=== PATIENT | female | born 1965 | race Caucasian/White ===

== ENCOUNTER 2020-02-14 16:25 | Emergency (ER) | payer OTHER, SELFPAY | END 2020-02-14 16:42 | disposition left against medical advice (07) | PROVIDERS: Emergency Provider Emergency Medicine; PCP Family Medicine | DX: Z53.8 Procedure and treatment not carried out for other reasons (principal) | CPT/HCPCS: 99199 ==

== ENCOUNTER 2020-03-03 00:19 | Emergency (ER) | payer OTHER, SELFPAY ==
[2020-03-03 00:28] VITALS: BP 138/67; PULSE 70; RESP 18; TEMP 36.1; O2SAT 98
--- NOTE | 2020-03-03 00:30 | ED.ABDPAIN ---
HPI - Abdominal Pain General Chief Complaint: Abdominal Pain Stated Complaint: right sided abd pain Time Seen by Provider: 03/03/20 00:21 History of Present Illness HPI narrative: RLQ pain for a few days. Severe at times. Radiates into her back. Associated with blood and mucous in her stool. Similar to pain she has due to colitis a few months ago. She also has diverticulosis. She sees Dr. Ac. No fever, chest pain, urinary symptoms. On review of the chart there are multiple outside ED records with similar prsentations. Furthermore Dr. Gleason notes that she has been seen in mutiple EDs with these complaints with positive findings only one of those times. Related Data Home Medications Medication Instructions Recorded Confirmed escitalopram oxalate 10 mg tablet 10 mg PO DAILY 01/19/20 03/02/20 risperidone 1 mg/mL oral solution 1 mg PO BID 01/19/20 03/02/20 trazodone 100 mg tablet 100 mg PO DAILY 01/19/20 03/02/20 atorvastatin 20 mg PO DAILY 03/03/20 lorazepam 0.5 mg PO DAILY 03/03/20 Allergies Allergy/AdvReac Type Severity Reaction Status Date / Time No Known Allergies Allergy Verified 03/03/20 01:10 Review of Systems Review of Systems: All systems reviewed & are unremarkable except as noted in HPI and below Constitutional: Constitutional: Denies chills and Denies fever(s) Cardiovascular: Cardiovascular: Denies chest pain Respiratory: Respiratory: Denies dyspnea Gastrointestinal: Gastrointestinal: Reports abdominal pain, Reports diarrhea, Denies nausea and Denies vomiting Genitourinary: Genitourinary: Denies hematuria and Denies dysuria Musculoskeletal: Musculoskeletal: Reports back pain Neurologic: Denies confusion and Denies weakness [facility] Past Medical History Medical History Diverticulosis Family history of colon cancer in father Fatty liver LLQ pain Social History Social History Gender identity (if verbalized by the patient): Female Exam Const: General: healthy appearing, no acute distress and alert Orientation/consciousness: patient oriented x3 HENMT: Head: normal to inspection Resp: Effort & Inspection: normal respiratory effort Auscultation: clear to auscultation bilaterally Cardio: Rate: regular rate Rhythm: regular rhythm GI: Inspection: non-distended GI Palp: Yes Soft to palpation, No Tenderness to palpation present (GI), No Guarding due to palpation present (GI) and No Rebound tenderness present Auscultation: normal bowel sounds Skin: General skin exam: normal color Neuro: General: patient oriented x3, moves all extremities, no focal motor deficits and CN's II-XI intact bilaterally Speech: normal speech Extrem: General: normal to inspection Course Vital Signs Vital signs: Vital Signs Temperature 36.1 C L 03/03/20 00:28 Pulse Rate 70 03/03/20 00:28 Respiratory Rate 18 03/03/20 00:28 Blood Pressure 138/67 03/03/20 00:28 Pulse Oximetry 98 03/03/20 00:28 Temperature 36.1 C L 03/03/20 00:28 Pulse Rate 70 03/03/20 00:28 Respiratory Rate 18 03/03/20 00:28 Blood Pressure 138/67 03/03/20 00:28 Pulse Oximetry 98 03/03/20 00:28 MDM - Abdominal Pain MDM Narrative Medical decision making narrative: After my initial evaluation I ordered pain medication and a CT scan. When they came to get her for the CT she told them that she wasn't going anywhere without getting pain medications. I told her that if she wasn't going to cooperate or allow us to do what needed to be done that she would be discharged. Furthermore that she seemed to be demonstrating drug seeking behavior and given her history of visiting multiple different emergency departments that was quite concerning. Differential Diagnosis Differential diagnosis: Likely abdominal pain Medical Records Attestation: I reviewed the patient's medical records. Lab Data Atte
[2020-03-03 01:14] LABS: Basophils Percent Auto 0.4 % (0.2-1.2); Eosinophils Absolute Auto 0.3 K/mm3 (0-0.3); Eosinophils Percent Auto 4.3 % (0-4.4); Hematocrit 40.5 % (37.0-47.0); Hemoglobin 13.8 g/dL (12.0-15.0); Immature Granulocyte Absolute 0.04 K/mm3 (0.00-0.031); Immature Granulocyte Percent A 0.5 % (0-0.5); Lymphocytes Absolute Auto 2.86 K/mm3 (0.9-3.2); Lymphocytes Percent Auto 38.7 % (18.3-44.2); Mean Corpuscular HGB Conc 34.1 g/dl (32-36); Mean Corpuscular Hemoglobin 30.8 pg (26-34); Mean Corpuscular Volume 90.4 fl (80-100); Mean Platelet Volume 10.1 fl (7.4-10.4); Monocytes Absolute Auto 0.5 K/mm3 (0.1-0.6); Monocytes Percent Auto 7.2 % (2.6-8.5); Neutrophils Absolute Auto 3.6 K/mm3 (1.3-6.7); Neutrophils Percent Auto 48.9 % (45.5-73.1); Platelet Count Result 279 k/mm3 (150-375); Red Blood Count 4.48 M/mm3 (4.2-5.4); Red Cell Distribution Width 12.3 % (11.5-14.5); White Blood Count 7.4 K/mm3 (4.5-10.0)
[2020-03-03 01:29] LABS: Alanine Aminotransferase 27 U/L (4-35); Albumin Level 3.9 g/dL (3.5-5.1); Alkaline Phosphatase 111 U/L (38-126); Anion Gap 4 mmol/L (8-16); Aspartate Amino Transferase 30 U/L (14-36); Bilirubin,Total 0.4 mg/dL (0.2-1.3); Blood Urea Nitrogen 11 mg/dL (7-17); Calcium 8.5 mg/dL (8.4-10.2); Carbon Dioxide 28 mmol/L (22-30); Chloride 107 mmol/L (98-107); Estimated CRCL calculation 106 ml/min; Estimated Glomerular Filt Rate > 60; Glucose 112 mg/dL (65-105); Lipase 78 U/L (23-300); Potassium 3.8 mmol/L (3.4-5.0); Sodium 139 mmol/L (137-145)
[2020-03-03 01:33] LABS: Add Urine Microscopic? YES; Appearance Urine Clear (Clear); Bilirubin Urine Negative (Negative); Blood Urine Negative (Negative); Color Urine Straw (Yellow); Glucose Urine UA Negative (Negative); Ketones Urine Negative (Negative); Leukocyte Esterase Ur Negative LEU/UL (Negative); Mucus Urine Rare /lpf; Nitrate Urine Negative (Negative); Protein Urine Negative (Negative); RBC Urine 0-2 /hpf (0-2); Specific Grav Ur 1.014 (1.001-1.035); Squamous Epithelial Cell Urine Rare /hpf (Few); Urobilinogen Urine Negative mg/dL (<2.0); WBC Urine 0-3 /hpf
--- NOTE | 2020-03-03 02:03 | PC.NURSE ---
pt refused to signed d/c papers
--- NOTE | 2020-03-03 02:04 | PC.NURSE ---
pr pt angry about being in room 4 with a man in room 5 . pt wants a private room . pt also refused to go to ct until she gets her pain med . aware and change her status to discharge.
== END 2020-03-03 02:10 | disposition home or self-care (01) ==
PROVIDERS: Emergency Provider Emergency Medicine; PCP Family Medicine
DX: R10.31 Right lower quadrant pain (principal); K76.0 Fatty (change of) liver, not elsewhere classified
CPT/HCPCS: 36415; 80053; 81001; 83690; 85025; 96374; 99284; J3010

== ENCOUNTER 2020-03-03 00:33 | Outpatient (CLI) | payer OTHER, SELFPAY ==
[2020-03-03 18:02] LABS: SARS-CoV-2 RNA PCR Negative
== END 2020-03-03 00:34 | disposition home or self-care (01) ==
LOC: ANHCOVIDDT 00:33
PROVIDERS: PCP Family Medicine; Visit Provider Internal Medicine Gastroenterology
DX: Z01.812 Encounter for preprocedural laboratory examination (principal); Z20.828 Contact with and (suspected) exposure to other viral communicable diseases
CPT/HCPCS: 87635; C9803; U0003

== ENCOUNTER 2020-03-03 10:08 | Emergency (ER) | payer OTHER, SELFPAY ==
--- NOTE | ~2020-03-03 | CT_ITS ---
EXAMINATION: CT abdomen pelvis w con DATE: 03/03/2020 11:40 INDICATION: History of bloody stools. History of diverticulitis. TECHNIQUE: Computed tomography (CT) of the abdomen and pelvis was performed with 100 cc Omnipaque 350 intravenous contrast. The dose-length product was 788.76 mGy-cm. Automated exposure control and iter ative reconstruction technique were employed. COMPARISON: CT dated 11/18/2018 FINDINGS: Lung bases unremarkable. There are breast implants. Heart size normal. Small hiatal hernia. No significant vascular abnormality. No lymphadenopathy. The liver, spleen, pancreas, adrenal glands and left kidney are unremarkable. Small subcentimeter hyp ovascular density in the right kidney, most likely benign. Gallbladder is present. Nonobstructive bow el gas pattern. Normal appendix. Uterus is likely surgically absent. No evidence for acute diverticul itis. No free air or free fluid. No acute osseous abnormality. Small bone islands noted in the right femur. IMPRESSION: 1. No acute abdominal abnormality. Reviewed, dictated and finalized at location A.
--- NOTE | 2020-03-03 10:26 | PC.NURSE ---
VERBAL ORDER FROM [facility]TA[facility] FOR STAT CT W/ CONTRAST ABD PELVIS.
[2020-03-03 10:27] VITALS: BP 141/70; PULSE 73; RESP 16; TEMP 36.3; O2SAT 99
--- NOTE | 2020-03-03 12:10 | ED.ABDPAIN ---
HPI - Abdominal Pain General Chief Complaint: Abdominal Pain Stated Complaint: abd/back pain/bloody stools Time Seen by Provider: 03/03/20 10:20 History of Present Illness HPI narrative: Patient is a 54-year-old female who presents ER with right lower quadrant pain. Began yesterday at 2 PM. Has been persistent. Associated with some bloody stools and pink mucus stools. Same time has history of polyp removal 6 months ago. She supposed to have a colonoscopy in [address] Rollins. Her chest pain/shortness of breath/nausea/vomiting. Seen in the ER last night and left due to not receiving pain medication. There is concern for drug-seeking behavior as patient's had multiple visits throughout the state for her pain. Related Data Home Medications Medication Instructions Recorded Confirmed escitalopram oxalate 10 mg tablet 10 mg PO DAILY 01/19/20 03/02/20 risperidone 1 mg/mL oral solution 1 mg PO BID 01/19/20 03/02/20 trazodone 100 mg tablet 100 mg PO DAILY 01/19/20 03/02/20 Allergies Allergy/AdvReac Type Severity Reaction Status Date / Time No Known Allergies Allergy Verified 03/03/20 01:10 Review of Systems Review of Systems: All systems reviewed & are unremarkable except as noted in HPI and below Constitutional: Constitutional: Denies chills, Denies fever(s) and Denies weakness Respiratory: Respiratory: Denies cough and Denies dyspnea Gastrointestinal: Gastrointestinal: Reports abdominal pain, Reports diarrhea, Denies nausea and Denies vomiting Comments: Blood in stool PMFSH Past Medical History Medical History (Updated 03/03/20 @ 12:14 by James Burnham MD) Diverticulosis Family history of colon cancer in father Fatty liver LLQ pain Surgical History Surgical History (Updated 03/03/20 @ 12:11 by James Burnham MD) History of colonoscopy History of esophagogastroduodenoscopy (EGD) Social History Social History Gender identity (if verbalized by the patient): Female Exam Narrative: Exam Narrative: GENERAL: Well-appearing, well-nourished, and in no acute distress. HEAD: Normocephalic, atraumatic. ENT: Mucous membranes moist. CHEST: Clear to auscultation. No respiratory distress. HEART: Regular rate and rhythm. Normal peripheral pulses. ABDOMEN: Soft, tender to palpation right upper quadrant and right lower quadrant but more in the lower quadrant, nondistended. EXTREMITIES: Normal range of motion. No edema. NEURO: Alert and oriented x3. Course Course Emergency Course: Informed of results. Discharge home with [facility]. Vital Signs Vital signs: Vital Signs Temperature 97.3 F L 03/03/20 10:27 Pulse Rate 73 03/03/20 10:27 Respiratory Rate 16 03/03/20 10:27 Blood Pressure 141/70 H 03/03/20 10:27 Pulse Oximetry 99 03/03/20 10:27 Temperature 97.3 F L 03/03/20 10:27 Pulse Rate 73 03/03/20 10:27 Respiratory Rate 16 03/03/20 10:27 Blood Pressure 141/70 H 03/03/20 10:27 Pulse Oximetry 99 03/03/20 10:27 MDM - Abdominal Pain Imaging Data Radiologist's impression: ITS Impressions Abdomen/Pelvis CT 03/03/20 11:44 IMPRESSION: 1. No acute abdominal abnormality. Discharge Plan Discharge Clinical Impression: Abdominal pain, RLQ Patient Disposition: Home, Self-Care Condition: Stable Instructions: Abdominal Pain (ED) Additional Instructions: Return the ER if you have fever over 100.4 ?F, you cannot keep down food or water, you have chest pain or shortness of breath, you have additional concerns. Prescriptions: New dicyclomine 20 mg tablet 20 mg PO QID Qty: 20 RF: 0 No Action escitalopram oxalate [Lexapro] 10 mg tablet 10 mg PO DAILY RF: 0 trazodone 100 mg tablet 100 mg PO DAILY RF: 0 risperidone [Risperdal] 1 mg/mL solution 1 mg PO BID RF: 0 Follow-up/Referrals: Luis Rollins MD [Physician] - 3 Days Edilberto,MD Jeremie [
[2020-03-03 12:16] VITALS: BP 127/58; PULSE 60; RESP 16; O2SAT 97
== END 2020-03-03 12:16 | disposition home or self-care (01) ==
PROVIDERS: Emergency Provider Emergency Medicine; PCP Family Medicine
DX: R10.31 Right lower quadrant pain (principal); K76.0 Fatty (change of) liver, not elsewhere classified
CPT/HCPCS: 36415; 74177; 80053; 81001; 83690; 85025; 87635; 96374; 99284; C9803; J3010; Q9967; U0003

== ENCOUNTER 2020-03-06 01:48 | Day surgery (SDC) | payer OTHER, SELFPAY ==
[2020-03-02 15:24] VITALS: BMI 29.7
[2020-03-06 06:17] VITALS: BP 135/67; PULSE 86; RESP 16; TEMP 36.5; O2SAT 98; BMI 29.5
[2020-03-06] MEDS: LACTATED RINGERS 1,000 ML 150 ML IV CONT (06:30)
--- NOTE | 2020-03-06 06:48 | WPDANESEPPF ---
Anes - Initial Pre Proc Eval Procedure: Operation Date: 03/06/20 07:00 Proposed Procedures p Screening Colonoscopy - Luis Rollins MD Date/Time: 03/06/20 06:48 Surgeon: Luis Rollins MD Pre Op Diagnosis: Family History of Colon CA Patient Data Age: 54 Gender: F Height: 5 ft 8 in Weight: 88.1 kg Last Vital Signs Temp 36.5 C 03/06/20 06:17 Pulse 86 03/06/20 06:17 Resp 16 03/06/20 06:17 BP 135/67 03/06/20 06:17 Pulse Ox 98 03/06/20 06:17 Allergies Allergy/AdvReac Type Severity Reaction Status Date / Time No Known Allergies Allergy Verified 03/06/20 06:15 Home Medications Medication Instructions Recorded Confirmed Type escitalopram oxalate 10 mg tablet 10 mg PO DAILY 01/19/20 03/02/20 History risperidone 1 mg/mL oral solution 1 mg PO BID 01/19/20 03/02/20 History trazodone 100 mg tablet 100 mg PO DAILY 01/19/20 03/02/20 History dicyclomine 20 mg PO QID #20 tablet 03/03/20 Rx Patient hx anesthesia problems: none Family hx anesthesia problems: none PMFSH Past Medical History Medical History Anxiety Depression Diverticulosis Family history of colon cancer in father Fatty liver LLQ pain Surgical History Surgical History History of colonoscopy History of esophagogastroduodenoscopy (EGD) Social History Social History Gender identity (if verbalized by the patient): Female Anes - Eval Final PreProcedure Day of Procedure 03/06/20 06:48 Patient weight: overweight Heart: regular rate and rhythm Lungs: clear to auscultation Airway: Mallampati scale class II Neurological: alert and oriented Last oral intake: >/= 8 hours ASA classification: III Emergent: no Anesthetic plan: proceed Anesthesia type and monitoring: general GIVS and standard monitoring Informed Consent: The patient's anesthetic plan and its attendant risks and benefits were discussed with the patient/family/POA. Questions were solicited and answers provided to the satisfaction of the patient/family/POA.
--- NOTE | 2020-03-06 07:19 | PM.HPGS ---
History of Present Illness History of Present Illness Consent: Risks, benefits, and alternatives have been discussed and questions answered. Patient agrees to proceed with procedure. Chief complaint: Family History of Colon CA Narrative: Napoleon Howell is a 54 year old female with intermittent lower abdominal pain, recent CT scan negative. Review of Systems Constitutional: Constitutional: Denies headache(s) and Denies weakness Eyes: Eyes: Denies blurry vision ENT: Reports Normal hearing present, Denies headache(s) and Denies neck pain Cardiovascular: Cardiovascular: Denies chest pain and Denies dyspnea Respiratory: Respiratory: Denies dyspnea Gastrointestinal: Gastrointestinal: Reports no additional gastrointestinal complaints Genitourinary: Genitourinary: Denies dysuria Musculoskeletal: Musculoskeletal: Denies neck pain Integumentary/Breasts: Skin/Breast: Denies dry skin Neurologic: Reports Normal hearing present, Denies headache(s) and Denies weakness Psychiatric: Psychiatric: Denies anxiety Endocrine: Endocrine: Denies change in body appearance Hematologic/Lymphatic: Hematologic/Lymphatic: Denies easy bleeding Allergic/Immunologic: Allergic/Immunologic: Denies urticaria PMFSH Past Medical History Medical History Anxiety Depression Diverticulosis Family history of colon cancer in father Fatty liver LLQ pain Surgical History Surgical History History of colonoscopy History of esophagogastroduodenoscopy (EGD) Social History Social History Gender identity (if verbalized by the patient): Female Meds Home Medications and Allergies Home Medications Medication Instructions Recorded Confirmed Type escitalopram oxalate 10 mg tablet 10 mg PO DAILY 01/19/20 03/02/20 History risperidone 1 mg/mL oral solution 1 mg PO BID 01/19/20 03/02/20 History trazodone 100 mg tablet 100 mg PO DAILY 01/19/20 03/02/20 History dicyclomine 20 mg PO QID #20 tablet 03/03/20 Rx Allergies Allergy/AdvReac Type Severity Reaction Status Date / Time No Known Allergies Allergy Verified 03/06/20 06:15 Vital Signs Vital Signs - 24 hr 03/06/20 06:17 Temperature 97.7 F Pulse Rate 86 Respiratory Rate 16 Blood Pressure 135/67 Pulse Oximetry 98 Exam Const: General: comfortable and no acute distress HENMT: General nose exam: Normal nares present Eyes: General: appearance normal, both eyes and all related structures Neck: Neck: no JVD Resp: Auscultation: clear to auscultation bilaterally Cardio: Rate: regular rate Rhythm: regular rhythm GI: Inspection: non-distended GI Palp: Yes Soft to palpation Skin: General skin exam: normal color Neuro: General: gait normal Speech: normal speech Extrem: General: normal to inspection Psych: Mental Status: mental status grossly normal Assessment and Plan Assessment and plan (1) Diverticulosis: Code(s): K57.90 - Diverticulosis of intestine, part unspecified, without perforation or abscess without bleeding Status: Acute (2) Family history of colon cancer in father: Code(s): Z80.0 - Family history of malignant neoplasm of digestive organs Status: Acute (3) Lower abdominal pain: Code(s): R10.30 - Lower abdominal pain, unspecified Status: Acute Assessment and Plan: will proceed with colonoscopy
[2020-03-06 07:22] VITALS: BP 108/64; PULSE 79; RESP 26; O2SAT 94
[2020-03-06 07:32] VITALS: BP 121/71; PULSE 75; RESP 23; O2SAT 96
[2020-03-06 07:42] VITALS: BP 129/73; PULSE 66; RESP 22; O2SAT 96
== END 2020-03-06 07:51 | disposition home or self-care (01) ==
PROVIDERS: PCP Family Medicine; Visit Provider Internal Medicine Gastroenterology
PROC: 0DJD8ZZ Inspection of Lower Intestinal Tract, Via Natural or Artificial Opening Endoscopic (ICD-10-PCS; CPT 45378; principal; 2020-03-06 07:00)
DX: K57.30 Diverticulosis of large intestine without perforation or abscess without bleeding (principal); K64.8 Other hemorrhoids; Z80.0 Family history of malignant neoplasm of digestive organs; K76.0 Fatty (change of) liver, not elsewhere classified; F41.8 Other specified anxiety disorders
CPT/HCPCS: 45378; J2704; J7120

== ENCOUNTER 2020-11-11 20:21 | Emergency (ER) | payer OTHER, SELFPAY ==
--- NOTE | ~2020-11-11 | CT_ITS ---
EXAMINATION: CT cervical spine wo con DATE: 11/11/2020 20:52 INDICATION: Neck pain TECHNIQUE: Computed tomography (CT) of the cervical spine was performed without intravenous contrast. The dose-length product (DLP) was 406.58 mGy-cm. Automated exposure control and iterative reconstruc tion technique were employed. COMPARISON: None FINDINGS: There is no fracture, dislocation, or subluxation. The vertebral body heights and alignment are maintained. There is mild loss of intervertebral disc space height at C3-4. The odontoid is inta ct. The prevertebral soft tissues are normal. There is a hemangioma in the T3 vertebral body. There a re multiple small lytic areas involving several vertebral bodies. There is mild to moderate multileve l facet and uncovertebral joint osteoarthritis. IMPRESSION: 1. Mild cervical spondylosis without acute findings. 2. Multiple small lytic areas involving several vertebral bodies which could reflect degenerative silvia nge or possibly multiple myeloma or metastatic disease in the appropriate clinical setting. Reviewed, dictated and finalized at location A. IMPRESSION: 1. Mild cervical spondylosis without acute findings. 2. Multiple small lytic areas involving several vertebral bodies which could re flect degenerative change or possibly multiple myeloma or metastatic disease in the appropriate clinical setting.
[2020-11-11 20:30] VITALS: BP 128/85; PULSE 74; RESP 20; TEMP 36.8; O2SAT 98
[2020-11-11] MEDS: DEXAMETHASONE 4 MG TABLET 12 MG PO (20:42)
[2020-11-11] MEDS: BACLOFEN 10 MG TABLET 20 MG PO (20:42)
[2020-11-11] MEDS: KETOROLAC (*BKC) 60 MG/2 ML VIAL IM (20:42)
--- NOTE | 2020-11-11 21:07 | PC.NURSE ---
Pt. up from room at nurses desk p being told that her CT report would be back soon and pt. walked out of ER. Pt. stated as walking out that the Dr wasn't addressing her pain and she was leaving. Pt. informed that her CT would be back very soon and to please allow the pain medication and oral medications she was given to work and that it has only been approx. 15-20 min since meds were given. Pt. didn't want to hear explanation or sign any paperwork and eloped from ER before care was complete.
--- NOTE | 2020-11-11 21:09 | PC.NURSE ---
Pt. walked briskly from ER and no pain noted at time of elopement, pt. moving all extremities and neck and back s any difficulties when leaving.
--- NOTE | 2020-11-12 06:15 | ED.FALL ---
HPI - Fall General Chief Complaint: Fall Stated Complaint: fell hit head hurt neck and back Time Seen by Provider: 11/11/20 20:35 Source: patient Mode of arrival: ambulatory Limitations: no limitations History of Present Illness HPI Narrative: Patient comes in after a fall, in which she fell and hit a table and scraped her forehead. She complains of pain and popping in her neck, especially with movement. She states she has chronically had neck pain, but now it is more severe. She describes this as moderately severe pain, ongoing since fall about 30 minutes prior to presentation here, developing after the fall. Nothing has helped this at home. She also complains of a headache since the fall. She was immediately taken to room #7 and evaluated. No modifying factors. MD complaint: fall Onset (ago): minute(s) Fall from: standing Fall witnessed: no Place fall occurred: home Loss of consciousness: none Prolonged down time: no Symptoms prior to fall: other (simply tripped) Context: tripped/slipped Location of injury: head (scrape on forehead) Related Data Home Medications Medication Instructions Recorded Confirmed escitalopram oxalate 10 mg tablet 10 mg PO DAILY 01/19/20 11/11/20 trazodone 100 mg tablet 100 mg PO DAILY 01/19/20 11/11/20 lamotrigine 25 mg PO DAILY 11/11/20 11/11/20 Allergies Allergy/AdvReac Type Severity Reaction Status Date / Time Penicillins Allergy Unknown Verified 11/11/20 20:35 tramadol Allergy Unknown Verified 11/11/20 20:35 Review of Systems Constitutional: Constitutional: Reports no additional constitutional complaints Eyes: Eyes: Reports no additional eye complaints ENT: Reports system reviewed and no additional complaints, except as documented Cardiovascular: Cardiovascular: Reports no additional cardiovascular complaints Respiratory: Respiratory: Reports no additional respiratory complaints Gastrointestinal: Gastrointestinal: Reports no additional gastrointestinal complaints Genitourinary: Genitourinary: Reports no additional female genitourinary complaints Musculoskeletal: Comments: neck pain with turning neck Integumentary/Breasts: Skin/Breast: Reports system reviewed and no additional complaints, except as docu Neurologic: Reports system reviewed and no additional complaints, except as documented Psychiatric: Psychiatric: Reports no additional psychiatric complaints Endocrine: Endocrine: Reports no additional endocrine complaints Hematologic/Lymphatic: Hematologic/Lymphatic: Reports no additional hematologic/lymphatic complaints Allergic/Immunologic: Allergic/Immunologic: Reports no additional allergic/immunologic complaints [facility] Past Medical History Medical History Anxiety Depression Diverticulosis Family history of colon cancer in father Fatty liver LLQ pain Lower abdominal pain Surgical History Surgical History History of colonoscopy History of esophagogastroduodenoscopy (EGD) Social History Social History (Updated 11/12/20 @ 06:25 by Kyler Castanon MD) Smoking status: Current every day smoker Tobacco type: cigarettes Gender identity (if verbalized by the patient): Female Exam Const: General: alert Orientation/consciousness: patient oriented x3 HENMT: Head: normal to inspection Ears: external ears normal and TM's normal bilaterally Face and sinus: normal facial exam Mouth: Yes Normal oral and palatal mucosa present Throat: posterior oropharynx normal Eyes: Conjunctivae: conjunctivae normal Neck: Other: Visual inspection of neck shows neck appear to move with turning head, and she appears to have pain with turning head to the left Chest: Chest palpation & inspection: normal inspection of the chest Resp: Effort & Inspection: normal respiratory effort Auscultation: clear to auscultation bilaterally Cardio: Rate: regular rate Rhythm:
== END 2020-11-11 21:13 | disposition left against medical advice (07) ==
PROVIDERS: Emergency Provider Emergency Medicine; PCP Family Medicine
DX: C90.00 Multiple myeloma not having achieved remission (principal); W19.XXXA Unspecified fall, initial encounter
CPT/HCPCS: 72125; 96372; 99283; 99284; A9270; J1885; J8540

== ENCOUNTER 2020-11-30 00:12 | Emergency (ER) | payer OTHER, SELFPAY ==
--- NOTE | ~2020-11-30 | CT_ITS ---
EXAMINATION: CT lumbar spine wo con EXAM DATE: 11/30/2020 00:52 INDICATION: Low back pain after lifting person today. TECHNIQUE: Spiral CT lumbar spine was performed without contrast. Axial, coronal and sagittal images of the lumbar spine were reviewed. The dose-length product (DLP) for this examination was 1387.70 mGy -cm. The exposure was tailored according to patient size (auto mA exposure control), and iterative r econstruction (ASIR) was used as additional dose reduction technique. Correlation is made to CT abdom en pelvis 2018. FINDINGS: Some scattered regions of decreased bone density, most are less pronounced than on cervical spine exa m same date. The posterior cortex of the S2 segment is not perceptible, but no definite extraosseous soft tissue is identified. Correlation was made with CT abdomen pelvis 11/18/2018, and could identify posterior cortex at that time. Could be focal osteopenia, but metastatic disease or multiple myeloma also possible. Please note that multiple myeloma typically not well visualized on bone scan. Could co nsider MRI of the lumbar spine without and with contrast. There is no evidence of acute lumbar fracture. There is no disc space widening or traumatic vertebra l body subluxation suspected. Paraspinal soft tissue is unremarkable. Mild lumbar disc disease, mil d to moderate facet arthropathy. A detailed level by level evaluation of spondylosis can be added as addendum if requested. IMPRESSION: 1. Possible multiple myeloma or metastatic disease. 2. Mild to moderate lumbar facet arthropathy. 3. No fracture Reviewed, dictated and finalized at location A.
--- NOTE | ~2020-11-30 | CT_ITS ---
EXAMINATION: CT cervical spine wo con EXAM DATE: 11/30/2020 00:52 INDICATION: Neck and low back pain after lifting a person today, initial encounter. TECHNIQUE: Spiral CT of the cervical spine was performed without contrast. Axial images were reviewe d. Coronal and sagittal reformatted images cervical spine were also reviewed. The dose-length produc t (DLP) for this examination was 429.54 mGy-cm. The exposure was tailored according to patient size (auto mA exposure control), and iterative reconstruction (ASIR) was used as additional dose reduction technique. Comparison is made to prior examination from 11/11/2020. FINDINGS: There is a hemangioma in the T3 vertebral body. There are scattered small osseous lucencies up to about 1 cm in size, possible metastatic disease or multiple myeloma. There is no evidence of a cute cervical fracture. The odontoid process is intact. Pre-dens space is normal. Prevertebral sof t tissue is normal. There are no soft tissue abnormalities identified. There is no disc space widen ing or traumatic vertebral body subluxation suspected. There is mild cervical disc disease. There is severe left facet arthropathy at C3-4, severe on the right at C4-5 and C5-C6. Number than mild neura l foraminal or central canal stenosis. Lung apices are clear. A detailed level by level evaluation of spondylosis can be added as addendum if requested. IMPRESSION: 1. Scattered cervical osseous lucencies suspicious for multiple myeloma or metastatic disease. 2. Cervical spondylosis but no more than mild stenosis. 3. No acute fracture. Reviewed, dictated and finalized at location A. IMPRESSION: 1. Scattered cervical osseous lucencies suspicious for multiple myeloma or met astatic disease. 2. Cervical spondylosis but no more than mild stenosis. 3. No acute fracture.
[2020-11-30 00:12] VITALS: BP 142/83; PULSE 68; RESP 20; TEMP 36.3; O2SAT 97
--- NOTE | 2020-11-30 00:37 | PC.NURSE ---
pt declined medications ordered by dr woods.
[2020-11-30] MEDS: MORPHINE SULFATE (*CRX) 4 MG/ML INJ IM (01:04)
[2020-11-30] MEDS: ORPHENADRINE CITRATE 100 MG TABLET.ER PO (01:09)
--- NOTE | 2020-11-30 01:34 | ED.BACK ---
HPI - Back Pain/Injury General Chief Complaint: Back Pain/Injury Stated Complaint: Back Pain/Lower Source: patient Mode of arrival: ambulatory Limitations: no limitations History of Present Illness HPI Narrative: this is a 55-year-old female that presents with some neck pain and lower back pain after she was at a concert and had a client that she had a lift and she injured her neck and back while in that process. The patient has chronic numbness and tingling in her hands. With no numbness or tingling or radiation down her legs no saddle paresthesias no bladder or bowel dysfunction no fever or chills shortness of breath no headaches or blurry vision. MD elicited complaint: back pain and back injury Pertinent past history: prior back pain Onset (ago): hour(s) Timing: constant Severity: severe Pain scale (0-10): 10 Similar Symptoms Previously: Yes Quality: sharp Location: lumbar spine Exacerbating factors: movement Relieving factors: immobilization Context: while lifting and turning/twisting Related Data Home Medications Medication Instructions Recorded Confirmed escitalopram oxalate 10 mg tablet 10 mg PO DAILY 01/19/20 11/30/20 trazodone 100 mg tablet 100 mg PO DAILY 01/19/20 11/30/20 lamotrigine 25 mg PO DAILY 11/11/20 11/30/20 Allergies Allergy/AdvReac Type Severity Reaction Status Date / Time Penicillins Allergy Unknown Verified 11/11/20 20:35 tramadol Allergy Unknown Verified 11/11/20 20:35 Review of Systems Review of Systems: All systems reviewed & are unremarkable except as noted in HPI and below PMFSH Past Medical History Medical History Anxiety Depression Diverticulosis Family history of colon cancer in father Fatty liver LLQ pain Lower abdominal pain Surgical History Surgical History History of colonoscopy History of esophagogastroduodenoscopy (EGD) Social History Social History Smoking status: Current every day smoker Tobacco type: cigarettes Gender identity (if verbalized by the patient): Female Exam Const: General: no acute distress and alert Orientation/consciousness: patient oriented x3 HENMT: Head: normal to inspection Eyes: Conjunctivae: conjunctivae normal Pupils: Equal, round and reactive pupils present EOM: EOMs intact bilaterally Neck: Neck: normal visual inspection, no lymphadenopathy and no meningeal signs Chest: Chest palpation & inspection: normal inspection of the chest Resp: Effort & Inspection: normal respiratory effort Auscultation: clear to auscultation bilaterally Cardio: Rate: regular rate Rhythm: regular rhythm GI: Auscultation: normal bowel sounds : General: Yes no CVA tenderness Back/Spine/Pelvis: Back: no CVA tenderness Skin: General skin exam: normal color Rashes: no rashes Neuro: General: patient oriented x3, moves all extremities and no meningeal signs Extrem: Other: Bilateral L4 paravertebral tenderness with palpation with a negative straight leg raising test, does have some muscle tenderness in her posterior cervical spine area with palpation Psych: Mental Status: mental status grossly normal Affect: normal affect and Anxious affect present Attitude: cooperative Course Course Emergency Course: patient initially refused Toradol and orphenadrine, but eventually was okay with some dose of morphine IM and orphenadrine and CT scans reviewed with patient. Vital Signs Vital signs: Vital Signs Temperature 36.3 C L 11/30/20 00:12 Pulse Rate 68 11/30/20 00:12 Respiratory Rate 20 11/30/20 00:12 Blood Pressure 142/83 H 11/30/20 00:12 Pulse Oximetry 97 11/30/20 00:12 Temperature 36.3 C L 11/30/20 00:12 Pulse Rate 68 11/30/20 00:12 Respiratory Rate 20 11/30/20 00:12 Blood Pressure 142/83 H 11/30/20 00:12 Pulse Oximetry 97 11/30/20 00:12
[2020-11-30] MEDS: diphenhydrAMINE HCl CAP 25 MG CAPSULE PO (01:47)
--- NOTE | 2020-11-30 01:58 | PC.NURSE ---
0140 pt complaint of itching after morphine, requesting benadryl. erp notified and order received. prior to administration, pt stated she is not allergic to morphine but it does make her itch. explained she may not want to take medication, pt wanting morphine. morphine administered as ordered.
[2020-11-30 02:12] VITALS: BP 151/56; PULSE 58; RESP 18; O2SAT 97
== END 2020-11-30 02:22 | disposition home or self-care (01) ==
PROVIDERS: Emergency Provider Emergency Medicine; PCP Physician Assistant
DX: S39.012A Strain of muscle, fascia and tendon of lower back, initial encounter (principal); M85.89 Other specified disorders of bone density and structure, multiple sites; X50.9XXA Other and unspecified overexertion or strenuous movements or postures, initial encounter
CPT/HCPCS: 72125; 72131; 96372; 99283; 99284; A9270; J2270

== ENCOUNTER 2021-01-27 08:21 | Emergency (ER) | payer OTHER, SELFPAY ==
[2021-01-27 08:35] VITALS: BP 111/74; PULSE 78; RESP 20; TEMP 37; O2SAT 98
--- NOTE | 2021-01-27 08:56 | ED.URI ---
HPI - URI/Sore Throat General Chief Complaint: Upper Respiratory Infection Stated Complaint: Sob headache Time Seen by Provider: 01/27/21 08:25 Source: patient and RN notes reviewed Mode of arrival: ambulatory Limitations: no limitations History of Present Illness MD elicited complaint: sore throat and nasal congestion Onset (ago): day(s) (3) Consistency: constant Severity: mild Pain scale (0-10): 0 Able to tolerate fluids by mouth: Yes Exacerbating factors: nothing Relieving factors: OTC cold medicine Associated symptoms: denies other symptoms, headache and sore throat Related Data Allergies Allergy/AdvReac Type Severity Reaction Status Date / Time Penicillins Allergy Unknown Verified 11/11/20 20:35 tramadol Allergy Unknown Verified 11/11/20 20:35 Review of Systems Review of Systems: All systems reviewed & are unremarkable except as noted in HPI and below Constitutional: Constitutional: Reports as per HPI and Reports no additional constitutional complaints Eyes: Eyes: Reports as per HPI and Reports no additional eye complaints ENT: Reports system reviewed and no additional complaints, except as documented and Reports as per HPI Cardiovascular: Cardiovascular: Reports as per HPI and Reports no additional cardiovascular complaints Respiratory: Respiratory: Reports as per HPI and Reports no additional respiratory complaints Gastrointestinal: Gastrointestinal: Reports as per HPI and Reports no additional gastrointestinal complaints Genitourinary: Genitourinary: Reports no additional female genitourinary complaints and Reports as per HPI Musculoskeletal: Musculoskeletal: Reports no additional musculoskeletal complaints and Reports as per HPI Integumentary/Breasts: Skin/Breast: Reports system reviewed and no additional complaints, except as docu and Reports as per HPI Neurologic: Reports system reviewed and no additional complaints, except as documented and Reports as per HPI Psychiatric: Psychiatric: Reports no additional psychiatric complaints and Reports as per HPI Endocrine: Endocrine: Reports no additional endocrine complaints and Reports as per HPI Hematologic/Lymphatic: Hematologic/Lymphatic: Reports no additional hematologic/lymphatic complaints and Reports as per HPI Allergic/Immunologic: Allergic/Immunologic: Reports no additional allergic/immunologic complaints [facility] Past Medical History Medical History Anxiety Depression Diverticulosis Family history of colon cancer in father Fatty liver LLQ pain Lower abdominal pain Surgical History Surgical History History of colonoscopy History of esophagogastroduodenoscopy (EGD) Social History Social History Smoking status: Current every day smoker Tobacco type: cigarettes Gender identity (if verbalized by the patient): Female Exam Const: General: no acute distress and alert Orientation/consciousness: patient oriented x3 HENMT: Head: normal to inspection Ears: external ears normal and TM's normal bilaterally General nose exam: Normal external nose present and Normal nares present Mouth: Yes moist mucous membranes Other: mild pharyngeal redness with no acute swelling or exudates. no stridor. Eyes: Conjunctivae: conjunctivae normal Pupils: Equal, round and reactive pupils present EOM: EOMs intact bilaterally Neck: Neck: normal visual inspection and no lymphadenopathy Chest: Chest palpation & inspection: normal inspection of the chest Resp: Effort & Inspection: normal respiratory effort Auscultation: clear to auscultation bilaterally Cardio: Rhythm: regular rhythm GI: GI Palp: Yes Soft to palpation Percussion: Yes normal to percussion Auscultation: normal bowel sounds : General: Yes bladder normal to palpation and Yes no CVA tenderness Back/Spine/Pelvis: Back: n
[2021-01-27] MEDS: ACETAMINOPHEN 325 MG TABLET 650 MG PO (09:02)
[2021-01-27] MEDS: guaiFENesin/DEXTROMETHORPHAN 5 ML UDC 10 ML PO (09:02)
[2021-01-27 09:10] VITALS: RESP 16
== END 2021-01-27 09:10 | disposition home or self-care (01) ==
PROVIDERS: Emergency Provider Emergency Medicine; PCP Physician Assistant
DX: B34.9 Viral infection, unspecified (principal); J06.9 Acute upper respiratory infection, unspecified; J02.9 Acute pharyngitis, unspecified
CPT/HCPCS: 99283; A9270

== ENCOUNTER 2021-06-27 18:16 | Emergency (ER) | payer OTHER, MEDICAID, SELFPAY ==
--- NOTE | ~2021-06-27 | XR_ITS ---
EXAMINATION: XR chest 1V portable EXAM DATE: 06/27/2021 18:47 INDICATION: Central chest pain with SOB and weakness x couple days. TECHNIQUE: Portable AP frontal chest x-ray was obtained. There is no prior study for comparison. FINDINGS: The lungs are clear. There are no pleural effusions. The cardiomediastinal silhouette is within normal limits. There is no pneumothorax suspected. The bones and soft tissues are unremarkab le. IMPRESSION: No acute cardiopulmonary findings. Reviewed, dictated and finalized at location A. ECTIONS ANALYST
[2021-06-27 18:20] VITALS: BP 133/75; PULSE 63; PULSE 73; RESP 16; TEMP 36.5; O2SAT 96
--- NOTE | 2021-06-27 18:29 | ECG_ITS ---
Measurements Intervals [place] Rate: 67 P: 73 MD: 128 QRS: 71 QRSD: 76 T: 61 QT: 416 QTc: 441 Interpretive Statements SINUS RHYTHM INCOMPLETE RIGHT BUNDLE BRANCH BLOCK BASELINE ARTIFACT- I, III, AVR, AVL, AVF BORDERLINE ECG Electronically Signed On 06-28-2021 6:13:20 [employer] by Galo Short D.O.
[2021-06-27] MEDS: NITROGLYCERIN SL 0.4 MG TABLET SUBLINGUAL ×2 (18:52→19:05)
[2021-06-27] MEDS: ASPIRIN 81 MG CHEWABLE TABLET 324 MG PO (18:56)
[2021-06-27] MEDS: SODIUM CHLORIDE 0.9% IV 500 ML 999 ML IV CONT (18:56)
[2021-06-27 19:09] LABS: Hematocrit 40.5 % (35.0-49.0); Hemoglobin 13.8 g/dL (12.0-15.0); Mean Corpuscular HGB Conc 34.1 g/dL (32.0-36.0); Mean Corpuscular Hemoglobin 31.1 pg (27.0-31.0); Mean Corpuscular Volume 91.2 fL (78.0-102.0); Mean Platelet Volume 10.4 fl (9.2-11.8); Platelet Count Result 200 K/mm3 (150-420); Red Blood Count 4.44 M/mm3 (4.20-5.40); Red Cell Distribution Width 11.8 % (11.6-14.4); White Blood Count 2.5 K/mm3 (4.8-10.8)
[2021-06-27 19:23] LABS: D Dimer 0.48 mg/L (0.19-0.50)
[2021-06-27] MEDS: MORPHINE SULFATE (*CRX) 2 MG/ML INJ IV PUSH (19:25)
[2021-06-27 19:33] LABS: Alanine Aminotransferase 18 U/L (14-59); Albumin Level 3.5 g/dL (3.4-5.0); Alkaline Phosphatase 105 U/L (46-116); Anion Gap 12 mmol/L (8-16); Aspartate Amino Transferase 18 U/L (15-37); Bilirubin,Total 0.3 mg/dL (0.00-1.00); Blood Urea Nitrogen 17 mg/dL (7-18); Calcium 8.3 mg/dL (8.5-10.1); Carbon Dioxide 24 mmol/L (21-32); Chloride 106 mmol/L (98-108); Estimated CRCL calculation 68 ml/min; Estimated Glomerular Filt Rate > 60; Glucose 91 mg/dL (70-99); NT Pro B Type Natriuretic Pept 19 pg/mL (0-125); Osmolality Calculated 295 mOsm/kg (285-295); Potassium 3.6 mmol/L (3.5-5.1); Sodium 142 mmol/L (136-145); Total Protein 6.6 g/dL (6.4-8.2); Troponin I 4.1 ng/L (0.00-60.4)
[2021-06-27 19:48] LABS: Band Neutrophils Percent 0 % (0-6); Basophils Absolute Manual 0.02 K/mm3 (0-0.1); Basophils Percent Manual 1 % (0-1); Eosinophils Absolute Manual 0.05 K/mm3 (0.02-0.5); Eosinophils Percent Manual 2 % (1-6); Lymphocytes Percent Manual 52 % (18-44); Monocytes Percent Manual 20 % (3-9); Neutrophils Absolute Manual 0.62 K/mm3 (1.7-7.2); Neutrophils Percent Manual 25 % (46-73); Platelet Estimate Adequate (Adequate)
[2021-06-27] MEDS: MAG HYDROX/ALUMINUM HYD/SIMETH 30 ML, PHENobarb/HYOSCY/ATROPINE/SCOP 32.4 MG, LIDOCAINE... PO (19:49)
[2021-06-27 20:00] VITALS: BP 121/69; PULSE 63; RESP 18; O2SAT 96
--- NOTE | 2021-06-27 20:05 | ED.CHESTPAIN ---
HPI - Chest Pain General Chief Complaint: Chest Pain Stated Complaint: Chest pain Source: patient Mode of arrival: ambulatory Limitations: no limitations History of Present Illness HPI narrative: This is a 55-year-old female that presents with a chest tightness that started earlier today and has significantly gotten worse as the night went on she describes it is a tightness in her epigastric and lower substernal area with no shortness of breath no diaphoresis no nausea or vomiting, has no known history of heart disease, is a positive smoker no family history of heart disease. Patient has been vaccinated for COVID but tested positive today for rapid COVID test at home. Currently no fever chills no shortness of breath no cough no congestion. MD complaint: chest pain and chest heaviness Onset (ago): hour(s) Timing of current episode: constant Prior episodes: No Onset: during rest Pain location: substernal and epigastric Pain radiation: none Severity: moderate Quality: tightness Relieving factors: nitroglycerin and antacids Related Data Home Medications Medication Instructions Recorded Confirmed escitalopram oxalate 10 mg PO DAILY 06/27/21 06/27/21 trazodone 100 mg PO HS 06/27/21 06/27/21 Allergies Allergy/AdvReac Type Severity Reaction Status Date / Time Penicillins Allergy Unknown Verified 11/11/20 20:35 tramadol Allergy Unknown Verified 11/11/20 20:35 Review of Systems Review of Systems: All systems reviewed & are unremarkable except as noted in HPI and below PMFSH Past Medical History Medical History Anxiety Depression Diverticulosis Family history of colon cancer in father Fatty liver LLQ pain Lower abdominal pain Surgical History Surgical History History of colonoscopy History of esophagogastroduodenoscopy (EGD) Social History Social History Smoking status: Current every day smoker Tobacco type: cigarettes Gender identity (if verbalized by the patient): Female Exam Const: General: no acute distress and alert Orientation/consciousness: patient oriented x3 HENMT: Head: normal to inspection and contusion Eyes: Pupils: Equal, round and reactive pupils present EOM: EOMs intact bilaterally Direct Ophthalmoscopy: no photophobia Neck: Neck: normal visual inspection, no lymphadenopathy and no meningeal signs Chest: Chest palpation & inspection: normal inspection of the chest Resp: Effort & Inspection: normal respiratory effort Auscultation: clear to auscultation bilaterally Cardio: Rate: regular rate Rhythm: regular rhythm GI: GI Palp: Yes Soft to palpation : General: Yes no CVA tenderness Urinary Catheter: Urinary Catheter: patent and draining Back/Spine/Pelvis: Back: no CVA tenderness Skin: General skin exam: normal color Rashes: no rashes Neuro: General: patient oriented x3 and moves all extremities Extrem: General: normal to inspection and no pedal edema Psych: Mental Status: mental status grossly normal Affect: normal affect Course Course Emergency Course: Reviewed EKG/chest x-ray and labs with patient all within normal limits, the patient was given 2 doses of sublingual nitro and morphine, which relieved her discomfort slightly, troponins were negative EKG with no ST or T changes patient was given a GI cocktail which improved her symptoms significantly. Vital Signs Vital signs: Vital Signs Temperature 36.5 C 06/27/21 18:20 Pulse Rate 73 06/27/21 18:20 Respiratory Rate 16 06/27/21 18:20 Blood Pressure 133/75 06/27/21 18:20 Pulse Oximetry 96 06/27/21 18:20 Temperature 36.5 C 06/27/21 18:20 Pulse Rate 63 06/27/21 20:00 Respiratory Rate 18 06/27/21 20:00 Blood Pressure 121/69 06/27/21 20:00 Pulse Oximetry 96 06/27/21 20:00 MDM - Chest Pain Lab Data
[2021-06-27 20:08] VITALS: BP 134/77; PULSE 65; RESP 18; TEMP 36.6; O2SAT 98
== END 2021-06-27 20:13 | disposition home or self-care (01) ==
PROVIDERS: Emergency Provider Emergency Medicine; PCP Physician Assistant
DX: R07.89 Other chest pain (principal)
CPT/HCPCS: 36415; 71045; 80053; 83880; 84484; 85025; 85380; 93005; 96361; 96374; 99283; 99284; A9270; J2270; J7040

== ENCOUNTER 2021-09-10 20:59 | Emergency (ER) | payer MEDICAID, SELFPAY ==
[2021-09-10 21:06] VITALS: BP 130/70; PULSE 84; RESP 18; TEMP 35.9; O2SAT 99
--- NOTE | 2021-09-10 21:15 | ED.LOWEXIN ---
HPI - Extremity Injury (Lower) General Stated Complaint: possible blood clot, SOB, jaw and neck pain Source: patient Mode of arrival: ambulatory Limitations: no limitations History of Present Illness HPI Narrative: pt rode in car yesterday for twelve hours and noticed tender firm spot on top of right thigh and became concerned she might have blood clot. Pt also complains of neck and shoulder discomfort. Related Data Home Medications Medication Instructions Recorded Confirmed escitalopram oxalate 10 mg PO DAILY 06/27/21 06/27/21 trazodone 100 mg PO HS 06/27/21 06/27/21 Allergies Allergy/AdvReac Type Severity Reaction Status Date / Time Penicillins Allergy Unknown Verified 09/10/21 21:15 tramadol Allergy Unknown Verified 09/10/21 21:15 Review of Systems Review of Systems: All systems reviewed & are unremarkable except as noted in HPI and below PMFSH Past Medical History Medical History Anxiety Depression Diverticulosis Family history of colon cancer in father Fatty liver LLQ pain Lower abdominal pain Surgical History Surgical History History of colonoscopy History of esophagogastroduodenoscopy (EGD) Social History Social History Smoking status: Current every day smoker Tobacco type: cigarettes Gender identity (if verbalized by the patient): Female Exam Const: General: no acute distress Orientation/consciousness: patient oriented x3 Neck: Neck: normal visual inspection Chest: Chest palpation & inspection: normal inspection of the chest Resp: Effort & Inspection: normal respiratory effort Cardio: Rate: regular rate Neuro: General: patient oriented x3 and moves all extremities Extrem: Other: small superficial area of tenderness on top of right thigh no calf tenderness no swelling Psych: Appearance: grossly normal Mental Status: mental status grossly normal Thought content: Yes Normal thought content present Course Course Emergency Course: unlikely to be DVT, could be superficial clot, cannot get doppler tonight, pt wants to go home and see PCP tomorrow to order test Discharge Plan Discharge Clinical Impression: Superficial thrombophlebitis Qualifiers: Superficial thrombophlebitis-Involved body area: lower extremity Laterality: right Qualified Code(s): I80.01 - Phlebitis and thrombophlebitis of superficial vessels of right lower extremity Patient Disposition: Home, Self-Care Condition: Stable Instructions: Antibiotic Form Additional Instructions: follow up with PCP to get venous doppler if concerned for DVT Prescriptions: No Action trazodone 100 mg tablet 100 mg PO HS RF: 0 escitalopram oxalate 10 mg tablet 10 mg PO DAILY RF: 0 Follow-up/Referrals: Bev,FRANCE Poe [Primary Care Provider] -
== END 2021-09-10 21:25 | disposition home or self-care (01) ==
PROVIDERS: Emergency Provider Emergency Medicine; PCP Physician Assistant
DX: I80.01 Phlebitis and thrombophlebitis of superficial vessels of right lower extremity (principal)
CPT/HCPCS: 99282

== ENCOUNTER 2021-10-14 08:24 | Emergency (ER) | payer BC, SELFPAY ==
--- NOTE | ~2021-10-14 | CT_ITS ---
EXAMINATION: CT brain wo con DATE: 10/14/2021 09:06 INDICATION: Dizziness, disorientation, headache for 2 days. Nausea. TECHNIQUE: Computed tomography (CT) of the head was performed without intravenous contrast. The mA wa s adjusted according to patient size. Iterative reconstruction technique was employed. Exam dose: 60 5.33 mGy-cm total exam DLP. COMPARISON: None FINDINGS: Mild cerebral atherosclerotic calcification. No intracranial mass lesion or hemorrhage or c erebrovascular accident. No midline shift or mass effect. Normal ventricular size. No subdural or epi dural hematoma. Some scleral calcifications are noted at both orbital globes. There is limited development and aeration of the right mastoid air cells. There is some soft tissue t hickening at the right frontoethmoid area. The paranasal sinuses and left mastoid air cells are other reyna unremarkable. No fracture or bone destruction of the cranial vault. IMPRESSION: No acute intracranial finding Mild cerebral atherosclerosis Reviewed, dictated and finalized at Location [facility]. Reviewed, dictated and finalized at location A.
[2021-10-14 08:41] VITALS: BP 105/65; PULSE 75; RESP 20; TEMP 36.6; O2SAT 96
--- NOTE | 2021-10-14 08:49 | ECG_ITS ---
Measurements Intervals [place] Rate: 57 P: 70 [place]: 148 QRS: 71 QRSD: 77 T: 69 QT: 429 QTc: 419 Interpretive Statements SINUS BRADYCARDIA OTHERWISE NORMAL ECG COMPARED TO ECG 06/27/2021 18:23:27 SINUS BRADYCARDIA NOW PRESENT Electronically Signed On 10-14-2021 16:58:36 CDT by Gregorio Culp M.D.
--- NOTE | 2021-10-14 09:08 | ED.HA ---
HPI - Headache General Chief Complaint: Headache Stated Complaint: thinks she is having a stroke Time Seen by Provider: 10/14/21 09:08 Source: patient Mode of arrival: ambulatory Limitations: no limitations History of Present Illness HPI Narrative: this is a 56-year-old female with history of anxiety / depression presents with a 1 week history of off and on headaches and just off balance and feeling fatigued and tired with some nausea currently no fever chills no chest pain no shortness of breath no abdominal pain no dysuria no hematuria. Patient was recently started on Abilify approximately 1 month ago and thinks that this may be part of the problem and has stopped taking her medication. Patient called her primary care physician and could not get her into 1 this afternoon, patient could wait that long presents to the emergency department. MD elicited complaint: headache and migraine Onset (ago): day(s) Onset description: gradually Location: frontal Severity: moderate Pain scale (0-10): 7 Quality & Timing: aching and throbbing Relieving factors: rest and other ( Tylenol) Associated symptoms: nausea Related Data Home Medications Medication Instructions Recorded Confirmed escitalopram oxalate 10 mg PO DAILY 06/27/21 09/10/21 trazodone 100 mg PO HS 06/27/21 09/10/21 aripiprazole [Abilify] 5 mg PO DAILY 10/14/21 10/14/21 bupropion HCl 150 mg PO DAILY 10/14/21 10/14/21 Allergies Allergy/AdvReac Type Severity Reaction Status Date / Time ketorolac [From Toradol] Allergy Hives Verified 10/14/21 09:18 Penicillins Allergy Unknown Verified 09/10/21 21:15 tramadol Allergy Unknown Verified 09/10/21 21:15 Review of Systems Review of Systems: All systems reviewed & are unremarkable except as noted in HPI and below PMFSH Past Medical History Medical History Anxiety Depression Diverticulosis Family history of colon cancer in father Fatty liver LLQ pain Lower abdominal pain Surgical History Surgical History History of colonoscopy History of esophagogastroduodenoscopy (EGD) Social History Social History Smoking status: Current every day smoker Tobacco type: cigarettes Gender identity (if verbalized by the patient): Female Exam Const: General: no acute distress Orientation/consciousness: patient oriented x3 HENMT: Head: normal to inspection Eyes: Conjunctivae: conjunctivae normal Pupils: Equal, round and reactive pupils present Neck: Neck: normal visual inspection Chest: Chest palpation & inspection: normal inspection of the chest Resp: Effort & Inspection: normal respiratory effort Auscultation: clear to auscultation bilaterally Cardio: Rate: regular rate Rhythm: regular rhythm GI: GI Palp: Yes Soft to palpation Percussion: Yes normal to percussion : General: Yes no CVA tenderness Urinary Catheter: Urinary Catheter: patent and draining Back/Spine/Pelvis: Back: no CVA tenderness Skin: General skin exam: normal color Rashes: no rashes Neuro: General: patient oriented x3 Extrem: General: normal to inspection Psych: Mental Status: mental status grossly normal Affect: Anxious affect present Course Course Emergency Course: IV started on patient patient given Zofran and Toradol for her headache and nausea labs reviewed patient and family and had a CT scan of the brain that was reviewed as well. Vital Signs Vital signs: Vital Signs Temperature 36.6 C 10/14/21 08:41 Pulse Rate 75 10/14/21 08:41 Respiratory Rate 20 10/14/21 08:41 Blood Pressure 105/65 10/14/21 08:41 Pulse Oximetry 96 10/14/21 08:41 Temperature 36.6 C 10/14/21 08:41 Pulse Rate 75 10/14/21 08:41 Respiratory Rate 20 10/14/21 08:41 Blood Pressure 105/65 10/14/21 08:41 Pulse Oximetry 96 10/14/21 08:41 Critical
[2021-10-14 09:14] LABS: Add Urine Microscopic? NO; Appearance Urine Clear (Clear); Basophils Absolute Auto 0.04 K/mm3 (0.00-0.10); Basophils Percent Auto 0.6 % (0.0-1.0); Bilirubin Urine Negative (Negative); Blood Urine Negative (Negative); Color Urine Yellow (Yellow); Eosinophils Absolute Auto 0.19 K/mm3 (0.02-0.50); Eosinophils Percent Auto 2.9 % (1.0-6.0); Glucose Urine UA Negative (Negative); Hemoglobin 14.7 g/dL (12.0-15.0); Immature Granulocyte Absolute 0.04 K/mm3 (0.00-0.00); Immature Granulocyte Percent A 0.6 % (0.0-0.0); Ketones Urine Negative (Negative); Leukocyte Esterase Ur Negative (Negative); Lymphocytes Percent Auto 24.2 % (18.0-42.0); Mean Corpuscular HGB Conc 33.4 g/dL (32.0-36.0); Mean Corpuscular Hemoglobin 30.9 pg (27.0-31.0); Mean Corpuscular Volume 92.6 fL (78.0-102.0); Mean Platelet Volume 9.9 fl (9.2-11.8); Monocytes Percent Auto 4.5 % (2.0-11.0); Neutrophils Absolute Auto 4.4 K/mm3 (1.7-7.2); Neutrophils Percent Auto 67.2 % (50.0-70.0); Nitrate Urine Negative (Negative); Platelet Count Result 300 K/mm3 (150-420); Protein Urine Negative (Negative); Red Blood Count 4.75 M/mm3 (4.20-5.40); Red Cell Distribution Width 11.8 % (11.6-14.4); Urobilinogen Urine 0.2 mg/dL (0.2-1.0); White Blood Count 6.6 K/mm3 (4.8-10.8); pH Urine 6.5 (5.0-8.0)
[2021-10-14] MEDS: ONDANSETRON HCL ODT 4 MG TABLET PO (09:23)
[2021-10-14 10:31] LABS: Alanine Aminotransferase 33 U/L (14-59); Albumin Level 4.1 g/dL (3.4-5.0); Alkaline Phosphatase 119 U/L (46-116); Anion Gap 8 mmol/L (8-16); Aspartate Amino Transferase 17 U/L (15-37); Bilirubin,Total 0.4 mg/dL (0.00-1.00); Blood Urea Nitrogen 14 mg/dL (7-18); Carbon Dioxide 28 mmol/L (21-32); Chloride 105 mmol/L (98-108); Estimated CRCL calculation 60 ml/min; Estimated Glomerular Filt Rate > 60; Glucose 89 mg/dL (70-99); Osmolality Calculated 291 mOsm/kg (285-295); Potassium 3.5 mmol/L (3.5-5.1); Sodium 141 mmol/L (136-145); Thyroid Stimulating Hormone 3.63 uIU/mL (0.36-3.74); Total Protein 7.7 g/dL (6.4-8.2); Troponin I 4.5 ng/L (0.00-60.4)
[2021-10-14 11:01] VITALS: BP 109/88; PULSE 66; RESP 20; TEMP 36.7; O2SAT 98
== END 2021-10-14 11:04 | disposition home or self-care (01) ==
PROVIDERS: Emergency Provider Emergency Medicine; PCP Physician Assistant
DX: R42 Dizziness and giddiness (principal); R51.9 Headache, unspecified
CPT/HCPCS: 36415; 70450; 80053; 81003; 84443; 84484; 85025; 93005; 99284; A9270

== ENCOUNTER 2022-10-04 13:24 | Emergency (ER) | payer BC, SELFPAY ==
--- NOTE | ~2022-10-04 | CT_ITS ---
EXAMINATION: CT abdomen pelvis wo con DATE: 10/04/2022 14:22 INDICATION: Right lower quadrant and flank pain TECHNIQUE: Computed tomography (CT) of the abdomen and pelvis was performed without intravenous contr ast. The dose-length product (DLP) was 322.96 mGy-cm. Automated exposure control and iterative recons truction technique were employed. COMPARISON: 03/03/2020 FINDINGS: The lung bases are clear. The heart size is normal. The liver, spleen, pancreas, gallbladde r, and adrenal glands are normal. The kidneys are unremarkable. No stones are identified in the kidne ys, ureters, or bladder. No hydronephrosis or hydroureter. The appendix is normal. No pathologically enlarged abdominal or pelvic lymph nodes are identified. No free intraperitoneal gas or evidence of b owel obstruction. A large volume of colonic stool is present. IMPRESSION: 1. Constipation. Reviewed, dictated and finalized at location A. IMPRESSION: 1. Constipation.
[2022-10-04 13:33] VITALS: BP 131/59; PULSE 80; RESP 17; TEMP 37.7; O2SAT 96
--- NOTE | 2022-10-04 13:52 | ED.GENADULT ---
HPI - General Adult General Chief complaint: Urogenital-Female Stated complaint: right flank pain Time Seen by Provider: 10/04/22 13:37 History of Present Illness HPI narrative: the patient is a 57-year-old woman who has had urinary tract infections since September 08, 2022, treated at various times with Macrobid and Keflex. Her last urinary tract infection was treated and she was asymptomatic at the end of the treatment course. She has had a prior section, hysterectomy, and laparoscopy. Medical conditions include depression and anxiety. The patient now returns with a 3 day history of right flank pain, radiating to the right lower quadrant and right groin, and radiating to the right lower back, constant in nature, waxing and waning in intensity, associated with nausea but no vomiting. No aches and pains but does have decreased energy. Has some headaches. At noon today, the patient had a temperature of 102? for which she took Tylenol. She has associated hematuria, dysuria, urinary urgency and urinary frequency. A urinalysis was done yesterday after provider's office which she showed us a copy of: Positive nitrite, moderate esterase, 92 white cells, dated 10/03/2022. She is not currently on any antibiotics. No upper respiratory tract infection symptoms. No other complaints. Related Data Home Medications Medication Instructions Recorded Confirmed escitalopram oxalate 10 mg tablet 10 mg PO DAILY 06/27/21 10/04/22 (Lexapro) trazodone 100 mg tablet 50 mg PO HS 06/27/21 10/04/22 aripiprazole 5 mg tablet (Abilify) 5 mg PO DAILY 10/14/21 10/14/21 bupropion HCl 150 mg 24 hr tablet, 150 mg PO DAILY 10/14/21 10/14/21 extended release Allergies Allergy/AdvReac Type Severity Reaction Status Date / Time ketorolac [From Toradol] Allergy Hives Verified 10/04/22 13:41 Penicillins Allergy Unknown Verified 10/04/22 13:41 tramadol Allergy Unknown Verified 10/04/22 13:41 Review of Systems Review of Systems: All systems reviewed & are unremarkable except as noted in HPI and below Constitutional: Constitutional: Reports as per HPI, Reports no additional constitutional complaints, Reports chills, Reports excessive sweating, Reports fatigue, Reports fever(s), Reports headache(s) and Reports weakness Eyes: Eyes: Reports as per HPI, Reports no additional eye complaints, Denies change in vision and Denies photophobia ENT: Reports system reviewed and no additional complaints, except as documented, Reports as per HPI, Denies dysphagia, Denies vertigo, Denies dizziness, Denies lip swelling, Denies nasal congestion, Denies sore throat, Denies throat swelling and Denies tongue swelling Cardiovascular: Cardiovascular: Reports as per HPI, Reports no additional cardiovascular complaints, Denies chest pain, Denies syncope, Denies rapid heart rate and Denies dyspnea Respiratory: Respiratory: Reports as per HPI, Reports no additional respiratory complaints, Denies chest congestion, Denies cough, Denies dyspnea and Denies wheezing Gastrointestinal: Gastrointestinal: Reports as per HPI, Reports no additional gastrointestinal complaints, Reports abdominal pain, Denies constipation, Denies dysphagia, Denies diarrhea, Reports nausea and Denies vomiting Genitourinary: Genitourinary: Reports as per HPI, Reports hematuria, Reports urinary frequency, Reports nocturia, Denies dysuria, Reports pelvic pain, Reports flank pain, Denies urinary incontinence and Reports urinary urgency Musculoskeletal: Musculoskeletal: Reports no additional musculoskeletal complaints, Reports back pain (right lower back), Denies arthralgias, Denies joint swelling and Denies numbness Integumentary/Breasts: Skin/Breast: Reports system reviewed and no additional complaints, except as docu, Denies pruritus, Denies erythema, Denies rash and Denies skin ulcer Neurologic: Reports system reviewed and no additional complaints, except as documented, Reports as per HPI, Denies confusion, Denies
[2022-10-04 13:56] LABS: Appearance Urine Slightly Cloudy (Clear); Bilirubin Urine Negative (Negative); Blood Urine 3+ (Negative); Color Urine Yellow (Yellow); Glucose Urine UA Negative (Negative); Ketones Urine Negative (Negative); Leukocyte Esterase Ur Negative LEU/UL (Negative); Nitrate Urine Negative (Negative); Protein Urine Negative (Negative); Specific Grav Ur 1.025 (1.010-1.020)
[2022-10-04 14:00] VITALS: BP 120/51; PULSE 72; RESP 18; O2SAT 100
[2022-10-04 14:10] LABS: Add Urine Microscopic? YES
[2022-10-04 14:11] LABS: Bacteria Urine Trace /hpf; RBC Urine 51-75 /hpf (0-2); Squamous Epithelial Cell Urine Occasional /hpf (Few); WBC Urine None seen /hpf (0-3)
[2022-10-04 14:17] LABS: Basophils Absolute Auto 0.04 K/mm3 (0.00-0.10); Basophils Percent Auto 0.6 % (0.0-1.0); Eosinophils Absolute Auto 0.25 K/mm3 (0.02-0.50); Eosinophils Percent Auto 3.5 % (1.0-6.0); Hematocrit 37.8 % (35.0-49.0); Hemoglobin 12.8 g/dL (12.0-15.0); Immature Granulocyte Absolute 0.03 K/mm3 (0.00-0.00); Immature Granulocyte Percent A 0.4 % (0.0-0.0); Lymphocytes Absolute Auto 2.31 K/mm3 (1.10-4.50); Lymphocytes Percent Auto 31.9 % (18.0-42.0); Mean Corpuscular HGB Conc 33.9 g/dL (32.0-36.0); Mean Corpuscular Volume 91.5 fL (78.0-102.0); Monocytes Absolute Auto 0.44 K/mm3 (0.10-0.90); Monocytes Percent Auto 6.1 % (2.0-11.0); Neutrophils Absolute Auto 4.2 K/mm3 (1.7-7.2); Neutrophils Percent Auto 57.5 % (50.0-70.0); Platelet Count Result 266 K/mm3 (150-420); Red Blood Count 4.13 M/mm3 (4.20-5.40); Red Cell Distribution Width 11.8 % (11.6-14.4); White Blood Count 7.2 K/mm3 (4.8-10.8)
[2022-10-04] MEDS: cefTRIAXone 2 GM/NS 100 ML 2 GM/100 ML BAG IVPB (14:21)
[2022-10-04] MEDS: SODIUM CHLORIDE 0.9% IV 1,000 ML 999 ML IV CONT (14:22)
[2022-10-04] MEDS: ONDANSETRON INJ 4 MG/2 ML VIAL IV PUSH (14:23)
[2022-10-04] MEDS: MORPHINE SULFATE (*CRX) 4 MG/ML INJ IV PUSH (14:24)
[2022-10-04 14:30] VITALS: BP 130/83; PULSE 75; RESP 18; O2SAT 97
[2022-10-04 14:34] LABS: Alanine Aminotransferase 20 U/L (14-59); Albumin Level 4.2 g/dL (3.4-5.0); Alkaline Phosphatase 111 U/L (46-116); Amylase 34 U/L (25-115); Anion Gap 11 mmol/L (8-16); Aspartate Amino Transferase 14 U/L (15-37); Bilirubin,Total 0.3 mg/dL (0.00-1.00); Blood Urea Nitrogen 25 mg/dL (7-18); Calcium 9.1 mg/dL (8.5-10.1); Carbon Dioxide 28 mmol/L (21-32); Chloride 104 mmol/L (98-108); Estimated Glomerular Filt Rate > 60; Glucose 96 mg/dL (70-99); Osmolality Calculated 300 mOsm/kg (285-295); Potassium 3.8 mmol/L (3.5-5.1); Sodium 143 mmol/L (136-145); Total Protein 7.6 g/dL (6.4-8.2)
[2022-10-04 14:38] LABS: Lipase 41 U/L (16-77)
[2022-10-04 15:00] VITALS: BP 123/84; PULSE 73; RESP 17; O2SAT 98
--- NOTE | 2022-10-04 15:10 | PC.NURSE ---
patient to be discharged to waiting room where she will wait for family member to pick her up due to morphine administration.
[2022-10-04 15:15] VITALS: BP 117/49; PULSE 72; RESP 18; TEMP 37.5; O2SAT 100
--- NOTE | 2022-10-04 17:04 | PC.NURSE ---
prescriptions called to [facility], [facility] was closed when patient went to get them, message left on [facility] voicemail to cancel prescriptions.
--- NOTE | 2022-10-11 14:06 | PC.NURSE ---
final blood culture reports x2 reviewed. no growth after 5 days. no change in plan of care
== END 2022-10-04 15:15 | disposition home or self-care (01) ==
PROVIDERS: Emergency Provider Emergency Medicine; PCP Physician Assistant
DX: N39.0 Urinary tract infection, site not specified (principal); F41.9 Anxiety disorder, unspecified; F32.A Depression, unspecified; F17.200 Nicotine dependence, unspecified, uncomplicated
CPT/HCPCS: 36415; 74176; 80053; 81001; 82150; 83690; 85025; 87040; 96365; 96375; 99284; J0696; J2270; J2405; J7030

== ENCOUNTER 2023-05-18 11:02 | Emergency (ER) | payer SELFPAY ==
[2023-05-18 11:20] VITALS: BP 127/75; PULSE 79; RESP 18; TEMP 36.9; O2SAT 100
--- NOTE | 2023-05-18 11:24 | ECG_ITS ---
Measurements Intervals [place] Rate: 70 P: 78 IN: 151 QRS: 75 QRSD: 78 T: 76 QT: 428 QTc: 465 Interpretive Statements SINUS RHYTHM RSR' IN V1 OR V2, PROBABLY NORMAL VARIANT BASELINE WANDER- I, V21-V2 BORDERLINE ECG COMPARED TO ECG 10/14/2021 09:17:31 SINUS RHYTHM NOW PRESENT Electronically Signed On 05-18-2023 13:03:19 SECONDARY HISTORY TEACHER by Galo Short D.O.
[2023-05-18 11:47] LABS: Basophils Percent Auto 0.5 % (0.2-1.2); Eosinophils Absolute Auto 0.2 K/mm3 (0-0.3); Eosinophils Percent Auto 2.1 % (0-4.4); Hematocrit 45.8 % (37.0-47.0); Hemoglobin 14.9 g/dL (12.0-15.0); Immature Granulocyte Absolute 0.03 K/mm3 (0.00-0.031); Immature Granulocyte Percent A 0.3 % (0-0.5); Lymphocytes Percent Auto 23.3 % (18.3-44.2); Mean Corpuscular HGB Conc 32.5 g/dl (32-36); Mean Corpuscular Hemoglobin 30.5 pg (26-34); Mean Corpuscular Volume 93.9 fl (80-100); Mean Platelet Volume 9.9 fl (7.4-10.4); Monocytes Absolute Auto 0.4 K/mm3 (0.1-0.6); Monocytes Percent Auto 4.5 % (2.6-8.5); Neutrophils Percent Auto 69.3 % (45.5-73.1); Platelet Count Result 312 k/mm3 (150-375); Red Blood Count 4.88 M/mm3 (4.2-5.4); Red Cell Distribution Width 11.9 % (11.5-14.5); White Blood Count 8.6 K/mm3 (4.5-10.0)
[2023-05-18 12:24] LABS: Alanine Aminotransferase 22 U/L (6-35); Albumin Level 4.8 g/dL (3.5-5.1); Alkaline Phosphatase 104 U/L (38-126); Anion Gap 11 mmol/L (8-16); Aspartate Amino Transferase 30 U/L (14-36); Bilirubin,Total 0.6 mg/dL (0.2-1.3); Blood Urea Nitrogen 17 mg/dL (7-17); Calcium 9.9 mg/dL (8.4-10.2); Carbon Dioxide 27 mmol/L (22-30); Chloride 103 mmol/L (98-107); Estimated CRCL calculation 66 ml/min; Estimated Glomerular Filt Rate > 60; Glucose 101 mg/dL (65-110); Potassium 3.9 mmol/L (3.4-5.0); Sodium 141 mmol/L (137-145)
[2023-05-18 12:33] LABS: Appearance Urine Clear (Clear); Bacteria Urine 4+ /hpf; Bilirubin Urine Negative (Negative); Blood Urine Negative (Negative); Color Urine Yellow (Yellow); Glucose Urine UA Negative (Negative); Ketones Urine Negative (Negative); Leukocyte Esterase Ur Negative LEU/UL (Negative); Nitrate Urine Positive (Negative); Non Pathogenic Casts 0-2; Protein Urine Negative (Negative); RBC Urine 0-2 /hpf (0-2); Specific Grav Ur 1.021 (1.001-1.035); Squamous Epithelial Cell Urine None seen /hpf (Few); Urobilinogen Urine 0.2 mg/dL (<2.0); WBC Urine 0-5 /hpf; pH Urine 5.5 (5.0-9.0)
[2023-05-18 12:39] LABS: Add Urine Microscopic? YES
--- NOTE | 2023-05-18 13:38 | PC.NURSE ---
Pt LWBS, did not notify triage nurse she decided to leave.
== END 2023-05-18 14:43 | disposition left against medical advice (07) ==
LOC: ANHED 13:44
PROVIDERS: Emergency Provider Emergency Medicine; PCP Physician Assistant
DX: R50.9 Fever, unspecified (principal)
CPT/HCPCS: 36415; 80053; 81001; 81025; 85025; 93005; 99199

== ENCOUNTER 2023-11-23 17:11 | Emergency (ER) | payer BC, SELFPAY ==
[2023-11-23 17:21] VITALS: BP 118/55; PULSE 84; RESP 20; TEMP 36.4; O2SAT 97
--- NOTE | 2023-11-23 18:16 | PC.NURSE ---
This RN to room to draw blood and assess pt. Pt no longer in room. checked bathroom. Asked intake nurse and she states she saw pt walk out of department
== END 2023-11-23 23:56 | disposition left against medical advice (07) ==
LOC: ANHED 18:31
PROVIDERS: PCP Physician Assistant
DX: R10.9 Unspecified abdominal pain (principal)
CPT/HCPCS: 99199

== ENCOUNTER 2024-05-04 14:08 | Emergency (ER) | payer BC, SELFPAY ==
--- NOTE | ~2024-05-04 | CT_ITS ---
EXAMINATION: CT thoracic lumbar wo con DATE: 05/04/2024 14:33 INDICATION: Low back pain. Weakness. TECHNIQUE: Computed tomography (CT) of the lumbar spine was performed without intravenous contrast. A utomated exposure control and iterative reconstruction technique were employed. The dose-length produ ct was 794.35 mGy-cm. COMPARISON: Lumbar spine CT 11/30/2020 FINDINGS: CT THORACIC SPINE: There is 6 degrees levocurvature of cervicothoracic spine. There is mild chronic a nterior wedging of T6-T12 vertebral bodies associated with Schmorl's nodes. There are hemangiomas in T3 and T8 vertebral bodies. There is mild or moderately decreased disc height from T2-T3 through T11- T12. There is multilevel qcgl-[id number] facet joint osteoarthritis. There is a mild bilateral yissel inal stenosis at a few levels on either side. There is mild central canal stenosis at T4-T5, T5-T6, T 6-T7, and T7-T8. CT LUMBAR SPINE: Alignment is normal. Vertebral body heights are normal. There is mildly decreased di sc height at L3-L4. The following disc levels are specifically discussed: L1-L2: The disc does not extend beyond the endplate margin. There is moderate bilateral facet joint o steoarthritis. There is no neural foraminal stenosis. There is no central canal stenosis. L2-L3: The disc does not extend beyond the endplate margin. There is moderate right and mild left fac et joint osteoarthritis. There is no neural foraminal stenosis. There is no central canal stenosis. L3-L4: The disc is bulging. There is severe bilateral facet joint osteoarthritis. There is mild bilat eral neural foraminal stenosis. There is mild central canal stenosis. L4-L5: The disc is bulging. There is severe right and moderate left facet joint osteoarthritis. There is mild bilateral neural foraminal stenosis. There is mild central canal stenosis. L5-S1: The disc is bulging. There is severe bilateral facet joint osteoarthritis. There is mild bilat eral neural foraminal stenosis. There is mild central canal stenosis. IMPRESSION: 1. Moderate thoracic spondylosis and mild lumbar spondylosis. Reviewed, dictated and finalized at location A. NG BOARD MARKER
--- NOTE | 2024-05-04 14:18 | ED.BACK ---
HPI - Back Pain/Injury General Chief Complaint: Back Pain/Injury Stated Complaint: back pain, numbness and bowel incontinence Time Seen by Provider: 05/04/24 14:18 Focused HPI: This is a 58 year old female that presents to the ER for bowel incontinence. Reports severe back pain. Reports tingling in both of her legs. No recent injuries or trauma. Reports back pain has been an ongoing issue for her. She was supposed to go to physical therapy and have an MRI, but has not done this yet. She has been following with her PCP for this. GENERAL: Well-appearing, well-nourished, and in no acute distress. HEAD: Normocephalic, atraumatic. CHEST: Clear to auscultation. ?No respiratory distress. HEART: Regular rate and rhythm.? NEURO: ?Alert and oriented x3. Normal gait Patient screened in triage and initial orders placed.? ?Additional care and disposition to be based upon?diagnostic testing and treatment. Related Data Home Medications Medication Instructions Recorded Confirmed escitalopram oxalate 10 mg tablet 10 mg PO DAILY 06/27/21 10/04/22 (Lexapro) trazodone 100 mg tablet 50 mg PO HS 06/27/21 10/04/22 aripiprazole 5 mg tablet (Abilify) 5 mg PO DAILY 10/14/21 10/14/21 bupropion HCl 150 mg 24 hr tablet, 150 mg PO DAILY 10/14/21 10/14/21 extended release Allergies Allergy/AdvReac Type Severity Reaction Status Date / Time Penicillins Allergy Unknown Verified 10/04/22 13:41 tramadol Allergy Hives Verified 05/04/24 14:34 [facility] Past Medical History Medical History (Updated 05/06/24 @ 11:20 by Prachi Georges PA-C) Anxiety Depression Diverticulosis Family history of colon cancer in father Fatty liver LLQ pain Lower abdominal pain Surgical History Surgical History (Updated 05/04/24 @ 14:23 by Prachi Georges PA-C) History of colonoscopy History of esophagogastroduodenoscopy (EGD) History of hysterectomy Social History Social History Smoking status: Current every day smoker Tobacco type: cigarettes Gender identity (if verbalized by the patient): Female Course Vital Signs Vital signs: Vital Signs Temperature 97.6 F 05/04/24 14:21 Pulse Rate 95 05/04/24 14:21 Respiratory Rate 14 05/04/24 14:21 Blood Pressure 152/63 H 05/04/24 14:21 Pulse Oximetry 99 05/04/24 14:21 Oxygen Delivery Room Air 05/04/24 14:21 Temperature 97.6 F 05/04/24 18:43 Pulse Rate 75 05/04/24 18:43 Respiratory Rate 16 05/04/24 18:43 Blood Pressure 133/60 05/04/24 18:43 Pulse Oximetry 100 05/04/24 18:43 Oxygen Delivery Room Air 05/04/24 14:21 MDM - Back Pain/Injury MDM Narrative Medical decision making narrative: patient left after medical screening exam and initial workup and before any further evaluation or management Imaging Data Radiologist's impression: ITS Impressions Thoracic/Lumbar Spine CT 05/04/24 14:37 IMPRESSION: 1. Moderate thoracic spondylosis and mild lumbar spondylosis. Discharge Plan Discharge Clinical Impression: Low back pain Patient Disposition: Elopement After Seen by Prov Condition: Guarded Prognosis Prescriptions: No Action trazodone 100 mg tablet 50 mg PO HS escitalopram oxalate [Lexapro] 10 mg tablet 10 mg PO DAILY aripiprazole [Abilify] 5 mg tablet 5 mg PO DAILY bupropion HCl 150 mg tablet extended release 24 hr 150 mg PO DAILY cephalexin 500 mg capsule 500 mg PO Q8H 10 Days Qty: 30 0RF phenazopyridine [Pyridium] 200 mg tablet 200 mg PO TID Qty: 6 0RF Follow-up/Referrals: Bev,FRANCE Poe [Primary Care Provider] -
[2024-05-04 14:21] VITALS: BP 152/63; PULSE 95; RESP 14; TEMP 36.4; O2SAT 99
[2024-05-04 18:43] VITALS: BP 133/60; PULSE 75; RESP 16; TEMP 36.4; O2SAT 100
--- NOTE | 2024-05-04 20:13 | PC.NURSE ---
Patient came up to triage desk and stated she wanted to go back to a room. Patient was advised by nursing staff that we do not have any open rooms at the moment. Patient then states I just saw three people walk out . Patient was advised that there are also ambulances coming in with patients. Patient stats this is bullshit. 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 Patient was again advised that we do not have an open room. Patient then states I just want my results from my cat scan . Patient was educated that it is not in a nurses scope of practice to share the results of a cat scan. Patient then states If I had the patient portal then I could see my results . Patient then proceeds to go sit back down in the waiting room.
--- NOTE | 2024-05-04 21:38 | PC.NURSE ---
called pt from waiting room to go back to a room, no answer
== END 2024-05-04 21:38 | disposition left against medical advice (07) ==
PROVIDERS: Emergency Provider Physician Assistant; PCP Physician Assistant
DX: M54.50 Low back pain, unspecified (principal); F41.9 Anxiety disorder, unspecified; F32.A Depression, unspecified; F17.210 Nicotine dependence, cigarettes, uncomplicated; Z90.710 Acquired absence of both cervix and uterus; M47.814 Spondylosis without myelopathy or radiculopathy, thoracic region; M47.816 Spondylosis without myelopathy or radiculopathy, lumbar region; Z79.899 Other long term (current) drug therapy
CPT/HCPCS: 72128; 72131; 99284

== ENCOUNTER 2024-12-07 18:12 | Emergency (ER) | payer SELFPAY ==
--- NOTE | ~2024-12-07 | XR_ITS ---
CHEST RADIOGRAPH CLINICAL HISTORY: Cough . COMPARISON: 06/27/2021 TECHNIQUE: Single portable view of the chest. FINDINGS The cardiomediastinal silhouette is unremarkable. The lungs are clear. IMPRESSION: No focal infiltrate or effusion. Reviewed, dictated and finalized at location A.
[2024-12-07 18:12] VITALS: BP 149/78; PULSE 84; RESP 18; TEMP 36.3; O2SAT 98
[2024-12-07 18:15] VITALS: O2SAT 97
--- OUTSIDE RECORDS SUMMARY | 2024-12-07 18:18 | XMS_ITS | Patient Health Record ---
Author Organization [facility] [email or web address] [facility] Address [address] [place] [address] Care Team Providers Care Air Quality Chemist Name Role Phone Elliot Kraus Unavailable [phone] Reason For Referral No Information Social History Sex Assigned At : Social History Observation Description Sex Assigned At Female Encounters Encounter Location Date Provider Diagnosis [facility] [employer] [facility] [address] [place] [address] 07/18/2024 Elliot Kraus Plan Of Treatment No Information Insurance Providers Payer Name Payer Address Payer Phone Subscriber Number Group Number Insured Name Patient Relationship to Insured Coverage Start Date Coverage End Date [facility] [address] [place] [address] [id number] Napoleon Howell Self - patient is the insured
--- OUTSIDE RECORDS SUMMARY | 2024-12-07 18:18 | XMS_ITS | Data Portability ---
Author Organization [facility], Main Office Address [address] [place] [address] Care Team Providers Care Unit Reactor Operator Name Role Phone MAURICE CALDERA Primary Care Provider Assessment Encounter Date Assessment Date Assessment LastModified by Organization Details LastModified Time 06/08/2024 06/08/2024 The patient gave verbal consent using TelePhonic services and the consent is documented in the medical record prior to using the service. The patient has been informed of what a TeleMedicine visit is. Patient is located at other - work. Provider is located at office. Names and roles of persons in addition to the patient and provider participating in telemedicine services include staff. The patient had a 14 minute TeleMedicine consultation via phone call to discuss the following: D/w pt about her findings, recent CT result and further plan of care. Explained about her options. Will refer pt to Pain clinic and Spine surgeon. Meds as directed. Heat pack as directed prn. Advised pt to avoid any strenuous activities/lifti ng-pushing until cleared. Educated pt about alarming symptoms to monitor at home and call us back or get checked in ED. F/u in few weeks as directed for Annual exam. [email or web address] Not available 06/08/2024 15:46:02 07/07/2024 07/07/2024 58 yo F with - WELL ADULT VISIT - DEPRESSION - CHRONIC INSOMNIA - ADD - GERD - HEMORRHOIDS - CHRONIC BACK PAIN - LUMBAR SPONDYLSOSIS - FH OF COLON CANCER & DM CT T & L-spine wo: 05/04/24. D/w pt about her findings, recent labs & imagines and further plan of care. Will do routine labs. Form filled out and given to pt. Meds as directed. Heat pack as directed prn. Diet and exercise explained. Advised pt to avoid any strenuous activities until cleared by Spine surgeon. F/u with Psych at [place] as per schedule. Cont f/u with Pain clinic as per schedule. Cont f/u with Spine surgeon at [place] as per schedule. HM: [employer] - 8 yrs ago. S/p hysterectomy. Refer to Gyne/COLD PATCHER. Mammo - 2023. Ordered. DEXA - 2020, normal as per pt. Ordered. Colonoscopy - 11/12, polyps ++, FH of colon cancer ++. Cont f/u with GI as per schedule. Flu - 04/14. Tdap, Pneumo, Shingrix - At pharmacy/HD. F/u in 2-3 weeks. Annual labs in 07/17. Not available 07/07/2024 12:07:54 11/03/2024 11/03/2024 I have reconciled the patient's medications post their discharge from inpatient facility. Answered all questions for pt. Recent hospital records reviewed. Advised pt to cut down on her Gabapentin as directed and f/u with her Pain specialist about this. Will refer pt to Rheumat. F/u with GI at [facility] next week. F/u with Neuro at [facility] as per schedule. Cont with Psychiatrist as per schedule. F/u next week as directed. [email or web address] Not available 11/03/2024 15:55:59 Plan of Treatment Reminders Order Date Submit Date Provider Last Modified By Organization Details Last Modified Time Details Appointments None recorded . Lab urinalys is, dipstick 2024 025 [facility], [address] [place] [address], [address], 10:30:32 RICHARD (antinuc lear antibodi es) screen, serum 2024 025 [facility] (Lab), [address] [place], [address], 14:03:21 rf (rheumat oid factor), serum [address] (Lab), [address] [place], [address], 5 11:39:21 ccp (cyclic citrulli nated peptide) iga+igg, serum [address] (Lab), [address] [place], [address], 5 11:39:21 vitamin B12 + folate, serum or blood [address] (Lab), [address] [place], [address], 5 15:00:56 magnesiu m, serum or plasma [address] (Lab), [address] [place], [address], 5 15:00:56 glycohem oglobin, total, blood [address] (Lab), [address] [place], [address], 5 15:00:56 CBC w/ auto diff 2024 025 [email or web address] [facility] (Lab), [address] [place], [address], 5 16:11:34 CMP, serum or plasma [address] (Lab), [address] [place], [address], 5 15:00:55 lipid panel, serum [address] [place] [address] (Lab), [address] [place], [address], 15:00:55 TSH, serum, reflex free T4 2024 025 [email or web address] [facility] (Lab), [address] [place], [address], 5 15:00:55 urinalys is complete , reflex culture [email or web address] [place] [address] (Lab), [address] [place], [address], 5 15:00:55 vitamin D, 25-hydro xy, total, serum 2023 024 [email or web address] [facility] (Lab), [address] [place], [address], 12:17:45 Referral rheumato logist referral - Please call patient to schedule an appointm ent. Thank you. [address] [facility] Medicine - Rheumatology, [facility] [place], [address], 15:00:[address] referral - Please call patient to schedule an appointm ent. Thank you. 2024 025 [email or web address] Lester Thomas MD, [address] [facility], [address], [place], [address], 5 09:02:48 neurolog ical surgeon referral - Uncontro lled back pain, abnormal CT T&L spine. Please call patient to schedule an appointm ent. Thank you. 2023 024 [email or web address] [place], [address] [facility], [address], [place], [address], 5 09:11:05 pain manageme nt referral - Uncontro lled back pain, abnormal CT T&L spine. Please call patient to schedule an appointm ent. Thank you. 2023 024 [email or web address] [facility], [address] , [address], [place], [address], 5 09:09:57 gynecolo gist referral 2023 024 [email or web address] Ruma Marin MD, [address] [facility] [address], [place], [address], 5 08:08:51 Procedures None recorded . Surgeries None recorded . Imaging XR, hand, 3 or more view 2024 025 [email or web address] (Radiology), [address] [facility] [place], [address], 5 17:50:35 XR, hand, 3 or more view 2024 025 [email or web address] (Radiology), [address] [facility], [address], 5 17:51:13 MAMMO, screenin g, bilatera l - Please call pt to schedule [address] (Radiology), [address] [place] [address], [address], 5 09:45:51 DEXA - Please call pt to schedule [address] (Radiology), [address] [place], [address], 5 09:45:52 DEXA, axial skeleton 2023 024 [email or web address] Not available 5 18:24:18 Medication Orders cycloben zaprine 10 mg tablet 2024 025 [facility], [address] [place], [address], 5 09:41:49 oxybutyn in chloride ER 5 mg tablet,e xtended release 24 hr 2024 025 [facility], [address] [place], [address], 5 09:41:12 escitalo pram 10 mg tablet 2024 025 [facility], [facility] [place], [address], 5 11:02:10 gabapent in 300 mg capsule 2024 025 [email or web address] [facility], [address] [place] [address], [address], 5 09:30:28 hydrocor tisone 2.5 % topical cream with perineal applicat or 2024 025 [facility], [address] [place] [address], [address], 5 11:22:40 trazodon e 50 mg tablet 2024 025 [facility], [address] [place] [address], [address], 5 11:02:08 pantopra zole 40 mg tablet,d elayed release 2024 025 [facility], [address] [place] [address], [address], 5 11:02:09 methylph enidate ER 18 mg tablet,e xtended release 24 hr 2024 025 [email or web address] [facility], [address] [place] [address], [address], 5 11:19:22 gabapent in 300 mg capsule 2023 024 [facility], [address] [place], [address], 14:42:15 Patient TargetsNo targets recorded. Patient Instructions Encounter Date Encounter Id Patient Instructions Last Modified By Organization Details Last Modified Time 06/08/2024 [id number] Due to the COVID-19 (Novel Coronavirus) pandemic, it is within this context (and with the understanding that this method of patient encounter is in the patient s best interest as well as the health and safety of other patients and the public) that telehealth is being provided for this patient encounter rather than a vsvt-ny-elje visit. This patient encounter is appropriate at this time. This patient has been advised of the potential risks and limitations of this mode of treatment (including, but not limited to, the absence of in-person examination) and has agreed to be treated in a remote fashion despite these risks. Any and all of the patient s/patient s family s questions on this issue have been answered, and I have made no promises or guarantees to the patient. The patient has also been advised to contact this office for worsening conditions or problems, and seek emergency medical treatment and/or call 911 if the patient deems either necessary. HPI and/or vitals, if listed, were provided by the patient. [email or web address] Not available 06/08/2024 14:20:05 11/03/2024 [id number] Thank you for yo ur visit to our office today. We would like to request that you reach out to your referring or previous provider and request that they send us a Summary of Care in electronic form, so that we may have it on file in your medical record. At your visit, we had the medical records we needed to provide you with the best possible care; however, for insurance purposes, an electronic Summary of Care is beneficial. Thank you for your assistance in obtaining this information and we look forward to providing continued care to you. Please review your medication list from the Summary of Care for this visit. If there are any differences from what you are currently taking at home, please call us to discuss. [email or web address] Not available 11/03/2024 15:15:50 Homebound Status : Required Home Health Services: Durable Medical Equipment needed: Billing Guidelines CPT code 40977- Transitional Care Management services with moderate medical decision complexity (baem-am-qpzd visit within 14 days of discharge). CPT code 04652- Transitional Care Management services with high medical decision complexity (aify-lh-gmyy visit within 7 days of discharge). [email or web address] Not available 11/03/2024 15:15:50 Reason for Referral Wide Piece Goods Inspector Referral for Gy necologic examination Referring Physician: Marcial De Souza, Internal Medicine, Encounter Date: 11/23/2023 Pain Management Referral for Lumbar spondylosis Uncontrolled back pain, abnormal CT T&L spine Uncontrolled back pain, abnormal CT T&L spine. Please call patient to schedule an appointment. Thank you. Referring Physician: Maurice Caldera [facility] Medicine, Encounter Date: 06/08/2024 Neurological Surgeon Referra l for Spinal stenosis of lumbar region Uncontrolled back pain, abnormal CT T&L spine Uncontrolled back pain, abnormal CT T&L spine. Please call patient to schedule an appointment. Thank you. Referring Physician: Maurice Caldera [facility] Medicine, Encounter Date: 06/08/2024 Bottom Man Referral for Gastroesophageal reflux disease without esophagitis Please call patient to schedule an appointment. Thank you. Referring Physician: Maurice Caldera [facility] Medicine, Encounter Date: 07/07/2024 Senior Underwriting Assistant Referral for Fibromyalgia Please call patient to schedule an appointment. Thank you. Referring Physician: Maurice Caldera [facility], Encounter Date: 11/03/2024 Results Created Date Observation Date Name Description Value Unit Range Abnormal Flag Note LastModifiedBy Organization Detail LastModifiedTime 10/21/1910/20/2024 urina lysis , dipst ick Leukocytes (reference range: negative hudson/ l) Negati ve Not Available [facility] [address] [place], [address], 10/20/2024 09:35:01 10/21/1910/20/2024 urina lysis , dipst ick Nitrite (reference rage: negative mg/dl) negati ve Not Available [facility] [address] [place], [address], 10/20/2024 09:35:01 10/21/19 25 10/20/2024 urina lysis , dipst ick Urobilinogen (reference range: 0.2-1 mg/dl) 0.2 Not Available [address], [address], 10/20/2024 09:35:01 10/21/1910/20/2024 urina lysis , dipst ick Protein (reference range: negative mg/dl) Negati ve Not Available [address], [address], 10/20/2024 09:35:01 10/21/1910/20/2024 urina lysis , dipst ick pH (reference range: 5-7) 7.0 Not Available [address], [address], 10/20/2024 09:35:01 10/21/1910/20/2024 urina lysis , dipst ick Blood (reference range: negative Elliott/ l) Negati ve Not Available [address], [address], 10/20/2024 09:35:01 10/21/1910/20/2024 urina lysis , dipst ick Specific [place] (reference range: 1.005-1.030) 1.015 Not Available [address], [address], 10/20/2024 09:35:01 10/21/1910/20/2024 urina lysis , dipst ick Ketone (reference range: negative mg/dl) Negati ve Not Available [address], [address], 10/20/2024 09:35:01 10/21/19 25 10/20/2024 urina lysis , dipst ick Bilirubin (reference range: negative mg/dl) Negati ve Not Available [address], [address], 10/20/2024 09:35:01 10/21/19 25 10/20/2024 urina lysis , dipst ick Glucose (reference range: negative mg/dl) Negati ve Not Available [address], [address], 10/20/2024 09:35:01 10/21/19 25 10/20/2024 urina lysis , dipst ick Appearance Clear Not Available [address], [address], 10/20/2024 09:35:01 10/21/19 25 10/20/2024 urina lysis , dipst ick Color Yellow Not Available [address], [address], 10/20/2024 09:35:01 10/21/19 25 10/20/2024 XR, hand, 3 or more view No observ ation record ed. [email or web address] [place] [facility] (Radiology) [address] [place], [address], 10/24/2024 17:50:35 10/21/19 25 10/20/2024 XR, hand, 3 or more view No observ ation record ed. [place] [facility] (Radiology) [address] [place], [address], 10/24/2024 17:51:13 Result Notes None recorded. Problems Name Problem SNOMED Code Status Onset Date Resolution Date Notes Provider Name and Address Organization Details Recorded Time Chronic thoracic back pain 5346568618786 03 Active 2023 Maurice Caldera MD [address], [address], [place], [address], [employer] 4 14:33:03 Chronic low back pain 911064864 Active 2023 Maurice Caldera MD [address], [address], [place], [address], [facility] 4 14:33:16 Lumbar spondylosis 234411445 Active 2023 Maurice Caldera MD [address], [address], [place], [address], [facility] 4 14:34:56 Spinal stenosis of lumbar region 72726058 Active 2023 Maurice Caldera MD [address], [address], [place], [address], [employer] 4 14:37:54 Compression fracture of thoracic vertebra 8263464232836 Active 2023 Maurice Caldera MD [address], [address], [place], [address], [employer] 4 14:45:21 Depressive disorder 89213720 Active 2023 Maurice Caldera MD [address], [address], [place], [address], [employer] 4 14:45:39 Attention deficit hyperactivi ty disorder 452280242 Active 2023 Maurice Caldera MD [address], [address], [place], [address], [employer] 4 14:45:45 Gastroesoph ageal reflux disease without esophagitis 619396476 Active 2023 Maurice Caldera MD [address], [address], [place], [address], [employer] 4 14:45:59 Chronic insomnia 754798601 Active 2023 Maurice Caldera MD [address], [address], [place], [address], [employer] [facility] 4 14:46:05 Hemorrhoids 33892198 Active 2024 Maurice Caldera MD [address], [address], [place], [address], [place] [facility] [employer] [facility] 5 11:22:10 Urinary tract infectious disease 95331128 Active 2024 Maurice Caldera MD [address], [address], [place], [address], [employer] [facility] 5 10:49:26 Dysuria 42708587 Active 2024 Maurice Caldera MD [address], [address], [place], [address], [employer] [facility] 5 09:34:56 Pain of bilateral hands 4783250720443 9109 Active 2024 Maurice Caldera MD [address], [address], [place], [address], [employer] [facility] 5 09:35:11 Overactive urinary bladder 915871803 Active 2024 Maurice Caldera MD [address], [address], [place], [address], [employer] [facility] 5 09:40:27 Fibromyalgi a 994599864 Active 2024 Maurice Caldera MD [address], [address], [place], [address], [employer] [facility] 5 09:51:40 Morning stiffness - joint 61438143 Active 2024 Maurice Caldera MD [address], [place], [address], [employer] [facility] 5 09:53:20 Transient cerebral ischemia 517941700 Active 2024 Maurice Caldera MD [address], [address], [place], [address], [employer] 14:58:15 Dysphasia 55776100 Active 2024 Maurice Caldera MD [address], [place], [address], [employer] 14:59:44 Drug therapy finding 604278464 Active 2024 Maurice Caldera MD [address], [address], [place], [address], [employer] 15:43:03 Problem Notes None recorded. Procedures Surgical History Date Name Laterality Status Provider Name and Address Organization Details Recorded Time 5 Transitional_C are_Management completed Elba Morrison RN [facility] 11/03/2024 15:15:50 Most Recent Mammogram completed Maurice Caldera MD [address], [place], [address], [employer] 07/07/2024 11:19:32 Imaging Results None recorded. Procedure Notes None recorded. Medical Equipment None Reported. Allergies No known drug allergies Medications Name Sig Start Date Stop Date Status Note LastModified by Organization Details LastModified Time quetiapine 25 mg tablet TAKE 1 TABLET BY MOUTH EVERY DAY AT BEDTIME 11/22 completed Not Available Not Available Not Available cyclobenzap rine 10 mg tablet TAKE 1 TABLET BY MOUTH ONCE DAILY NEEDED FOR 90 DAYS active Not Available Not Available No t Available trazodone 50 mg tablet TAKE 1 TABLET BY MOUTH ONCE DAILY AT BEDTIME active Not Available Not Available No t Available azithromyci n 250 mg tablet TAKE 2 TABLETS BY MOUTH ON DAY 1, AND THEN TAKE 1 TABLET BY MOUTH ONCE A DAY ON DAY 2 THROUGH DAY 5 06/08 completed Not Available Not Available Not Available fluconazole 150 mg tablet TAKE 1 TABLET BY MOUTH ONCE DAILY 06/08 completed Not Available Not Available Not Available hydrocodone 5 mg-acetamin ophen 325 mg tablet TAKE 1 TABLET BY MOUTH THREE TIMES DAILY NEEDED 07/02 completed Not Available Not Available Not Available ondansetron HCl 4 mg tablet TAKE 1 TABLET BY MOUTH THREE TIMES DAILY NEEDED 11/22 completed Not Available Not Available Not Available prednisone 20 mg tablet 11/22 completed Not Available Not Available Not Available metronidazo le 500 mg tablet TAKE 1 TABLET BY MOUTH THREE TIMES DAILY 06/08 completed Not Available Not Available Not Available hydroxyzine HCl 50 mg tablet TAKE 1 TABLET BY MOUTH THREE TIMES DAILY NEEDED 11/22 completed Not Available Not Available Not Available oxcarbazepi ne 300 mg tablet TAKE 1 TABLET BY MOUTH TWICE DAILY FOR MOOD STABILIZE R active Not Available Not Available No t Available ciprofloxac in 500 mg tablet TAKE 1 TABLET BY MOUTH TWICE DAILY DIRECTED FOR 5 DAYS 10/20 completed Not Available Not Available Not Available sulfamethox azole 800 mg-trimetho prim 160 mg tablet TAKE 1 TABLET BY MOUTH TWICE DAILY FOR 5 DAYS 11/22 completed Not Available Not Available Not Available ondansetron 8 mg disintegrat ing tablet DISSOLVE 1 TABLET IN MOUTH EVERY 8 HOURS NEEDED FOR NAUSEA FOR VOMITING active Not Available Not Available No t Available ketorolac 10 mg tablet active Not Available Not Available Not Available dextroamphe tamine-amph etamine 30 mg tablet 11/22 completed Not Available Not Available Not Available alprazolam 0.25 mg tablet TAKE 1 TABLET BY MOUTH TWICE DAILY NEEDED FOR ANXIETY active Not Available Not Available No t Available dextroamphe tamine-amph etamine ER 20 mg 24hr capsule,ext end release 11/22 completed Not Available Not Available Not Available nicotine (polacrilex ) 4 mg gum 1 PIECE OF GUM BETWEEN THE GUM AND THE CHEEK EVERY 1 TO 2 HOURS NEEDED FOR NICOTINE CRAVINGS 07/02 completed Not Available Not Available Not Available Anaspaz 0.125 mg disintegrat ing tablet 11/22 completed Not Available Not Available Not Available benzonatate 100 mg capsule TAKE 1 CAPSULE BY MOUTH EVERY 8 HOURS NEEDED 06/08 completed Not Available Not Available Not Available pantoprazol e 40 mg tablet,brent yed release TAKE 1 TABLET BY MOUTH TWICE DAILY DIRECTED active Not Available Not Available No t Available nitrofurant oin macrocrysta l 100 mg capsule TAKE 1 CAPSULE BY MOUTH AT BEDTIME 07/07 completed Not Available Not Available Not Available dexamethaso ne 4 mg tablet TAKE 1 & 1/2 (ONE & ONE-HALF) TABLETS BY MOUTH ONCE DAILY FOR 4 DAYS 06/08 completed Not Available Not Available Not Available lidocaine 5 % topical patch APPLY 1 PATCH TOPICALLY TO THE SKIN DAILY 07/02 completed Not Available Not Available Not Available oxybutynin chloride ER 5 mg tablet,exte nded release 24 hr TAKE 1 TABLET BY MOUTH ONCE DAILY AT BEDTIME FOR 90 DAYS active Not Available Not Available No t Available gabapentin 300 mg capsule TAKE 2 CAPSULES BY MOUTH THREE TIMES DAILY active Not Available Not Available No t Available gabapentin 100 mg capsule TAKE 1 CAPSULE BY MOUTH DAILY AT BEDTIME FOR 1 WEEK, THEN MAY INCREASE TO 1 CAPSULE TWICE DAILY 07/07 completed Not Available Not Available Not Available methylpredn isolone 4 mg tablets in a dose pack TAKE DIRECTED 06/08 completed Not Available Not Available Not Available albuterol sulfate HFA 90 mcg/actuati on aerosol inhaler INHALE 2 PUFFS BY MOUTH EVERY 4 HOURS NEEDED 07/02 completed Not Available Not Available Not Available oxybutynin chloride 5 mg tablet 11/22 completed Not Available Not Available Not Available methylpheni date ER 18 mg tablet,exte nded release 24 hr TAKE 1 TABLET BY MOUTH ONCE DAILY IN THE MORNING active Not Available Not Available No t Available fluoxetine 20 mg capsule TAKE 1 CAPSULE BY MOUTH ONCE DAILY IN THE MORNING active Not Available Not Available No t Available dextroamphe tamine-amph etamine 5 mg tablet TAKE 1 TABLET BY MOUTH ONCE DAILY 11/22 completed Not Available Not Available Not Available naproxen 500 mg tablet TAKE 1 TABLET BY MOUTH TWICE DAILY WITH FOOD 07/02 completed Not Available Not Available Not Available methylpheni date ER 36 mg tablet,exte nded release 24 hr TAKE 1 TABLET BY MOUTH ONCE DAILY 06/08 completed Not Available Not Available Not Available metoclopram wild 10 mg tablet TAKE 1 TABLET BY MOUTH EVERY 6 HOURS NEEDED FOR NAUSEA AND VOMITING 07/02 completed Not Available Not Available Not Available escitalopra m 10 mg tablet TAKE 1 TABLET BY MOUTH AT BEDTIME FOR MAJOR DEPRESSIV E DISORDER active Not Available Not Available No t Available escitalopra m 20 mg tablet TAKE 1 TABLET BY MOUTH ONCE DAILY 11/22 completed Not Available Not Available Not Available nitrofurant oin monohydrate /macrocryst als 100 mg capsule 11/22 completed Not Available Not Available Not Available duloxetine 20 mg capsule,del ayed release TAKE 1 CAPSULE BY MOUTH ONCE DAILY 07/02 completed Not Available Not Available Not Available sodium,pota ssium,mag sulfates 17.5 gram-3.13 gram-1.6 gram oral soln MIX AND DRINK DIRECTED 11/22 completed Not Available Not Available Not Available Procto-Med HC 2.5 % topical cream perineal applicator APPLY A THIN LAYER TO THE AFFECTED AREA(S) TOPICALLY 2-4 TIMES DAILY active Not Available Not Available No t Available Vitals Date Recorded Respiratory rate Provider Name a nd Address Organization Details Last Updated DateTime 07/07/2024 18 /min Davis Ramos [address] [facility], [facility] [address], [place], [address], [facility]ounder 07/07/2024 11:08:03 Date Recorded Body height Body mass index (BMI) Body weight Body temperature Oxygen saturation Oxygen saturation in Arterial blood by Pulse oximetry Heart rate Systolic blood pressure Diastolic blood pressure Provider Name and Address Organization Details Last Updated DateTime 5 172.72 cm 25.4 kg/m2 94797.6 8 g 97.7 [degF] 98 % 98 % 80 /min 120 mm[Hg] 70 mm[Hg] Elba Morrison RN [facility] [employer] 5 10:45:50 Date Recorded Body height Body mass index (BMI) Body weight Body temperature Oxygen saturation Oxygen saturation in Arterial blood by Pulse oximetry Heart rate Systolic blood pressure Diastolic blood pressure Provider Name and Address Organization Details Last Updated DateTime 172.72 cm 26.5 kg/m2 03017.7 7 g 97.8 [degF] 96 % 96 % 73 /min 130 mm[Hg] 78 mm[Hg] Elba Morrison RN [facility] [employer] 09:29:26 Date Recorded Body height Body mass index (BMI) Body weight Oxygen saturation Oxygen saturation in Arterial blood by Pulse oximetry Heart rate Body temperature Systolic blood pressure Diastolic blood pressure Provider Name and Address Organization Details Last Updated DateTime 5 172.72 cm 26.6 kg/m2 58814.3 6 g 99 % 99 % 79 /min 98.4 [degF] 120 mm[Hg] 64 mm[Hg] Elba Morrison RN [employer] 5 15:24:15 Date Recorded Body height Body mass index (BMI) Body weight Systolic blood pressure Diastolic blood pressure Provider Name and Address Organization Details Last Updated DateTime 11/23/2023 171.45 cm 23.5 kg/m2 47775.04 g 132 mm[Hg] 76 mm[Hg] FREDDIE John CA [employer] 4 12:08:05 Social History Question Answer Notes LastModified by [employer] Details LastModified Time Do You Have An Advance Directive? No Information not available 07/07/2024 What Is Your Level Of Caffeine Consumption? Occasional Information not available 07/07/2024 How Much Tobacco Do You Chew? None Information not available 07/07/2024 What Type Of Diet Are You Following? REGULAR [email or web address] Information not available 07/07/2024 What Is Your Relationship Status? Domestic Partner [email or web address] Information not available 07/07/2024 How Much Tobacco Do You Smoke? No [email or web address] Information not available 07/07/2024 Sex: Female Functional Status Question Answer Note LastModified by [employer] Details LastModified Time What is your level of alcohol consumption? Occasional [email or web address] Information not available 07/07/2024 Do you or have you ever used smokeless tobacco? [id number] [email or web address] Information not available 07/07/2024 What is your exercise level? Occasional [email or web address] Information not available 07/07/2024 Mental Status None recorded. Family History Relationship Description Onset Age of this Age Resolved Age Notes LastModified by Organization Details LastModified Time Mother Disorder of thyroid gland [email or web address] Not available 2024 11:19:28 Mother Depressive disorder [email or web address] Not available 2024 11:19:28 Mother Hypertensive disorder [email or web address] Not available 2024 11:19:28 Mother Heart disease [email or web address] Not available 2024 11:19:28 Mother Diabetes mellitus 70 Not available 2024 11:19:28 Mother Kidney disease [email or web address] Not available 2024 11:19:28 Medical History Condition Response GI PROBLEMS Y DEPRESSION (INCLUDING POST ) Y Gynecological History Statement/Question Response Abnormal Pap N If Post Menopausal, Age at Menopause 52 HPV Vaccine N Current Control Method None Most Recent Mammogram 05/31/2024 N Obstetrics History GPAL:G 0 P 0 0 0 0 Immunizations Vaccine Type Date Status Note Provider Nam e and Address Organization Details Recorded Time Influenza, split virus, quadrivalent, preservative 3 completed Maurice Caldera MD [address], [place], [address], [employer] [facility] Sounder 06/08/2024 15:41:23 Influenza, split virus, quadrivalent, preservative 2 completed Maurice Caldera MD [address], [address], [employer] [facility] Sounder 06/08/2024 15:41:23 COVID-19, mRNA, LNP-S, PF, 30 mcg/0.3 mL dose 1 completed Maurice Caldera MD [address], [address], [place], [address], [employer] [facility] [employer] 06/08/2024 15:41:23 COVID-19, mRNA, LNP-S, PF, 30 mcg/0.3 mL dose 1 completed Maurice Caldera MD [address], [address], [place], [address], [employer] [facility] Sounder 06/08/2024 15:41:23 Tdap 2 trip Caldera MD [address], [address], [employer] [facility] Sounder 06/08/2024 15:41:23 Past Encounters Encounter ID Performer Location Encounter Start Date Encounter Closed Date Diagnosis/Indication Diagnosis SNOMED-CT Code Diagnosis ICD10 Code Diagnosis Note [id number] Marcial lin MD [facility] Internal Med [facility] [address] , [place] [address] 11/23/2023 12:01:48 07/18/2024 14:34:12 Screening - NAD 313656512 Z13.9 Screening mammography 24 847038 Z12.31 Screening for osteoporosis 070969943 Z13.820 Gynecologi c examination 44897186 Z01.637 [id number] Maurice Caldera MD [address] [address] 06/08/2024 14:18:55 06/08/2024 14:47:25 Chronic thoracic back pain 3697810450 19039 M54.6 Chronic low back pain 27 2585098 M54.50 Lumbar spondylosis 26201 0009 M47.896 Spinal johnie nosis of lumbar region 62817802 M48.061 Compressio n fracture of thoracic vertebra 7823797968 104 M48.54XD Depressive disorder 3548 9007 F32.A Attention deficit hyperactivity disorder 010681286 F90.9 Gastroesop hageal reflux disease without esophagitis 364745096 K21.9 Chronic insomnia 5447047 04 F51.04 [id number] Frances Haider NP [facility] [address] [place] [address] 06/28/2024 17:02:53 07/04/2024 15:37:56 [id number] Maurice Caldera MD [address] [address] 07/07/2024 10:36:39 07/07/2024 11:16:49 Adult health examination 919114559 Z00.00 Attention deficit hyperactivity disorder 168731332 F90.9 Depressive disorder 3548 9007 F32.A Chronic insomnia 3194217 04 F51.04 Gastroesop hageal reflux disease without esophagitis 761296137 K21.9 Family his tory of diabetes mellitus 129708534 Z83.3 Screening mammography 24 519230 Z12.31 Postmenopausal state 764 81838 Z78.0 Lumbar spondylosis 29842 0009 M47.896 Chronic low back pain 27 4180123 M54.50 Hemorrhoids 30328330 K64 .9 [id number] Maurice Caldera MD [address] [address] 10/20/2024 09:07:35 10/20/2024 09:55:33 Dysuria 59503028 R30.0 Pain of bi lateral hands 2805278218 5875813 M79.641 M79.642 Overactive urinary bladder 834010830 N32.81 Chronic low back pain 27 2248907 M54.50 Chronic th oracic back pain 9301897304 28286 M54.6 Lumbar spondylosis 24200 0009 M47.896 Fibromyalgia 415247647 M 79.[address] iffness - joint 53230241 M25.60 [id number] Maurice Caldera MD [address] [address] 11/03/2024 14:50:12 11/03/2024 15:59:16 Post-discharge follow-up 072714006 Z09 Seen in department 04515 1009 Z76.89 Transient cerebral ischemia 208533960 G45.9 Fibromyalgia 774896611 M 79.7 Gastroesop hageal reflux disease without esophagitis 438081292 K21.9 Attention deficit hyperactivity disorder 912140352 F90.9 Depressive disorder 3548 9007 F32.A Dysphasia 51208280 R47.0 2 Transition of care 37085 26885 105 Z75.8 Drug therapy finding 309 130114 T88.7XXA ? Gabapentin Health Concerns Section Related Observation LastModified by Organization Detai ls LastModified Time None Recorded Concern Status LastModified by Organization Details LastModified Time None Recorded Advance Directives Directive N: Payers Insurance Date Sequence Insurance Name Policy Number Policy Ayoub Covered Member ID Ayoub Member ID Guarantor Name 10/19/[address] [facility] Napoleon Howell SELF SELF Napoleon Howell 10/20/2024 1 [place] [id number] Napoleon Howell [id number] Napoleon Howell 10/20/2024 1 [employer] (PPO) [id number] Napoleon Howell [id number] Napoleon Howell 11/20/2024 1 [facility] ([facility]) [id number] Napoleon Howell [id number] Napoleon Howell Notes Date Note Type Note Provider Name and Address Organization Details Recorded Time 06/08/2024 text/html Telephone visit.New pt visit.Pt was here yesterday afternoon, but there was not electricity in the clinic, so she was rescheduled. Pt was seeing PCP in [place] in the past. C/o chronic back pain for last few yrs. But for last few months, it was getting more worse. So pt went to ED on 05/04/[address] for this and had CT T&L spine and it was abnormal. So pt needs to see specialist for this; but her previous doctor dropped her as pt. Pt has chronic depression, anxiety and ADD and she is on meds by her previous PCP and she will be seeing Psych at [place] on 06/27/24 for further management. Doing overall ok. Pt has enough meds for this. Maurice Caldera MD [address], [place] [address], [place], [address], [facility] [employer] 06/08/2024 15:46:10 07/07/2024 text/html Pt is here for h er annual exam and she needs a form for her new job to be filled out. Needing refill on her meds. Pt will be seeing Psych at [place] on 07/18/24 and she needs Concerta refill until then. Doing overall well with her mood. Denies any mood swings/SI/HI. Pt is f/u with Spine surgeon at [place] for her chronic low back pain and will be getting MRI of her whole spine with them. C/o chronic back pain for last few yrs. But for last few months, it was getting more worse. So pt went to ED on 05/04/24 for this and had CT T&L spine and it was abnormal. So pt needs to see specialist for this; but her previous doctor dropped her as pt. Pt has chronic depression, anxiety and ADD and she is on meds by her previous PCP and she will be seeing Psych at [place] on 06/27/24 for further management. Doing overall ok. Pt has enough meds for this. Maurice Caldera MD [address], [facility] [address], [place], [address], [employer] [facility] Sounder 07/07/2024 12:09:05 10/20/2024 text/html ACV: C/o urinary urgency and frequency for last few months. Pt has done antibiotic course couple weeks ago already. Denies any fever/chills/n/v/d . C/o b/l hand pain and morning stiffness and wants to get labs and x-ray for it. Pt needs orders for her Annual labs. Pt is f/u with Pain clinic at [facility] and is on meds by them. Pt is f/u with Psych at [place] for her mood problems and is on meds by them. Maurice Caldera MD [address], [facility] [address], [place], [address], [employer] [facility] [employer] 10/20/2024 09:53:52 11/03/2024 text/html Hospital fuv: Pt was feeling shaking, tremors, Rt sided weakness & facial drooping 2 days ago. So she went to [facility]'s ED and was admitted overnight there. Pt got multiple testing done including labs, EKG, CT, MRIs and was d/c to home yesterday with possible TIA. Pt says her pain doctor recently increased her Gabapentin from 300mg TID to 600mg TID. Denies any other medication changes. Pt is f/u with her Psych and is on meds by them. Denies any mood swings/SI/HI. Pt got a new job couple months ago and she is working almost 13 days straight and is under some extra stress due to that. Pt is feeling overall better now. Still has Rt sided facial weakness and she will be seeing Neuro at [facility]. Pt has dysphagia too and she will be seeing GI at [facility] on next Thursday. Maurice Caldera MD [address], [facility] [address], [place], [address], [employer] [facility] [employer] 11/03/2024 15:57:53 OBGyn Episode No OBEpisode recorded.
--- OUTSIDE RECORDS SUMMARY | 2024-12-07 18:18 | XMS_ITS | Encounter Summary ---
Author Organization [facility] Healthcare Address [address] [place] [address] Care Team Providers Care Sensor Technician Name Role Phone Maurice Caldera MD Primary Care Provider [phone] Encounter Details Date Type Department Care Team (Late st Contact Info) Description 11/03/2024 Documentation [facility] [place] [address] [facility] [address] [place] [address] Rashid Denny, MELISSA 4 [facility] [address] [place] [address] Social History Tobacco Use Types Packs/Day Years Used Date Smoking Tobacco: Former Cigarettes 0.5 40 Alcohol Use Standard Drinks/Week Comments Yes 1 (1 standard drink = 0.6 oz pur e alcohol) 3 times a week [facility] Utilities Answer Date Recorded In the past 12 months has [employer] electric, gas, oil, or water company threatened to shut off services in your home? No 11/02/2024 Social Connection and Isolat ion Panel [NHANES] Answer Date Recorded In a typical week, how many times do you talk on the phone with family, friends, or neighbors? More than three times a week 11/02/2024 How often do you get togethe r with friends or relatives? More than three times a week 11/02/2024 How often do you attend chur ch or temple services? More than 4 times per year 11/02/2024 Do you belong to any clubs o r organizations such as mu-ism groups, unions, fraternal or athletic groups, or school groups? Yes 11/02/2024 How often do you attend meet ings of the clubs or organizations you belong to? More than 4 times per year 11/02/2024 Are you , , di vorced, , never , or living with a partner? 11/02/2024 AUDIT-C Answer Date Recorded Q1: How often do you have a drink containing alc ohol? Monthly or less 11/04/2024 Average Number of Drinks Not on file 025 Frequency of Binge Drinking Not on file 10/20 Overall Financial Resource Strain (CARDIA) Answe r Date Recorded How hard is it for you to pa y for the very basics like food, housing, medical care, and heating? Not hard at all 11/02/2024 PHQ-2 Answer Date Recorded PHQ-2 Total Score (If total score is 3 or more points, staff should administer the PHQ-9) 0 10/18/2024 Hunger Vital Sign Answer Date Recorded Within the past 12 months, y ou worried that your food would run out before you got the money to buy more. Never true 11/03/19 25 Within the past 12 months, t he food you bought just didn't last and you didn't have money to get more. Never true 11/02/2024 PRAPARE - Transportation Answer Date Re corded In the past 12 months, has l ack of transportation kept you from medical appointments or from getting medications? No 10/20 In the past 12 months, has l ack of transportation kept you from meetings, work, or from getting things needed for daily living? No 11/02/2024 PHQ-9 Answer Date Recorded PHQ-9 Total Score 7 10/18/2024 Housing Stability Vital Sign Answer Narayan e Recorded In the last 12 months, was t here a time when you were not able to pay the mortgage or rent on time? No 11/02/2024 In the past 12 months, how m any times have you moved where you were living? 0 11/02/2024 At any time in the past 12 m [facility], were you homeless or living in a skilled nursing (including now)? No 11/02/2024 Personal Safety Answer Date Recorded Have you ever been in or are you currently in a harmful physical or emotional relationship or is someone making you feel afraid or unsafe? 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
--- OUTSIDE RECORDS SUMMARY | 2024-12-07 18:18 | XMS_ITS | Clinical Summary ---
Author Organization [facility] Address [address] [place] [address] Phone Care Team Providers Care Asphalt Heater Operator Name Role Phone Jeremie Casanova MD Primary Care Provider [phone] Allergies No known active allergies Medications escitalopram (LEXAPRO) 20 MG Tablet Take 20 mg by mouth daily. Active risperiDONE (RISPERDAL) 2 MG Tablet Take 2 mg by mouth 2 times daily. Active traZODone (DESYREL) 50 MG Tablet Take 50 mg by mouth nightly. Active LORazepam (ATIVAN) 0.5 MG Tablet Take 0.5 mg by mouth every 6 hours as needed. Active ondansetron (ZOFRAN) 4 MG Tablet Take 1-2 Tablets by mouth every 8 hours as needed for Nausea - 1st line. 10 Tablet 06/24/2023 Active Active Problems No known active problems Social History Tobacco Use Types Packs/Day Years Used Date Smoking Tobacco: Every Day Cigarettes Smokeless Tobacco: Never Alcohol Use Standard Drinks/Week Comments Yes 0 (1 standard drink = 0.6 oz pur e alcohol) every other day Comments No Sex and Gender Information Value Date Recorded Sex Assigned at Not on file Legal Sex Female 1:03 AM CDT Gender Identity Not on file Sexual Orientation Not on file Last Filed Vital Signs Vital Sign Reading Time Taken Comments Blood Pressure 132/80 06/24/2023 10:00 PM FLOW TRADER Pulse 70 06/24/2023 10:00 PM FLOW TRADER Temperature 36.7 C (98 F) 06/24/2023 10:00 PM FLOW TRADER Respiratory Rate 17 06/24/2023 10:00 PM FLOW TRADER Oxygen Saturation 100% 06/24/2023 10:00 PM FLOW TRADER Inhaled Oxygen Concentration - - Weight 65.8 kg (145 lb) 06/24/2023 8:04 PM FLOW TRADER Height 172.7 cm (5' 8) 06/24/2023 8:04 PM FLOW TRADER Body Mass Index 22.05 06/24/2023 8:04 PM FLOW TRADER Plan of Treatment Health Maintenance Due Date Last Done Comments Hepatitis C Virus (HCV) Screening 1965 Mammogram 1965 Hepatitis B Immunization (1 of 3 - 19+ 3-dose series) 1984 Cologuard 2010 Colonoscopy 2010 Colorectal Cancer Screening 2010 Immunochemical Fecal Occult Blood 2010 Pneumococcal Immunization (5 0+ years) (1 of 1 - PCV) 09/07/2015 Zoster Immunization (1 of 2) 09/07/2015 SARS-COV-2 Immunization (3 - season) 2024 02/19/2021, 01/26/2021 Influenza Immunization (Seas on Ended) 2025 03/30/2023, 03/31/2022 Respiratory Syncytial Virus (RSV) Immunization (Adult) (1 - 1-dose 75+ series) 2040 DTaP/Tdap/Td Immunization Discontinued 03/31/2022 TdaP Immunization Completed 03/31/2022 Human Papillomavirus (HPV) Immunization Aged Out No longer eligible based on patient's age to complete this topic Meningococcal Immunization (ACWY) Aged Out No longer eligible based on patient's age to complete this topic Rotavirus Immunization Aged Out No lo nger eligible based on patient's age to complete this topic Insurance [place] [id number] Care Teams Asphalt Heater Operator Relationship Specialty Start Date End Date Jeremie Casanova MD [address] [place] [address] PCP - General Family Medicine 06/24/23
--- OUTSIDE RECORDS SUMMARY | 2024-12-07 18:19 | XMS_ITS | Clinical Summary ---
Author Organization [facility] Address [address] [place] [address] Care Team Providers Care Secondary Special Education Teacher Name Role Phone Maurice Caldera MD Primary Care Provider [phone] Allergies No known active allergies Medications traZODone (DESYREL) 50 mg tabletIndications :insomnia associated with depression Take 1 tablet (50 mg total) by mouth nightly Active escitalopram (LEXAPRO) 10 mg tablet Take 1 tablet (10 mg total) by mouth nightly Active cholecalciferol (VITAMIN D-3) 2000 unit capsule Take 1 capsule (2,000 Units total) by mouth nightly Active multivitamin with minerals tablet Take 1 tablet by mouth nightly Active pantoprazole DR (PROTONIX) 40 mg EC tablet Take 1 tablet (40 mg total) by mouth 2 (two) times a day Active aspirin 81 mg enteric coated tablet Take 1 tablet (81 mg total) by mouth daily 30 tablet 1 11/13/19 25 025 Active atorvastatin (LIPITOR) 40 mg tablet Take 1 tablet (40 mg total) by mouth nightly 30 tablet 1 11/13/19 25 025 Active clopidogreL (PLAVIX) 75 mg tablet Take 1 tablet (75 mg total) by mouth daily for 21 days 21 tablet 11/13/19 25 Active folic acid (FOLVITE) 1 mg tabletIndications :Folate Deficiency Take 1 tablet (1 mg total) by mouth daily for 2 doses 2 tablet 11/13/19 25 Active hydrOXYzine (ATARAX) 50 mg tabletIndications :Opioid Withdrawal Symptoms Take 1 tablet (50 mg total) by mouth 3 (three) times a day as needed for anxiety for up to 30 doses 30 tablet 11/13/19 Active thiamine (VITAMIN B1) 100 mg tabletIndications :Thiamine Deficiency Take 1 tablet (100 mg total) by mouth daily for 4 doses 4 tablet 11/13/19 Active HYDROcodone-aceta minophen (NORCO) 5-325 mg per tablet Take 1 tablet by mouth every 4 (four) hours as needed for pain 12/05/19 025 Discontinued(S top Taking at Discharge) ALPRAZolam (XANAX) 0.25 mg tablet Take 1 tablet (0.25 mg total) by mouth 2 (two) times a day as needed for anxiety 10/11/19 025 Discontinued(S top Taking at Discharge) gabapentin (NEURONTIN) 300 mg capsuleIndication s:Mechanical low back pain Take 2 capsules (600 mg total) by mouth 3 (three) times a day 180 capsule 2 10/20/19 025 Discontinued cyclobenzaprine (FLEXERIL) 10 mg tablet Take 1 tablet (10 mg total) by mouth 2 (two) times a day as needed for muscle spasms 10/21/19 025 Discontinued oxyBUTYnin XL (DITROPAN-XL) 5 mg 24 hr tablet Take 1 tablet (5 mg total) by mouth nightly 10/21/19 025 Discontinued ondansetron ODT (ZOFRAN-ODT) 4 mg disintegrating tablet Take 1 tablet (4 mg total) by mouth every 8 (eight) hours as needed for nausea or vomiting 025 Discontinued(S top Taking at Discharge) methylphenidate ER (CONCERTA) 18 mg CR tabletIndications :Attention-Defici t Hyperactivity Disorder Take 1 tablet (18 mg total) by mouth daily 025 Discontinued(S top Taking at Discharge) aspirin 325 mg tabletIndications :cerebral ischemia,Cerebral Ischemia Take 1 tablet (325 mg total) by mouth daily 30 tablet 11 11/04/19 025 Discontinued(S top Taking at Discharge) Active Problems Problem Noted Date Diagnosed Date Drug overdose, intentional, initial encounter Alcohol abuse 11/12/2024 Suicide attempt 11/11/2024 Dysphagia 11/03/2024 Esophageal stricture 11/03/2024 TIA (transient ischemic attack) 11/01/2024 Encounter for laboratory testing for COVID-19 vi vanessa 01/27/2021 Acute viral syndrome 01/27/2021 Borderline personality disorder 11/03/2018 Unspecified depressive disorder 11/03/2018 Encounters Date Type Department Care Team Description 11/23/2024 Telephone [facility] Gastroenterology at [address] [place] [address] Tameka Black 11/23/2024 Hospital Encounter [facility] [address] [place] [address] Kyler Curtis DO 11/12/2024 12:02 PM CDT - 11/12/2024 11:59 PM CDT Hospital Encounter [facility] Emergency, Room R Discharge Disposition: Discharge to home or self care 11/10/2024 9:43 PM CDT - 11/12/2024 11:54 AM CDT Hospital Encounter [facility] [address] [place] [address] Godfrey Chisholm MD Huynh, Kiet T., MD Kheirkhahan, Nazanin, MD Suicide attempt (HCC) (Primary Dx); Intentional benzodiazepine overdose, initial encounter (HCC); Alcohol abuse Discharge Disposition: Discharge to psych hospital or psych unit 11/10/2024 9:26 PM CDT - 11/10/2024 11:59 PM CDT Hospital Encounter [facility] Emergency, Room R Discharge Disposition: Discharge to home or self care 11/07/2024 Telephone [facility] Gastroenterology at [address], [place] [address] Jeana Hooker 11/03/2024 Telephone [facility] Gastroenterology at [address], [place] [address] Sonia Black MA Schedule EGD 11/03/2024 Documentation [facility] [address] [place] [address] [address], [place] [address] Rashid Denny NP 11/01/2024 5:08 PM CDT - 11/02/2024 4:26 PM CDT Hospital Encounter [facility] [address] [place] [address] Alejandro Gonzalez MD Petters, Ekanga Sunday, MD Fasick, Victoria Rose, DO TIA (transient ischemic attack) (Primary Dx); Dysphagia, unspecified type Discharge Disposition: Discharge to home or self care 11/01/2024 4:40 PM CDT - 11/01/2024 11:59 PM CDT Hospital Encounter [facility] Emergency, Room R Discharge Disposition: Discharge to home or self care 10/28/2024 7:43 AM CDT - 10/28/2024 11:59 PM CDT Hospital Encounter [facility] [address] [place] [address] Posterior right knee pain Discharge Disposition: Discharge to home or self care 10/28/2024 7:42 AM CDT - 10/28/2024 11:59 PM CDT Hospital Encounter [address] [address] Posterior knee pain, left Discharge Disposition: Discharge to home or self care 10/20/2024 10:30 AM CDT Lab [address] [address] 10/20/2024 10:24 AM CDT - 10/20/2024 11:59 PM CDT Hospital Encounter [address] [address] Pain in left hand; Pain in right hand Discharge Disposition: Discharge to home or self care 10/18/2024 7:10 AM CDT - 10/18/2024 11:59 PM CDT Hospital Encounter [facility] A, [address] [place] [address] James Emanuel MD Mechanical low back pain (Primary Dx); Cervicalgia; Chronic bilateral low back pain with bilateral sciatica; Posterior knee pain, left; Posterior knee pain, right Discharge Disposition: Discharge to home or self care 10/18/2024 Orders Only [facility] [address] [place] [address] James Emanuel MD Posterior right knee pain (Primary Dx); Posterior knee pain, left 09/18/2024 9:24 AM CDT - 09/18/2024 10:43 AM CDT Emergency [facility] 1 [place] [address] Tom Younger MD Abdominal pain (Primary Dx); Nausea and vomiting, unspecified vomiting type Discharge Disposition: Discharge to home or self care from Last 3 Months Immunizations Immunization Administration Dates Next Due Pfizer SARS-CoV-2 Monovalent Vaccination (12+ Yrs) PURPLE 02/19/2021,01/27/2021 Surgical History Surgery Date Site/Laterality Comments OTHER SURGICAL HISTORY muscle spasms: no surgery HYSTERECTOMY SECTION OOPHERECTOMY 06/22/1995 - 06/21/1996 25 years ago COLONOSCOPY Medical History Medical History Date Comments Migraines SARS (severe acute respiratory syndrome) 2002 Fibromyalgia, primary TIA (transient ischemic attack) 11/01/2024 COPD (chronic obstructive pulmonary disease) (HC C) Adhd MARIO (generalized anxiety disorder) DJD (degenerative joint disease) MDD (major depressive disorder) Hepatitis A ETOH abuse Borderline personality disorder (HCC) Marijuana use Suicide attempt (HCC) HLD (hyperlipidemia) GERD (gastroesophageal reflux disease) Family History Medical History Relation Name Comments Cancer Father Colon cancer Father Cancer -colon; Alzheimer's disease Mother Dementia Mother Diabetes Mother Hypertension Mother Kidney disease Mother Relation Name Status Comments Father Mother Alive Social History Tobacco Use Types Packs/Day Years Used Date Smoking Tobacco: Former Cigarettes 0.5 40 Tobacco Cessation:Counseling Given: Not Answered Alcohol Use Standard Drinks/Week Comments Yes 1 (1 standard drink = 0.6 oz pur e alcohol) 3 times a week [employer] Answer Date Recorded In the past 12 months has [employer], [employer], oil, or water [employer] threatened to shut off services in your [...] 11/02/2024 How often do you attend chur or rastafari services? More than 4 times per year 11/02/2024 Do you belong to any clubs o r organizations such as orthodox groups, unions, fraternal or athletic groups, or school groups? Yes 11/02/2024 How often do you attend meet ings of the clubs or organizations you belong to? More than 4 times per year 11/02/2024 Are you , , di vorced, , never , or living with a partner? 11/02/2024 AUDIT-C Answer Date Recorded Q1: How often do you have a drink containing alc ohol? 2-3 times a week 11/11/2024 Q2: How many drinks containi ng alcohol do you have on a typical day when you are drinking? 3 or 4 11/11/2024 Q3: How often do you have si x or more drinks on one occasion? Never 11/11/2024 Overall Financial Resource Strain (CARDIA) Answe r [...] any time in the past 12 m [facility], were you homeless or living in a assisted (including now)? No 11/02/2024 Personal Safety Answer Date Recorded Have you ever been in or are you currently in a harmful physical or emotional relationship or is someone making you feel afraid or unsafe? 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 Gender Identity Female 03/07/2021 7:11 AM CDT Sexual Orientation Straight 03/07/2021 7: 11 AM CDT Obstetrics History Last Filed Vital Signs Vital Sign Reading Time Taken Comments Blood Pressure 124/61 11/11/2024 11:25 PM CDT Pulse 58 11/11/2024 11:25 PM CDT Temperature 36.1 C (97 F) 11/11/2024 11:25 PM CDT Respiratory Rate 16 11/11/2024 11:25 PM CDT Oxygen Saturation 99% 11/11/2024 11:25 PM CDT Inhaled Oxygen Concentration - - Weight 84.1 kg (185 lb 6.5 oz) 11/11/2024 4:37 A M CDT Height 172.7 cm (5' 8) 11/11/2024 1:20 AM CDT Body Mass Index 28.19 11/11/2024 1:20 AM CDT Plan of Treatment Health Maintenance Due Date Last Done Comments Colon Cancer Screening-Colonoscopy 1965 Hepatitis B Screening 09/07/1983 Regular Well Visit/Exam 18-64 09/07/1983 Zoster Vaccine (1 of 2) 09/07/2015 Covid-19 Vaccine (3 2023-2 5 season) 2024 02/19/2021, 01/27/2021 Breast Cancer Screening-Mammogram 10/08/2024 10/09/2023, 10/09/2023, 05/10/2019 Influenza Vaccine (Season Ended) 2025 03/30/2023, 03/31/2022 Depression Screening 10/18/2025 10/18/2024, 10/18/2024 DTaP/Tdap/Td Vaccine (2 - Td or Tdap) 03/31/2032 03/31/2022 Hepatitis C Screening Completed 03/07/2021 Pneumococcal vaccine <65 Aged Out No longer eligible based on patient's age to complete this topic Procedures Procedure Name Priority Date/Time Associated Diagnosis Comments EGFR Routine 11/12/2024 3:17 AM CDT DIFFERENTIAL AUTO Routine 11/12/2024 3:1 7 AM CDT MAGNESIUM Routine 11/12/2024 3:17 AM CDT COMPREHENSIVE METABOLIC PANEL Routine 11/12/2024 3:17 AM CDT CBC WITH AUTO DIFFERENTIAL Routine 11/12/2024 3:17 AM CDT EGFR Routine 11/11/2024 2:23 AM CDT DIFFERENTIAL AUTO Routine 11/11/2024 2:2 3 AM CDT MAGNESIUM Routine 11/11/2024 2:23 AM CDT COMPREHENSIVE METABOLIC PANEL Routine 11/11/2024 2:23 AM CDT CBC WITH AUTO DIFFERENTIAL Routine 11/11/2024 2:23 AM CDT DRUGS OF ABUSE SCREEN, URINE WITHOUT CONFIRMATION STAT 11/10/2024 11:28 PM CDT URINALYSIS AND REFLEX TO MICROSCOPIC AND CULTURE STAT 11/10/2024 11:28 PM CDT EGFR STAT 11/10/2024 10:41 PM CDT FERRITIN Routine 11/10/2024 10:41 PM CDT IRON PROFILE W/ IBC STAT 11/10/2024 1 0:41 PM CDT MAGNESIUM STAT 11/10/2024 10:41 PM CDT SALICYLATE LEVEL STAT 11/10/2024 10:4 1 PM CDT ACETAMINOPHEN LEVEL STAT 11/10/2024 1 0:41 PM CDT ETHANOL STAT 11/10/2024 10:41 PM CDT THYROID FUNCTION CASCADE STAT 11/10/2024 10:41 PM CDT COMPREHENSIVE METABOLIC PANEL STAT 11/10/2024 10:41 PM CDT COVID-19 CORONAVIRUS RNA STAT 11/10/2024 10:25 PM CDT DIFFERENTIAL AUTO STAT 11/10/2024 10: 00 PM CDT CBC WITH AUTO DIFFERENTIAL STAT 11/10/2024 10:00 PM CDT ECG 12-LEAD STAT 11/10/2024 9:52 PM CDT TRANSTHORACIC ECHO (TTE) COMPLETE W DOPPLER/CF WO CONTRAST W BUBBLE Routine 11/02/2024 9:55 AM CDT MRI BRAIN WO CONTRAST ED 11/02/2024 6:51 AM CDT EGFR Routine 11/02/2024 12:23 AM CDT CBC WITHOUT DIFFERENTIAL Routine 11/02/2024 12:23 AM CDT MAGNESIUM Routine 11/02/2024 12:23 AM CDT COMPREHENSIVE METABOLIC PANEL Routine 11/02/2024 12:23 AM CDT TROPONIN T HIGH-SENSITIVITY 6-HOUR Timed 11/02/2024 12:23 AM CDT TROPONIN T HIGH-SENSITIVITY 4-HR Timed 11/01/2024 9:41 PM CDT URINALYSIS AND REFLEX TO MICROSCOPIC AND CULTURE Routine 11/01/2024 8:56 PM CDT TROPONIN T HIGH-SENSITIVITY 2-HOUR Timed 11/01/2024 8:13 PM CDT ECG 12-LEAD STAT 11/01/2024 6:17 PM CDT EGFR STAT 11/01/2024 5:31 PM CDT DIFFERENTIAL AUTO STAT 11/01/2024 5:3 1 PM CDT TROPONIN T HIGH-SENSITIVITY SERIES (BASELINE, 2HR, 4HR, 6HR) STAT 11/01/2024 5:31 PM CDT PROTIME-INR STAT 11/01/2024 5:31 PM CDT CBC WITH AUTO DIFFERENTIAL STAT 11/01/2024 5:31 PM CDT COMPREHENSIVE METABOLIC PANEL STAT 11/01/2024 5:[address] STROKE PROTOCOL W WO CONTRAST ED 11/01/2024 5:[address] STROKE PROTOCOL WO CONTRAST Critical/Life-T hreatening 11/01/2024 5:05 PM CDT POCT GLUCOSE DEVICE Routine 11/01/2024 4 :56 PM CDT US KNEE Schedule Routine, Read Routine (OP Routine) 10/28/2024 8:20 AM CDT Posterior right knee pain US KNEE Schedule Routine, Read Routine (OP Routine) 10/28/2024 8:20 AM CDT Posterior knee pain, left XR HAND RIGHT 3 OR MORE VIEWS Schedule Routine, Read Routine (OP Routine) 10/20/2024 10:54 AM CDT Pain in right hand XR HAND LEFT 3 OR MORE VIEWS Schedule Routine, Read Routine (OP Routine) 10/20/2024 10:54 AM CDT Pain in left hand EGFR Routine 10/20/2024 10:40 AM CDT DIFFERENTIAL AUTO Routine 10/20/2024 10: 40 AM CDT CYCLIC CITRUL PEPTIDE ANTIBODY, IGG Routine 10/20/2024 10:40 AM CDT RHEUMATOID FACTOR Routine 10/20/2024 10: 40 AM CDT RICHARD QUALITATIVE WITH REFLEX TO RICHARD QUANTITATIVE Routine 10/20/2024 10:40 AM CDT MAGNESIUM Routine 10/20/2024 10:40 AM CDT VITAMIN B12 Routine 10/20/2024 10:40 AM CDT HEMOGLOBIN A1C Routine 10/20/2024 10:40 AM CDT THYROID FUNCTION CASCADE Routine 10/20/2024 10:40 AM CDT LIPID PANEL Routine 10/20/2024 10:40 AM CDT COMPREHENSIVE METABOLIC PANEL Routine 10/20/2024 10:40 AM CDT CBC WITH AUTO DIFFERENTIAL Routine 10/20/2024 10:40 AM CDT URINALYSIS AND REFLEX TO MICROSCOPIC AND CULTURE Routine 10/20/2024 10:[address] ABDOMEN PELVIS W CONTRAST ED 09/18/2024 9:49 AM CDT EGFR STAT 09/18/2024 9:37 AM CDT DIFFERENTIAL AUTO STAT 09/18/2024 9:3 7 AM CDT ANTIBODY SCREEN STAT 09/18/2024 9:37 AM CDT ABO/RH STAT 09/18/2024 9:37 AM CDT TYPE AND SCREEN STAT 09/18/2024 9:37 AM CDT COMPREHENSIVE METABOLIC PANEL STAT 09/18/2024 9:37 AM CDT CBC WITH AUTO DIFFERENTIAL STAT 09/18/2024 9:37 AM CDT HEPATITIS PANEL, ACUTE Routine 03/07/2021 8:05 AM CDT Recent unexplained weight loss from Last 3 Months or Most Recently Relevant to Health Maintenance Results * eGFR (11/12/2024 3:17 AM CDT) eGFR >90 >=60 mL/min/1. 73 m2 Comment: Interpretive Data Reference Interval Normal >/= 90 mL/min/1.73m2 Mildly decreased* 60 - 89 mL/min/1.73m2 Mildly to moderately decreased 45 - 59 mL/min/1.73m2 Moderately to severely decreased 30 - 44 mL/min/1.73m2 Severely decreased 15 - 29 mL/min/1.73m2 Kidney Failure < 15 mL/min/1.73m2 *Relative to young adult level Estimated glomerular filtration rate is determined by the 2020 CKD-EPI equation recommended by the National Kidney Foundation (A Unifying Approach to GFR Estimation: Recommendations of the NKF-ASK Task Force on Reassessing the Inclusion of Race in Diagnosing Kidney Disease, JASN 2020). The CKD-EPI equation should not be used for patients with unstable renal function and has not been validated in children and those over 70. Current interpretive data was last reviewed 2021. Blood 11/12/2024 3:17 AM CDT 11/12/2024 3:47 AM CDT us Billy Kaplan MD LAB BLOOD ORDERABLES Final Resu lt [facility] [place]) 1 [facility] Department [place] [address] * Differential, auto (11/12/2024 3:17 AM CDT) Neutrophil abs 4.14 1.50 - 6.50 K/cumm Imm gran abs 0.04 0.00 - 0.10 K/cumm [facility]) Lymphocyte abs 2.62 0.80 - 3.30 K/cumm [facility]) Monocyte abs 0.45 0.20 - 0.80 K/cumm [facility]) Eosinophil abs 0.24 0.00 - 0.50 K/cumm [facility]) Basophil abs 0.03 0.00 - 0.10 K/cumm [facility]) Neutrophil pct 55.1 % [facility] Comment: Interpretive Data Percent cell count reference ranges are not reported, since discordance with absolute values may lead to misinterpretation of CBC data. Current Interpretive Data was last revised on 2017. Imm gran pct 0.5 % [facility]) Comment: Interpretive Data Percent cell count reference ranges are not reported, since discordance with absolute values may lead to misinterpretation of CBC data. Current Interpretive Data was last revised on 2017. Lymphocyte pct 34.8 % [facility] Comment: Interpretive Data Percent cell count reference ranges are not reported, since discordance with absolute values may lead to misinterpretation of CBC data. Current Interpretive Data was last revised on 2017. Monocyte pct 6.0 % [facility] Comment: Interpretive Data Percent cell count reference ranges are not reported, since discordance with absolute values may lead to misinterpretation of CBC data. Current Interpretive Data was last revised on 2017. Eosinophil pct 3.2 % [facility] Comment: Interpretive Data Percent cell count reference ranges are not reported, since discordance with absolute values may lead to misinterpretation of CBC data. Current Interpretive Data was last revised on 2017. Basophil pct 0.4 % [facility] Comment: Interpretive Data Percent cell count reference ranges are not reported, since discordance with absolute values may lead to misinterpretation of CBC data. Current Interpretive Data was last revised on 2017. Blood 11/12/2024 3:17 AM CDT 11/12/2024 3:47 AM CDT Billy Kaplan MD LAB BLOOD ORDERABLES Final Resu lt [facility] [address] [place] [address] * CBC with auto differential (11/12/2024 3:17 AM CDT) WBC 7.52 3.80 - 9.90 K/cumm Hgb 12.8 11.9 - 15.5 g/dL [facility] Hct 37.3 35.6 - 45.5 % [facility]) Plt 234 150 - 400 K/cumm [facility]) MPV 10.0 9.1 - 12.3 fL [facility]) RBC 4.16 3.90 - 5.20 M/cumm [facility]) MCV 89.7 81.3 - 96.4 fL [facility]) MCH 30.8 27.1 - 33.3 pg [facility] MCHC 34.3 32.3 - 35.7 g/dL [facility] RDW CV 12.2 11.1 - 14.9 % [facility] RDW SD 39.5 35.7 - 48.1 fL [facility]) NRBC abs 0.00 0.00 - 0.01 K/cumm [facility]) Blood 11/12/2024 3:17 AM CDT 11/12/2024 3:47 AM CDT Billy Kaplan MD LAB BLOOD ORDERABLES Final Resu lt [facility] [address] [place] [address] * Magnesium (11/12/2024 3:17 AM CDT) Magnesium 1.9 1.4 - 2.5 mg/dL Blood 11/12/2024 3:17 AM CDT 11/12/2024 3:47 AM CDT us Billy Kaplan MD LAB BLOOD ORDERABLES Final Resu lt [facility] Department [place] [address] * (ABNORMAL) Comprehensive metabolic panel (11/12/2024 3:17 AM CDT) Sodium 142 135 - 145 mmol/L Potassium, pl 4.1 3.3 - 4.9 mmol/L [facility] Chloride 107 97 - 110 mmol/L [facility] CO2 23 22 - 32 mmol/L [facility] Anion gap 11 2 - 15 mmol/L [facility] BUN 20 6 - 25 mg/dL [facility] Creatinine 0.69 0.60 - 1.10 mg/dL [facility] Glucose 103 70 - 199 mg/dL [facility] Comment: Interpretive Data Fasting glucose >/= 126 mg/dl is diagnostic for diabetes. Fasting is defined as no caloric intake for at least 8 hours. Fasting glucose between 100 mg/dl to 125 mg/dl is diagnostic of prediabetes. In a patient with classic symptoms of hyperglycemia or hyperglycemic crisis, a random glucose >/= 200 mg/dl is diagnostic for diabetes. In the absence of unequivocal hyperglycemia, results should be confirmed by repeat testing. The classification and Diagnosis of Diabetes Diabetes Care 2021; 46: S19-S40. Current interpretive data was last revised 2022. Calcium 8.8 8.5 - 10.3 mg/dL [facility] Bilirubin, total <0.2 0.1 - 1.2 mg/dL [facility]) Protein, pl 6.0(L) 6.5 - 8.5 g/dL [facility]) Albumin 3.7 3.5 - 5.0 g/dL [facility]) Alk phos 173(H) 40 - 130 Units/L [facility]) ALT 17 7 - 45 Units/L [facility] AST 19 10 - 45 Units/L [facility]) Blood 11/12/2024 3:17 AM CDT 11/12/2024 3:47 AM CDT us Billy Kaplan MD LAB BLOOD ORDERABLES Final Resu lt Performing Organization Address City/[facility]/ZIP Co de Phone Number [facility]) [address] [place] [address] [place] [address] * eGFR (11/11/2024 2:23 AM CDT) eGFR >90 >=60 mL/min/1. 73 m2 Comment: Interpretive Data Reference Interval Normal >/= 90 mL/min/1.73m2 Mildly decreased* 60 - 89 mL/min/1.73m2 Mildly to moderately decreased 45 - 59 mL/min/1.73m2 Moderately to severely decreased 30 - 44 mL/min/1.73m2 Severely decreased 15 - 29 mL/min/1.73m2 Kidney Failure < 15 mL/min/1.73m2 *Relative to young adult level Estimated glomerular filtration rate is determined by the 2020 CKD-EPI equation recommended by the National Kidney Foundation (A Unifying Approach to GFR Estimation: Recommendations of the NKF-ASK Task Force on Reassessing the Inclusion of Race in Diagnosing Kidney Disease, JASN 2020). The CKD-EPI equation should not be used for patients with unstable renal function and has not been validated in children and those over 70. Current interpretive data was last reviewed 2021. Blood 11/11/2024 2:23 AM CDT 11/11/2024 2:40 AM CDT us Godfrey Chisholm MD LAB BLOOD ORDERABLES Final Re sult Performing Organization Address City/[facility]/ZIP Co de Phone Number [facility] 1 [facility] Department [place] [address] * Differential, auto (11/11/2024 2:23 AM CDT) Neutrophil abs 2.21 1.50 - 6.50 K/cumm Imm gran abs 0.02 0.00 - 0.10 K/cumm [facility]) Lymphocyte abs 2.23 0.80 - 3.30 K/cumm [facility]) Monocyte abs 0.32 0.20 - 0.80 K/cumm [facility]) Eosinophil abs 0.14 0.00 - 0.50 K/cumm [facility]) Basophil abs 0.03 0.00 - 0.10 K/cumm [facility]) Neutrophil pct 44.6 % [facility] Comment: Interpretive Data Percent cell count reference ranges are not reported, since discordance with absolute values may lead to misinterpretation of CBC data. Current Interpretive Data was last revised on 2017. Imm gran pct 0.4 % [facility] Comment: Interpretive Data Percent cell count reference ranges are not reported, since discordance with absolute values may lead to misinterpretation of CBC data. Current Interpretive Data was last revised on 2017. Lymphocyte pct 45.1 % [facility] Comment: Interpretive Data Percent cell count reference ranges are not reported, since discordance with absolute values may lead to misinterpretation of CBC data. Current Interpretive Data was last revised on 2017. Monocyte pct 6.5 % [facility] Comment: Interpretive Data Percent cell count reference ranges are not reported, since discordance with absolute values may lead to misinterpretation of CBC data. Current Interpretive Data was last revised on 2017. Eosinophil pct 2.8 % [facility] Comment: Interpretive Data Percent cell count reference ranges are not reported, since discordance with absolute values may lead to misinterpretation of CBC data. Current Interpretive Data was last revised on 2017. Basophil pct 0.6 % [facility] Comment: Interpretive Data Percent cell count reference ranges are not reported, since discordance with absolute values may lead to misinterpretation of CBC data. Current Interpretive Data was last revised on 2017. Blood 11/11/2024 2:23 AM CDT 11/11/2024 2:40 AM CDT us Godfrey Chisholm MD LAB BLOOD ORDERABLES Final Re sult [facility] ([facility]) 1 [facility] Department [place] [address] * CBC with auto differential (11/11/2024 2:23 AM CDT) WBC 4.95 3.80 - 9.90 K/cumm Hgb 12.3 11.9 - 15.5 g/dL [facility] ([facility]) Hct 36.7 35.6 - 45.5 % [facility] ([place]) Plt 264 150 - 400 K/cumm [facility] ([place]) MPV 9.8 9.1 - 12.3 fL [facility] ([place]) RBC 4.11 3.90 - 5.20 M/cumm [facility] ([place]) MCV 89.3 81.3 - 96.4 fL [facility] ([place]) MCH 29.9 27.1 - 33.3 pg [facility] ([place]) MCHC 33.5 32.3 - 35.7 g/dL [facility] ([place]) RDW CV 12.1 11.1 - 14.9 % [facility] ([place]) RDW SD 39.7 35.7 - 48.1 fL [facility] ([place]) NRBC abs 0.00 0.00 - 0.01 K/cumm [facility] ([place]) Blood 11/11/2024 2:23 AM CDT 11/11/2024 2:40 AM CDT us Godfrey Chisholm MD LAB BLOOD ORDERABLES Final Re sult [facility] ([place]) [address] [facility] [place] [address] * Magnesium (11/11/2024 2:23 AM CDT) Magnesium 1.8 1.4 - 2.5 mg/dL Blood 11/11/2024 2:23 AM CDT 11/11/2024 2:40 AM CDT us Godfrey Chisholm MD LAB BLOOD ORDERABLES Final Re sult [facility] ([place]) 1 [facility] Department [place] [address] * (ABNORMAL) Comprehensive metabolic panel (11/11/2024 2:23 AM CDT) Sodium 144 135 - 145 mmol/L Potassium, pl 3.8 3.3 - 4.9 mmol/L [facility] ([place]) Chloride 109 97 - 110 mmol/L [facility] ([place]) CO2 20(L) 22 - 32 mmol/L [facility] ([place]) Anion gap 14 2 - 15 mmol/L [facility] ([place]) BUN 14 6 - 25 mg/dL [facility] ([place]) Creatinine 0.55(L) 0.60 - 1.10 mg/dL [facility] ([place]) Glucose 126 70 - 199 mg/dL [facility] ([place]) Comment: Interpretive Data Fasting glucose >/= 126 mg/dl is diagnostic for diabetes. Fasting is defined as no caloric intake for at least 8 hours. Fasting glucose between 100 mg/dl to 125 mg/dl is diagnostic of prediabetes. In a patient with classic symptoms of hyperglycemia or hyperglycemic crisis, a random glucose >/= 200 mg/dl is diagnostic for diabetes. In the absence of unequivocal hyperglycemia, results should be confirmed by repeat testing. The classification and Diagnosis of Diabetes Diabetes Care 202; 46: S19-S40. Current interpretive data was last revised 2022. Calcium 8.2(L) 8.5 - 10.3 mg/dL [facility] ([facility]) Bilirubin, total <0.2 0.1 - 1.2 mg/dL [facility] ([place]) Protein, pl 5.9(L) 6.5 - 8.5 g/dL [facility] ([place]) Albumin 3.6 3.5 - 5.0 g/dL [facility] ([place]) Alk phos 120 40 - 130 Units/L [facility] ([place]) ALT 15 7 - 45 Units/L [facility] ([place]) AST 18 10 - 45 Units/L [facility] ([facility]) Blood 11/11/2024 2:23 AM CDT 11/11/2024 2:40 AM CDT Godfrey Chisholm MD LAB BLOOD ORDERABLES Final Re sult [facility] ([place]) 1 [facility] Department [place] [address] * Urinalysis reflex to microscopic and culture Urine (11/10/2024 11:28 PM CDT) Color, ur Straw Yellow Clarity, ur Clear Clear [facility] ([facility]) Specific gravity, ur 1.006 1.003 - 1.030 [facility] ([facility]) pH, urine 6.0 [facility] ([facility]) Comment: Interpretive Data U rine pH is affected by diet, medications, systemic acid-base disturbances, and renal tubular function. pH may affect urinary stone formation. For example, urine pH below 6.0 may help reduce the tendency for calcium phosphate stones and pH greater than 6.0 may reduce the tendency for uric acid stone formation. Source: [facility] Current Interpretive Data was last revised on 2017 Protein, ur ql Negative Negative [facility] ([facility]) Glucose, ur ql Negative Negative [facility] ([facility]) Ketones, ur Negative Negative [facility] ([facility]) Bilirubin, ur Negative Negative [facility] ([place]) Blood, ur Negative Negative [facility] ([facility]) Urobilinogen, ur <2.0 <2.0 mg/dL [facility] ([facility]) Nitrite, ur Negative Negative [facility] ([facility]) Leukocyte esterase, ur Negative Negative [facility] ([facility]) UA reflex comment Reflex conditions for microscopic UA and culture not met. [facility] ([facility]) Urine 11/10/2024 11:2 8 PM CDT 11/10/2024 11:35 PM CDT us Godfrey Chisholm MD LAB MICROBIOLOGY - GENERAL OR DERABLES Final Result [facility] ([place]) 1 [facility] Department [place] [address] * (ABNORMAL) Drugs of Abuse Screen, Urine without Confirmation (11/10/2024 11:28 PM CDT) Amphetamine, ur Not Detected CutOff 500ng/mL Comment: Interpretive Data - Amphetamines: Samples containing greater than 500 ng/mL d-methamphetamine or other cross-reacting amphetamine compounds are reported as positive. Amphetamine immunoassays are subject to significant false positive rates due to cross-reactivity of non-amphetamine drugs. Confirmatory testing required for definitive results. Current Interpretive Data was last reviewed 2023. Barbiturates, ur Not Detected CutOff 200ng/mL [facility] ([facility]) Comment: Interpretive Data - Barbiturates: Samples containing greater than 200 ng/mL secobarbital or other cross-reacting barbiturate compounds are reported as positive. False positive and false negative results are possible. Confirmatory testing required for definitive results. Current Interpretive Data was last reviewed 2023. Benzodiazepines, ur Screen Positive, presumptive (A) CutOff 100ng/mL [facility] ([facility]) Comment: Interpretive Data - Benzodiazepines: Samples containing greater than 100 ng/mL nordiazepam or other cross-reacting compounds are reported as positive. False positive and false negative results are possible. Confirmatory testing required for definitive results. Current Interpretive Data was last reviewed 2023. Cannabinoids, ur Screen Positive, presumptive (A) CutOff 50 ng/mL [facility] ([facility]) Comment: Interpretive Data - Cannabinoids: Samples containing greater than 50 ng/mL delta-9 THC -COOH or other cross- reacting compounds are reported as positive. False positive and false negative results are possible. Confirmatory testing required for definitive results. Current Interpretive Data was last reviewed 2023. Cocaine, ur Not Detected CutOff 150ng/mL [facility] ([facility]) Comment: Interpretive Data - Cocaine: Samples containing greater than 150 ng/mL benzoylecgonine or other cross- reacting compounds are reported as positive. False positive and false negative results are possible. Confirmatory testing required for definitive results. Current Interpretive Data was last reviewed 2023. Fentanyl, Ur Not Detected CutOff 5 ng/mL [facility] ([facility]) Comment: Interpretive Data - Fentanyl: Samples containing greater than 5 ng/mL norfentanyl, fentanyl, or other cross-reacting fentanyl compounds are reported as positive. False positive and false negative results are possible. Confirmatory testing required for definitive results. Current Interpretive Data was last reviewed 2023. Methadone, ur Not Detected CutOff 300ng/mL [facility] ([facility]) Comment: Interpretive Data - Methadone: Samples containing greater than 300 ng/mL d,l-methadone or other cross-reacting compounds are reported as positive. False positive and false negative results are possible. Confirmatory testing required for definitive results. Current Interpretive Data was last reviewed 2023. Opiates, ur Not Detected CutOff 300ng/mL [facility] ([facility]) Comment: Interpretive Data - Opiates: Samples containing greater than 300 ng/mL morphine or other cross-reacting compounds are reported as positive. False positive and false negative results are possible. Confirmatory testing required for definitive results. Current Interpretive Data was last reviewed 2023. Oxycodone, ur Not Detected CutOff 100ng/mL [facility] ([facility]) Comment: Interpretive Data - Oxycodone: Samples containing greater than 100 ng/mL oxycodone or other cross-reacting compounds are reported as positive. False positive and false negative results are possible. Confirmatory testing required for definitive results. Current Interpretive Data was last reviewed 2023. Phencyclidine, ur Not Detected CutOff 25 ng/mL [facility] ([facility]) Comment: Interpretive Data - Phencyclidine: Samples containing greater than 25 ng/mL phencyclidine or other cross-reacting compounds are reported as positive. False positive and false negative results are possible. Confirmatory testing required for definitive results. Current Interpretive Data was last reviewed 2023. Urine Creatinine 15 mg/dL [facility] ([facility]) Comment: Interpretive Data Urine Creatinine: < 10 mg/dL is extremely dilute = or > 10 but < 20 mg/dL is dilute = or > 20 mg/dL is normal Current Interpretive Data was last revised on 2017. Urine 11/10/2024 11:2 8 PM CDT 11/10/2024 11:36 PM CDT Narrative [facility] ([place]) - 11/11/2024 12:13 AM CDT Drug of Abuse screening is performed by immunoassay for medical purposes only. This is not to be used for Pain Management purposes. us Godfrey Chisholm MD LAB URINE ORDERABLES Final Re sult Performing Organization Address [facility]/ZIP Co de Phone Number [facility] [place] [address] [place] [address] [place] [address] * eGFR (11/10/2024 10:41 PM CDT) eGFR >90 >=60 mL/min/1. 73 m2 Comment: Interpretive Data Reference Interval Normal >/= 90 mL/min/1.73m2 Mildly decreased* 60 - 89 mL/min/1.73m2 Mildly to moderately decreased 45 - 59 mL/min/1.73m2 Moderately to severely decreased 30 - 44 mL/min/1.73m2 Severely decreased 15 - 29 mL/min/1.73m2 Kidney Failure < 15 mL/min/1.73m2 *Relative to young adult level Estimated glomerular filtration rate is determined by the 2020 CKD-EPI equation recommended by the National Kidney Foundation (A Unifying Approach to GFR Estimation: Recommendations of the NKF-ASK Task Force on Reassessing the Inclusion of Race in Diagnosing Kidney Disease, JASN 2020). The CKD-EPI equation should not be used for patients with unstable renal function and has not been validated in children and those over 70. Current interpretive data was last reviewed 2021. Blood 11/10/2024 10:4 1 PM CDT 11/10/2024 10:54 PM CDT us Godfrey Chisholm MD LAB BLOOD ORDERABLES Final Re sult Performing Organization Address City/[facility]/ZIP Co de Phone Number [facility] ([place]) 1 [facility] [place] [address] * Thyroid Function [place] (11/10/2024 10:41 PM CDT) TSH 3.92 0.30 - 4.20 mcIUnit/mL Blood 11/10/2024 10:4 1 PM CDT 11/10/2024 10:54 PM CDT Godfrey Chisholm MD LAB BLOOD ORDERABLES Final Re sult [facility] ([place]) [address] [place] [address] [place] [address] * (ABNORMAL) Iron profile w/ IBC (11/10/2024 10:41 PM CDT) [facility] Iron 53 35 - 145 mcg/dL TIBC 225(L) 250 - 400 mcg/dL [facility] ([place]) Transferrin saturation 24 20 - 50 % [facility] ([place]) Blood 11/10/2024 10:4 1 PM CDT 11/10/2024 10:54 PM CDT Godfrey Chisholm MD LAB BLOOD ORDERABLES Final Re sult [facility] ([place]) 1 [facility] [place] [address] * Magnesium (11/10/2024 10:41 PM CDT) [facility] Magnesium 2.0 1.4 - 2.5 mg/dL Blood 11/10/2024 10:4 1 PM CDT 11/10/2024 10:54 PM CDT Godfrey Chisholm MD LAB BLOOD ORDERABLES Final Re sult [facility] ([place]) 1 [facility] [place] [address] * (ABNORMAL) Ferritin (11/10/2024 10:41 PM CDT) [facility] Ferritin 232(H) 15 - 150 ng/mL Blood 11/10/2024 10:4 1 PM CDT 11/10/2024 10:54 PM CDT Godfrey Chisholm MD LAB BLOOD ORDERABLES Final Re sult Performing Organization Address [facility]/ZIP Co de Phone Number [facility] [place] 1 [facility] [place] [address] * (ABNORMAL) Ethanol (11/10/2024 10:41 PM CDT) Ethanol 125(H) <=10 mg/dL Comment: Interpretive Data Legal limit of intoxication > or = 80 mg/dL Levels > or = 400 mg/dL are potentially TOXIC. Current interpretive data was last revised on 2018. Blood 11/10/2024 10:4 1 PM CDT 11/10/2024 10:54 PM CDT Godfrey Chisholm MD LAB BLOOD ORDERABLES Final Re sult Performing Organization Address [facility] Co de Phone Number [facility] ([place]) 1 [facility] [place] [address] * Acetaminophen level (11/10/2024 10:41 PM CDT) Acetaminophen <5 <=5 mcg/mL Comment: Markedly elevated levels of Acetaminophen and it's metabolites may lead to false low test results for cholesterol, HDL, triglycerides and uric acid with the manufacturers test methods used by our lab. Interpretive Data Significant hepatic injury may occur and treatment with n-acetyl cysteine is generally recommended if the acetaminophen level exceeds: 150 mcg/mL at 4 hours after ingestion 75 mcg/mL at 8 hours after ingestion 38 mcg/mL at 12 hours after ingestion 19 mcg/mL at 16 hours after ingestion Consult toxicology or poison control ([phone]) for unknown ingestion time. Current interpretive data was last revised 2023. Blood 11/10/2024 10:4 1 PM CDT 11/10/2024 10:54 PM CDT us Godfrey Chisholm MD LAB BLOOD ORDERABLES Final Re sult Performing Organization Address City/[facility]/ZIP Co de Phone Number [facility] M[facility]EL [facility] ([place]) 1 [facility] [place] [address] * Salicylate level (11/10/2024 10:41 PM CDT) Salicylate <5.0 <=5.0 mg/dL Comment: Interpretive Data Toxic: 30 mg/dL or greater. Current interpretive data was last revised 2023. Blood 11/10/2024 10:4 1 PM CDT 11/10/2024 10:54 PM CDT Godfrey Chisholm MD LAB BLOOD ORDERABLES Final Re sult Performing Organization Address [facility] Co de Phone Number [facility]UEL [facility] ([place]) 1 [facility] [place] [address] * (ABNORMAL) Comprehensive metabolic panel (11/10/2024 10:41 PM CDT) Sodium 144 135 - 145 mmol/L Potassium, pl 3.8 3.3 - 4.9 mmol/L [facility] ([place]) Chloride 110 97 - 110 mmol/L [facility] ([place]) CO2 22 22 - 32 mmol/L [facility] ([place]) Anion gap 13 2 - 15 mmol/L [facility] ([place]) BUN 16 6 - 25 mg/dL [facility] ([place]) Creatinine 0.62 0.60 - 1.10 mg/dL [facility] ([place]) Glucose 102 70 - 199 mg/dL [facility] ([place]) Comment: Interpretive Data Fasting glucose >/= 126 mg/dl is diagnostic for diabetes. Fasting is defined as no caloric intake for at least 8 hours. Fasting glucose between 100 mg/dl to 125 mg/dl is diagnostic of prediabetes. In a patient with classic symptoms of hyperglycemia or hyperglycemic crisis, a random glucose >/= 200 mg/dl is diagnostic for diabetes. In the absence of unequivocal hyperglycemia, results should be confirmed by repeat testing. The classification and Diagnosis of Diabetes Diabetes Care 2021; 46: S19-S40. Current interpretive data was last revised 2022. Calcium 8.1(L) 8.5 - 10.3 mg/dL [facility] ([place]) Bilirubin, total <0.2 0.1 - 1.2 mg/dL [facility] ([place]) Protein, pl 6.0(L) 6.5 - 8.5 g/dL [facility] ([place]) Albumin 3.9 3.5 - 5.0 g/dL [facility] ([place]) Alk phos 118 40 - 130 Units/L [facility] ([place]) ALT 15 7 - 45 Units/L [facility] ([place]) AST 20 10 - 45 Units/L [facility] ([place]) Blood 11/10/2024 10:4 1 PM CDT 11/10/2024 10:54 PM CDT Godfrey Chisholm MD LAB BLOOD ORDERABLES Final Re sult [facility] ([place]) 1 [facility] Department [place] [address] * COVID-19 Coronavirus RNA Nasopharyngeal (11/10/2024 10:25 PM CDT) COVID-19 RNA Negative Negative Nasopharyngeal 11/10/2024 10 :25 PM CDT 11/10/2024 10:29 PM CDT Narrative [facility] ([place]) - 11/10/2024 11:10 PM CDT Is the patient experiencing any symptoms consistent with COVID (eg. Fever, cough, shortness of breath)?->No What is the reason for testing?->Screening prior to Behavioral health admission Interpretive data: Testing performed by [facility]. This test is performed using the [employer] Xpert Xpress CoV-2 plus assay. This is a real-time RT-PCR test intended for the qualitative detection of nucleic acid from the SARS-CoV-2. This assay has been cleared by the [place] Food and Drug administration. The performance characteristics have been verified by [facility]. Results must be considered in the clinical context, and a negative result does not rule out infection. Interpretive data last revised 2024. Interpretive data: Testing performed by [facility]. This test is performed using the [employer] Xpert Xpress CoV-2 plus assay. This is a real-time RT-PCR test intended for the qualitative detection of nucleic acid from the SARS-CoV-2. This assay has been cleared by the [place] Food and Drug administration. The performance characteristics have been verified by [facility]. Results must be considered in the clinical context, and a negative result does not rule out infection. Interpretive data last revised 2024. us Godfrey Chisholm MD LAB MICROBIOLOGY - GENERAL OR DERABLES Final Result [facility]EL [facility] ([place]) 1 [facility] Department [place] [address] * Differential, auto (11/10/2024 10:00 PM CDT) Neutrophil abs 2.79 1.50 - 6.50 K/cumm Imm gran abs 0.02 0.00 - 0.10 K/cumm [facility] ([place]) Lymphocyte abs 2.43 0.80 - 3.30 K/cumm [facility] ([place]) Monocyte abs 0.30 0.20 - 0.80 K/cumm [facility] ([place]) Eosinophil abs 0.18 0.00 - 0.50 K/cumm [facility] ([place]) Basophil abs 0.05 0.00 - 0.10 K/cumm [facility] ([place]) Neutrophil pct 48.4 % [facility] ([place]) Comment: Interpretive Data Percent cell count reference ranges are not reported, since discordance with absolute values may lead to misinterpretation of CBC data. Current Interpretive Data was last revised on 2017. Imm gran pct 0.3 % [facility] ([place]) Comment: Interpretive Data Percent cell count reference ranges are not reported, since discordance with absolute values may lead to misinterpretation of CBC data. Current Interpretive Data was last revised on 2017. Lymphocyte pct 42.1 % [facility] ([place]) Comment: Interpretive Data Percent cell count reference ranges are not reported, since discordance with absolute values may lead to misinterpretation of CBC data. Current Interpretive Data was last revised on 2017. Monocyte pct 5.2 % [facility] ([place]) Comment: Interpretive Data Percent cell count reference ranges are not reported, since discordance with absolute values may lead to misinterpretation of CBC data. Current Interpretive Data was last revised on 2017. Eosinophil pct 3.1 % [facility] ([place]) Comment: Interpretive Data Percent cell count reference ranges are not reported, since discordance with absolute values may lead to misinterpretation of CBC data. Current Interpretive Data was last revised on 2017. Basophil pct 0.9 % [facility] ([place]) Comment: Interpretive Data Percent cell count reference ranges are not reported, since discordance with absolute values may lead to misinterpretation of CBC data. Current Interpretive Data was last revised on 2017. Blood 11/10/2024 10:0 0 PM CDT 11/10/2024 10:04 PM CDT us Godfrey Chisholm MD LAB BLOOD ORDERABLES Final Re sult [facility]EL [facility] ([place]) 1 [facility] [place] [address] * (ABNORMAL) CBC with auto differential (11/10/2024 10:00 PM CDT) WBC 5.77 3.80 - 9.90 K/cumm Hgb 14.7 11.9 - 15.5 g/dL [facility] ([place]) Hct 46.0(H) 35.6 - 45.5 % [facility] ([place]) Plt 252 150 - 400 K/cumm [facility] ([place]) MPV 9.8 9.1 - 12.3 fL [facility] ([place]) RBC 4.85 3.90 - 5.20 M/cumm [facility] ([place]) MCV 94.8 81.3 - 96.4 fL [facility] ([place]) MCH 30.3 27.1 - 33.3 pg [facility] ([place]) MCHC 32.0(L) 32.3 - 35.7 g/dL [facility] ([place]) RDW CV 11.9 11.1 - 14.9 % [facility] ([place]) RDW SD 41.1 35.7 - 48.1 fL [facility] ([place]) NRBC abs 0.00 0.00 - 0.01 K/cumm [facility] ([place]) Blood Venous blood specimen / Unknown 11/10/2024 10:00 PM CDT 11/10/2024 10:04 PM CDT Godfrey Chisholm MD LAB BLOOD ORDERABLES Final Re sult Performing Organization Address City/[facility] Co de Phone Number [facility] M[facility] [place] [address] [place] [address] [place] [address] * ECG 12 lead (11/10/2024 9:52 PM CDT) 11/10/2024 9:52 PM CDT Narrative [facility] - 11/11/2024 7:22 AM CDT Vent Rate: 72 bpm RR Interval: 828 msec NM Interval: 139 msec QRS Duration: 81 msec QT Interval: 426 msec QTC Interval: 450 msec P-R-T [place]: 55 - 32 - 44 degrees IMPRESSION: SINUS RHYTHM NORMAL ECG NO CHANGE FROM PREVIOUS TRACING NOTED Electronically Signed By: Sid Whittington MD us Godfrey Chisholm MD ECG ORDERABLES Final Result Performing Organization Address [facility] Co de Phone Number [id number] [employer] [facility] * TRANSTHORACIC ECHO (TTE) COMPLETE W DOPPLER/CF WO CONTRAST W BUBBLE (11/02/2024 9:55 AM CDT) Estimated EF 65 % CONS SCIMAGE Anatomical Region Laterality Modality Ultrasound 11/02/2024 9:52 AM CDT Narrative 11/02/2024 12:27 PM CDT [address] [address] Echocardiogram Report Patient Name: NAPOLEON MARTINEZ D : 1965 Study Date: 11/02/2024 9:52:51 AM Gender: F Tech: ELSA Location: [id number] Ref Provider: LORI ADAM Height(Cm): BSA: Weight(Kg): Quality: Adequate Order Provider: LORI ADAM PROCEDURES: Echocardiographic Report: Transthoracic echocardiogram with 2D, M-Mode, and color Doppler examination with saline contrast study. INDICATIONS: Stroke. MEASUREMENTS: 2D/MM Value Range Doppler Value Range EF Teich MM 56.0 % [ 54.0 - 74.0 ] JYOTI Vmax 2.66 cm2 Estimated EF 65 % AV Mean PG 2 mmHg LVIDd MM 4.10 cm [ 3.80 - 5.20 ] AV Peak Nik 0.89 m/s [ 1.00 - 1.70 ] LVIDs MM 2.90 cm [ 2.20 - 3.50 ] AV VTI 21.47 cm LVPWd MM 1.10 cm [ 0.60 - 0.90 ] LVOT Diam 1.99 cm IVSd MM 0.90 cm [ 0.60 - 0.90 ] LVOT Peak Nik 0.76 m/s [ 0.70 - 1.10 ] LA Dimension MM 2.95 cm [ 2.70 - 3.80 ] LVOT VTI 16.61 cm AoR Diam MM 2.51 cm [ 2.70 - 3.70 ] MV E Peak Nik 0.81 m/s [ 0.60 - 1.30 ] ACS MM 1.64 cm MV A Peak Nik 0.69 m/s [ 1.00 - 1.20 ] MV Mean PG 2 mmHg MV PHT 50 msec [ 20 - 100 ] MVA 4.40 MV Decel Time 174 msec [ 104 - 258 ] PV Peak Nik 0.84 m/s [ 0.40 - 0.80 ] TR Peak Nik 1.68 m/s [ 1.00 - 2.80 ] TR Peak PG 11 mmHg RVSP 19.00 mmHg [ 10.00 - 36.00 ] E` 0.06 m/s E/E` 12.95 [ <= 10.00 ] PA Pressure 19.00 mmHg [ 10.00 - 36.00 ] 2D/MM Value Range Doppler Value Range - FINDINGS: Atrial Septum: Saline contrast study performed without evidence of right to left shunt. Left Ventricle: Normal left ventricular systolic function with no focal wall motion abnormalities. Normal left ventricular size. Mild concentric left ventricular hypertrophy. Ejection Fraction is estimated to be 65 %. Left Atrium: The left atrium is normal in size. Right Ventricle: Normal right ventricular size. Normal right ventricular systolic function. Right Atrium: The right atrium is normal in size. Aortic Valve: Normal structure of the aortic valve. Mitral Valve: Mild mitral valve regurgitation. Pulmonic Valve: Normal structure of the pulmonic valve. Tricuspid Valve: Normal right ventricular systolic pressure. Estimated peak RVSP is 25 mmHg. Mild tricuspid regurgitation. Pericardium: Normal pericardium with no significant pericardial effusion. Aorta: Normal aortic root. Sinus of Valsalva is normal. Aortic arch is normal. Descending aorta is normal. IVC: Normal size and normal respiratory collapse consistent with normal right atrial pressure (<5 mmHg). Pulmonary Artery: Normal pulmonary artery size. CONCLUSIONS: Normal left ventricular systolic function with no focal wall motion abnormalities. Normal left ventricular size. Mild concentric left ventricular hypertrophy. Ejection Fraction is estimated to be 65 %. Saline contrast study performed without evidence of right to left shunt. Mild mitral valve regurgitation. Normal right ventricular systolic pressure. Estimated peak RVSP is 25 mmHg. Mild tricuspid regurgitation. Technically difficult study with suboptimal views. Electronically Signed By: Sid Whittington MD 11/02/2024 12:27:10 PM CDT Procedure Note Sid Whittington MD - 11/02/[address] [address] Echocardiogram Report Patient Name: JUAN NAPOLEON, D : 1965 Study Date: 11/02/2024 9:52:51 AM Gender: F Tech: ELSA Location: [id number] Ref Provider: LORI ADAM Height(Cm): BSA: Weight(Kg): Quality: Adequate Order Provider: LORI ADAM PROCEDURES: Echocardiographic Report: Transthoracic echocardiogram with 2D, M-Mode, and color Dopplerexamination with saline contrast study. INDICATIONS: Stroke. MEASUREMENTS: 2D/MM Value Range Doppler ValueRange EF Teich MM 56.0 % [ 54.0 - 74.0 ] JYOTI Vmax 2.66cm2 Estimated EF 65 % AV Mean PG 2 mmHg LVIDd MM 4.10 cm [ 3.80 - 5.20 ] AV Peak Nik 0.89 m/s[ 1.00 - 1.70 ] LVIDs MM 2.90 cm [ 2.20 - 3.50 ] AV VTI 21.47cm LVPWd MM 1.10 cm [ 0.60 - 0.90 ] LVOT Diam 1.99cm IVSd MM 0.90 cm [ 0.60 - 0.90 ] LVOT Peak Nik 0.76 m/s[ 0.70 - 1.10 ] LA Dimension MM 2.95 cm [ 2.70 - 3.80 ] LVOT VTI 16.61cm AoR Diam MM 2.51 cm [ 2.70 - 3.70 ] MV E Peak Nik 0.81 m/s[ 0.60 - 1.30 ] ACS MM 1.64 cm MV A Peak Nik 0.69 m/s[ 1.00 - 1.20 ] MV Mean PG 2 mmHg MV PHT 50 msec [ 20 - 100 ] MVA 4.40 MV Decel Time 174 msec [ 104 - 258 ] PV Peak Nik 0.84 m/s [ 0.40 - 0.80 ] TR Peak Nik 1.68 m/s [ 1.00 - 2.80 ] TR Peak PG 11 mmHg RVSP 19.00 mmHg [ 10.00 - 36.00 ] E` 0.06 m/s E/E` 12.95 [ <= 10.00 ] PA Pressure 19.00 mmHg [ 10.00 - 36.00 ] 2D/MM Value Range Doppler ValueRange - FINDINGS: Atrial Septum: Saline contrast study performed without evidence of right to left shunt. Left Ventricle: Normal left ventricular systolic function with no focal wall motionabnormalities. Normal left ventricular size. Mild concentric left ventricular hypertrophy.Ejection Fraction is estimated to be 65 %. Left Atrium: The left atrium is normal in size. Right Ventricle: Normal right ventricular size. Normal right ventricular systolicfunction. Right Atrium: The right atrium is normal in size. Aortic Valve: Normal structure of the aortic valve. Mitral Valve: Mild mitral valve regurgitation. Pulmonic Valve: Normal structure of the pulmonic valve. Tricuspid Valve: Normal right ventricular systolic pressure. Estimated peak RVSP is 25mmHg. Mild tricuspid regurgitation. Pericardium: Normal pericardium with no significant pericardial effusion. Aorta: Normal aortic root. Sinus of Valsalva is normal. Aortic arch is normal.Descending aorta is normal. IVC: Normal size and normal respiratory collapse consistent with normal rightatrial pressure (<5 mmHg). Pulmonary Artery: Normal pulmonary artery size. CONCLUSIONS: Normal left ventricular systolic function with no focal wall motionabnormalities. Normal left ventricular size. Mild concentric left ventricular hypertrophy.Ejection Fraction is estimated to be 65 %. Saline contrast study performed without evidence of right to left shunt. Mild mitral valve regurgitation. Normal right ventricular systolic pressure. Estimated peak RVSP is 25mmHg. Mild tricuspid regurgitation. Technically difficult study with suboptimal views. Electronically Signed By: Sid Whittington MD 11/02/2024 12:27:10 PM CDT us Eksung Adam MD CV ECHO PROCEDURES Anni mendoza Result * MRI Brain WO Contrast (11/02/2024 6:51 AM CDT) Anatomical Region Laterality Modality Head and Neck N/A Magnetic Resonan ce 11/02/2024 6:58 AM CDT Narrative 11/02/2024 7:03 AM CDT EXAM DESCRIPTION: MRI BRAIN WO CONTRAST REASON FOR STUDY: Stroke, follow up Garbled speech and right sided leg weakness and right sided facial droop. TECHNIQUE: Multiplanar imaging includes non-contrasted T1, T2, FLAIR, and diffusion with ADC map sequences. Additional sequence(s) sensitive to blood products. Images stored on PACS. COMPARISON: CT of the head and CTA of the head and neck both of November 01, 2024. FINDINGS: CEREBRUM: The midline structures are intact. There is no midline shift, mass or mass effect. The ventricles, cisterns and sulci appear normal. There are no intra-axial or extra-axial collections. The parenchymal signal appears normal. WHITE MATTER: Normal. POSTERIOR FOSSA: Brainstem and cerebellum appear unremarkable. DIFFUSION IMAGING: There is no restricted diffusion seen to suggest acute ischemia. EXTRAAXIAL SPACES: No hemorrhage. No mass. BRAIN VOLUME: Within normal limits for age. PITUITARY: Unremarkable. VASCULATURE: There are normal intravascular flow voids. ORBITS: No masses. Globes normal. PARANASAL SINUSES AND MASTOIDS: There is scattered mild mucosal thickening through out the ethmoid air cells partial opacification of the right mastoid air cells. The remaining paranasal sinuses and left mastoid air cells are clear. OTHER: No other significant finding. IMPRESSION: No acute intracranial abnormality. No evidence of acute infarct. Mild ethmoid sinus disease. Partial opacification of the right mastoid air cells may represent effusion or mastoiditis. THIS IS AN ELECTRONICALLY VERIFIED FINAL REPORT 11/02/2024 7:03 AM - Electronically signed by Anaya Flores M.D. SN: Report ID: [id number] Reading Location: [id number] Procedure Note Anaya Flores MD - 11/02/2024 EXAM DESCRIPTION: MRI BRAIN WO CONTRAST REASON FOR STUDY: Stroke, follow up Garbled speech and right sided leg weakness and right sided facial droop. TECHNIQUE: Multiplanar imaging includes non-contrasted T1, T2, FLAIR, and diffusion with ADC map sequences. Additional sequence(s) sensitive toblood products. Images stored on PACS. COMPARISON: CT of the head and CTA of the head and neck both of November 01, 2024. FINDINGS: CEREBRUM: The midline structures are intact. There is no midline shift,mass or mass effect. The ventricles, cisterns and sulci appear normal. Thereare no intra-axial or extra-axial collections. The parenchymal signal appearsnormal. WHITE MATTER: Normal. POSTERIOR FOSSA: Brainstem and cerebellum appear unremarkable. DIFFUSION IMAGING: There is no restricted diffusion seen to suggestacute ischemia. EXTRAAXIAL SPACES: No hemorrhage. No mass. BRAIN VOLUME: Within normal limits for age. PITUITARY: Unremarkable. VASCULATURE: There are normal intravascular flow voids. ORBITS: No masses. Globes normal. PARANASAL SINUSES AND MASTOIDS: There is scattered mild mucosalthickening through out the ethmoid air cells partial opacification of the rightmastoid air cells. The remaining paranasal sinuses and left mastoid air cells are clear. OTHER: No other significant finding. IMPRESSION: No acute intracranial abnormality. No evidence of acute infarct. Mild ethmoid sinus disease. Partial opacification of the right mastoid air cells may representeffusion or mastoiditis. THIS IS AN ELECTRONICALLY VERIFIED FINAL REPORT 11/02/2024 7:03 AM - Electronically signed by Anaya Flores M.D. SN: SN Report ID: [id number] Reading Location: [place] [address] Lori Adam MD IM MRI PROCEDURES Anni l Result * Troponin T high-sensitivity 6-hour (11/02/2024 12:23 AM CDT) Trop T hs <6 <=14 ng/L Comment: Interpretive Data For further hscTnT resources including the diagnostic algorithm and an aid in interpretation, copy and paste this link: https://nrl.testcatalog.org/show/hsTrop Current Interpretive Data last revised 2020. Trop T hs delta 0 ng/L [facility] ([place]) Trop T hs interp Insignificant [facility] ([place]) Blood 11/02/2024 12:2 3 AM CDT 11/02/2024 12:25 AM CDT us Alejandro Gonzalez MD LAB BLOOD ORDERABLES Final Res ult [facility] ([place]) 1 [facility] [place] [address] * eGFR (11/02/2024 12:23 AM CDT) eGFR >90 >=60 mL/min/1. 73 m2 Comment: Interpretive Data Reference Interval Normal >/= 90 mL/min/1.73m2 Mildly decreased* 60 - 89 mL/min/1.73m2 Mildly to moderately decreased 45 - 59 mL/min/1.73m2 Moderately to severely decreased 30 - 44 mL/min/1.73m2 Severely decreased 15 - 29 mL/min/1.73m2 Kidney Failure < 15 mL/min/1.73m2 *Relative to young adult level Estimated glomerular filtration rate is determined by the 2020 CKD-EPI equation recommended by the National Kidney Foundation (A Unifying Approach to GFR Estimation: Recommendations of the NKF-ASK Task Force on Reassessing the Inclusion of Race in Diagnosing Kidney Disease, JASN 2020). The CKD-EPI equation should not be used for patients with unstable renal function and has not been validated in children and those over 70. Current interpretive data was last reviewed 2021. Blood 11/02/2024 12:2 3 AM CDT 11/02/2024 12:25 AM CDT us Lori Adam MD LAB BLOOD ORDERABLES Fi nal Result [facility] ([place]) 1 [facility] [place] [address] * CBC without differential (11/02/2024 12:23 AM CDT) WBC 7.83 3.80 - 9.90 K/cumm Hgb 13.2 11.9 - 15.5 g/dL [facility] ([place]) Hct 38.5 35.6 - 45.5 % [facility] ([place]) Plt 276 150 - 400 K/cumm [facility] ([place]) MPV 9.7 9.1 - 12.3 fL [facility] ([place]) RBC 4.36 3.90 - 5.20 M/cumm [facility] ([place]) MCV 88.3 81.3 - 96.4 fL [facility] ([place]) MCH 30.3 27.1 - 33.3 pg [facility] ([place]) MCHC 34.3 32.3 - 35.7 g/dL [facility] ([place]) RDW CV 11.9 11.1 - 14.9 % [facility] ([place]) RDW SD 38.0 35.7 - 48.1 fL [facility] ([place]) NRBC abs 0.00 0.00 - 0.01 K/cumm [facility] ([place]) Blood 11/02/2024 12:2 3 AM CDT 11/02/2024 12:25 AM CDT Lori Adam MD LAB BLOOD ORDERABLES Fi nal Result [facility] ([place] 1 [facility] [place] [address] * Magnesium (11/02/2024 12:23 AM CDT) Magnesium 2.1 1.4 - 2.5 mg/dL Blood 11/02/2024 12:2 3 AM CDT 11/02/2024 12:25 AM CDT Lori Adam MD LAB BLOOD ORDERABLES Fi nal Result [facility] ([place]) 1 [facility] [place] [address] * Comprehensive metabolic panel (11/02/2024 12:23 AM CDT) Sodium 135 135 - 145 mmol/L Potassium, pl 3.9 3.3 - 4.9 mmol/L [facility] ([place]) Chloride 103 97 - 110 mmol/L [facility] ([place]) CO2 24 22 - 32 mmol/L [facility] ([place]) Anion gap 8 2 - 15 mmol/L [facility] ([place]) BUN 17 6 - 25 mg/dL [facility] ([place]) Creatinine 0.73 0.60 - 1.10 mg/dL [facility] ([place]) Glucose 99 70 - 199 mg/dL [facility] ([place]) Comment: Interpretive Data Fasting glucose >/= 126 mg/dl is diagnostic for diabetes. Fasting is defined as no caloric intake for at least 8 hours. Fasting glucose between 100 mg/dl to 125 mg/dl is diagnostic of prediabetes. In a patient with classic symptoms of hyperglycemia or hyperglycemic crisis, a random glucose >/= 200 mg/dl is diagnostic for diabetes. In the absence of unequivocal hyperglycemia, results should be confirmed by repeat testing. The classification and Diagnosis of Diabetes Diabetes Care 2021; 46: S19-S40. Current interpretive data was last revised 2022. Calcium 9.1 8.5 - 10.3 mg/dL [facility] ([place]) Bilirubin, total 0.3 0.1 - 1.2 mg/dL [facility] ([place]) Protein, pl 6.6 6.5 - 8.5 g/dL [facility] ([place]) Albumin 4.1 3.5 - 5.0 g/dL [facility] ([place]) Alk phos 130 40 - 130 Units/L [facility] ([place]) ALT 14 7 - 45 Units/L [facility] ([place]) AST 19 10 - 45 Units/L [facility] ([place]) Blood 11/02/2024 12:2 3 AM CDT 11/02/2024 12:25 AM CDT us Lori Adam MD LAB BLOOD ORDERABLES Fi nal Result [facility] ([place]) 1 [facility] Department [place] [address] * Troponin T high-sensitivity 4-hour (11/01/2024 9:41 PM CDT) Trop T hs <6 <=14 ng/L Comment: Interpretive Data For further hscTnT resources including the diagnostic algorithm and an aid in interpretation, copy and paste this link: https://nrl.testcatalog.org/show/hsTrop Current Interpretive Data last revised 2020. Trop T hs delta 0 ng/L [facility] ([place]) Trop T hs interp Insignificant [facility] ([place]) Blood 11/01/2024 9:41 PM CDT 11/01/2024 10:19 PM CDT us Alejandro Gonzalez MD LAB BLOOD ORDERABLES Final Res ult [facility] ([place]) 1 [facility] Department [place] [address] * Urinalysis reflex to microscopic and culture Urine (11/01/2024 8:56 PM CDT) Color, ur Yellow Yellow Clarity, ur Clear Clear [facility] ([place]) Specific gravity, ur 1.010 1.003 - 1.030 [facility] ([place]) pH, urine 6.5 [facility] ([place]) Comment: Interpretive Data U rine pH is affected by diet, medications, systemic acid-base disturbances, and renal tubular function. pH may affect urinary stone formation. For example, urine pH below 6.0 may help reduce the tendency for calcium phosphate stones and pH greater than 6.0 may reduce the tendency for uric acid stone formation. Source: [facility] [place] Current Interpretive Data was last revised on 2017 Protein, ur ql Trace Negative [facility] ([place]) Glucose, ur ql Negative Negative [facility] ([place]) Ketones, ur Negative Negative [facility] ([place]) Bilirubin, ur Negative Negative [facility] ([place]) Blood, ur Negative Negative [facility] ([place]) Urobilinogen, ur <2.0 <2.0 mg/dL [facility] ([place]) Nitrite, ur Negative Negative [facility] ([place]) Leukocyte esterase, ur Negative Negative [facility] ([place]) UA reflex comment Reflex conditions for microscopic UA and culture not met. [facility] ([place]) Urine 11/01/2024 8:56 PM CDT 11/01/2024 10:35 PM CDT us Lori Adam MD LAB MICROBIOLOGY - GENE RAL ORDERABLES Final Result Performing Organization Address [facility] Co de Phone Number [facility] ([place] [address] [facility] [place] [address] * Troponin T high-sensitivity 2-hour (11/01/2024 8:13 PM CDT) Trop T hs <6 <=14 ng/L Comment: Interpretive Data For further hscTnT resources including the diagnostic algorithm and an aid in interpretation, copy and paste this link: https://nrl.testcatalog.org/show/hsTrop Current Interpretive Data last revised 2020. Trop T hs delta 0 ng/L [facility] ([place]) Trop T hs interp Insignificant [facility] ([place]) Blood 11/01/2024 8:13 PM CDT 11/01/2024 8:45 PM CDT us Alejandro Gonzalez MD LAB BLOOD ORDERABLES Final Res ult Performing Organization Address [facility] Co de Phone Number [facility] ([place] [address] [facility] [place] [address] * ECG 12 lead (11/01/2024 6:17 PM CDT) 11/01/2024 6:17 PM CDT Narrative [facility] - 11/02/2024 7:20 AM CDT Vent Rate: 61 bpm RR Interval: 978 msec NM Interval: 172 msec QRS Duration: 89 msec QT Interval: 436 msec QTC Interval: 439 msec P-R-T [place]: 44 - 48 - 52 degrees IMPRESSION: SINUS RHYTHM POSSIBLE RIGHT VENTRICULAR CONDUCTION DELAY [RSR (QR) IN V1/V2] No prior EKG for comparison Electronically Signed By: Dr Gallo Thrasher us Alejandro Gonzalez MD ECG ORDERABLES Final Result [facility] * Troponin T high-sensitivity series (baseline, 2hr, 4hr, 6hr) (11/01/2024 5:31 PM CDT) Trop T hs <6 <=14 ng/L Comment: Interpretive Data For further hscTnT resources including the diagnostic algorithm and an aid in interpretation, copy and paste this link: https://nrl.testcatalog.org/show/hsTrop Current Interpretive Data last revised 2020. Blood 11/01/2024 5:31 PM CDT 11/01/2024 5:34 PM CDT Alejandro Gonzalez MD LAB BLOOD ORDERABLES Final Res ult Performing Organization Address City/[facility]/ZIP Co de Phone Number [facility] ([address] Department [place] [address] * eGFR (11/01/2024 5:31 PM CDT) eGFR >90 >=60 mL/min/1. 73 m2 Comment: Interpretive Data Reference Interval Normal >/= 90 mL/min/1.73m2 Mildly decreased* 60 - 89 mL/min/1.73m2 Mildly to moderately decreased 45 - 59 mL/min/1.73m2 Moderately to severely decreased 30 - 44 mL/min/1.73m2 Severely decreased 15 - 29 mL/min/1.73m2 Kidney Failure < 15 mL/min/1.73m2 *Relative to young adult level Estimated glomerular filtration rate is determined by the 2020 CKD-EPI equation recommended by the National Kidney Foundation (A Unifying Approach to GFR Estimation: Recommendations of the NKF-ASK Task Force on Reassessing the Inclusion of Race in Diagnosing Kidney Disease, JASN 2020). The CKD-EPI equation should not be used for patients with unstable renal function and has not been validated in children and those over 70. Current interpretive data was last reviewed 2021. Blood 11/01/2024 5:31 PM CDT 11/01/2024 5:34 PM CDT us Alejandro Gonzalez MD LAB BLOOD ORDERABLES Final Res ult [facility] ([place]) 1 [facility] Department [place] [address] * Differential, auto (11/01/2024 5:31 PM CDT) Neutrophil abs 4.78 1.50 - 6.50 K/cumm Imm gran abs 0.02 0.00 - 0.10 K/cumm [facility] ([place]) Lymphocyte abs 2.00 0.80 - 3.30 K/cumm [facility] ([place]) Monocyte abs 0.49 0.20 - 0.80 K/cumm [facility] ([place]) Eosinophil abs 0.21 0.00 - 0.50 K/cumm [facility] ([place]) Basophil abs 0.04 0.00 - 0.10 K/cumm [facility] ([place]) Neutrophil pct 63.4 % [facility] ([place]) Comment: Interpretive Data Percent cell count reference ranges are not reported, since discordance with absolute values may lead to misinterpretation of CBC data. Current Interpretive Data was last revised on 2017. Imm gran pct 0.3 % [facility] ([place]) Comment: Interpretive Data Percent cell count reference ranges are not reported, since discordance with absolute values may lead to misinterpretation of CBC data. Current Interpretive Data was last revised on 2017. Lymphocyte pct 26.5 % [facility] ([place]) Comment: Interpretive Data Percent cell count reference ranges are not reported, since discordance with absolute values may lead to misinterpretation of CBC data. Current Interpretive Data was last revised on 2017. Monocyte pct 6.5 % [facility] ([place]) Comment: Interpretive Data Percent cell count reference ranges are not reported, since discordance with absolute values may lead to misinterpretation of CBC data. Current Interpretive Data was last revised on 2017. Eosinophil pct 2.8 % [facility] ([place]) Comment: Interpretive Data Percent cell count reference ranges are not reported, since discordance with absolute values may lead to misinterpretation of CBC data. Current Interpretive Data was last revised on 2017. Basophil pct 0.5 % [facility] ([place]) Comment: Interpretive Data Percent cell count reference ranges are not reported, since discordance with absolute values may lead to misinterpretation of CBC data. Current Interpretive Data was last revised on 2017. Blood 11/01/2024 5:31 PM CDT 11/01/2024 5:34 PM CDT us Alejandro Gonzalez MD LAB BLOOD ORDERABLES Final Res ult [facility] ([place]) 1 [facility] Department [place] [address] * CBC with auto differential (11/01/2024 5:31 PM CDT) WBC 7.54 3.80 - 9.90 K/cumm Hgb 13.3 11.9 - 15.5 g/dL [facility] ([place]) Hct 39.9 35.6 - 45.5 % [facility] ([place]) Plt 280 150 - 400 K/cumm [facility] ([place]) MPV 9.6 9.1 - 12.3 fL [facility] ([place]) RBC 4.44 3.90 - 5.20 M/cumm [facility] ([place]) MCV 89.9 81.3 - 96.4 fL [facility] ([place]) MCH 30.0 27.1 - 33.3 pg [facility] ([place]) MCHC 33.3 32.3 - 35.7 g/dL [facility] ([place]) RDW CV 11.9 11.1 - 14.9 % [facility] ([place]) RDW SD 38.7 35.7 - 48.1 fL [facility] ([place]) NRBC abs 0.00 0.00 - 0.01 K/cumm [facility] ([place]) Blood 11/01/2024 5:31 PM CDT 11/01/2024 5:34 PM CDT Alejandro Gonzalez MD LAB BLOOD ORDERABLES Final Res ult [facility] ([place]) 1 [facility] Department [place] [address] * Protime-INR (11/01/2024 5:31 PM CDT) Pathologist [facility] PT 11.6 9.7 - 13.0 sec [facility] ([place]) INR 1.07 0.90 - 1.20 [facility] ([place]) Comment: Interpretive data Oral anticoagulant therapeutic ranges: Venous thromboembolism prophylaxis or treatment: 2.0-3.0 CARDIOLOGY Standard range: 2.0-3.0 High-intensity range: 2.5-3.5 Refer to indication-specific guidelines for appropriate target ranges for prosthetic heart valve replacement. Current interpretive data was last revised on 2019. Blood 11/01/2024 5:31 PM CDT 11/01/2024 5:33 PM CDT Alejandro Gonzalez MD LAB BLOOD ORDERABLES Final Res ult [facility] ([place]) [address] [facility] [place] [address] * Comprehensive metabolic panel (11/01/2024 5:31 PM CDT) Pathologist [facility] Sodium 135 135 - 145 mmol/L Potassium, pl 4.0 3.3 - 4.9 mmol/L [facility] ([place]) Chloride 101 97 - 110 mmol/L [facility] ([place]) CO2 23 22 - 32 mmol/L [facility] ([place]) Anion gap 11 2 - 15 mmol/L [facility] ([place]) BUN 13 6 - 25 mg/dL [facility] ([place]) Creatinine 0.72 0.60 - 1.10 mg/dL [facility] ([place]) Glucose 96 70 - 199 mg/dL [facility] ([place]) Comment: Interpretive Data Fasting glucose >/= 126 mg/dl is diagnostic for diabetes. Fasting is defined as no caloric intake for at least 8 hours. Fasting glucose between 100 mg/dl to 125 mg/dl is diagnostic of prediabetes. In a patient with classic symptoms of hyperglycemia or hyperglycemic crisis, a random glucose >/= 200 mg/dl is diagnostic for diabetes. In the absence of unequivocal hyperglycemia, results should be confirmed by repeat testing. The classification and Diagnosis of Diabetes Diabetes Care 2021; 46: S19-S40. Current interpretive data was last revised 2022. Calcium 8.6 8.5 - 10.3 mg/dL [facility] ([place]) Bilirubin, total 0.2 0.1 - 1.2 mg/dL [facility] ([place]) Protein, pl 6.5 6.5 - 8.5 g/dL [facility] ([place]) Albumin 3.9 3.5 - 5.0 g/dL [facility] ([place]) Alk phos 123 40 - 130 Units/L [facility] ([place]) ALT 14 7 - 45 Units/L [facility] ([place]) AST 20 10 - 45 Units/L [facility] ([place]) Blood 11/01/2024 5:31 PM CDT 11/01/2024 5:34 PM CDT us Alejandro Gonzalez MD LAB BLOOD ORDERABLES Final Res ult [facility] ([place] 1 [facility] Department [place] [address] * CTA Stroke Head Neck W WO Contrast (11/01/2024 5:14 PM CDT) Anatomical Region Laterality Modality Head and Neck N/A Computed Tomogra phy 11/01/2024 5:25 PM CDT Narrative 11/01/2024 5:48 PM CDT EXAM DESCRIPTION: CTA STROKE HEAD NECK W WO CONTRAST REASON FOR STUDY: Stroke/TIA, determine embolic source Garbled speech and right sided weakness started at 16:10 today TECHNIQUE: Axial dynamic scanning technique with dynamic contrast enhancement through the intracranial and extracranial carotid and vertebral arteries. Multiplanar reconstruction. All stenosis measurements are based on NASCET criteria. 3D MIP images rendered on scanning unit and reviewed at time of interpretation. Automated exposure control was used as a dose optimization technique for this examination. CONTRAST TYPE/DOSE: 100mL of IOVERSOL 350 MG IODINE/ML INTRAVENOUS SYRINGE injected COMPARISON: Noncontrast head CT 11/01/2024 FINDINGS: INTRACRANIAL VESSELS [place]: The anterior, middle, posterior cerebral arteries are all patent. No evidence of aneurysm or focal stenosis. POSTERIOR CIRCULATION: The distal vertebral arteries are patent as is the basilar artery. No aneurysm. BRAIN: No gross enhancing lesions as visualized. CAROTID CTA RIGHT CAROTIDS: No hemodynamically significant arterial stenosis, arterial occlusion, dissection, or aneurysm. LEFT CAROTIDS: No hemodynamically significant arterial stenosis, arterial occlusion, dissection, or aneurysm. LEFT VERTEBRAL: No hemodynamically significant arterial stenosis, arterial occlusion, dissection, or aneurysm. RIGHT VERTEBRAL: No hemodynamically significant arterial stenosis, arterial occlusion, dissection, or aneurysm. AORTIC ARCH: Normal three-vessel origin. Bilateral subclavian arteries are patent. No dissection. NECK SOFT TISSUE: No mass, adenopathy. No thyroid nodule greater than 1 cm. INCLUDED LUNGS: Mild subsegmental scattered atelectasis. OTHER: No acute osseous abnormality. No aggressive bone lesions. IMPRESSION: 1. No hemodynamically significant arterial stenosis, arterial occlusion, dissection, or aneurysm of cervical or intracranial arterial system.. Findings were telephoned by Dr. Stearns to Dr. Alejandro Gonzalez at 5:39 p.m. 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 THIS IS AN ELECTRONICALLY VERIFIED FINAL REPORT 11/01/2024 5:48 PM - Electronically signed by Carmelo Stearns M.D. AT: AT Report ID: [id number] Reading Location: [id number] Procedure Note Carmelo Stearns MD - 11/01/2024 EXAM DESCRIPTION: CTA STROKE HEAD NECK W WO CONTRAST REASON FOR STUDY: Stroke/TIA, determine embolic source Garbled speech and right sided weakness started at 16:10 today TECHNIQUE: Axial dynamic scanning technique with dynamic contrastenhancement through the intracranial and extracranial carotid and vertebral arteries. Multiplanar reconstruction. All stenosis measurements are based on NASCET criteria. 3D MIP images rendered on scanning unit and reviewed at time of interpretation. Automated exposure control was used as a dose optimization technique forthis examination. CONTRAST TYPE/DOSE: 100mL of IOVERSOL 350 MG IODINE/ML INTRAVENOUSSYRINGE injected COMPARISON: Noncontrast head CT 11/01/2024 FINDINGS: INTRACRANIAL VESSELS [place]: The anterior, middle, posterior cerebral arteries areall patent. No evidence of aneurysm or focal stenosis. POSTERIOR CIRCULATION: The distal vertebral arteries are patent as isthe basilar artery. No aneurysm. BRAIN: No gross enhancing lesions as visualized. CAROTID CTA RIGHT CAROTIDS: No hemodynamically significant arterial stenosis,arterial occlusion, dissection, or aneurysm. LEFT CAROTIDS: No hemodynamically significant arterial stenosis,arterial occlusion, dissection, or aneurysm. LEFT VERTEBRAL: No hemodynamically significant arterial stenosis,arterial occlusion, dissection, or aneurysm. RIGHT VERTEBRAL: No hemodynamically significant arterial stenosis,arterial occlusion, dissection, or aneurysm. AORTIC ARCH: Normal three-vessel origin. Bilateral subclavian arteriesare patent. No dissection. NECK SOFT TISSUE: No mass, adenopathy. No thyroid nodule greater than 1cm. INCLUDED LUNGS: Mild subsegmental scattered atelectasis. OTHER: No acute osseous abnormality. No aggressive bone lesions. IMPRESSION: 1. No hemodynamically significant arterial stenosis, arterial occlusion, dissection, or aneurysm of cervical or intracranial arterial system.. Findings were telephoned by Dr. Stearns to Dr. lAejandro Gonzalez at 5:39p.m. 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 THIS IS AN ELECTRONICALLY VERIFIED FINAL REPORT 11/01/2024 5:48 PM - Electronically signed by Carmelo Stearns M.D. AT: AT Report ID: [id number] Reading Location: [id number] Alejandro Gonzalez MD IM CT PROCEDURES Final Result * CT Stroke Head WO Contrast (11/01/2024 5:05 PM CDT) Anatomical Region Laterality Modality Head N/A Computed Tomogra phy 11/01/2024 5:12 PM CDT Narrative 11/01/2024 5:16 PM CDT EXAM DESCRIPTION: CT STROKE HEAD WO CONTRAST REASON FOR STUDY: Neuro deficit, acute, stroke suspected, Stroke Garbled speech and right sided weakness started at 16:10 today TECHNIQUE: Axial images acquired through the brain without intravenous contrast. Images stored on PACS. Automated exposure control was used as a dose optimization technique for this examination. COMPARISON: 01/18/2021 FINDINGS: BRAIN: No hemorrhage, edema or mass effect. No recent infarct. Normal white matter. EXTRA-AXIAL SPACES: No fluid collections. No masses. CALVARIUM: No fracture. SINUSES/MASTOIDS: No fluid or mucosal thickening. ORBITS: No significant abnormality. OTHER: No other significant abnormality. IMPRESSION: No acute intracranial findings. The findings were called to the ordering clinician by CR support services at 5:16 p.m. on 11/01/2024. THIS IS AN ELECTRONICALLY VERIFIED FINAL REPORT 11/01/2024 5:16 PM - Electronically signed by Manny Gay M.D. KT: AUBREY Report ID: [id number] Reading Location: [id number] Procedure Note Manny Gay MD - 11/01/2024 EXAM DESCRIPTION: CT STROKE HEAD WO CONTRAST REASON FOR STUDY: Neuro deficit, acute, stroke suspected, Stroke Garbled speech and right sided weakness started at 16:10 today TECHNIQUE: Axial images acquired through the brain without intravenous contrast. Images stored on PACS. Automated exposure control was used asa dose optimization technique for this examination. COMPARISON: 01/18/2021 FINDINGS: BRAIN: No hemorrhage, edema or mass effect. No recent infarct. Normal white matter. EXTRA-AXIAL SPACES: No fluid collections. No masses. CALVARIUM: No fracture. SINUSES/MASTOIDS: No fluid or mucosal thickening. ORBITS: No significant abnormality. OTHER: No other significant abnormality. IMPRESSION: No acute intracranial findings. The findings were called to the ordering clinician by CR support services at 5:16 p.m. on 11/01/2024. THIS IS AN ELECTRONICALLY VERIFIED FINAL REPORT 11/01/2024 5:16 PM - Electronically signed by Manny Gay M.D. KT: AUBREY Report ID: [id number] Reading Location: [id number] Alejandro Gonzalez MD IMG CT PROCEDURES Final Result * POCT glucose (11/01/2024 4:56 PM CDT) Glucose, POC 99 70 - 199 mg/dL Blood 11/01/2024 4:56 PM CDT 11/01/2024 4:56 PM CDT Lary Berumen DO LAB POCT ORDERABLES - DE VICE Final Result [facility] 1 [facility] Department [place] [address] * US Knee (10/28/2024 8:20 AM CDT) Anatomical Region Laterality Modality Knee N/A Ultrasound 10/29/2024 1:39 PM CDT Narrative 10/29/2024 1:41 PM CDT EXAM DESCRIPTION: US KNEE COMPLETE REASON FOR STUDY: Pain TECHNIQUE: A Dynamic assessment was performed of the right knee and of the left knee by the gate shear operator, with selected grayscale and color Doppler images acquired and recorded in PACS. COMPARISON: None available FINDINGS: No sonographic abnormality is seen in either knee popliteal fossa. No mass or fluid collection is seen. IMPRESSION: No sonographic abnormality in the right or left popliteal fossa. If further evaluation is clinically warranted, MRI could be considered. THIS IS AN ELECTRONICALLY VERIFIED FINAL REPORT 10/29/2024 1:41 PM - Electronically signed by Timi Zarco M.D. JR: Report ID: [id number] Reading Location: [id number] Procedure Note Timi Zarco MD - 10/29/2024 EXAM DESCRIPTION: US KNEE COMPLETE REASON FOR STUDY: Pain TECHNIQUE: A Dynamic assessment was performed of the right knee and ofthe left knee by the gate shear operator, with selected grayscale and color Doppler images acquired and recorded in PACS. COMPARISON: None available FINDINGS: No sonographic abnormality is seen in either knee popliteal fossa. [place] or fluid collection is seen. IMPRESSION: No sonographic abnormality in the right or left popliteal fossa. Iffurther evaluation is clinically warranted, MRI could be considered. THIS IS AN ELECTRONICALLY VERIFIED FINAL REPORT 10/29/2024 1:41 PM - Electronically signed by Timi Zarco M.D., JR: Report ID: [id number] Reading Location: [id number] us James Emanuel MD IMG US PROCEDURES Final Result * US Knee (10/28/2024 8:20 AM CDT) Anatomical Region Laterality Modality Knee N/A Ultrasound 10/29/2024 1:39 PM CDT Narrative 10/29/2024 1:41 PM CDT EXAM DESCRIPTION: US KNEE COMPLETE REASON FOR STUDY: Pain TECHNIQUE: A Dynamic assessment was performed of the right knee and of the left knee by the gate shear operator, with selected grayscale and color Doppler images acquired and recorded in PACS. COMPARISON: None available FINDINGS: No sonographic abnormality is seen in either knee popliteal fossa. No mass or fluid collection is seen. IMPRESSION: No sonographic abnormality in the right or left popliteal fossa. If further evaluation is clinically warranted, MRI could be considered. THIS IS AN ELECTRONICALLY VERIFIED FINAL REPORT 10/29/2024 1:41 PM - Electronically signed by Timi Zarco M.D., JR: Report ID: [id number] Reading Location: [id number] Procedure Note Timi Zarco MD - 10/29/2024 EXAM DESCRIPTION: US KNEE COMPLETE REASON FOR STUDY: Pain TECHNIQUE: A Dynamic assessment was performed of the right knee and ofthe left knee by the gate shear operator, with selected grayscale and color Doppler images acquired and recorded in PACS. COMPARISON: None available FINDINGS: No sonographic abnormality is seen in either knee popliteal fossa. [place] or fluid collection is seen. IMPRESSION: No sonographic abnormality in the right or left popliteal fossa. Iffurther evaluation is clinically warranted, MRI could be considered. THIS IS AN ELECTRONICALLY VERIFIED FINAL REPORT 10/29/2024 1:41 PM - Electronically signed by Timi Zarco M.D. JR: Report ID: [id number] Reading Location: [id number] us James Emanuel MD IMG US PROCEDURES Final Result * XR Hand Right 3 or More Views (10/20/2024 10:54 AM CDT) Anatomical Region Laterality Modality Upper Extremities, Hand Right Computed Radiography 10/20/2024 4:42 PM CDT Narrative 10/20/2024 5:30 PM CDT EXAM DESCRIPTION: XR HAND LEFT 3 OR MORE VIEWS; XR HAND RIGHT 3 OR MORE VIEWS REASON FOR STUDY: pain Nki pain in morning 3 weeks gets better as day goes on FINDINGS: Three views each hand submitted without comparison. Left hand: No erosions. No acute fracture. Mild 1st and 3rd metacarpophalangeal and polyarticular interphalangeal joint osteoarthritis. No dorsal wrist soft tissue swelling. Right hand: No erosions. No acute fracture. Mild polyarticular interphalangeal joint osteoarthritis. No dorsal wrist soft tissue swelling. IMPRESSION: No radiographic evidence of inflammatory arthritis. 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 THIS IS AN ELECTRONICALLY VERIFIED FINAL REPORT 10/20/2024 5:30 PM - Electronically signed by Gregorio Alexandra M.D. MF: [email or web address] Report ID: [id number] Reading Location: [id number] Procedure Note Gregorio Aleaxndra MD - 10/20/2024 EXAM DESCRIPTION: XR HAND LEFT 3 OR MORE VIEWS; XR HAND RIGHT 3 OR MORE VIEWS REASON FOR STUDY: pain Nki pain in morning 3 weeks gets better as day goes on FINDINGS: Three views each hand submitted without comparison. Left hand: No erosions. No acute fracture. Mild 1st and 3rd metacarpophalangeal and polyarticular interphalangeal joint osteoarthritis. No dorsal wrist soft tissue swelling. Right hand: No erosions. No acute fracture. Mild polyarticular interphalangeal joint osteoarthritis. No dorsal wrist soft tissue swelling. IMPRESSION: No radiographic evidence of inflammatory arthritis. 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 THIS IS AN ELECTRONICALLY VERIFIED FINAL REPORT 10/20/2024 5:30 PM - Electronically signed by Gregorio Alexandra M.D. MF: [email or web address] Report ID: [id number] Reading Location: [id number] Maurice Caldera MD IMG XR PROCEDURES Final Result * XR Hand Left 3 or More Views (10/20/2024 10:54 AM CDT) Anatomical Region Laterality Modality Upper Extremities, Hand Left Computed Radiography 10/20/2024 4:42 PM CDT Narrative 10/20/2024 5:30 PM CDT EXAM DESCRIPTION: XR HAND LEFT 3 OR MORE VIEWS; XR HAND RIGHT 3 OR MORE VIEWS REASON FOR STUDY: pain Nki pain in morning 3 weeks gets better as day goes on FINDINGS: Three views each hand submitted without comparison. Left hand: No erosions. No acute fracture. Mild 1st and 3rd metacarpophalangeal and polyarticular interphalangeal joint osteoarthritis. No dorsal wrist soft tissue swelling. Right hand: No erosions. No acute fracture. Mild polyarticular interphalangeal joint osteoarthritis. No dorsal wrist soft tissue swelling. IMPRESSION: No radiographic evidence of inflammatory arthritis. 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 THIS IS AN ELECTRONICALLY VERIFIED FINAL REPORT 10/20/2024 5:30 PM - Electronically signed by Gregorio Alexandra M.D. MF: [email or web address] Report ID: [id number] Reading Location: [id number] Procedure Note Gregorio Alexandra MD - 10/20/2024 EXAM DESCRIPTION: XR HAND LEFT 3 OR MORE VIEWS; XR HAND RIGHT 3 OR MORE VIEWS REASON FOR STUDY: pain Nki pain in morning 3 weeks gets better as day goes on FINDINGS: Three views each hand submitted without comparison. Left hand: No erosions. No acute fracture. Mild 1st and 3rd metacarpophalangeal and polyarticular interphalangeal joint osteoarthritis. No dorsal wrist soft tissue swelling. Right hand: No erosions. No acute fracture. Mild polyarticular interphalangeal joint osteoarthritis. No dorsal wrist soft tissue swelling. IMPRESSION: No radiographic evidence of inflammatory arthritis. 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 THIS IS AN ELECTRONICALLY VERIFIED FINAL REPORT 10/20/2024 5:30 PM - Electronically signed by Gregorio Alexadnra M.D. MF: [email or web address] Report ID: [id number] Reading Location: [id number] Maurice Caldera MD IMG XR PROCEDURES Final Result * RICHARD ab ql w/rflx to RICHARD qn (10/20/2024 10:40 AM CDT) RICHARD Negative Comment: Interpretive Data Normal range for RICHARD Qualitative Antibody = Negative. 1. RICHARD is performed using indirect immunofluorescence against HEp-2 cells 2. RICHARD titers are performed on all positive qualitative results. 3. A significantly positive RICHARD result is defined as a positive nuclear fluorescence at a titer of 1:80 or greater. 4. 15% of normal people above age 65 have significantly positive RICHARD results. 5% or less of normal people age 65 or under have significantly positive RICHARD results. Current interpretive data was last revised on 2020. Testing performed by: [facility], [address] [facility] [place] [address] Blood 10/20/2024 10:4 0 AM CDT 10/20/2024 2:50 PM CDT Narrative [facility] ([place]) - 10/21/2024 11:36 AM CDT [id number] Maurice Caldera MD LAB BLOOD ORDERABLES Final Resu lt [facility] ([place]) [address] [facility] [place] [address] * eGFR (10/20/2024 10:40 AM CDT) Pathologist [facility] eGFR >90 >=60 mL/min/1. 73 m2 Comment: Interpretive Data Reference Interval Normal >/= 90 mL/min/1.73m2 Mildly decreased* 60 - 89 mL/min/1.73m2 Mildly to moderately decreased 45 - 59 mL/min/1.73m2 Moderately to severely decreased 30 - 44 mL/min/1.73m2 Severely decreased 15 - 29 mL/min/1.73m2 Kidney Failure < 15 mL/min/1.73m2 *Relative to young adult level Estimated glomerular filtration rate is determined by the 2020 CKD-EPI equation recommended by the National Kidney Foundation (A Unifying Approach to GFR Estimation: Recommendations of the NKF-ASK Task Force on Reassessing the Inclusion of Race in Diagnosing Kidney Disease, JASN 2020). The CKD-EPI equation should not be used for patients with unstable renal function and has not been validated in children and those over 70. Current interpretive data was last reviewed 2021. Blood 10/20/2024 10:4 0 AM CDT 10/20/2024 11:02 AM CDT Maurice Caldera MD LAB BLOOD ORDERABLES Final Resu lt [facility] ([place]) 1 [facility] Department [place] [address] * Differential, auto (10/20/2024 10:40 AM CDT) Neutrophil abs 3.86 1.50 - 6.50 K/cumm Imm gran abs 0.05 0.00 - 0.10 K/cumm [facility] ([place]) Lymphocyte abs 1.78 0.80 - 3.30 K/cumm [facility] ([place]) Monocyte abs 0.31 0.20 - 0.80 K/cumm [facility] ([place]) Eosinophil abs 0.11 0.00 - 0.50 K/cumm [facility] ([place]) Basophil abs 0.03 0.00 - 0.10 K/cumm [facility] ([place]) Neutrophil pct 62.9 % [facility] ([place]) Comment: Interpretive Data Percent cell count reference ranges are not reported, since discordance with absolute values may lead to misinterpretation of CBC data. Current Interpretive Data was last revised on 2017. Imm gran pct 0.8 % [facility] ([place]) Comment: Interpretive Data Percent cell count reference ranges are not reported, since discordance with absolute values may lead to misinterpretation of CBC data. Current Interpretive Data was last revised on 2017. Lymphocyte pct 29.0 % [facility] ([place]) Comment: Interpretive Data Percent cell count reference ranges are not reported, since discordance with absolute values may lead to misinterpretation of CBC data. Current Interpretive Data was last revised on 2017. Monocyte pct 5.0 % [facility] ([place]) Comment: Interpretive Data Percent cell count reference ranges are not reported, since discordance with absolute values may lead to misinterpretation of CBC data. Current Interpretive Data was last revised on 2017. Eosinophil pct 1.8 % [facility] ([place]) Comment: Interpretive Data Percent cell count reference ranges are not reported, since discordance with absolute values may lead to misinterpretation of CBC data. Current Interpretive Data was last revised on 2017. Basophil pct 0.5 % [facility] ([place]) Comment: Interpretive Data Percent cell count reference ranges are not reported, since discordance with absolute values may lead to misinterpretation of CBC data. Current Interpretive Data was last revised on 2017. Blood 10/20/2024 10:4 0 AM CDT 10/20/2024 11:02 AM CDT Maurice Caldera MD LAB BLOOD ORDERABLES Final Resu lt [facility] ([place]) [address] [facility] [place] [address] * Thyroid Function [place] (10/20/2024 10:40 AM CDT) TSH 2.49 0.30 - 4.20 mcIUnit/mL Blood 10/20/2024 10:4 0 AM CDT 10/20/2024 11:02 AM CDT Maurice Caldera MD LAB BLOOD ORDERABLES Final Resu lt Performing Organization Address [facility] Co de Phone Number [facility] ([place]) [address] [place] [address] * Urinalysis reflex to microscopic and culture Urine (10/20/2024 10:40 AM CDT) Color, ur Yellow Yellow Clarity, ur Clear Clear [facility] ([place]) Specific gravity, ur 1.026 1.003 - 1.030 [facility] ([place]) pH, urine 7.0 [facility] ([place]) Comment: Interpretive Data U rine pH is affected by diet, medications, systemic acid-base disturbances, and renal tubular function. pH may affect urinary stone formation. For example, urine pH below 6.0 may help reduce the tendency for calcium phosphate stones and pH greater than 6.0 may reduce the tendency for uric acid stone formation. Source: [facility] Current Interpretive Data was last revised on 2017 Protein, ur ql Negative Negative [facility] ([place]) Glucose, ur ql Negative Negative [facility] ([place]) Ketones, ur Negative Negative [facility] ([place]) Bilirubin, ur Negative Negative [facility] ([place]) Blood, ur Negative Negative [facility] ([place]) Urobilinogen, ur <2.0 <2.0 mg/dL [facility] ([place]) Nitrite, ur Negative Negative [facility] ([place]) Leukocyte esterase, ur Negative Negative [facility] ([place]) UA reflex comment Reflex conditions for microscopic UA and culture not met. [facility] ([place]) Urine 10/20/2024 10:4 0 AM CDT 10/20/2024 11:15 AM CDT Maurice Caldera MD LAB MICROBIOLOGY - [facility]AL [facility] Final Result Performing Organization Address City/[facility] Co de Phone Number [facility] ([place]) [address] [facility] [place] [address] * CBC with auto differential (10/20/2024 10:40 AM CDT) WBC 6.14 3.80 - 9.90 K/cumm Hgb 14.0 11.9 - 15.5 g/dL [facility] ([place]) Hct 41.4 35.6 - 45.5 % [facility] ([place]) Plt 269 150 - 400 K/cumm [facility] ([place]) MPV 9.8 9.1 - 12.3 fL [facility] ([place]) RBC 4.65 3.90 - 5.20 M/cumm [facility] ([place]) MCV 89.0 81.3 - 96.4 fL [facility] ([place]) MCH 30.1 27.1 - 33.3 pg [facility] ([place]) MCHC 33.8 32.3 - 35.7 g/dL [facility] ([place]) RDW CV 11.8 11.1 - 14.9 % [facility] ([place]) RDW SD 38.0 35.7 - 48.1 fL [facility] ([place]) NRBC abs 0.00 0.00 - 0.01 K/cumm [facility] ([place]) Blood 10/20/2024 10:4 0 AM CDT 10/20/2024 11:02 AM CDT Maurice Caldera MD LAB BLOOD ORDERABLES Final Resu lt [facility] ([place]) [address] [facility] [place] [address] * Cyclic citrul peptide antibody, IgG (10/20/2024 10:40 AM CDT) Pathologist [facility] CCP Ab <0.5 <=2.9 units/mL Comment: Interpretive data Negative: <3 units/mL Positive: > or equal to 3 units/mL Current interpretive data was last revised on 2016. Testing performed by: [facility], [address] [place] [address], [id number] Blood 10/20/2024 10:4 0 AM CDT 10/20/2024 2:50 PM CDT Maurice Caldera MD LAB BLOOD ORDERABLES Final Resu lt [facility] ([place]) [address] [place] [address] * Rheumatoid factor (10/20/2024 10:40 AM CDT) [facility] Rheumatoid factor, quant <10 <=15 IUnits/mL Comment:Testing performed by : [facility], [address] [place] [address], [id number] Blood 10/20/2024 10:4 0 AM CDT 10/20/2024 1:53 PM CDT Maurice Caldera MD LAB BLOOD ORDERABLES Final Resu lt [facility] ([place]) [address] [place] [address] * Magnesium (10/20/2024 10:40 AM CDT) Pathologist [facility] Magnesium 2.1 1.4 - 2.5 mg/dL Blood 10/20/2024 10:4 0 AM CDT 10/20/2024 11:02 AM CDT Maurice Caldera MD LAB BLOOD ORDERABLES Final Resu lt Performing Organization Address City/[facility]/ZIP Co de Phone Number [facility] ([place]) [address] [facility] [place] [address] * Hemoglobin A1c (10/20/2024 10:40 AM CDT) Hgb A1C 5.6 4.0 - 5.6 % Estimated Average Glucose 114 mg/dL [facility] ([place]) Comment: The ADA recommends reporting an estimated Average Glucose (eAG) with all Hemoglobin A1c results using the equation derived from a study of 507 normal and diabetic adults. Minority populations were underrepresented and children were not included. (Diabetes Care 31:0852-4698, 2008). The eAG is not equivalent to a fasting glucose. Blood 10/20/2024 10:4 0 AM CDT 10/20/2024 11:02 AM CDT Maurice Caldera MD LAB BLOOD ORDERABLES Final Resu lt Performing Organization Address [facility] Co de Phone Number [facility] ([place]) [address] [facility] [place] [address] * Vitamin B12 (10/20/2024 10:40 AM CDT) Pathologist [facility] Vitamin B12 943 230 - 1,250 pg/mL Blood 10/20/2024 10:4 0 AM CDT 10/20/2024 11:02 AM CDT Maurice Caldera MD LAB BLOOD ORDERABLES Final Resu lt Performing Organization Address City/[facility]/ZIP Co de Phone Number [facility] ([place]) [address] [facility] [place] [address] * Lipid panel (10/20/2024 10:40 AM CDT) Cholesterol 195 30 - 199 mg/dL Comment: Interpretive Data Ages < or = 19 years Acceptable: <170 mg/dL Borderline high: 170-199 mg/dL High: >or= 200 mg/dL Ages > or = 20 years Desirable: <200 mg/dL Borderline high: 200-239 mg/dL High: >or= 240 mg/dL Literature References: 1. Expert Panel on Integrated Guidelines for Cardiovascular Health and Risk Reduction in Children and Adolescents. Pediatrics 2011;128:S213 2. NCEP Expert Panel. Circulation 2004;110:227 Current Interpretive Data was last revised on 2018. Triglycerides 80 <=149 mg/dL [facility] ([place]) Comment: Interpretive Data Ages < or = 9 years Acceptable: <75 mg/dL Borderline high: 75-99 mg/dL High: >or= 100 mg/dL Ages 10 to 20 years Acceptable: <90 mg/dL Borderline high: 90-129 mg/dL High: >or= 130 mg/dL Ages > or = 20 years Desirable: <150 mg/dL Borderline high: 150-199 mg/dL High: 200-499 mg/dL Very high: >or= 499 mg/dL Literature References: 1. Expert Panel on Integrated Guidelines for Cardiovascular Health and Risk Reduction in Children and Adolescents. Pediatrics 2011;128:S213 2. NCEP Expert Panel. Circulation 2004;110:227 Current Interpretive Data was last revised on 2018. HDL 63 >=40 mg/dL [facility]) Comment: Interpretive Data Ages < or = 19 years Acceptable: >45 mg/dL Borderline low: 40-45 mg/dL Low: <40 mg/dL Ages > or = 20 years Desirable: >or= 60 mg/dL Low: <40 mg/dL Literature References: 1. Expert Panel on Integrated Guidelines for Cardiovascular Health and Risk Reduction in Children and Adolescents. Pediatrics 2011;128:S213 2. NCEP Expert Panel. Circulation 2004;110:227 Current Interpretive Data was last revised on 2018. LDL, calculated 117 <=129 mg/dL [facility] ([place]) Comment: Interpretive Data Ages < or = 19 years Acceptable: <110 mg/dL Borderline high: 110-129 mg/dL High: >or= 130 mg/dL Ages > or = 20 years Optimal: <100 mg/dL Near optimal: 100-129 mg/dL Borderline high: 130-159 mg/dL High: >160 mg/dL Calculated using the Overton LDL-C estimating equation. This equation was implemented on 2024. Prior to this date LDL-C was estimated using the Friedewald equation. Literature References: 1. Expert Panel on Integrated Guidelines for Cardiovascular Health and Risk Reduction in Children and Adolescents. Pediatrics 2011;128:S213 2. NCEP Expert Panel. Circulation 2004;110:227 3. Tian Cannon et al. PABLITO Cardiol. 2020 October 20;5(5):540-548. doi: 10.1001/jamacardio.2020.0013 Current Interpretive Data was last revised on 2024. Non-HDL Cholesterol 132 mg/dL [facility] ([facility]) Comment: Interpretive Data Ages < or = 19 years Acceptable: <120 mg/dL Borderline high: 120-144 mg/dL High: >145 mg/dL Ages > or = 20 years When triglycerides are >200 mg/dL, Non-HDL cholesterol is a secondary target of therapy with treatment goals that are 30 mg/dL greater than the LDL cholesterol target. Literature References: 1. Expert Panel on Integrated Guidelines for Cardiovascular Health and Risk Reduction in Children and Adolescents. Pediatrics 2011;128:S213 2. NCEP Expert Panel. Circulation 2004;110:227 Current Interpretive Data was last revised on 2018. Chol/HDL ratio 3 [facility] ([facility]) Blood 10/20/2024 10:4 0 AM CDT 10/20/2024 11:02 AM CDT Maurice Caldera MD LAB BLOOD ORDERABLES Final Resu lt [facility] ([facility]) 1 [facility] Department [place] [address] * Comprehensive metabolic panel (10/20/2024 10:40 AM CDT) Sodium 138 135 - 145 mmol/L Potassium, pl 3.9 3.3 - 4.9 mmol/L [facility] ([place]) Chloride 101 97 - 110 mmol/L [facility]) CO2 25 22 - 32 mmol/L [facility] ([facility]) Anion gap 12 2 - 15 mmol/L [facility] ([place]) BUN 21 6 - 25 mg/dL [facility] ([place]) Creatinine 0.69 0.60 - 1.10 mg/dL [facility] ([facility]) Glucose 112 70 - 199 mg/dL [facility] ([facility]) Comment: Interpretive Data Fasting glucose >/= 126 mg/dl is diagnostic for diabetes. Fasting is defined as no caloric intake for at least 8 hours. Fasting glucose between 100 mg/dl to 125 mg/dl is diagnostic of prediabetes. In a patient with classic symptoms of hyperglycemia or hyperglycemic crisis, a random glucose >/= 200 mg/dl is diagnostic for diabetes. In the absence of unequivocal hyperglycemia, results should be confirmed by repeat testing. The classification and Diagnosis of Diabetes Diabetes Care 2021; 46: S19-S40. Current interpretive data was last revised 2022. Calcium 9.2 8.5 - 10.3 mg/dL [facility] ([facility]) Bilirubin, total 0.5 0.1 - 1.2 mg/dL [facility] ([facility]) Protein, pl 7.0 6.5 - 8.5 g/dL [facility] ([facility]) Albumin 4.2 3.5 - 5.0 g/dL [facility] ([facility]) Alk phos 118 40 - 130 Units/L [facility] ([facility]) ALT 16 7 - 45 Units/L [facility]) AST 22 10 - 45 Units/L [facility] ([facility]) Blood 10/20/2024 10:4 0 AM CDT 10/20/2024 11:02 AM CDT Maurice Caldera MD LAB BLOOD ORDERABLES Final Resu lt [facility] ([facility]) 1 [facility] Department [place] [address] * CT Abdomen Pelvis W Contrast (09/18/2024 9:49 AM CDT) Anatomical Region Laterality Modality Body N/A Computed Tomogra phy 09/18/2024 9:55 AM CDT Narrative 09/18/2024 10:03 AM CDT EXAM DESCRIPTION: CT ABDOMEN PELVIS W CONTRAST REASON FOR STUDY: RLQ abdominal pain Pt to triage c/o bright red blood in stools x 1 week. Pt also c/o back pain and nausea. Hx hemorrhoid, pancreatitis and diverticulitis TECHNIQUE: CT scan of the abdomen and pelvis performed with intravenous and without oral contrast using helical scanning technique with dynamic intravenous contrast injection. Reconstructed coronal and sagittal MPR images reviewed. All images stored on PACS. Automated exposure control was used as a dose optimization technique for this examination. CONTRAST TYPE/DOSE: 75mL of IOVERSOL 350 MG IODINE/ML INTRAVENOUS SYRINGE injected via intravenous COMPARISON: CT abdomen pelvis 10/17/2020 FINDINGS: LOWER CHEST: No significant pulmonary abnormalities. No effusion. LIVER: Normal size. No identified cystic or solid masses. GALLBLADDER: No stones identified. No wall thickening or inflammatory changes. BILE DUCTS: No intrahepatic or extrahepatic ductal dilatation. SPLEEN: Normal size. No focal lesions. PANCREAS: No identified cystic or solid masses. No significant calcifications. No adjacent inflammation or peripancreatic fluid collections. Pancreatic duct not dilated. ADRENALS: Normal. KIDNEYS/URINARY TRACT: There is a subcentimeter low-attenuation lesion in the right kidney which is too small to be characterized. There is no hydronephrosis or hydroureter. Urinary bladder wall appears mildly thickened circumferentially, however this is likely due to not being fully distended. GI: Stomach is mostly decompressed. There are no dilated or thick-walled loops of bowel appreciated. There is no definite sign of appendicitis. Appendix contains gas and there is no periappendiceal inflammatory change. There is a moderate amount of stool throughout the colon. There are a few scattered colonic diverticula, with an overall very mild diverticular burden. PERITONEUM: No ascites or free air. RETROPERITONEUM: No mass or adenopathy. REPRODUCTIVE: The uterus is not visualized. VASCULATURE: No abdominal aortic aneurysm. MUSCULOSKELETAL: There are no suspicious osseous lesions. OTHER: No other abnormality. IMPRESSION: No acute findings in the abdomen or pelvis. Moderate amount of stool throughout the colon. Mild colonic diverticulosis without evidence of diverticulitis. THIS IS AN ELECTRONICALLY VERIFIED FINAL REPORT 09/18/2024 10:03 AM - Electronically signed by Brennon Rodriguez M.D. AM: AM Report ID: [id number] Reading Location: [id number] Procedure Note Brennon Rodriguez MD - 09/18/2024 EXAM DESCRIPTION: CT ABDOMEN PELVIS W CONTRAST REASON FOR STUDY: RLQ abdominal pain Pt to triage c/o bright red blood in stools x 1 week. Pt also c/o backpain and nausea. Hx hemorrhoid, pancreatitis and diverticulitis TECHNIQUE: CT scan of the abdomen and pelvis performed with intravenousand without oral contrast using helical scanning technique with dynamic intravenous contrast injection. Reconstructed coronal and sagittal MPRimages reviewed. All images stored on PACS. Automated exposure control was usedas a dose optimization technique for this examination. CONTRAST TYPE/DOSE: 75mL of IOVERSOL 350 MG IODINE/ML INTRAVENOUSSYRINGE injected via intravenous COMPARISON: CT abdomen pelvis 10/17/2020 FINDINGS: LOWER CHEST: No significant pulmonary abnormalities. No effusion. LIVER: Normal size. No identified cystic or solid masses. GALLBLADDER: No stones identified. No wall thickening or inflammatory changes. BILE DUCTS: No intrahepatic or extrahepatic ductal dilatation. SPLEEN: Normal size. No focal lesions. PANCREAS: No identified cystic or solid masses. No significant calcifications. No adjacent inflammation or peripancreatic fluidcollections. Pancreatic duct not dilated. ADRENALS: Normal. KIDNEYS/URINARY TRACT: There is a subcentimeter low-attenuation lesionin the right kidney which is too small to be characterized. There is no hydronephrosis or hydroureter. Urinary bladder wall appears mildly thickened circumferentially, however this is likely due to not being fully distended. GI: Stomach is mostly decompressed. There are no dilated orthick-walled loops of bowel appreciated. There is no definite sign of appendicitis. Appendix contains gas and there is no periappendiceal inflammatory change. There is a moderate amount of stool throughout the colon. There are a few scattered colonic diverticula, with an overall very mild diverticularburden. PERITONEUM: No ascites or free air. RETROPERITONEUM: No mass or adenopathy. REPRODUCTIVE: The uterus is not visualized. VASCULATURE: No abdominal aortic aneurysm. MUSCULOSKELETAL: There are no suspicious osseous lesions. OTHER: No other abnormality. IMPRESSION: No acute findings in the abdomen or pelvis. Moderate amount of stool throughout the colon. Mild colonic diverticulosis without evidence of diverticulitis. THIS IS AN ELECTRONICALLY VERIFIED FINAL REPORT 09/18/2024 10:03 AM - Electronically signed by Brennon Rodriguez M.D. AM: AM Report ID: [id number] Reading Location: [id number] us Tom Younger MD IMG CT PROCEDURES F inal Result * eGFR (09/18/2024 9:37 AM CDT) eGFR >90 >=60 mL/min/1. 73 m2 Comment: Interpretive Data Reference Interval Normal >/= 90 mL/min/1.73m2 Mildly decreased* 60 - 89 mL/min/1.73m2 Mildly to moderately decreased 45 - 59 mL/min/1.73m2 Moderately to severely decreased 30 - 44 mL/min/1.73m2 Severely decreased 15 - 29 mL/min/1.73m2 Kidney Failure < 15 mL/min/1.73m2 *Relative to young adult level Estimated glomerular filtration rate is determined by the 2020 CKD-EPI equation recommended by the National Kidney Foundation (A Unifying Approach to GFR Estimation: Recommendations of the NKF-ASK Task Force on Reassessing the Inclusion of Race in Diagnosing Kidney Disease, JASN 2020). The CKD-EPI equation should not be used for patients with unstable renal function and has not been validated in children and those over 70. Current interpretive data was last reviewed 2021. Blood 09/18/2024 9:37 AM CDT 09/18/2024 9:41 AM CDT us Tom Younger MD LAB BLOOD ORDERABLE S Final Result [facility] ([place]) 1 [facility] Department of Laboratories [place], [place] [id number] * Differential, auto (09/18/2024 9:37 AM CDT) Neutrophil abs 4.1 1.5 - 6.5 K/cumm Imm gran abs 0.1 0.0 - 0.1 K/cumm [facility] ([facility]) Lymphocyte abs 2.4 0.8 - 3.3 K/cumm [facility] ([facility]) Monocyte abs 0.4 0.2 - 0.8 K/cumm [facility] ([facility]) Eosinophil abs 0.2 0.0 - 0.5 K/cumm [facility] ([facility]) Basophil abs 0.1 0.0 - 0.1 K/cumm [facility] ([facility]) Neutrophil pct 56.7 % [facility] ([facility]) Comment: Interpretive Data Percent cell count reference ranges are not reported, since discordance with absolute values may lead to misinterpretation of CBC data. Current Interpretive Data was last revised on 2017. Imm gran pct 1.0 % [facility] ([facility]) Comment: Interpretive Data Percent cell count reference ranges are not reported, since discordance with absolute values may lead to misinterpretation of CBC data. Current Interpretive Data was last revised on 2017. Lymphocyte pct 32.5 % [facility] ([facility]) Comment: Interpretive Data Percent cell count reference ranges are not reported, since discordance with absolute values may lead to misinterpretation of CBC data. Current Interpretive Data was last revised on 2017. Monocyte pct 5.8 % [facility] ([facility]) Comment: Interpretive Data Percent cell count reference ranges are not reported, since discordance with absolute values may lead to misinterpretation of CBC data. Current Interpretive Data was last revised on 2017. Eosinophil pct 3.3 % [facility] ([facility]) Comment: Interpretive Data Percent cell count reference ranges are not reported, since discordance with absolute values may lead to misinterpretation of CBC data. Current Interpretive Data was last revised on 2017. Basophil pct 0.7 % [facility] ([facility]) Comment: Interpretive Data Percent cell count reference ranges are not reported, since discordance with absolute values may lead to misinterpretation of CBC data. Current Interpretive Data was last revised on 2017. Blood 09/18/2024 9:37 AM CDT 09/18/2024 9:41 AM CDT us Tom Younger MD LAB BLOOD ORDERABLE S Final Result [facility] 1 [facility] Department [place] [address] * (ABNORMAL) CBC with auto differential (09/18/2024 9:37 AM CDT) WBC 7.3 3.8 - 9.9 K/cumm Hgb 15.7(H) 11.9 - 15.5 g/dL [facility] ([facility]) Hct 45.1 35.6 - 45.5 % [facility]) Plt 294 150 - 400 K/cumm [facility] ([place]) MPV 9.5 9.1 - 12.3 fL [facility] ([place]) RBC 5.06 3.90 - 5.20 M/cumm [facility] ([place]) MCV 89.1 81.3 - 96.4 fL [facility] ([place]) MCH 31.0 27.1 - 33.3 pg [facility] ([place]) MCHC 34.8 32.3 - 35.7 g/dL [facility] ([place]) RDW CV 11.9 11.1 - 14.9 % [facility] ([place]) RDW SD 38.5 35.7 - 48.1 fL [facility] ([facility]) NRBC abs 0.00 0.00 - 0.01 K/cumm [facility] ([facility]) Blood 09/18/2024 9:37 AM CDT 09/18/2024 9:41 AM CDT us Tom Younger MD LAB BLOOD ORDERABLE S Final Result [facility] 1 [facility] Department [place] [address] * ABO/Rh (09/18/2024 9:37 AM CDT) Pathologist [facility] ABO/Rh O Positive Blood 09/18/2024 9:37 AM CDT 09/18/2024 9:41 AM CDT Narrative [facility] - 09/18/2024 10:23 AM CDT Has the patient had Daratumumab or Isatuximab in the past 6 months?->Unknown Tom Younger MD LAB BLOOD BANK TEST ORDERABLES Final Result [facility] [place] [address] [place] [address] * Antibody screen (09/18/2024 9:37 AM CDT) [facility] [place], indirect, Gel Interpretation Negative ABSC Blood 09/18/2024 9:37 AM CDT 09/18/2024 9:41 AM CDT Narrative [facility] ([place]) - 09/18/2024 10:23 AM CDT Has the patient had Daratumumab or Isatuximab in the past 6 months?->Unknown Tom Younger MD LAB BLOOD BANK TEST ORDERABLES Final Result Performing Organization Address City/[facility] Co de Phone Number [facility] ([place]) [address] [facility] [place] [address] * (ABNORMAL) Comprehensive metabolic panel (09/18/2024 9:37 AM CDT) [facility] Sodium 139 135 - 145 mmol/L Potassium, pl 4.1 3.3 - 4.9 mmol/L [facility] ([place]) Chloride 104 97 - 110 mmol/L [facility] ([place]) CO2 25 22 - 32 mmol/L [facility] ([place]) Anion gap 11 2 - 15 mmol/L [facility] ([facility]) BUN 15 6 - 25 mg/dL [facility] ([place]) Creatinine 0.66 0.60 - 1.10 mg/dL [facility] ([place]) Glucose 97 70 - 199 mg/dL [facility] ([place]) Comment: Interpretive Data Fasting glucose >/= 126 mg/dl is diagnostic for diabetes. Fasting is defined as no caloric intake for at least 8 hours. Fasting glucose between 100 mg/dl to 125 mg/dl is diagnostic of prediabetes. In a patient with classic symptoms of hyperglycemia or hyperglycemic crisis, a random glucose >/= 200 mg/dl is diagnostic for diabetes. In the absence of unequivocal hyperglycemia, results should be confirmed by repeat testing. The classification and Diagnosis of Diabetes Diabetes Care 202; 46: S19-S40. Current interpretive data was last revised 2022. Calcium 9.4 8.5 - 10.3 mg/dL [facility] ([facility]) Bilirubin, total 0.3 0.1 - 1.2 mg/dL [facility] ([facility]) Protein, pl 7.1 6.5 - 8.5 g/dL [facility] ([place]) Albumin 4.4 3.5 - 5.0 g/dL [facility] ([place]) Alk phos 157(H) 40 - 130 Units/L [facility] ([facility]) ALT 25 7 - 45 Units/L [facility] ([facility]) AST 33 10 - 45 Units/L [facility] ([facility]) Comment:Slightly Hemolyzed S pecimen Blood 09/18/2024 9:37 AM CDT 09/18/2024 9:41 AM CDT us Tom Younger MD LAB BLOOD ORDERABLE S Final Result [facility] 1 [facility] Department [place] [address] * Hepatitis panel, acute (03/07/2021 8:05 AM CDT) Hep A IgM Nonreactive Nonreactive [facility] ([facility]) Comment: Interpretive Data: If Hep A IgM Ab is reported as Equivocal, a new sample should be drawn in two weeks for testing. Current interpretive data was last revised on 19. Testing performed by: [facility], [address] [place] [address], [place]., [address] Hep B core IgM Nonreactive Nonreactive [facility] ([facility]) Comment: Interpretive Data If HepB Core IgM Ab is reported as Equivocal, a new sample should be drawn in two weeks for testing. Current interpretive data was last revised on 19. Testing performed by: [facility], [address] [place] [address], [place]., [id number] Hep C Ab Nonreactive Nonreactive [facility] ([facility]) Comment: Interpretive Data Nonreactive: Antibodies to HCV not detected. Does NOT exclude the possibility of recent exposure to HCV. Equivocal: Equivocal for HCV antibodies. Supplemental molecular testing will be automatically performed to determine infection status in accordance with current CDC screening recommendations. Reactive: Positive for HCV antibodies. This may represent current or past HCV infection. Supplemental molecular testing will be automatically performed to determine current infection status in accordance with current CDC screening recommendations. Interpretive data was last revised on 2019. Testing performed by: [facility], [address] [place] [address]., [id number] HepBsAg Nonreactive Nonreactive [facility] ([facility]) Comment:Testing performed by : [facility], [address] [place] [address]., [id number] Blood 03/07/2021 8:05 AM CDT 03/07/2021 1:30 PM CDT Tristin Castillo MD LAB MICROBIOLOGY - GENERAL ORDERABLES Final Result [facility] ([place]) 1 [facility] [place] [address] from Last 3 Months or Most Recently Relevant to Health Maintenance Insurance [facility] MEDICAID IDPA COMMERCIAL GENERIC [facility] AETNA BLUE ACCESS OOS BLUE [place]ESS [place] Honestly Now [place]ESS [place] Advance Directives For more information, please contact: [phone] * Full Code (Latest Code Status on File) Date Activated Date Inactivated Comments 11/11/2024 4:37 AM 11/12/2024 3:59 PM * Full Code Date Activated Date Inactivated Comments 11/01/2024 7:53 PM 11/02/2024 8:31 PM * Full Code Date Activated Date Inactivated Comments 11/03/2018 3:04 AM 11/03/2018 7:38 PM Care Teams Secondary Special Education Teacher Relationship Specialty Start Date End Date Maurice Caldera MD [address] [place] [address] [place] [address] PCP - General Family Medicine 06/24/24
--- OUTSIDE RECORDS SUMMARY | 2024-12-07 18:19 | XMS_ITS | Referral Summary ---
Author Organization [facility] Address [address] [place] [address] Care Team Providers Care Staff Assistant Name Role Phone Maurice Caldera MD Primary Care Provider [phone] Encounters Date Type Department Care Team Description 11/23/2024 Telephone [facility] Gastroenterology at [address] [place] [address] Tameka Black 11/23/2024 Hospital Encounter [facility] [address] [place] [address] Kyler Curtis DO 11/12/2024 12:02 PM CDT - 11/12/2024 11:59 PM CDT Hospital Encounter [facility] Emergency, Room R Discharge Disposition: Discharge to home or self care 11/10/2024 9:43 PM CDT - 11/12/2024 11:54 AM CDT Hospital Encounter [facility] [address] [place] [address] Godfrey Chisholm MD Huynh, Kiet T., MD Kheirkhahan, Nazanin, MD Suicide attempt (HCC) (Primary Dx); Intentional benzodiazepine overdose, initial encounter (HCC); Alcohol abuse Discharge Disposition: Discharge to psych hospital or psych unit 11/10/2024 9:26 PM CDT - 11/10/2024 11:59 PM CDT Hospital Encounter [facility] Emergency, Room R Discharge Disposition: Discharge to home or self care 11/07/2024 Telephone [facility] Gastroenterology at [address] [place] [address] Jeana Hooker 11/03/2024 Telephone [facility] G[facility]enterology at [place] [address] [facility] [address] [place] [phone] Sonia Black MA Schedule EGD 11/03/2024 Documentation [facility] [address] [facility] [address] [place] [address] Rashid Denny, HOG KILLER 11/01/2024 5:08 PM CDT - 11/02/2024 4:26 PM CDT Hospital Encounter [facility] [address] [place] [address] Alejandro Gonzalez MD Petters, MD [place] Charlton Victoria Rose, DO TIA (transient ischemic attack) (Primary Dx); Dysphagia, unspecified type Discharge Disposition: Discharge to home or self care 11/01/2024 4:40 PM CDT - 11/01/2024 11:59 PM CDT Hospital Encounter [facility] Emergency, Room R Discharge Disposition: Discharge to home or self care 10/28/2024 7:42 AM CDT - 10/28/2024 11:59 PM CDT Hospital Encounter [address] [address] Posterior knee pain, left Discharge Disposition: Discharge to home or self care 10/28/2024 7:43 AM CDT - 10/28/2024 11:59 PM CDT Hospital Encounter [address] [address] Posterior right knee pain Discharge Disposition: Discharge to home or self care 10/20/2024 10:30 AM CDT Lab [address] [address] 10/20/2024 10:24 AM CDT - 10/20/2024 11:59 PM CDT Hospital Encounter [address] [address] Pain in left hand; Pain in right hand Discharge Disposition: Discharge to home or self care 10/18/2024 Orders Only [facility] [address] [facility] [address], [address] [place] [address] James Emanuel MD Posterior right knee pain (Primary Dx); Posterior knee pain, left 10/18/2024 7:10 AM CDT - 10/18/2024 11:59 PM CDT Hospital Encounter [facility] [address] [facility] Bld[address] A, [address] [place] [address] James Emanuel MD Mechanical low back pain (Primary Dx); Cervicalgia; Chronic bilateral low back pain with bilateral sciatica; Posterior knee pain, left; Posterior knee pain, right Discharge Disposition: Discharge to home or self care 09/18/2024 9:24 AM CDT - 09/18/2024 10:43 AM CDT Emergency [facility] 1 [place] [address] Tom Younger MD Abdominal pain (Primary Dx); Nausea and vomiting, unspecified vomiting type Discharge Disposition: Discharge to home or self care from Last 3 Months Allergies No known active allergies Medications traZODone [...] up to 30 doses 30 tablet 11/13/19 25 Active thiamine (VITAMIN B1) 100 mg tabletIndications :Thiamine Deficiency Take 1 tablet (100 mg total) by mouth daily for 4 doses 4 tablet 11/13/19 25 Active HYDROcodone-aceta minophen (NORCO) 5-325 mg per [...] by mouth daily 30 tablet 11 11/04/19 25 025 Discontinued(S top Taking at Discharge) Active Problems Problem Noted Date Diagnosed Date Drug overdose, intentional, initial encounter Alcohol abuse 11/12/2024 Suicide attempt 11/11/2024 Dysphagia 11/03/2024 Esophageal stricture 11/03/2024 TIA (transient ischemic attack) 11/01/2024 Encounter for laboratory testing for COVID-19 vi vanessa 01/27/2021 Acute viral syndrome 01/27/2021 Borderline personality disorder 11/03/2018 Unspecified depressive disorder 11/03/2018 Immunizations Immunization Administration Dates Next Due Pfizer SARS-CoV-2 Monovalent Vaccination (12+ Yrs) PURPLE 02/19/2021,01/27/2021 Social History Tobacco Use Types Packs/Day Years Used Date Smoking Tobacco: Former Cigarettes 0.5 40 Tobacco Cessation:Counseling Given: Not Answered Alcohol Use Standard Drinks/Week Comments Yes 1 (1 standard drink = 0.6 oz pur e alcohol) 3 times a week [facility] Thryveities Answer Date Recorded In the past 12 months has th e electric, gas, oil, or water company threatened [...] often do you attend chur ch or zoroastrian services? More than 4 times per year 11/02/2024 Do you belong to any clubs o r organizations such as amish groups, unions, fraternal or athletic groups, or [...] any time in the past 12 m [facility], were you homeless or living in a prison (including now)? No 11/02/2024 Personal Safety Answer Date Recorded Have you ever been in or are you currently in a harmful physical or emotional relationship or is someone making you feel afraid or unsafe? Denies 11/10/2024 Comments No Sex and Gender Information Value Date Recorded Sex Assigned at Not on file Legal Sex Female 12:38 AM MANAGER ASSET Gender Identity Female 03/07/2021 7:11 AM CDT Sexual Orientation Straight 03/07/2021 7: 11 AM CDT Last Filed Vital Signs Vital Sign Reading [...] 11/11/2024 1:20 AM CDT Plan of Treatment Not on file Procedures Procedure Name Priority Date/Time Associated Diagnosis [...] ORDERABLES Final Resu lt [facility] ([place] [address] [facility] Department [place] [address] * Differential, auto (11/12/2024 3:17 AM CDT) Neutrophil abs 4.14 1.50 - 6.50 K/cumm Imm gran abs 0.04 0.00 - 0.10 K/cumm [facility] ([place]) Lymphocyte abs 2.62 0.80 - 3.30 K/cumm [facility] ([place]) Monocyte abs 0.45 0.20 - 0.80 K/cumm [facility] ([place]) Eosinophil abs 0.24 0.00 - 0.50 K/cumm [facility] ([place]) Basophil abs 0.03 0.00 - 0.10 K/cumm [facility] ([place]) Neutrophil pct 55.1 % [facility] ([place]) Comment: Interpretive Data Percent cell count reference ranges are not reported, since discordance with absolute values may lead to misinterpretation of CBC data. Current Interpretive Data was last revised on 2017. Imm gran pct 0.5 % [facility] ([place]) Comment: Interpretive Data Percent cell count reference [...] 2017. Monocyte pct 6.0 % [facility] ([place]) Comment: Interpretive Data Percent cell count reference [...] Resu lt [facility] ([place]) 1 [facility] [place], [place] [id number] * CBC with auto differential (11/12/2024 3:17 [...] ORDERABLES Final Resu lt [facility] ([place]) 1 [facility] [place] [address] * Magnesium (11/12/2024 3:17 AM CDT) Magnesium 1.9 1.4 - 2.5 mg/dL Blood 11/12/2024 3:17 AM CDT 11/12/2024 3:47 AM CDT Billy Kaplan MD LAB BLOOD ORDERABLES Final Resu lt Performing Organization Address City/[facility]/ZIP Co de Phone Number [facility] ([place]) 1 [facility] [place] [address] * (ABNORMAL) Comprehensive metabolic panel (11/12/2024 3:17 AM CDT) Sodium 142 135 - 145 mmol/L Potassium, pl 4.1 3.3 - 4.9 mmol/L [facility] ([place]) Chloride 107 97 - 110 mmol/L [facility] ([place]) CO2 23 22 - 32 mmol/L [facility] ([place]) Anion gap 11 2 - 15 mmol/L [facility] ([place]) BUN 20 6 - 25 mg/dL [facility] ([place]) Creatinine 0.69 0.60 - 1.10 mg/dL [facility] ([place]) Glucose 103 70 - 199 mg/dL [facility] ([place]) Comment: Interpretive Data Fasting glucose >/= [...] - 45 Units/L [facility] ([place]) Blood 11/12/2024 3:17 AM CDT 11/12/2024 3:47 AM CDT us Billy Kaplan MD LAB BLOOD ORDERABLES Final [facility]u lt [facility] ([place] [address] [facility] Department [place] [address] * eGFR (11/11/2024 2:23 AM CDT) eGFR [...] ORDERABLES Final Re sult [facility] ([place]) [address] [facility] Department [place] [address] * Differential, auto (11/11/2024 2:23 AM CDT) Neutrophil abs 2.21 1.50 - 6.50 K/cumm Imm gran abs 0.02 0.00 - 0.10 K/cumm [facility] ([place]) Lymphocyte abs 2.23 0.80 - 3.30 K/cumm [facility] ([place]) Monocyte abs 0.32 0.20 - 0.80 K/cumm [facility] ([place]) Eosinophil abs 0.14 0.00 - 0.50 K/cumm [facility] ([place]) Basophil abs 0.03 0.00 - 0.10 K/cumm [facility] ([place]) Neutrophil pct 44.6 % [facility] ([place]) Comment: Interpretive Data Percent cell count reference ranges are not reported, since discordance with absolute values may lead to misinterpretation of CBC data. Current Interpretive Data was last revised on 2017. Imm gran pct 0.4 % [facility] ([place]) Comment: Interpretive Data Percent cell count reference [...] 2017. Monocyte pct 6.5 % [facility] ([place]) Comment: Interpretive Data Percent cell count reference ranges are not reported, since discordance with absolute values may lead to misinterpretation of CBC data. Current Interpretive Data was last revised on 2017. Eosinophil pct 2.8 % [facility] ([place]) Comment: Interpretive Data Percent cell count reference [...] Re sult [facility] ([place] [address] [facility] Department [place] [address] * CBC with auto differential (11/11/2024 2:23 [...] 12.1 11.1 - 14.9 % [facility] ([place]) RDW SD 39.7 35.7 - 48.1 fL [facility] ([place]) NRBC abs 0.00 0.00 - 0.01 K/cumm [facility] ([place]) Blood 11/11/2024 2:23 AM CDT 11/11/2024 2:40 AM CDT Godfrey Chisholm MD LAB BLOOD ORDERABLES Final Re sult [facility] ([place]) [address] [facility] [place] [address] * Magnesium (11/11/2024 2:23 AM CDT) Magnesium 1.8 1.4 - 2.5 mg/dL Blood 11/11/2024 2:23 AM CDT 11/11/2024 2:40 AM CDT Godfrey Chisholm MD LAB BLOOD ORDERABLES Final Re sult Performing Organization Address [facility] Co de Phone Number [facility] ([place]) 1 [facility] [place] [address] * (ABNORMAL) Comprehensive metabolic panel (11/11/2024 2:23 AM CDT) Sodium 144 135 - 145 mmol/L Potassium, pl 3.8 3.3 - 4.9 mmol/L [facility] ([place]) Chloride 109 97 - 110 mmol/L [facility] ([place]) CO2 20(L) 22 - 32 mmol/L [facility] ([place]) Anion gap 14 2 - 15 mmol/L [facility] ([place]) BUN 14 6 - 25 mg/dL [facility] ([place]) Creatinine 0.55(L) 0.60 - 1.10 mg/dL [facility] ([place]) Glucose 126 70 - 199 mg/dL [facility] ([place]) Comment: Interpretive Data Fasting glucose [...] MD LAB BLOOD ORDERABLES Final Re sult [facility] ([place]) [address] [facility] Department [place] [address] * Urinalysis reflex to microscopic and culture [...] tendency for uric acid stone formation. Source: [facility] [employer] Current Interpretive Data was last revised on 2017 Protein, ur ql Negative Negative [facility] ([place]) Glucose, ur ql Negative Negative [facility] ([place]) Ketones, ur Negative Negative [facility] ([place]) Bilirubin, ur Negative Negative [facility] ([place]) Blood, ur Negative Negative [facility] ([place]) Urobilinogen, ur <2.0 <2.0 mg/dL [facility] ([place]) Nitrite, ur Negative Negative [facility] ([place]) Leukocyte esterase, ur Negative Negative [facility] ([place]) UA reflex comment Reflex conditions for microscopic UA and culture not met. [facility] ([place]) Urine 11/10/2024 11:2 8 PM CDT 11/10/2024 11:35 PM CDT Godfrey Chisholm MD LAB MICROBIOLOGY - GENERAL OR DERABLES Final Result [facility] ([place]) 1 [facility] Department [place] [address] * (ABNORMAL) Drugs of Abuse Screen, Urine [...] Phencyclidine, ur Not Detected CutOff 25 ng/mL [facility] ([place]) Comment: Interpretive Data - Phencyclidine: Samples containing greater than 25 ng/mL phencyclidine or other cross-reacting compounds are reported as positive. False positive and false negative results are possible. Confirmatory testing required for definitive results. Current Interpretive Data was last reviewed 2023. Urine Creatinine 15 mg/dL [facility] ([place]) Comment: Interpretive Data Urine Creatinine: < 10 mg/dL is extremely dilute = or > 10 but < 20 mg/dL is dilute = or > 20 mg/dL is normal Current Interpretive Data was last revised on 2017. Urine 11/10/2024 11:2 8 PM CDT 11/10/2024 11:36 PM CDT Narrative [facility] ([place]) - 11/11/2024 12:13 AM CDT Drug of Abuse screening is performed by immunoassay for medical purposes only. This is not to be used for Pain Management purposes. us Godfrey Chisholm MD LAB URINE ORDERABLES Final Re sult [facility] ([place]) [address] [facility] Department [place] [address] * eGFR (11/10/2024 10:41 PM CDT) eGFR [...] ORDERABLES Final Re sult [facility] ([place]) 1 [facility] [place] [address] * Thyroid Function [place] (11/10/2024 10:41 PM CDT) TSH 3.92 0.30 - 4.20 mcIUnit/mL Blood 11/10/2024 10:4 1 PM CDT 11/10/2024 10:54 PM CDT us Godfrey Chisholm MD LAB BLOOD ORDERABLES Final Re sult Performing Organization Address [facility] Co de Phone Number [facility] ([place] 1 [facility] [place] [address] * (ABNORMAL) Iron profile w/ IBC (11/10/2024 10:41 PM CDT) Iron 53 35 - 145 mcg/dL TIBC 225(L) 250 - 400 mcg/dL [facility] ([place]) Transferrin saturation 24 20 - 50 % [facility] ([place]) Blood 11/10/2024 10:4 1 PM CDT 11/10/2024 10:54 PM CDT us Godfrey Chisholm MD LAB BLOOD ORDERABLES Final Re sult Performing Organization Address City/[facility]/ZIP Co de Phone Number [facility] ([place] 1 [facility] [place] [address] * Magnesium (11/10/2024 10:41 PM CDT) Magnesium 2.0 1.4 - 2.5 mg/dL Blood 11/10/2024 10:4 1 PM CDT 11/10/2024 10:54 PM CDT us Godfrey Chisholm MD LAB BLOOD ORDERABLES Final Re sult [facility] ([place] 1 [facility] [place] [address] * (ABNORMAL) Ferritin (11/10/2024 10:41 PM CDT) Ferritin 232(H) 15 - 150 ng/mL Blood 11/10/2024 10:4 1 PM CDT 11/10/2024 10:54 PM CDT Godfrey Chisholm MD LAB BLOOD ORDERABLES Final Re sult Performing Organization Address [facility] Co de Phone Number [facility] ([place] 1 [facility] [place] [address] * (ABNORMAL) Ethanol (11/10/2024 10:41 PM CDT) Ethanol 125(H) <=10 mg/dL Comment: Interpretive Data Legal limit of intoxication > or = 80 mg/dL Levels > or = 400 mg/dL are potentially TOXIC. Current interpretive data was last revised on 2018. Blood 11/10/2024 10:4 1 PM CDT 11/10/2024 10:54 PM CDT us Godfrey Chisholm MD LAB BLOOD ORDERABLES Final Re sult Performing Organization Address [facility] Co de Phone Number [facility] ([place] [facility] [place] [address] * Acetaminophen level (11/10/2024 10:41 PM CDT) [...] after ingestion Consult toxicology or poison control ([phone]) for unknown ingestion time. Current interpretive data was last revised 2023. Blood 11/10/2024 10:4 1 PM CDT 11/10/2024 10:54 PM CDT Godfrey Chisholm MD LAB BLOOD ORDERABLES Final Re sult Performing Organization Address [facility]/ZIP Co de Phone Number [facility] ([place]) 1 [facility] [place] [address] * Salicylate level (11/10/2024 10:41 PM CDT) Salicylate <5.0 <=5.0 mg/dL Comment: Interpretive Data Toxic: 30 mg/dL or greater. Current interpretive data was last revised 2023. Blood 11/10/2024 10:4 1 PM CDT 11/10/2024 10:54 PM CDT us Godfrey Chisholm MD LAB BLOOD ORDERABLES Final Re sult Performing Organization Address [facility] Co de Phone Number [facility] ([place]) 1 [facility] [place] [address] * (ABNORMAL) Comprehensive metabolic panel (11/10/2024 10:41 PM CDT) Sodium 144 135 - 145 mmol/L Potassium, pl 3.8 3.3 - 4.9 mmol/L [facility] ([place]) Chloride 110 97 - 110 mmol/L [facility] ([place]) CO2 22 22 - 32 mmol/L [facility] ([place]) Anion gap 13 2 - 15 mmol/L [facility] ([place]) BUN 16 6 - 25 mg/dL [facility] ([place]) Creatinine 0.62 0.60 - 1.10 mg/dL [facility] ([place]) Glucose 102 70 - 199 mg/dL [facility] ([place]) [...] 2022. Calcium 8.1(L) 8.5 - 10.3 mg/dL [facility] ([place]) [...] MD LAB BLOOD ORDERABLES Final Re sult [facility] ([place] 1 [facility] Department [place] [address] * COVID-19 Coronavirus RNA Nasopharyngeal (11/10/2024 10:25 PM CDT) COVID-19 RNA Negative Negative Nasopharyngeal 11/10/2024 10 :25 PM CDT 11/10/2024 10:29 PM CDT Narrative [facility] ([place]) - 11/10/2024 11:10 PM CDT Is the patient experiencing any symptoms consistent with COVID (eg. Fever, cough, shortness of breath)?->No What is the reason for testing?->Screening prior to Behavioral health admission Interpretive data: Testing performed by [facility]. This test is performed using the [employer] Xpert Xpress CoV-2 plus assay. This is a real-time RT-PCR test intended for the qualitative detection of nucleic acid from the SARS-CoV-2. This assay has been cleared by the [place] Food and Drug administration. The performance characteristics have been verified by [facility]. Results must be considered in the clinical context, and a negative result does not rule out infection. Interpretive data last revised 2024. Interpretive data: Testing performed by [facility]. This test is performed using the [employer] Xpert Xpress CoV-2 plus assay. This is a real-time RT-PCR test intended for the qualitative detection of nucleic acid from the SARS-CoV-2. This assay has been cleared by the [place] Food and Drug administration. The performance characteristics have been verified by [facility]. Results must be considered in the clinical context, and a negative result does not rule out infection. Interpretive data last revised 2024. Godfrey Chisholm MD LAB MICROBIOLOGY - GENERAL OR DERABLES Final Result [facility] ([place]) 1 [facility] Department [place] [address] * Differential, auto (11/10/2024 10:00 PM CDT) Neutrophil abs 2.79 1.50 - 6.50 K/cumm Imm gran abs 0.02 0.00 - 0.10 K/cumm [facility] ([place]) Lymphocyte abs 2.43 0.80 - 3.30 K/cumm [facility] ([place]) Monocyte abs 0.30 0.20 - 0.80 K/cumm [facility] ([place]) Eosinophil abs 0.18 0.00 - 0.50 K/cumm [facility] ([place]) Basophil abs 0.05 0.00 - 0.10 K/cumm [facility] ([place]) Neutrophil pct 48.4 % [facility] ([place]) Comment: Interpretive Data Percent cell count reference ranges are not reported, since discordance with absolute values may lead to misinterpretation of CBC data. Current Interpretive Data was last revised on 2017. Imm gran pct 0.3 % [facility] ([place]) Comment: Interpretive Data Percent cell count reference ranges are not reported, since discordance with absolute values may lead to misinterpretation of CBC data. Current Interpretive Data was last revised on 2017. Lymphocyte pct 42.1 % [facility] ([place]) Comment: Interpretive Data Percent cell count reference ranges are not reported, since discordance with absolute values may lead to misinterpretation of CBC data. Current Interpretive Data was last revised on 2017. Monocyte pct 5.2 % [facility] ([place]) Comment: Interpretive Data Percent cell count reference ranges are not reported, since discordance with absolute values may lead to misinterpretation of CBC data. Current Interpretive Data was last revised on 2017. Eosinophil pct 3.1 % [facility] ([place]) Comment: Interpretive Data Percent cell count reference ranges are not reported, since discordance with absolute values may lead to misinterpretation of CBC data. Current Interpretive Data was last revised on 2017. Basophil pct 0.9 % [facility] ([place]) Comment: Interpretive Data Percent cell count reference ranges are not reported, since discordance with absolute values may lead to misinterpretation of CBC data. Current Interpretive Data was last revised on 2017. Blood 11/10/2024 10:0 0 PM CDT 11/10/2024 10:04 PM CDT us Godfrey Chisholm MD LAB BLOOD ORDERABLES Final Re sult [facility] ([place]) 1 [facility] Department of Laboratories [place], [place] [id number] * (ABNORMAL) CBC with auto differential (11/10/2024 10:00 PM CDT) WBC 5.77 3.80 - 9.90 K/cumm Hgb 14.7 11.9 - 15.5 g/dL [facility] ([place]) Hct 46.0(H) 35.6 - 45.5 % [facility] ([place]) Plt 252 150 - 400 K/cumm [facility] ([place]) MPV 9.8 9.1 - 12.3 fL [facility] ([place]) RBC 4.85 3.90 - 5.20 M/cumm [facility] ([place]) MCV 94.8 81.3 - 96.4 fL [facility] ([place]) MCH 30.3 27.1 - 33.3 pg [facility] ([place]) MCHC 32.0(L) 32.3 - 35.7 g/dL [facility] ([place]) RDW CV 11.9 11.1 - 14.9 % [facility] ([place]) RDW SD 41.1 35.7 - 48.1 fL [facility] ([place]) NRBC abs 0.00 0.00 - 0.01 K/cumm [facility] ([place]) Blood Venous blood specimen / Unknown 11/10/2024 10:00 PM CDT 11/10/2024 10:04 PM CDT us Godfrey Chisholm MD LAB BLOOD ORDERABLES Final Re sult [facility] ([place]) 1 [facility] Department [place] [address] * ECG 12 lead (11/10/2024 9:52 PM CDT) 11/10/2024 9:5 2 PM CDT Narrative [facility] [employer] - 11/11/2024 7:22 AM CDT Vent Rate: 72 bpm RR Interval: 828 msec OR Interval: 139 msec QRS Duration: 81 msec QT Interval: 426 msec QTC Interval: 450 msec P-R-T Holcomb: 55 - 32 - 44 degrees IMPRESSION: SINUS RHYTHM NORMAL ECG NO CHANGE FROM PREVIOUS TRACING NOTED Electronically Signed By: Sid Whittington MD Godfrey Chisholm MD ECG ORDERABLES Final Result [facility] [employer] [facility] * TRANSTHORACIC ECHO (TTE) COMPLETE W DOPPLER/CF WO CONTRAST W BUBBLE (11/02/2024 9:55 AM CDT) Estimated EF 65 % CONS SCIMAGE Anatomical Region Laterality Modality Ultrasound 11/02/2024 9:52 AM CDT Narrative 11/02/2024 12:27 PM CDT [address] [address] Echocardiogram Report Patient Name: NAPOLEON MARTINEZ D : 1965 Study Date: 11/02/2024 9:52:51 AM Gender: F Tech: ELSA Location: [id number] Ref Provider: LORI ADAM Height(Cm): BSA: Weight(Kg): [...] Procedure Note Sid Whittington MD - 11/02/[address] [address] Echocardiogram Report Patient Name: NAPOLEON MARTINEZ D : 1965 Study Date: 11/02/2024 9:52:51 AM Gender: F Tech: Location: [id number] Ref Provider: LORI ADAM Height(Cm): BSA: Weight(Kg): [...] Whittington MD 11/02/2024 12:27:10 PM CDT us Lori Ulisses Jair ORTIZ CV ECHO PROCEDURES Anni l Result * MRI Brain WO Contrast (11/02/2024 [...] Anaya Flores M.D. SN: SN Report ID: [id number] Reading Location: [id number] Procedure Note Anaya Flores MD - 11/02/2024 EXAM DESCRIPTION: MRI BRAIN WO CONTRAST REASON FOR STUDY: Stroke, follow up Garbled speech and right sided leg weakness and right sided facial droop. TECHNIQUE: Multiplanar imaging includes non-contrasted T1, T2, FLAIR, and diffusion with ADC map sequences. Additional sequence(s) sensitive seedtag products. Images stored on PACS. COMPARISON: CT [...] Anaya Flores M.D. SN: SN Report ID: [id number] Reading Location: [id number] us Lori Adam MD IM MRI PROCEDURES Anni [...] AM CDT 11/02/2024 12:25 AM CDT us Aeljandro Gonzalez MD LAB BLOOD ORDERABLES Final Res ult [facility] ([place]) 1 [facility] Department [place] [address] * eGFR (11/02/2024 12:23 AM CDT) eGFR [...] BLOOD ORDERABLES Fi nal Result [facility] ([place]) 1 [facility] [place] [address] * CBC without differential (11/02/2024 12:23 AM CDT) WBC 7.83 3.80 - 9.90 K/cumm Hgb 13.2 11.9 - 15.5 g/dL [facility] ([place]) Hct 38.5 35.6 - 45.5 % [...] - 0.01 K/cumm [facility] ([place]) Blood 11/02/2024 12:2 3 AM CDT 11/02/2024 12:25 AM CDT us Lori Adam MD LAB BLOOD ORDERABLES Fi nal Result [facility] ([place]) 1 [facility] [place] [address] * Magnesium (11/02/2024 12:23 AM CDT) Magnesium 2.1 1.4 - 2.5 mg/dL Blood 11/02/2024 12:2 3 AM CDT 11/02/2024 12:25 AM CDT us Lori Adam MD LAB BLOOD ORDERABLES Fi nal Result [facility] ([place]) 1 [facility] Department [place] [address] * Comprehensive metabolic panel (11/02/2024 12:23 AM CDT) Sodium 135 135 - 145 mmol/L Potassium, pl 3.9 3.3 - 4.9 mmol/L [facility] ([place]) Chloride 103 97 - 110 mmol/L CERNER [...] MD LAB BLOOD ORDERABLES Fi nal Result Performing Organization Address [facility] Co de Phone Number [facility] ([place]) 1 [place] [address] * Troponin T high-sensitivity 4-hour (11/01/2024 9:41 PM CDT) Trop T hs <6 <=14 ng/L Comment: Interpretive Data For further hscTnT resources including the diagnostic algorithm and an aid in interpretation, copy and paste this link: https://nrl.testcatalog.org/show/hsTrop Current Interpretive Data last revised 2020. Trop T hs delta 0 ng/L [facility] ([place]) Trop T hs interp Insignificant [facility] ([place]) Blood 11/01/2024 9:41 PM CDT 11/01/2024 10:19 PM CDT us Alejandro Gonzalez MD LAB BLOOD ORDERABLES Final Res ult Performing Organization Address [facility] Co de Phone Number [facility] ([place]) 1 [place] [address] * Urinalysis reflex to microscopic and culture Urine (11/01/2024 8:56 PM CDT) Color, ur Yellow Yellow Clarity, ur Clear Clear JOS[facility] MIGUEL Muñoz ([place]) Specific gravity, ur 1.010 1.003 - 1.030 [facility] ([place]) pH, urine 6.5 [facility] ([place]) Comment: Interpretive Data U rine pH is affected by diet, medications, systemic acid-base disturbances, and renal tubular function. pH may affect urinary stone formation. For example, urine pH below 6.0 may help reduce the tendency for calcium phosphate stones and pH greater than 6.0 may reduce the tendency for uric acid stone formation. Source: [facility] Current Interpretive Data was last revised on [...] culture not met. [facility] ([place]) Urine 11/01/2024 8:56 PM CDT 11/01/2024 10:35 PM CDT us Lori Adam MD LAB MICROBIOLOGY - GENE RAL ORDERABLES Final Result [facility] ([place]) [address] [place] [address] [employer] [place] [address] * Troponin T high-sensitivity 2-hour (11/01/2024 8:13 PM CDT) Trop T hs <6 <=14 ng/L Comment: Interpretive Data For further hscTnT resources including the diagnostic algorithm and an aid in interpretation, copy and paste this link: https://nrl.testcatalog.org/show/hsTrop Current Interpretive Data last revised 2020. Trop T hs delta 0 ng/L [facility] ([place]) Trop T hs interp Insignificant [facility] ([place]) Blood 11/01/2024 8:13 PM CDT 11/01/2024 8:45 PM CDT Alejandro Gonzalez MD LAB BLOOD ORDERABLES Final Res ult [facility] ([place]) 1 [facility] Department [place] [address] * ECG 12 lead (11/01/2024 6:17 PM CDT) 11/01/2024 6:17 PM CDT Narrative [facility] - 11/02/2024 7:20 AM CDT Vent Rate: 61 bpm RR Interval: 978 msec OR Interval: 172 msec QRS Duration: 89 msec QT Interval: 436 msec QTC Interval: 439 msec P-R-T Holcomb: 44 - 48 - 52 degrees IMPRESSION: SINUS RHYTHM POSSIBLE RIGHT VENTRICULAR CONDUCTION DELAY [RSR (QR) IN V1/V2] No prior EKG for comparison Electronically Signed By: Dr Gallo Thrasher Alejandro Gonzalez MD ECG ORDERABLES Final Result Performing Organization Address City/[facility]/ZIP Co de Phone Number [facility] [employer] [facility] * Troponin T high-sensitivity series (baseline, 2hr, [...] ORDERABLES Final Res ult Performing Organization Address City/[facility]/ZIP Co de Phone Number [facility] ([place]) 1 [facility] Department [place] [address] * eGFR (11/01/2024 5:31 PM CDT) eGFR [...] ORDERABLES Final Res ult [facility] ([place]) 1 [facility] Department [place] [address] * Differential, auto (11/01/2024 5:31 PM CDT) [...] Res ult [facility] ([place]) 1 [facility] Department [place] [address] * CBC with auto differential (11/01/2024 5:31 [...] ([place]) MCHC 33.3 32.3 - 35.7 g/dL [facility] ([place]) RDW CV 11.9 11.1 - 14.9 % [facility] ([place]) RDW SD 38.7 35.7 - 48.1 fL [facility] ([place]) NRBC abs 0.00 0.00 - 0.01 K/cumm [facility] ([place]) Blood 11/01/2024 5:31 PM CDT 11/01/2024 5:34 PM CDT Alejandro Gonzalez MD LAB BLOOD ORDERABLES Final Res ult Performing Organization Address City/[facility] Co de Phone Number [facility] ([place]) 1 [facility] [employer] [place] [address] * Protime-INR (11/01/2024 5:31 PM CDT) PT 11.6 9.7 - 13.0 sec [facility] ([place]) INR 1.07 0.90 - 1.20 [facility] ([place]) Comment: Interpretive data Oral anticoagulant therapeutic ranges: Venous thromboembolism prophylaxis or treatment: 2.0-3.0 CARDIOLOGY Standard range: 2.0-3.0 High-intensity range: 2.5-3.5 Refer to indication-specific guidelines for appropriate target ranges for prosthetic heart valve replacement. Current interpretive data was last revised on 2019. Blood 11/01/2024 5:31 PM CDT 11/01/2024 5:33 PM CDT Alejandro Gonzalez MD LAB BLOOD ORDERABLES Final Res ult [facility] ([place]) 1 [facility] [employer] [place] [address] * Comprehensive metabolic panel (11/01/2024 5:31 PM CDT) Sodium 135 135 - 145 mmol/L Potassium, pl 4.0 3.3 - 4.9 mmol/L [facility] ([place]) Chloride 101 97 - 110 mmol/L [facility] ([place]) CO2 23 22 - 32 mmol/L [facility] ([place]) Anion gap 11 2 - 15 mmol/L [facility] ([place]) BUN 13 6 - 25 mg/dL [facility] ([place]) Creatinine 0.72 0.60 - 1.10 mg/dL [facility] ([place]) Glucose 96 70 - 199 mg/dL [facility] ([place]) [...] Res ult [facility] ([place]) 1 [facility] Department [place] [address] * CTA Stroke Head Neck W WO [...] Noncontrast head CT 11/01/2024 FINDINGS: INTRACRANIAL VESSELS [place]: The anterior, middle, posterior cerebral [...] to Dr. Alejandro Gonzalez at 5:39 p.m. MANAGER ASSET on 11/01/2024. THIS IS AN ELECTRONICALLY VERIFIED FINAL REPORT 11/01/2024 5:48 PM - Electronically signed by Carmelo Stearns M.D. AT: AT Report ID: [id number] Reading Location: [id number] Procedure Note Carmelo Stearns MD - 11/01/2024 [...] Noncontrast head CT 11/01/2024 FINDINGS: INTRACRANIAL VESSELS [place]: The anterior, middle, posterior cerebral [...] Dr. Stearns to Dr. Alejandro Gonzalez at 5:39p.m. MANAGER ASSET on 11/01/2024. THIS IS AN ELECTRONICALLY VERIFIED FINAL REPORT 11/01/2024 5:48 PM - Electronically signed by Carmelo Stearns M.D. AT: AT Report ID: [id number] Reading Location: [id number] Alejandro Gonzalez MD IMG CT PROCEDURES Final Result * CT Stroke [...] Manny Gay M.D. KT: AUBREY Report ID: [id number] Reading Location: [id number] Procedure Note Manny Gay MD - 11/01/2024 [...] Manny Gay M.D. KT: AUBREY Report ID: [id number] Reading Location: [id number] Alejandro Gonzalez MD IMG CT PROCEDURES Final Result * POCT glucose (11/01/2024 4:56 PM CDT) [facility] Signature Glucose, POC 99 70 - 199 mg/dL Blood 11/01/2024 4:56 PM CDT 11/01/2024 4:56 PM CDT Lary Berumen DO LAB POCT ORDERABLES - DE VICE Final Result [facility] [place] 1 [facility] Department [place] [address] * US Knee (10/28/2024 8:20 AM CDT) Anatomical Region Laterality Modality Knee N/A Ultrasound 10/29/2024 1:39 PM CDT Narrative 10/29/2024 1:41 PM CDT EXAM DESCRIPTION: US KNEE COMPLETE REASON FOR STUDY: Pain TECHNIQUE: A Dynamic assessment was performed of the right knee and of the left knee by the keyseater operator, with selected grayscale and color Doppler [...] by Timi Zarco M.D. JR: Report ID: [id number] Reading Location: [id number] Procedure Note Timi Zarco MD - 10/29/2024 EXAM DESCRIPTION: US KNEE COMPLETE REASON FOR STUDY: Pain TECHNIQUE: A Dynamic assessment was performed of the right knee and ofthe left knee by the keyseater operator, with selected grayscale and color Doppler [...] by Timi Zarco M.D. JR: Report ID: [id number] Reading Location: [id number] us James Emanuel MD [facility] US PROCEDURES Final Result * US Knee (10/28/2024 8:20 AM CDT) Anatomical Region Laterality Modality Knee N/A Ultrasound 10/29/2024 1:39 PM CDT Narrative 10/29/2024 1:41 PM CDT EXAM DESCRIPTION: US KNEE COMPLETE REASON FOR STUDY: Pain TECHNIQUE: A Dynamic assessment was performed of the right knee and of the left knee by the keyseater operator, with selected grayscale and color Doppler [...] by Timi Zarco M.D. JR: Report ID: [id number] Reading Location: [id number] Procedure Note Timi Zarco MD - 10/29/2024 EXAM DESCRIPTION: US KNEE COMPLETE REASON FOR STUDY: Pain TECHNIQUE: A Dynamic assessment was performed of the right knee and ofthe left knee by the keyseater operator, with selected grayscale and color Doppler [...] by Timi Zarco M.D. JR: Report ID: [id number] Reading Location: [id number] James Emanuel MD [facility] US PROCEDURES Final Result * XR Hand [...] Gregorio Alexandra M.D. MF: DHIRAJ Report ID: [id number] Reading Location: [id number] Procedure Note Gregorio Alexandra MD - 10/20/2024 [...] Gregorio Alexandra M.D. MF: DHIRAJ Report ID: [id number] Reading Location: [id number] Maurice Caldera MD IMG XR PROCEDURES Final [...] Gregorio Alexandra M.D. MF: DHIRAJ Report ID: [id number] Reading Location: [id number] Procedure Note Gregorio Alexandra MD - 10/20/2024 [...] Gregorio Alexandra M.D. MF: DHIRAJ Report ID: [id number] Reading Location: [id number] Maurice Caldera MD IMG XR PROCEDURES Final [...] last revised on 2020. Testing performed by: [facility], [address] [place]., [address] Blood 10/20/2024 10:4 0 AM CDT 10/20/2024 2:50 PM CDT Narrative [facility] ([place]) - 10/21/2024 11:36 AM CDT [id number] us Maurice Caldera MD LAB BLOOD ORDERABLES Final Resu lt [facility] ([place]) 1 [facility] Department [place] [address] * eGFR (10/20/2024 10:40 AM CDT) eGFR >90 >=60 mL/min/1. 73 [...] 0 AM CDT 10/20/2024 11:02 AM CDT us Maurice Caldera MD LAB BLOOD ORDERABLES Final Resu lt [facility] ([place]) 1 [facility] Department [place] [address] * Differential, auto (10/20/2024 10:40 AM CDT) Neutrophil abs 3.86 1.50 - 6.50 K/cumm Imm gran abs 0.05 0.00 - 0.10 K/cumm [facility] ([place]) Lymphocyte abs 1.78 0.80 - 3.30 K/cumm [facility] ([place]) Monocyte abs 0.31 0.20 - 0.80 K/cumm [facility] ([place]) Eosinophil abs 0.11 0.00 - 0.50 K/cumm [facility] ([place]) Basophil abs 0.03 0.00 - 0.10 K/cumm [facility] ([place]) Neutrophil pct 62.9 % [facility] ([place]) Comment: Interpretive Data Percent cell count reference [...] revised on 2017. Basophil pct 0.5 % [facility] ([place]) Comment: Interpretive Data Percent cell count reference ranges are not reported, since discordance with absolute values may lead to misinterpretation of CBC data. Current Interpretive Data was last revised on 2017. Blood 10/20/2024 10:4 0 AM CDT 10/20/2024 11:02 AM CDT Maurice Caldera MD LAB BLOOD ORDERABLES Final Resu lt Performing Organization Address City/[facility]/ZIP Co de Phone Number JOSÉ MIGUEL [facility] ([place]) 1 [place] [address] * Thyroid Function [place] (10/20/2024 10:40 AM CDT) TSH 2.49 0.30 - 4.20 mcIUnit/mL Blood 10/20/2024 10:4 0 AM CDT 10/20/2024 11:02 AM CDT Maurice Caldera MD LAB BLOOD ORDERABLES Final Resu lt Performing Organization Address [facility] Co de Phone Number [facility] ([place]) 1 [place] [address] * Urinalysis reflex to microscopic and culture Urine (10/20/2024 10:40 AM CDT) Color, ur Yellow Yellow Clarity, ur Clear Clear JOS[facility] MIGUEL Muñoz ([place]) Specific gravity, ur 1.026 1.003 - 1.030 [facility] ([place]) pH, urine 7.0 [facility] ([place]) Comment: Interpretive Data U rine pH is affected by diet, medications, systemic acid-base disturbances, and renal tubular function. pH may affect urinary stone formation. For example, urine pH below 6.0 may help reduce the tendency for calcium phosphate stones and pH greater than 6.0 may reduce the tendency for uric acid stone formation. Source: [facility] Current Interpretive Data was [...] Maurice Caldera MD LAB MICROBIOLOGY - GENERAL CARMENZA HUNTER Final Result [facility] ([place]) 1 [facility] Department [place] [address] * CBC with auto differential (10/20/2024 10:40 AM CDT) WBC 6.14 3.80 - 9.90 K/cumm Hgb 14.0 11.9 - 15.5 g/dL [facility] ([place]) Hct 41.4 35.6 - 45.5 % [facility] ([place]) Plt 269 150 - 400 K/cumm [facility] ([place]) MPV 9.8 9.1 - 12.3 fL [facility] ([place]) RBC 4.65 3.90 - 5.20 M/cumm [facility] ([place]) MCV 89.0 81.3 - 96.4 fL [facility] ([place]) MCH 30.1 27.1 - 33.3 pg [facility] ([place]) MCHC 33.8 32.3 - 35.7 g/dL [facility] ([place]) RDW CV 11.8 11.1 - 14.9 % [facility] ([place]) RDW SD 38.0 35.7 - 48.1 fL [facility] ([place]) NRBC abs 0.00 0.00 - 0.01 K/cumm [facility]EL [facility] ([place]) Blood 10/20/2024 10:4 0 AM CDT 10/20/2024 11:02 AM CDT Maurice Caldera MD LAB BLOOD ORDERABLES Final Resu lt Performing Organization Address City/[facility]/ZIP Co de Phone Number [facility]EL [facility] ([place]) 1 [facility] [place] [address] * Cyclic citrul peptide antibody, IgG (10/20/2024 10:40 AM CDT) CCP Ab <0.5 <=2.9 units/mL Comment: Interpretive data Negative: <3 units/mL Positive: > or equal to 3 units/mL Current interpretive data was last revised on 2016. Testing performed by: [facility], [address] [place] [address], [id number] Blood 10/20/2024 10:4 0 AM CDT 10/20/2024 2:50 PM CDT Result [facility] Maurice Caldera MD LAB BLOOD ORDERABLES Final Resu lt Performing Organization Address [facility] Co de Phone Number [facility]EL [facility] ([place]) 1 [place] [address] * Rheumatoid factor (10/20/2024 10:40 AM CDT) Rheumatoid factor, quant <10 <=15 IUnits/mL Comment:Testing performed by : [facility], [address] [place] [address], [place]., [address] Blood 10/20/2024 10:4 0 AM CDT 10/20/2024 1:53 PM CDT Maurice Caldera MD LAB BLOOD ORDERABLES Final Resu lt [facility] ([place]) 1 [place] [address] * Magnesium (10/20/2024 10:40 AM CDT) Magnesium 2.1 1.4 - 2.5 mg/dL Blood 10/20/2024 10:4 0 AM CDT 10/20/2024 11:02 AM CDT Maurice Caldera MD LAB BLOOD ORDERABLES Final Resu lt Performing Organization Address City/[facility] Co de Phone Number [facility] ([place]) 1 [place] [address] * Hemoglobin A1c (10/20/2024 10:40 AM CDT) [facility] Hgb A1C 5.6 4.0 - 5.6 % Estimated Average Glucose 114 mg/dL JOSÉ MIGUEL ShaikhNEOLA) Comment: The ADA recommends reporting an estimated Average Glucose (eAG) with all Hemoglobin A1c results using the equation derived from a study of 507 normal and diabetic adults. Minority populations were underrepresented and children were not included. (Diabetes Care 31:5870-2844, 2008). The eAG is not equivalent to a fasting glucose. Blood 10/20/2024 10:4 0 AM CDT 10/20/2024 11:02 AM CDT Maurice Caldera MD LAB BLOOD ORDERABLES Final Resu lt [facility] ([place]) 1 [place] [address] * Vitamin B12 (10/20/2024 10:40 AM CDT) Pathologist [facility] Vitamin B12 943 230 - 1,250 pg/mL Blood 10/20/2024 10:4 0 AM CDT 10/20/2024 11:02 AM CDT Maurice Caldera MD LAB BLOOD ORDERABLES Final Resu lt [facility] M[facility]EL [facility]) 1 [facility] [place] [address] * Lipid panel (10/20/2024 10:40 AM CDT) [...] 2018. HDL 63 >=40 mg/dL [facility] MIGUEL ESCOBAR H ([place]) Comment: Interpretive Data Ages < or [...] mg/dL High: >160 mg/dL Calculated using the Tian LDL-C estimating equation. This equation was implemented on 2024. Prior to this date LDL-C was estimated using the Friedewald equation. Literature References: 1. Expert Panel on Integrated Guidelines for Cardiovascular Health and Risk Reduction in Children and Adolescents. Pediatrics 2011;128:S213 2. NCEP Expert Panel. Circulation 2004;110:227 3. Tian Cannon et al. PABLITO Cardiol. 2019October 20;5(5):540-548. doi: 10.1001/jamacardio.2020.0013 Current Interpretive Data was last revised on 2024. Non-HDL Cholesterol 132 mg/dL [facility] ([place]) Comment: Interpretive [...] last revised on 2018. Chol/HDL ratio 3 RADHA [facility] ([place]) Blood 10/20/2024 10:4 0 AM CDT 10/20/2024 11:02 AM CDT us Maurice Caldera MD LAB BLOOD ORDERABLES Final Resu lt [facility] ([place]) 1 [facility] Department [place] [address] * Comprehensive metabolic panel (10/20/2024 10:40 AM [...] 0 AM CDT 10/20/2024 11:02 AM CDT us Maurice Caldera MD LAB BLOOD ORDERABLES Final Resu lt [facility] ([place]) 1 [facility] Department [place] [address] * CT Abdomen Pelvis W Contrast (09/18/2024 [...] Brennon Rodriguez M.D. AM: AM Report ID: [id number] Reading Location: [id number] Procedure Note Brennon Rodriguez MD - 09/18/2024 [...] Brennon Rodriguez M.D. AM: AM Report ID: [id number] Reading Location: [id number] us Tom Younger MD IMG CT PROCEDURES [...] ORDERABLE S Final Result [facility] ([place]) 1 [facility] Department [place] [address] * Differential, auto (09/18/2024 9:37 AM CDT) Neutrophil abs 4.1 1.5 - 6.5 K/cumm Imm gran abs 0.1 0.0 - 0.1 K/cumm [facility] ([place]) Lymphocyte abs 2.4 0.8 - 3.3 [...] Final Result [facility] ([place]) 1 [facility] Department [place] [address] * (ABNORMAL) CBC with auto differential (09/18/2024 [...] BLOOD ORDERABLE S Final Result JOSÉ MIGUEL HANEY) 1 [facility] [place] [address] * ABO/Rh (09/18/2024 9:37 AM CDT) Pathologist [facility] ABO/Rh O Positive Blood 09/18/2024 9:37 AM CDT 09/18/2024 9:41 AM CDT Narrative [facility] M[facility]EL [facility] ([place]) - 09/18/2024 10:23 AM CDT Has the patient had Daratumumab or Isatuximab in the past 6 months?->Unknown Tom Younger MD LAB BLOOD BANK TEST ORDERABLES Final Result JOS[facility] MIGUEL ShaikhNEOLA) 1 [place] [address] * Antibody screen (09/18/2024 9:37 AM CDT) Pathologist [facility] Julee, indirect, Gel Interpretation Negative ABSC Blood 09/18/2024 9:37 AM CDT 09/18/2024 9:41 AM CDT Narrative JOSÉ MIGUEL ShaikhNEOLA) - 09/18/2024 10:23 AM CDT Has the patient had Daratumumab or Isatuximab in the past 6 months?->Unknown Tom Younger MD LAB BLOOD BANK TEST ORDERABLES Final Result [facility] MIG[facility]EL CH[facility]LA ([place]) 1 [place] [address] * (ABNORMAL) Comprehensive metabolic panel (09/18/2024 9:37 AM CDT) Pathologist [facility] Sodium 139 135 - 145 mmol/L Potassium, pl 4.1 3.3 - 4.9 mmol/L [facility] ([place]) Chloride 104 97 - 110 mmol/L [facility] ([place]) CO2 25 22 - 32 mmol/L [facility] ([place]) Anion gap 11 2 - 15 mmol/L [facility] ([place]) BUN 15 6 - 25 mg/dL [facility] ([place]) Creatinine 0.66 0.60 - 1.10 mg/dL [facility] ([place]) Glucose 97 70 - 199 mg/dL [facility] ([place]) [...] MD LAB BLOOD ORDERABLE S Final Result [facility] ([place]) 1 [facility] Department of Laboratories [place], [place] [address] * Hepatitis panel, acute (03/07/2021 8:05 AM CDT) Hep A IgM Nonreactive Nonreactive [facility] ([place]) Comment: Interpretive Data: If Hep A IgM Ab is reported as Equivocal, a new sample should be drawn in two weeks for testing. Current interpretive data was last revised on 19. Testing performed by: [facility], [address] [place] [address]., [id number] Hep B core IgM Nonreactive Nonreactive C JUDD [facility] ([place]) Comment: Interpretive Data If HepB Core IgM Ab is reported as Equivocal, a new sample should be drawn in two weeks for testing. Current interpretive data was last revised on 19. Testing performed by: [facility], [address] [place] [address]., [id number] Hep C Ab Nonreactive Nonreactive JOSÉ MIGUEL [facility] ([place]) Comment: Interpretive Data Nonreactive: Antibodies to [...] last revised on 2019. Testing performed by: [facility], [address] [place] [address]., [address] HepBsAg Nonreactive Nonreactive [facility]OS[facility] MIGUEL [facility] ([place]) Comment:Testing performed by : [address] [address] Blood 03/07/2021 8:05 AM CDT 03/07/2021 1:30 PM CDT Tristin Castillo MD LAB MICROBIOLOGY - GENERAL ORDERABLES Final Result [facility] MIG[facility]EL [facility] ([place]) 1 [facility] Department [place] [address] from Last 3 Months or Most Recently Relevant to Health Maintenance Insurance [facility] MEDICAID [employer] [place] [place] [address] [facility] [email or web address] [place] [email or web address] [place] [email or web address] [place] Advance Directives For more information, please contact: [phone] * Full Code (Latest Code Status on File) Date Activated Date Inactivated Comments 11/11/2024 4:37 AM 11/12/2024 3:59 PM * Full Code Date Activated Date Inactivated Comments 11/01/2024 7:53 PM 11/02/2024 8:31 PM * Full Code Date Activated Date Inactivated Comments 11/03/2018 3:04 AM 11/03/2018 7:38 PM Care Teams Staff Assistant Relationship Specialty Start Date End Date Maurice Caldera MD [address] [place] [address] PCP - General Family Medicine 06/24/24
--- OUTSIDE RECORDS SUMMARY | 2024-12-07 18:19 | XMS_ITS | Encounter Summary ---
Author Organization [facility] Address [address] [place] [address] Care Team Providers Care Roving Weight Gauger Name Role Phone Maurice Caldera MD Primary Care Provider [phone] Reason for Visit * Auth/Cert (Routine) Specialty Diagnoses / Procedures Referred By Taisha portillo Referred To Contact Diagnoses Dysphagia, unspecified type Esophageal stricture Dysphagia, unspecified type [R13.10] Esophageal stricture [K22.2] Procedures CA ESOPHAGOGASTRODUODENOSCOPY TRANSORAL DIAGNOSTIC ESOPHAGOGASTRODUODENOSCOPY Referral ID Status Reason Start Date Expiration Date Visits Re quested Visits Authorized [id number] 1 1 Encounter Details Date Type Department Care Team (Late st Contact Info) Description 11/23/2024 Hospital Encounter [facility] [address] [place] [address] Kyler Curtis, [address] [place] [address] [place] [id number] Social History Tobacco Use Types Packs/Day Years Used Date Smoking Tobacco: Former Cigarettes 0.5 40 Alcohol Use Standard Drinks/Week Comments Yes 1 (1 standard drink = 0.6 oz pur e alcohol) 3 times a week [facility] Utilities Answer Date Recorded In the past 12 months has [employer] electric, gas, oil, or water company threatened [...] often do you attend chur ch or tenriism services? More than 4 times per year 11/02/2024 Do you belong to any clubs o r organizations such as holiness groups, unions, fraternal or athletic groups, or [...] 7 10/18/2024 Housing Stability Vital Sign Answer Naraayn e Recorded In the last 12 months, was t here a time when you were not able to pay the mortgage or rent on time? No 11/02/2024 In the past 12 months, how m any times have you moved where you were living? 0 11/02/2024 At any time in the past 12 m [facility], were you homeless or living in a [place] facility (including now)? No 11/02/2024 Personal Safety Answer Date Recorded Have you ever been in or are you currently in a harmful physical or emotional relationship or is someone making you feel afraid or unsafe? Denies 11/10/2024 Comments No Sex and Gender Information Value Date Recorded Sex Assigned at Not on file Legal Sex Female 12:38 AM [employer] Gender Identity Female 03/07/2021 7:11 AM CDT Sexual Orientation Straight 03/07/2021 7: 11 AM CDT documented as of this encounter Functional Status * Audit-C Score Answer Date of Assessment Author 4 11/11/2024 1:36 AM AKOSUAT John Smiley RN * Question Answer Date of Assessment Author Q1: How often do you have a drink containing alcohol? 2-3 times a week 11/11/2024 1:36 AM AKOSUAT Sara Smiley RN Q2: How many drinks containing alcohol do you have on a typical day when you are drinking? 3 or 4 11/11/2024 1:36 AM AKOSUAT Sara Smiley RN Q3: How often do you have six or more drinks on one occasion? Never 11/11/2024 1:36 AM Sara Carrillo RN documented as of this encounter Plan of Treatment Not on file documented as of this encounter Visit Diagnoses Diagnosis Dysphagia Esophageal stricture Stricture and stenosis of esophagus documented in this encounter Admitting Diagnoses Diagnosis Dysphagia Esophageal stricture Stricture and stenosis of esophagus documented in this encounter Care Teams Roving Weight Gauger Relationship Specialty Start Date End Date Maurice Caldera MD [address] [facility] [place] [address] PCP - General Family Medicine 06/24/24 documented as of this encounter
--- NOTE | 2024-12-07 18:20 | ED_ITS ---
HPI - URI/Sore Throat General Chief Complaint: Upper Respiratory Infection Stated Complaint: cough Time Seen by Provider: 12/07/24 18:20 Source: patient Mode of arrival: ambulatory Limitations: no limitations History of Present Illness HPI Narrative: 59-year-old female smoker with a history of anxiety/depression, GERD, SARs in 2019 requiring intubation and mechanical ventilation for around 2 weeks presents to the ED with a 2 week history of -- cough which is productive of mucopurulent and bloody sputum -- sore throat -- sinus fullness with drainage -- ear fullness without any drainage no chest pain or shortness of breath MD elicited complaint: cough, sore throat and nasal congestion Onset (ago): week(s) ( 2 weeks) Consistency: constant Severity: moderate Exacerbating factors: nothing Relieving factors: nothing Associated symptoms: denies other symptoms, nasal congestion, sore throat and cough Treatments prior to arrival: none Related Data Home Medications ?Medication ?Instructions ?Recorded ?Confirmed ?Last Taken ?Type escitalopram oxalate 10 mg tablet 10 mg PO DAILY 06/27/21 10/04/22 10/14/21 History (Lexapro) trazodone 100 mg tablet 50 mg PO HS 06/27/21 10/04/22 10/13/21 History aripiprazole 5 mg tablet (Abilify) 5 mg PO DAILY 10/14/21 10/14/21 10/13/21 History bupropion HCl 150 mg 24 hr tablet, 150 mg PO DAILY 10/14/21 10/14/21 10/07/21 History extended release Allergies Allergy/AdvReac Type Severity Reaction Status Date / Time Penicillins Allergy Unknown Verified 12/07/24 18:18 tramadol Allergy Hives Verified 12/07/24 18:18 Review of Systems Review of Systems: All systems reviewed & are unremarkable except as noted in HPI and below PMFSH Past Medical History Medical History Lower abdominal pain Depression Anxiety Fatty liver Family history of colon cancer in father Diverticulosis LLQ pain Surgical History Surgical History History of hysterectomy History of esophagogastroduodenoscopy (EGD) History of colonoscopy Social History Social History Smoking status: Current every day smoker Tobacco type: cigarettes Gender identity (if verbalized by the patient): Female Exam Narrative: vitals are stable. Oxygen saturation of 97% on room air with a respiratory rate of 18. Const: General: no acute distress Nutritional Appearance: well nourished Orientation/consciousness: patient oriented x3 Limitations: no limitations HENMT: Head: normal to inspection Ears: external ears normal Face/Nose/Sinus: Normal external nose present Face and sinus: normal facial exam Mouth: Yes Normal oral and palatal mucosa present Throat: posterior oropharynx normal Eyes: Conjunctivae: conjunctivae normal Pupils: Equal, round and reactive pupils present Direct Ophthalmoscopy: no photophobia Neck: Neck: normal visual inspection, no lymphadenopathy and no meningeal signs Chest: Chest palpation & inspection: normal inspection of the chest Resp: Auscultation: rales and wheezes Cardio: Rate: regular rate Rhythm: regular rhythm GI: GI Palp: Yes Soft to palpation Auscultation: normal bowel sounds Other: No Tenderness/rigidity /rebound : General: Yes no CVA tenderness Back/Spine/Pelvis: Back: no CVA tenderness Skin: General skin exam: normal color Rashes: no rashes Neuro: General: patient oriented x3, moves all extremities, no meningeal signs, no focal motor deficits and CN's II-XI intact bilaterally Cranial nerves: Yes Nystagmus not present Speech: normal speech Extrem: General: normal to inspection and no clubbing, cyanosis or edema Psych: Mental Status: mental status grossly normal Affect: normal affect Attitude: cooperative Course Course Emergency Course: upper respiratory tract infection- patient had 2- COVID tests at home. Patient refused blood work, RSV/influenza / COVID and strep testing. bronchitis- Chest x-ray revealed Vital Signs Vital signs: Vital Signs Temperature 36.3 C L 12/07/24 18:12 Pulse Rate 84 12/07/24 18:12 Respiratory Rate 18 12/07/24 18:12 Blood Pressure 149/78 H 12/07/24 18:12 Pulse Oximetry 98 12/07/24 18:12 Oxygen Delivery Room Air 12/07/24 18:12 Temperature 36.3 C L 12/07/24 18:12 Pulse Rate 84 12/07/24 18:12 Respiratory Rate 18 12/07/24 18:12 Blood Pressure 149/78 H 12/07/24 18:12 Pulse Oximetry 97 12/07/24 18:15 Oxygen Delivery Room Air 12/07/24 18:15 MDM - URI/Sore Throat MDM Narrative Medical decision making narrative: bronchitis upper respiratory tract infection Differential Diagnosis Differential diagnosis: Likely other ( pneumonia) Discharge Plan Discharge Clinical Impression: Bronchitis, Acute upper respiratory infection Patient Disposition: Home Condition: Stable Instructions: Antibiotic Form, Acute Bronchitis (ED) Patient Language: Bahraini Prescriptions: New azithromycin [Zithromax] 250 mg tablet See Rx Instructions .ROUTE .COMPLEX Qty: 6 0RF Rx Instructions: For 250 mg dose pack: take 500 mg today (day 1), then 250 mg for 4 days (days 2-5) prednisone 20 mg tablet 20 mg PO BID Qty: 10 0RF albuterol sulfate [Ventolin HFA] 90 mcg/actuation HFA aerosol inhaler 2 puff inhalation QID PRN (Reason: shortness of breath or wheezing) Qty: 8.5 0RF No Action trazodone 100 mg tablet 50 mg PO HS escitalopram oxalate [Lexapro] 10 mg tablet 10 mg PO DAILY aripiprazole [Abilify] 5 mg tablet 5 mg PO DAILY bupropion HCl 150 mg tablet extended release 24 hr 150 mg PO DAILY cephalexin 500 mg capsule 500 mg PO Q8H 10 Days Qty: 30 0RF phenazopyridine [Pyridium] 200 mg tablet 200 mg PO TID Qty: 6 0RF Follow-up/Referrals: Werner,MD Maurice [Primary Care Provider] - Time of Disposition: 18:57
--- OUTSIDE RECORDS SUMMARY | 2024-12-07 18:42 | XMS_ITS | Clinical Summary ---
Author Organization [facility] Address [address] [place] [address] Phone Care Team Providers Care Livestock Farmworker Name Role Phone Jeremie Casanova MD Primary Care Provider [phone] Allergies No known active allergies Medications escitalopram [...] Comments Blood Pressure 132/80 06/24/2023 10:00 PM CREAM MAKER Pulse 70 06/24/2023 10:00 PM CREAM MAKER Temperature 36.7 C (98 F) 06/24/2023 10:00 PM CREAM MAKER Respiratory Rate 17 06/24/2023 10:00 PM CREAM MAKER Oxygen Saturation 100% 06/24/2023 10:00 PM CREAM MAKER Inhaled Oxygen Concentration - - Weight 65.8 kg (145 lb) 06/24/2023 8:04 PM CREAM MAKER Height 172.7 cm (5' 8) 06/24/2023 8:04 PM CREAM MAKER Body Mass Index 22.05 06/24/2023 8:04 PM CREAM MAKER Plan of Treatment Health Maintenance Due Date [...] Insurance [place] [id number] Care Teams Livestock Farmworker Relationship Specialty Start Date End Date Jeremie Casanova MD [address] [place] [address] PCP - General Family Medicine 06/24/23
--- OUTSIDE RECORDS SUMMARY | 2024-12-07 18:43 | XMS_ITS | Referral Summary ---
Author Organization [facility] Address [address] [place] [address] Care Team Providers Care Oleomargarine Maker Name Role Phone Maurice Caldera MD Primary Care Provider [phone] Encounters Date Type Department Care Team Description 11/23/[address] [facility] Gastroenterology at [address] [place] [address] Tameka Black 11/23/2024 Hospital Encounter [facility] [address] [place] [address] Kyler Curtis DO 11/12/2024 12:02 PM CDT - 11/12/2024 11:59 PM CDT Hospital Encounter [facility] Emergency, Room R Discharge Disposition: Discharge to home or self care 11/10/2024 9:43 PM CDT - 11/12/2024 11:54 AM CDT Hospital Encounter [facility] [address] [place] [address] Godfrey Chisholm MD Huynh, Kiet T., MD Kheirkhahan, Nazanin, MD Suicide attempt (HCC) (Primary Dx); Intentional benzodiazepine overdose, initial encounter (HCC); Alcohol abuse Discharge Disposition: Discharge to psych hospital or psych unit 11/10/2024 9:26 PM CDT - 11/10/2024 11:59 PM CDT Hospital Encounter [facility] Emergency, Room R Discharge Disposition: Discharge to home or self care 11/07/[address] [facility] Medical [facility] Gastroenterology at [address] [place] [address] Jeana Hooker 11/03/[address] [facility] Gastroenterology at [place] [address] [facility] [address] [place] [phone] Sonia Black MA Schedule EGD 11/03/2024 Documentation [facility] [address] [facility] [address] [place] [address] Rashid Denny, MANAGER MONITORING 11/01/2024 5:08 PM CDT - 11/02/2024 4:26 PM CDT Hospital Encounter [facility] [address] [place] [address] Alejandro Gonzalez MD Petters, MD [place] Charlton Victoria Rose, DO TIA (transient ischemic attack) (Primary Dx); Dysphagia, unspecified type Discharge Disposition: Discharge to home or self care 11/01/2024 4:40 PM CDT - 11/01/2024 11:59 PM CDT Hospital Encounter [facility] Emergency, Room R Discharge Disposition: Discharge to home or self care 10/28/2024 7:42 AM CDT - 10/28/2024 11:59 PM CDT Hospital Encounter [address] [address] Posterior knee pain, left Discharge Disposition: Discharge to home or self care 10/28/2024 7:43 AM CDT - 10/28/2024 11:59 PM CDT Hospital Encounter [address] [address] Posterior right knee pain Discharge Disposition: Discharge to home or self care 10/20/2024 10:30 AM CDT Lab [address] [phone] 10/20/2024 10:24 AM CDT - 10/20/2024 11:59 PM CDT Hospital Encounter [address] [address] Pain in left hand; Pain in right hand Discharge Disposition: Discharge to home or self care 10/18/2024 Orders Only [facility] [address] [facility] [address], [address] [place] [address] James Emanuel MD Posterior right knee pain (Primary Dx); Posterior knee pain, left 10/18/2024 7:10 AM CDT - 10/18/2024 11:59 PM CDT Hospital Encounter [facility] 2 [facility] Bld[address] A, [address] [place] [address] James Emanuel MD Mechanical low back pain (Primary Dx); Cervicalgia; Chronic bilateral low back pain with bilateral sciatica; Posterior knee pain, left; Posterior knee pain, right Discharge Disposition: Discharge to home or self care 09/18/2024 9:24 AM CDT - 09/18/2024 10:43 AM CDT Emergency [facility] Emergency Department [address] [place] [address] Tom Younger MD Abdominal pain (Primary Dx); [...] pur e alcohol) 3 times a week [facility] [employer]ities Answer Date Recorded In the past 12 [...] often do you attend chur ch or congregation services? More than 4 times per year 11/02/2024 Do you belong to any clubs o r organizations such as yarsani groups, unions, fraternal or athletic groups, or [...] any time in the past 12 m [facility], were you homeless or living in a penitentiary (including now)? No 11/02/2024 Personal Safety Answer Date Recorded Have you ever been in or are you currently in a harmful physical or emotional relationship or is someone making you feel afraid or unsafe? Denies 11/10/2024 Comments No Sex and Gender Information Value Date Recorded Sex Assigned at Not on file Legal Sex Female 12:38 AM BUCKLE COVERER Gender Identity Female 03/07/2021 7:11 AM CDT [...] ORDERABLES Final Resu lt [facility] [address] [facility] [place] [address] * Differential, auto (11/12/2024 3:17 AM CDT) Neutrophil abs 4.14 1.50 - 6.50 K/cumm Imm gran abs 0.04 0.00 - 0.10 K/cumm [facility]) Lymphocyte abs 2.62 0.80 - 3.30 K/cumm [facility] ([place]) Monocyte abs 0.45 0.20 - 0.80 K/cumm [facility] ([place]) Eosinophil abs 0.24 0.00 - 0.50 K/cumm [facility] ([place]) Basophil abs 0.03 0.00 - 0.10 K/cumm [facility] ([place]) Neutrophil pct 55.1 % [facility] ([place]) Comment: Interpretive Data Percent cell count reference ranges are not reported, since discordance with absolute values may lead to misinterpretation of CBC data. Current Interpretive Data was last revised on 2017. Imm gran pct 0.5 % [facility]) Comment: Interpretive Data Percent cell count reference [...] 2017. Monocyte pct 6.0 % [facility] ([place]) Comment: Interpretive Data Percent cell count reference [...] Resu lt [facility] ([place] 1 [facility] of Laboratories [place], [place] [id number] * CBC with auto differential (11/12/2024 3:17 [...] ORDERABLES Final Resu lt [facility] ([place] 1 [facility] [place] [address] * Magnesium (11/12/2024 3:17 AM CDT) Magnesium 1.9 1.4 - 2.5 mg/dL Blood 11/12/2024 3:17 AM CDT 11/12/2024 3:47 AM CDT Billy Kaplan MD LAB BLOOD ORDERABLES Final Resu lt Performing Organization Address City/[facility]/ZIP Co de Phone Number [facility] ([place]) 1 [facility] [place] [address] * (ABNORMAL) Comprehensive metabolic panel (11/12/2024 3:17 AM CDT) Sodium 142 135 - 145 mmol/L Potassium, pl 4.1 3.3 - 4.9 mmol/L [facility] ([place]) Chloride 107 97 - 110 mmol/L [facility]) CO2 23 22 - 32 mmol/L [facility] ([place]) Anion gap 11 2 - 15 mmol/L [facility] ([place]) BUN 20 6 - 25 mg/dL [facility] ([place]) Creatinine 0.69 0.60 - 1.10 mg/dL [facility] ([place]) Glucose 103 70 - 199 mg/dL [facility] ([place]) Comment: Interpretive Data Fasting glucose >/= [...] MD LAB BLOOD ORDERABLES Final Resu lt [facility] [address] [facility] [place] [address] * eGFR (11/11/2024 2:23 AM CDT) eGFR [...] ORDERABLES Final Re sult [facility] ([place] [address] [facility] [place] [address] * Differential, auto (11/11/2024 2:23 AM CDT) Neutrophil abs 2.21 1.50 - 6.50 K/cumm Imm gran abs 0.02 0.00 - 0.10 K/cumm [facility] ([place]) Lymphocyte abs 2.23 0.80 - 3.30 K/cumm [facility] ([place]) Monocyte abs 0.32 0.20 - 0.80 K/cumm [facility] ([place]) Eosinophil abs 0.14 0.00 - 0.50 K/cumm [facility] ([place]) Basophil abs 0.03 0.00 - 0.10 K/cumm [facility] ([place]) Neutrophil pct 44.6 % [facility] ([place]) Comment: Interpretive Data Percent cell count reference ranges are not reported, since discordance with absolute values may lead to misinterpretation of CBC data. Current Interpretive Data was last revised on 2017. Imm gran pct 0.4 % [facility]) Comment: Interpretive Data Percent cell count reference [...] 2017. Monocyte pct 6.5 % [facility]) Comment: Interpretive Data Percent cell count reference ranges are not reported, since discordance with absolute values may lead to misinterpretation of CBC data. Current Interpretive Data was last revised on 2017. Eosinophil pct 2.8 % [facility]) Comment: Interpretive Data Percent cell count reference [...] Re sult [facility] [address] [facility] [place] [address] * CBC with auto differential (11/11/2024 2:23 [...] ORDERABLES Final Re sult [facility] ([place] 1 [facility] [place] [address] * Magnesium (11/11/2024 2:23 AM CDT) Magnesium 1.8 1.4 - 2.5 mg/dL Blood 11/11/2024 2:23 AM CDT 11/11/2024 2:40 AM CDT Godfrey Chisholm MD LAB BLOOD ORDERABLES Final Re sult Performing Organization Address [facility] Co de Phone Number [facility] 1 [facility] [place] [address] * (ABNORMAL) Comprehensive metabolic panel (11/11/2024 2:23 AM CDT) Sodium 144 135 - 145 mmol/L Potassium, pl 3.8 3.3 - 4.9 mmol/L [facility]) Chloride 109 97 - 110 mmol/L [facility] ([place]) CO2 20(L) 22 - 32 mmol/L [facility] ([place]) Anion gap 14 2 - 15 mmol/L [facility] ([place]) BUN 14 6 - 25 mg/dL [facility] ([place]) Creatinine 0.55(L) 0.60 - 1.10 mg/dL [facility]) Glucose 126 70 - 199 mg/dL [facility] ([place]) Comment: Interpretive Data Fasting glucose [...] MD LAB BLOOD ORDERABLES Final Re sult [facility] ([place] [address] [facility] [place] [address] * Urinalysis reflex to microscopic and culture [...] tendency for uric acid stone formation. Source: [facility] REEL Qualified Current Interpretive Data was last revised on 2017 Protein, ur ql Negative Negative [facility]) Glucose, ur ql Negative Negative [facility]) Ketones, ur Negative Negative [facility] ([place]) Bilirubin, ur Negative Negative [facility] ([place] [...] GENERAL OR DERABLES Final Result [facility] ([place]) [address] [facility] [place] [address] * (ABNORMAL) Drugs of Abuse Screen, Urine [...] ORDERABLES Final Re sult [facility] [address] [facility] [place] [address] * eGFR (11/10/2024 10:41 PM CDT) eGFR [...] ORDERABLES Final Re sult [facility] 1 [facility] [place] [address] * Thyroid Function [place] (11/10/2024 10:41 PM CDT) TSH 3.92 0.30 - 4.20 mcIUnit/mL Blood 11/10/2024 10:4 1 PM CDT 11/10/2024 10:54 PM CDT us Godfrey Chisholm MD LAB BLOOD ORDERABLES Final Re sult Performing Organization Address [facility] Co de Phone Number [facility] 1 [facility] [place] [address] * (ABNORMAL) Iron profile w/ IBC (11/10/2024 10:41 PM CDT) Iron 53 35 - 145 mcg/dL TIBC 225(L) 250 - 400 mcg/dL [facility] ([place]) Transferrin saturation 24 20 - 50 % [facility] ([place]) Blood 11/10/2024 10:4 1 PM CDT 11/10/2024 10:54 PM CDT us Godfrey Chisholm MD LAB BLOOD ORDERABLES Final Re sult Performing Organization Address City/[facility]/ZIP Co de Phone Number [facility] 1 [facility] [place] [address] * Magnesium (11/10/2024 10:41 PM CDT) Magnesium 2.0 1.4 - 2.5 mg/dL Blood 11/10/2024 10:4 1 PM CDT 11/10/2024 10:54 PM CDT us Godfrey Chisholm MD LAB BLOOD ORDERABLES Final Re sult [facility] 1 [facility] [place] [address] * (ABNORMAL) Ferritin (11/10/2024 10:41 PM CDT) Ferritin 232(H) 15 - 150 ng/mL Blood 11/10/2024 10:4 1 PM CDT 11/10/2024 10:54 PM CDT Godfrey Chisholm MD LAB BLOOD ORDERABLES Final Re sult Performing Organization Address [facility] Co de Phone Number [facility] 1 [facility] [place] [address] * (ABNORMAL) Ethanol (11/10/2024 10:41 PM CDT) Ethanol 125(H) <=10 mg/dL Comment: Interpretive Data Legal limit of intoxication > or = 80 mg/dL Levels > or = 400 mg/dL are potentially TOXIC. Current interpretive data was last revised on 2018. Blood 11/10/2024 10:4 1 PM CDT 11/10/2024 10:54 PM CDT us Godfrey Chisholm MD LAB BLOOD ORDERABLES Final Re sult Performing Organization Address [facility] Co de Phone Number [facility] 1 [facility] [place] [address] * Acetaminophen level (11/10/2024 10:41 PM CDT) [...] after ingestion Consult toxicology or poison control ([phone]) for unknown ingestion time. Current interpretive data was last revised 2023. Blood 11/10/2024 10:4 1 PM CDT 11/10/2024 10:54 PM CDT Godfrey Chisholm MD LAB BLOOD ORDERABLES Final Re sult Performing Organization Address [facility]/ZIP Co de Phone Number [facility] 1 [facility] [place] [address] * Salicylate level (11/10/2024 10:41 PM CDT) Salicylate <5.0 <=5.0 mg/dL Comment: Interpretive Data Toxic: 30 mg/dL or greater. Current interpretive data was last revised 2023. Blood 11/10/2024 10:4 1 PM CDT 11/10/2024 10:54 PM CDT us Godfrey Chisholm MD LAB BLOOD ORDERABLES Final Re sult Performing Organization Address [facility] Co de Phone Number [facility] 1 [facility] [place] [address] * (ABNORMAL) Comprehensive metabolic panel (11/10/2024 10:41 PM CDT) Sodium 144 135 - 145 mmol/L Potassium, pl 3.8 3.3 - 4.9 mmol/L [facility] ([place]) Chloride 110 97 - 110 mmol/L [facility] ([place]) CO2 22 22 - 32 mmol/L [facility] ([place]) Anion gap 13 2 - 15 mmol/L [facility] ([place]) BUN 16 6 - 25 mg/dL [facility] ([place]) Creatinine 0.62 0.60 - 1.10 mg/dL [facility] ([place]) Glucose 102 70 - 199 [...] MD LAB BLOOD ORDERABLES Final Re sult [facility] [address] [facility] [place] [address] * COVID-19 Coronavirus RNA Nasopharyngeal (11/10/2024 10:25 PM CDT) COVID-19 RNA Negative Negative Nasopharyngeal 11/10/2024 10 :25 PM CDT 11/10/2024 10:29 PM CDT Narrative [facility] - 11/10/2024 11:10 PM CDT Is the patient experiencing any symptoms consistent with COVID (eg. Fever, cough, shortness of breath)?->No What is the reason for testing?->Screening prior to Behavioral health admission Interpretive data: Testing performed by [facility]. This test is performed using the [employer] Xpert Xpress CoV-2 plus assay. This is a real-time RT-PCR test intended for the qualitative detection of nucleic acid from the SARS-CoV-2. This assay has been cleared by the [place] Food and Drug administration. The performance characteristics have been verified by [facility]. Results must be considered in the clinical context, and a negative result does not rule out infection. Interpretive data last revised 2024. Interpretive data: Testing performed by [facility]. This test is performed using the [employer] Xpert Xpress CoV-2 plus assay. This is a real-time RT-PCR test intended for the qualitative detection of nucleic acid from the SARS-CoV-2. This assay has been cleared by the [place] Food and Drug administration. The performance characteristics have been verified by [facility]. Results must be considered in the clinical context, and a negative result does not rule out infection. Interpretive data last revised 2024. Godfrey Chisholm MD LAB MICROBIOLOGY - GENERAL OR DERABLES Final Result [facility] ([place]) [address] [facility] [place] [address] * Differential, auto (11/10/2024 10:00 PM CDT) Neutrophil abs 2.79 1.50 - 6.50 K/cumm Imm gran abs 0.02 0.00 - 0.10 K/cumm [facility]) Lymphocyte abs 2.43 0.80 - 3.30 K/cumm [facility] ([place]) Monocyte abs 0.30 0.20 - 0.80 K/cumm [facility]) Eosinophil abs 0.18 0.00 - 0.50 K/cumm [facility]) Basophil abs 0.05 0.00 - 0.10 K/cumm [facility] ([place]) Neutrophil pct 48.4 % [facility] [...] Re sult [facility] ([place] 1 [facility] Department of Laboratories [place], [place] [id number] * (ABNORMAL) CBC with auto differential (11/10/2024 [...] Re sult [facility] [address] [facility] [place] [address] * ECG 12 lead (11/10/2024 9:52 PM CDT) 11/10/2024 9:[address] [facility] [employer] - 11/11/2024 7:22 AM CDT Vent Rate: 72 bpm RR Interval: 828 msec MS Interval: 139 msec QRS Duration: 81 msec QT Interval: 426 msec QTC Interval: 450 msec P-R-T [place]: 55 - 32 - 44 degrees IMPRESSION: SINUS RHYTHM NORMAL ECG NO CHANGE FROM PREVIOUS TRACING NOTED Electronically Signed By: Sid Whittington MD Godfrey Chisholm MD ECG ORDERABLES Final Result [facility] [employer] [facility] * TRANSTHORACIC ECHO (TTE) COMPLETE W DOPPLER/CF WO CONTRAST W BUBBLE (11/02/2024 9:55 AM CDT) Estimated EF 65 % CONS SCIMAGE Anatomical Region Laterality Modality Ultrasound 11/02/2024 9:52 AM CDT Narrative 11/02/2024 12:27 PM CDT [address] [address] Echocardiogram Report Patient Name: NAPOLEON MARTINEZ D : 1965 Study Date: 11/02/2024 9:52:51 AM Gender: F Tech: ELSA Location: [id number] Ref Provider: LORI ADAM Height(Cm): BSA: Weight(Kg): [...] Procedure Note Sid Whittington MD - 11/02/[address] [address] Echocardiogram Report Patient Name: NAPOLEON MARTINEZ D : 1965 Study Date: 11/02/2024 9:52:51 AM Gender: F Tech: Location: [id number] Ref Provider: LORI ADAM Height(Cm): BSA: Weight(Kg): [...] Anaya Flores M.D. SN: SN Report ID: [id number] Reading Location: [id number] Procedure Note Anaya Florse MD - 11/02/2024 EXAM DESCRIPTION: MRI BRAIN WO CONTRAST REASON FOR STUDY: Stroke, follow up Garbled speech and right sided leg weakness and right sided facial droop. TECHNIQUE: Multiplanar imaging includes non-contrasted T1, T2, FLAIR, and diffusion with ADC map sequences. Additional sequence(s) sensitive [employer] products. Images stored on PACS. COMPARISON: CT [...] Anaya Flores M.D. SN: SN Report ID: [id number] Reading Location: [id number] us Lori Adam MD IM MRI PROCEDURES [...] Res ult [facility] ([place] 1 [facility] [place] [address] * eGFR (11/02/2024 12:23 AM CDT) eGFR [...] nal Result [facility] ([place] 1 [facility] [place] [address] * CBC without differential (11/02/2024 12:23 AM [...] nal Result [facility] ([place]) 1 [facility] [place] [address] * Magnesium (11/02/2024 12:23 AM CDT) Magnesium 2.1 1.4 - 2.5 mg/dL Blood 11/02/2024 12:2 3 AM CDT 11/02/2024 12:25 AM CDT us Lori Adam MD LAB BLOOD ORDERABLES Fi nal Result [facility] ([place] 1 [facility] [place] [address] * Comprehensive metabolic panel (11/02/2024 12:23 AM [...] ORDERABLES Fi nal Result Performing Organization Address [facility] Co de Phone Number [facility] ([place] 1 [place] [address] * Troponin T high-sensitivity 4-hour (11/01/2024 9:41 PM CDT) Trop T hs <6 <=14 ng/L Comment: Interpretive Data For further hscTnT resources including the diagnostic algorithm and an aid in interpretation, copy and paste this link: https://nrl.testcatalog.org/show/hsTrop Current Interpretive Data last revised 2020. Trop T hs delta 0 ng/L [facility]) Trop T hs interp Insignificant [facility] ([place]) Blood 11/01/2024 9:41 PM CDT 11/01/2024 10:19 PM CDT us Alejandro Gonzalez MD LAB BLOOD ORDERABLES Final Res ult Performing Organization Address [facility] Co de Phone Number [facility] ([place] [address] [place] [address] * Urinalysis reflex to microscopic and culture Urine (11/01/2024 8:56 PM CDT) Color, ur Yellow Yellow Clarity, ur Clear Clear [facility] ([place]) Specific gravity, ur 1.010 1.003 - 1.030 [facility] ([place]) pH, urine 6.5 [facility] ([place]) Comment: Interpretive Data U rine pH is affected by diet, medications, systemic acid-base disturbances, and renal tubular function. pH may affect urinary stone formation. For example, urine pH below 6.0 may help reduce the tendency for calcium phosphate stones and pH greater than 6.0 may reduce the tendency for uric acid stone formation. Source: [email or web address] Current Interpretive Data was last revised on [...] RAL ORDERABLES Final Result [facility] ([place]) [address] [place] [address] [employer] [place] [address] * Troponin T high-sensitivity 2-hour (11/01/2024 8:13 [...] ORDERABLES Final Res ult [facility] ([place] 1 [facility] [place] [address] * ECG 12 lead (11/01/2024 6:17 PM CDT) 11/01/2024 6:17 PM CDT Narrative [facility] - 11/02/2024 7:20 AM CDT Vent Rate: 61 bpm RR Interval: 978 msec MS Interval: 172 msec QRS Duration: 89 msec QT Interval: 436 msec QTC Interval: 439 msec P-R-T [place]: 44 - 48 - 52 degrees IMPRESSION: SINUS RHYTHM POSSIBLE RIGHT VENTRICULAR CONDUCTION DELAY [RSR (QR) IN V1/V2] No prior EKG for comparison Electronically Signed By: Dr Gallo Thrasher Alejandro Gonzalez MD ECG ORDERABLES Final Result Performing Organization Address City/[facility]/ZIP Co de Phone Number [facility] [employer] [facility] * Troponin T high-sensitivity series (baseline, 2hr, [...] ORDERABLES Final Res ult Performing Organization Address [facility]/ZIP Co de Phone Number [facility] ([place] 1 [facility] [place] [address] * eGFR (11/01/2024 5:31 PM CDT) eGFR [...] ORDERABLES Final Res ult [facility] 1 [facility] [place] [address] * Differential, auto (11/01/2024 5:31 PM CDT) [...] Res ult [facility] ([place] 1 [facility] [place] [address] * CBC with auto differential (11/01/2024 5:31 [...] ORDERABLES Final Res ult Performing Organization Address [facility] Co de Phone Number [facility] ([place] 1 [facility] [place] [address] * Protime-INR (11/01/2024 5:31 PM CDT) PT [...] BLOOD ORDERABLES Final Res ult [facility] ([place]) 1 [facility] [place] [address] * Comprehensive metabolic panel (11/01/2024 5:31 PM CDT) Sodium 135 135 - 145 mmol/L Potassium, pl 4.0 3.3 - 4.9 mmol/L [facility]) Chloride 101 97 - 110 mmol/L [facility] ([facility]) CO2 23 22 - 32 mmol/L [facility] [...] Res ult [facility] ([place] 1 [facility] [place] [address] * CTA Stroke Head Neck W WO [...] Noncontrast head CT 11/01/2024 FINDINGS: INTRACRANIAL VESSELS [place]: The anterior, middle, posterior cerebral [...] to Dr. Alejandro Gonzalez at 5:39 p.m. BUCKLE COVERER on 11/01/2024. THIS IS AN ELECTRONICALLY VERIFIED FINAL REPORT 11/01/2024 5:48 PM - Electronically signed by Carmelo Stearns M.D. AT: AT Report ID: [id number] Reading Location: [id number] Procedure Note Carmelo Stearns MD - 11/01/2024 [...] Noncontrast head CT 11/01/2024 FINDINGS: INTRACRANIAL VESSELS [place]: The anterior, middle, posterior cerebral [...] Stearns to Dr. Alejandro Gonzalez at 5:39p.m. BUCKLE COVERER on 11/01/2024. THIS IS AN ELECTRONICALLY VERIFIED FINAL REPORT 11/01/2024 5:48 PM - Electronically signed by Carmelo Stearns M.D. AT: AT Report ID: [id number] Reading Location: [id number] Alejandro Gonzalez MD IMG CT PROCEDURES Final [...] Manny Gay M.D. KT: AUBREY Report ID: [id number] Reading Location: [id number] Procedure Note Manny Gay MD - 11/01/2024 [...] Manny Gay M.D. KT: AUBREY Report ID: [id number] Reading Location: [id number] Alejandro Gonzalez MD IMG CT PROCEDURES Final Result * POCT glucose (11/01/2024 4:56 PM CDT) [facility] Signature Glucose, POC 99 70 - 199 mg/dL Blood 11/01/2024 4:56 PM CDT 11/01/2024 4:56 PM CDT Lary Berumen DO LAB POCT ORDERABLES - DE VICE Final Result [facility] Department [place] [address] * US Knee (10/28/2024 8:20 AM CDT) Anatomical Region Laterality Modality Knee N/A Ultrasound 10/29/2024 1:39 PM CDT Narrative 10/29/2024 1:41 PM CDT EXAM DESCRIPTION: US KNEE COMPLETE REASON FOR STUDY: Pain TECHNIQUE: A Dynamic assessment was performed of the right knee and of the left knee by the b2b sales consultant, with selected grayscale and color Doppler images [...] by Timi Zarco M.D. JR: Report ID: [id number] Reading Location: [id number] Procedure Note Timi Zarco MD - 10/29/2024 EXAM DESCRIPTION: US KNEE COMPLETE REASON FOR STUDY: Pain TECHNIQUE: A Dynamic assessment was performed of the right knee and ofthe left knee by the b2b sales consultant, with selected grayscale and color Doppler images [...] by Timi Zarco M.D. JR: Report ID: [id number] Reading Location: [id number] us James Emanuel MD [facility] US PROCEDURES Final Result * US Knee (10/28/2024 8:20 AM CDT) Anatomical Region Laterality Modality Knee N/A Ultrasound 10/29/2024 1:39 PM CDT Narrative 10/29/2024 1:41 PM CDT EXAM DESCRIPTION: US KNEE COMPLETE REASON FOR STUDY: Pain TECHNIQUE: A Dynamic assessment was performed of the right knee and of the left knee by the b2b sales consultant, with selected grayscale and color Doppler images [...] by Timi Zarco M.D. JR: Report ID: [id number] Reading Location: [id number] Procedure Note Timi Zarco MD - 10/29/2024 EXAM DESCRIPTION: US KNEE COMPLETE REASON FOR STUDY: Pain TECHNIQUE: A Dynamic assessment was performed of the right knee and ofthe left knee by the b2b sales consultant, with selected grayscale and color Doppler images [...] by Timi Zarco M.D. JR: Report ID: [id number] Reading Location: [id number] James Emanuel MD [facility] US PROCEDURES Final Result * XR Hand [...] Gregorio Alexandra M.D. MF: DHIRAJ Report ID: [id number] Reading Location: [id number] Procedure Note Gregorio Alexandra MD - 10/20/2024 [...] Gregorio Alexandra M.D. MF: DHIRAJ Report ID: [id number] Reading Location: [id number] Maurice Caldera MD IMG XR PROCEDURES Final [...] Gregorio Alexandra M.D. MF: DHIRAJ Report ID: [id number] Reading Location: [id number] Procedure Note Gregorio Alexandra MD - 10/20/2024 [...] Gregorio Alexandra M.D. MF: DHIRAJ Report ID: [id number] Reading Location: [id number] Maurice Caldera MD IMG XR PROCEDURES Final [...] last revised on 2020. Testing performed by: [facility], [address] [place]., [address] Blood 10/20/2024 10:4 0 AM CDT 10/20/2024 2:50 PM CDT Narrative [facility] FEL[facility] ([place]) - 10/21/2024 11:36 AM CDT [id number] us Maurice Caldera MD LAB BLOOD ORDERABLES Final Resu lt [facility] ([place]) 1 [facility] Department [place] [address] * eGFR (10/20/2024 10:40 AM CDT) eGFR [...] ORDERABLES Final Resu lt [facility] ([facility]) 1 [facility] [place] [address] * Differential, auto (10/20/2024 10:40 AM CDT) Neutrophil abs 3.86 1.50 - 6.50 K/cumm Imm gran abs 0.05 0.00 - 0.10 K/cumm [facility] ([place]) Lymphocyte abs 1.78 0.80 - 3.30 K/cumm [facility] ([place]) Monocyte abs 0.31 0.20 - 0.80 K/cumm [facility] ([place]) Eosinophil abs 0.11 0.00 - 0.50 K/cumm [facility] ([place]) Basophil abs 0.03 0.00 - 0.10 K/cumm [facility] ([place]) Neutrophil pct 62.9 % [facility] ([facility]) Comment: Interpretive Data Percent cell count reference [...] Basophil pct 0.5 % [facility] ([place]) Comment: Interpretive Data Percent cell count reference ranges are not reported, since discordance with absolute values may lead to misinterpretation of CBC data. Current Interpretive Data was last revised on 2017. Blood 10/20/2024 10:4 0 AM CDT 10/20/2024 11:02 AM CDT Maurice Caldera MD LAB BLOOD ORDERABLES Final Resu lt Performing Organization Address City/[facility]/ZIP Co de Phone Number JOSÉ MIGUEL [facility] ([facility]) 1 [place] [address] * Thyroid Function [place] (10/20/2024 10:40 AM CDT) TSH 2.49 0.30 - 4.20 mcIUnit/mL Blood 10/20/2024 10:4 0 AM CDT 10/20/2024 11:02 AM CDT Maurice Caldera MD LAB BLOOD ORDERABLES Final Resu lt Performing Organization Address [facility] Co de Phone Number [facility] M[facility]EL [facility] ([place]) [address] [place] [address] * Urinalysis reflex to microscopic and culture Urine (10/20/2024 10:40 AM CDT) Color, ur Yellow Yellow Clarity, ur Clear Clear JOSÉ MIGUEL Muñoz ([place]) Specific gravity, ur 1.026 1.003 - 1.030 [facility] ([place]) pH, urine 7.0 [facility] ([place]) Comment: Interpretive Data U rine pH is affected by diet, medications, systemic acid-base disturbances, and renal tubular function. pH may affect urinary stone formation. For example, urine pH below 6.0 may help reduce the tendency for calcium phosphate stones and pH greater than 6.0 may reduce the tendency for uric acid stone formation. Source: [facility] Current Interpretive Data was last revised [...] HUNTER Final Result [facility] ([facility]) 1 [facility] Department [place] [address] * CBC with auto differential (10/20/2024 10:40 [...] ORDERABLES Final Resu lt Performing Organization Address City/[facility]/ZIP Co de Phone Number JOSÉ MIGUEL [facility] ([place]) 1 [facility] [place] [address] * Cyclic citrul peptide antibody, IgG (10/20/2024 10:40 AM CDT) CCP Ab <0.5 <=2.9 units/mL Comment: Interpretive data Negative: <3 units/mL Positive: > or equal to 3 units/mL Current interpretive data was last revised on 2016. Testing performed by: [facility], [address] [place] [address], [id number] Blood 10/20/2024 10:4 0 AM CDT 10/20/2024 2:50 PM CDT Result [facility] Maurice Caldera MD LAB BLOOD ORDERABLES Final Resu lt Performing Organization Address [facility] Co de Phone Number JOS[facility] MIGUEL [facility] ([place]) 1 [facility] [place] [address] * Rheumatoid factor (10/20/2024 10:40 AM CDT) Rheumatoid factor, quant <10 <=15 IUnits/mL Comment:Testing performed by : [facility], [address] [place] [address], [place]., [address] Blood 10/20/2024 10:4 0 AM CDT 10/20/2024 1:53 PM CDT Maurice Caldera MD LAB BLOOD ORDERABLES Final Resu lt [facility] MIGUEL [facility] ([place]) [address] [place] [address] * Magnesium (10/20/2024 10:40 AM CDT) Magnesium 2.1 1.4 - 2.5 mg/dL Blood 10/20/2024 10:4 0 AM CDT 10/20/2024 11:02 AM CDT Maurice Caldera MD LAB BLOOD ORDERABLES Final Resu lt Performing Organization Address [facility] Co de Phone Number [facility]OS[facility] MIGUEL [facility] ([place]) [address] [place] [address] * Hemoglobin A1c (10/20/2024 10:40 AM CDT) [facility] Hgb A1C 5.6 4.0 - 5.6 % Estimated Average Glucose 114 mg/dL JOS[facility] MIGUEL ShaikhWINDSOR) Comment: The ADA recommends reporting an estimated Average Glucose (eAG) with all Hemoglobin A1c results using the equation derived from a study of 507 normal and diabetic adults. Minority populations were underrepresented and children were not included. (Diabetes Care 31:7694-6354, 2008). The eAG is not equivalent to a fasting glucose. Blood 10/20/2024 10:4 0 AM CDT 10/20/2024 11:02 AM CDT Maurice Caldera MD LAB BLOOD ORDERABLES Final Resu lt JOS[facility] MIGUEL [facility]AL ([place]) [address] [place] [address] * Vitamin B12 (10/20/2024 10:40 AM CDT) Pathologist [facility] Vitamin B12 943 230 - 1,250 pg/mL Blood 10/20/2024 10:4 0 AM CDT 10/20/2024 11:02 AM CDT Maurice Caldera MD LAB BLOOD ORDERABLES Final Resu lt JOSÉ MIGUEL CHAHAL CLAU) 1 [facility] Department [place] [address] * Lipid panel (10/20/2024 10:40 AM CDT) [...] ORDERABLES Final Resu lt JOSÉ MIGUEL [facility]AL ([place]) 1 [facility] [place] [address] * Comprehensive metabolic panel (10/20/2024 10:40 AM [...] Final Resu lt [facility] ([place]) 1 [facility] [place] [address] * CT Abdomen Pelvis W Contrast (09/18/2024 [...] Brennon Rodriguez M.D. AM: AM Report ID: [id number] Reading Location: [id number] Procedure Note Brennon Rodriguez MD - 09/18/2024 [...] Brennon Rodriguez M.D. AM: AM Report ID: [id number] Reading Location: [id number] us Tom Younger MD IMG CT PROCEDURES [...] ORDERABLE S Final Result [facility]EL [facility] ([place]) 1 [facility] Department [place] [address] * Differential, auto (09/18/2024 9:37 AM CDT) [...] Final Result [facility] ([place]) 1 [facility] [place] [address] * (ABNORMAL) CBC with auto differential (09/18/2024 [...] S Final Result JOSÉ MIGUEL HANEY) 1 [facility] [place] [address] * ABO/Rh (09/18/2024 9:37 AM CDT) Pathologist [facility] ABO/Rh O Positive Blood 09/18/2024 9:37 AM CDT 09/18/2024 9:41 AM CDT Narrative [facility] M[facility]UEL [facility] ([place]) - 09/18/2024 10:23 AM CDT Has the patient had Daratumumab or Isatuximab in the past 6 months?->Unknown Tom Younger MD LAB BLOOD BANK TEST ORDERABLES Final Result [facility] MIGUEL ShaikhWIN[facility]OR) [address] [place] [address] * Antibody screen (09/18/2024 9:37 AM CDT) Pathologist [facility] Julee, indirect, Gel Interpretation Negative ABSC Blood 09/18/2024 9:37 AM CDT 09/18/2024 9:41 AM CDT Narrative JOS[facility] MIGUEL ShaikhWIN[facility]OR) - 09/18/2024 10:23 AM CDT Has the patient had Daratumumab or Isatuximab in the past 6 months?->Unknown Tom Younger MD LAB BLOOD BANK TEST ORDERABLES Final Result [facility] ([place]) [address] [place] [address] * (ABNORMAL) Comprehensive metabolic panel (09/18/2024 9:37 AM CDT) Pathologist [facility] Sodium 139 135 - 145 mmol/L Potassium, pl 4.1 3.3 - 4.9 mmol/L [facility] ([facility]) Chloride 104 97 - 110 mmol/L [facility] ([place]) CO2 25 22 - 32 mmol/L [facility] ([place]) Anion gap 11 2 - 15 mmol/L [facility] ([place]) BUN 15 6 - 25 mg/dL [facility]ER [...] MD LAB BLOOD ORDERABLE S Final Result [facility] ([place]) 1 [facility] Department of Laboratories [place], [place] [address] * Hepatitis panel, acute (03/07/2021 8:05 AM CDT) Hep A IgM Nonreactive Nonreactive [facility] ([place]) Comment: Interpretive Data: If Hep A IgM Ab is reported as Equivocal, a new sample should be drawn in two weeks for testing. Current interpretive data was last revised on 19. Testing performed by: [facility], [address] [place] [address]., [address] Hep B core IgM Nonreactive Nonreactive C JUDD CH[facility]AL ([place]) Comment: Interpretive Data If HepB Core IgM Ab is reported as Equivocal, a new sample should be drawn in two weeks for testing. Current interpretive data was last revised on 19. Testing performed by: [facility], [address] [place] [address]., [address] Hep C Ab Nonreactive Nonreactive JOSÉ MIGUEL [...] last revised on 2019. Testing performed by: [facility], [address] [place] [address]., [address] HepBsAg Nonreactive Nonreactive [facility]EL [facility] ([place]) Comment:Testing performed by : [address] [address] Blood 03/07/2021 8:05 AM CDT 03/07/2021 1:30 PM CDT Tristin Castillo MD LAB MICROBIOLOGY - GENERAL ORDERABLES Final Result [facility]UEL [facility] ([place]) 1 [facility] [place] [address] from Last 3 Months or Most Recently Relevant to Health Maintenance Insurance [facility] MEDICAID [employer] [place] [address] [place] [address] [facility] [employer] [place] Advance Directives For more information, please contact: [phone] * Full Code (Latest Code Status on File) Date Activated Date Inactivated Comments 11/11/2024 4:37 AM 11/12/2024 3:59 PM * Full Code Date Activated Date Inactivated Comments 11/01/2024 7:53 PM 11/02/2024 8:31 PM * Full Code Date Activated Date Inactivated Comments 11/03/2018 3:04 AM 11/03/2018 7:38 PM Care Teams Oleomargarine Maker Relationship Specialty Start Date End Date Maurice Caldera MD [address] [place] [address] PCP - General Family Medicine 06/24/24
--- OUTSIDE RECORDS SUMMARY | 2024-12-07 18:43 | XMS_ITS | Encounter Summary ---
Author Organization [facility] Healthcare Address [address] [place] [address] Care Team Providers Care Vice President Residential Solar Sales Name Role Phone Maurice Caldera MD Primary Care Provider [phone] Encounter Details Date Type Department Care Team (Late st Contact Info) Description 11/03/2024 Documentation [facility] [address] [facility] [address] [place] [address] Rashid Denny, MELISSA 4 [facility] [address] [place] [address] Social History Tobacco Use Types Packs/Day Years Used Date Smoking Tobacco: Former Cigarettes 0.5 40 Alcohol Use Standard Drinks/Week Comments Yes 1 (1 standard drink = 0.6 oz pur e alcohol) 3 times a week [facility] Utilities Answer Date Recorded In the past 12 months has [employer], gas, oil, or water company threatened [...] often do you attend chur ch or anglican services? More than 4 times per year [...] any time in the past 12 m [facility], were you homeless or living in a [facility] (including now)? No 11/02/2024 Personal Safety Answer Date Recorded Have you ever been in or are you currently in a harmful physical or emotional relationship or is someone making you feel afraid or unsafe? 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
--- OUTSIDE RECORDS SUMMARY | 2024-12-07 18:43 | XMS_ITS | Clinical Summary ---
Author Organization [facility] Address [address] [place] [address] Care Team Providers Care Tanning Solution Maker Name Role Phone Maurice Caldera MD Primary Care Provider Allergies No known active allergies Medications traZODone [...] Type Department Care Team Description 11/23/2024 Telephone [facility] Gastroenterology at [address] [place] [address] Tameka Black 11/23/2024 Hospital Encounter [facility] [address] [place] [address] Kyler Curtis DO 11/12/2024 12:02 PM CDT - 11/12/2024 11:59 PM CDT Hospital Encounter [facility] Emergency, Room R Discharge Disposition: Discharge to home or self care 11/10/2024 9:43 PM CDT - 11/12/2024 11:54 AM CDT Hospital Encounter [facility] IMU 1 [place] [address] Godfrey Chisholm MD Huynh, Kiet T., MD Kheirkhahan, Nazanin, MD Suicide attempt (HCC) (Primary Dx); Intentional benzodiazepine overdose, initial encounter (HCC); Alcohol abuse Discharge Disposition: Discharge to psych hospital or psych unit 11/10/2024 9:26 PM CDT - 11/10/2024 11:59 PM CDT Hospital Encounter [facility] Emergency, Room R Discharge Disposition: Discharge to home or self care 11/07/2024 Telephone [facility] Gastroenterology at [address] [address] Jeana Hooker 11/03/2024 Telephone [facility] Gastroenterology at [address] [address] Sonia Black MA Schedule EGD 11/03/2024 Documentation [facility] [address] [place] [address] [address] [address] Rashid Denny NP 11/01/2024 5:08 PM CDT - 11/02/2024 4:26 PM CDT Hospital Encounter [facility] IM[facility] 1 [place] [address] Alejandro Gonzalez MD Petters, Ekanga Sunday, MD Fasick, Victoria Rose, DO TIA (transient ischemic attack) (Primary Dx); Dysphagia, unspecified type Discharge Disposition: Discharge to home or self care 11/01/2024 4:40 PM CDT - 11/01/2024 11:59 PM CDT Hospital Encounter [facility] Emergency, Room R Discharge Disposition: Discharge to home or self care 10/28/2024 7:43 AM CDT - 10/28/2024 11:59 PM CDT Hospital Encounter [facility] Imaging Center 1 [place] [address] Posterior right knee pain Discharge Disposition: Discharge to home or self care 10/28/2024 7:42 AM CDT - 10/28/2024 11:59 PM CDT Hospital Encounter [address] [address] Posterior knee pain, left Discharge Disposition: Discharge to home or self care 10/20/2024 10:30 AM CDT Lab [address] [address] 10/20/2024 10:24 AM CDT - 10/20/2024 11:59 PM CDT Hospital Encounter [address] [address] Pain in left hand; Pain in right hand Discharge Disposition: Discharge to home or self care 10/18/2024 7:10 AM CDT - 10/18/2024 11:59 PM CDT Hospital Encounter [facility] 2 [facility] A, Johnie. [address] [place] [address] James Emanuel MD Mechanical low back pain (Primary Dx); Cervicalgia; Chronic bilateral low back pain with bilateral sciatica; Posterior knee pain, left; Posterior knee pain, right Discharge Disposition: Discharge to home or self care 10/18/2024 Orders Only [facility]ie. [address] [place] [address] James Emanuel MD Posterior right knee pain (Primary Dx); Posterior knee pain, left 09/18/2024 9:24 AM CDT - 09/18/2024 10:43 AM CDT Emergency [facility] Emergency Department 1 [place] [address] Tom Younger MD Abdominal pain (Primary Dx); [...] pur e alcohol) 3 times a week [employer] Answer Date Recorded In the past 12 months has [employer], [employer], oil, or water [employer] threatened to shut off services in your [...] How often do you attend chur or anglican services? More than 4 times per year 11/02/2024 Do you belong to any clubs o r organizations such as yazidi groups, unions, fraternal or athletic groups, or [...] any time in the past [address] 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 Gender Identity Female 03/07/2021 7:11 AM CDT [...] LAB BLOOD ORDERABLES Final Resu lt JOSÉ MGIUEL CHAHAL IRAAN) 1 [facility] [place] [address] * Differential, auto (11/12/2024 3:17 [...] Eosinophil pct 3.2 % [facility] ([facility]) Comment: Interpretive Data Percent cell count reference [...] Resu lt [facility] ([facility]) 1 [facility] [place] [address] * CBC with auto differential (11/12/2024 3:17 [...] Resu lt [facility] ([facility]) 1 [facility] [place] [address] * Magnesium (11/12/2024 3:17 AM CDT) Magnesium 1.9 1.4 - 2.5 mg/dL Blood 11/12/2024 3:17 AM CDT 11/12/2024 3:47 AM CDT us Billy Kaplan MD LAB BLOOD ORDERABLES Final Resu lt [facility] ([facility]) 1 [facility] [place] [address] * (ABNORMAL) Comprehensive metabolic panel (11/12/2024 3:17 [...] ORDERABLES Final Resu lt Performing Organization Address City/[facility]/ZIP Co de Phone Number JOSÉ MIGUEL CHAHAL (IRAAN) [address] [place] [address] [place] [address] * eGFR (11/11/2024 2:23 AM CDT) eGFR [...] ORDERABLES Final Re sult Performing Organization Address City/[facility]/ZIP Co de Phone Number JOSÉ MIGUEL [facility]AL (IRAAN) 1 [facility] Department [place] [address] * Differential, auto (11/11/2024 2:23 AM CDT) [...] Lymphocyte pct 45.1 % [facility] ([facility]) Comment: Interpretive Data Percent cell count reference [...] Re sult [facility] ([facility]) 1 [facility] [place] [address] * CBC with auto differential (11/11/2024 2:23 [...] [facility]OS[facility] MIGUEL [facility] (CL[facility]) 1 [facility] [place] [address] * Magnesium (11/11/2024 2:23 AM CDT) Magnesium 1.8 1.4 - 2.5 mg/dL Blood 11/11/2024 2:23 AM CDT 11/11/2024 2:40 AM CDT us Godfrey Chisholm MD LAB BLOOD ORDERABLES Final Re sult [facility] ([facility]) 1 [facility] Department [place] [address] * (ABNORMAL) Comprehensive metabolic panel (11/11/2024 2:23 [...] Re sult [facility] ([facility]) 1 [facility] [place] [address] * Urinalysis reflex to microscopic and culture [...] tendency for uric acid stone formation. Source: [facility] Current Interpretive Data was [...] GENERAL OR DERABLES Final Result JOSÉ MIGUEL [facility] ([facility]) 1 [facility] [place] [address] * (ABNORMAL) Drugs of Abuse Screen, Urine [...] 11:36 PM CDT Narrative [facility] (IRAAN) - 11/11/2024 12:13 AM CDT Drug of Abuse screening is performed by immunoassay for medical purposes only. This is not to be used for Pain Management purposes. us Godfrey Chisholm MD LAB URINE ORDERABLES Final Re sult Performing Organization Address [facility]/ZIP Co de Phone Number JOSÉ MIGUEL ShaikhIRAAN) [address] [place] [address] [place] [address] * eGFR (11/10/2024 10:41 PM CDT) eGFR [...] ORDERABLES Final Re sult Performing Organization Address City/[facility]/ZIP Co de Phone Number JOSÉ MIGUEL [facility]AL (IRAAN) 1 [facility] [place] [address] * Thyroid Function [place] (11/10/2024 10:41 PM CDT) TSH 3.92 0.30 - 4.20 mcIUnit/mL Blood 11/10/2024 10:4 1 PM CDT 11/10/2024 10:54 PM CDT Godfrey Chisholm MD LAB BLOOD ORDERABLES Final Re sult JOSÉ MIGUEL [facility] (IRAAN) [address] [place] [address] [place] [address] * (ABNORMAL) Iron profile w/ IBC (11/10/2024 10:41 PM CDT) [facility] Iron 53 35 - 145 mcg/dL TIBC 225(L) 250 - 400 mcg/dL [facility] (IRAAN) Transferrin saturation 24 20 - 50 % [facility] (IRAAN) Blood 11/10/2024 10:4 1 PM CDT 11/10/2024 10:54 PM CDT Godfrey Chisholm MD LAB BLOOD ORDERABLES Final Re sult JOSÉ MIGUEL [facility] (IRAAN) 1 [facility] [place] [address] * Magnesium (11/10/2024 10:41 PM CDT) [facility] Magnesium 2.0 1.4 - 2.5 mg/dL Blood 11/10/2024 10:4 1 PM CDT 11/10/2024 10:54 PM CDT Godfrye Chisholm MD LAB BLOOD ORDERABLES Final Re sult [facility] MIG[facility]EL [facility] (IRAAN) 1 [facility] [place] [address] * (ABNORMAL) Ferritin (11/10/2024 10:41 PM CDT) [facility] Ferritin 232(H) 15 - 150 ng/mL Blood 11/10/2024 10:4 1 PM CDT 11/10/2024 10:54 PM CDT Godfrey Chisholm MD LAB BLOOD ORDERABLES Final Re sult Performing Organization Address [facility]/ZIP Co de Phone Number [facility] IRAAN) 1 [facility] [place] [address] * (ABNORMAL) Ethanol (11/10/2024 10:41 PM CDT) Ethanol 125(H) <=10 mg/dL Comment: Interpretive Data Legal limit of intoxication > or = 80 mg/dL Levels > or = 400 mg/dL are potentially TOXIC. Current interpretive data was last revised on 2018. Blood 11/10/2024 10:4 1 PM CDT 11/10/2024 10:54 PM CDT Godfrey Chisholm MD LAB BLOOD ORDERABLES Final Re sult Performing Organization Address [facility] Co de Phone Number [facility] ([facility]) 1 [facility] [place] [address] * Acetaminophen level (11/10/2024 10:41 PM CDT) [...] after ingestion Consult toxicology or poison control ([phone]) for unknown ingestion time. Current interpretive data was last revised 2023. Blood 11/10/2024 10:4 1 PM CDT 11/10/2024 10:54 PM CDT us Godfrey Chisholm MD LAB BLOOD ORDERABLES Final Re sult Performing Organization Address City/[facility]/ZIP Co de Phone Number JOSÉ MIGUEL CH[facility]AL (IRAAN) 1 [facility] [place] [address] * Salicylate level (11/10/2024 10:41 PM CDT) Salicylate <5.0 <=5.0 mg/dL Comment: Interpretive Data Toxic: 30 mg/dL or greater. Current interpretive data was last revised 2023. Blood 11/10/2024 10:4 1 PM CDT 11/10/2024 10:54 PM CDT Godfrey Chisholm MD LAB BLOOD ORDERABLES Final Re sult Performing Organization Address [facility] Co de Phone Number JOSÉ MIGUEL [facility]AL (CL[facility]) 1 [facility] [place] [address] * (ABNORMAL) Comprehensive metabolic panel (11/10/2024 10:41 PM CDT) Sodium 144 135 - 145 mmol/L Potassium, pl 3.8 3.3 - 4.9 mmol/L [facility] ([facility]) Chloride 110 97 - 110 mmol/L [facility] ([facility]) CO2 22 22 - 32 mmol/L [facility] ([facility]) Anion gap 13 2 - 15 mmol/L [facility] ([facility]) BUN 16 6 - 25 mg/dL [facility] ([facility]) Creatinine 0.62 0.60 - 1.10 mg/dL [facility] Glucose 102 70 - 199 mg/dL [facility] ([facility]) Comment: Interpretive Data Fasting glucose [...] 2022. Calcium 8.1(L) 8.5 - 10.3 mg/dL [facility] ([facility]) Bilirubin, total <0.2 0.1 - [...] MD LAB BLOOD ORDERABLES Final Re sult [facility] ([facility]) 1 [facility] Department [place] [address] * COVID-19 Coronavirus RNA Nasopharyngeal (11/10/2024 10:25 PM CDT) COVID-19 RNA Negative Negative Nasopharyngeal 11/10/2024 10 :25 PM CDT 11/10/2024 10:29 PM CDT Narrative [facility] ([facility]) - 11/10/2024 11:10 PM CDT Is the patient experiencing any symptoms consistent with COVID (eg. Fever, cough, shortness of breath)?->No What is the reason for testing?->Screening prior to Behavioral health admission Interpretive data: Testing performed by [facility]. This test is performed using the [employer] Xpert Xpress CoV-2 plus assay. This is a real-time RT-PCR test intended for the qualitative detection of nucleic acid from the SARS-CoV-2. This assay has been cleared by the [place] Food and Drug administration. The performance characteristics have been verified by [facility]. Results must be considered in the clinical context, and a negative result does not rule out infection. Interpretive data last revised 2024. Interpretive data: Testing performed by [facility]. This test is performed using the [employer] Xpert Xpress CoV-2 plus assay. This is a real-time RT-PCR test intended for the qualitative detection of nucleic acid from the SARS-CoV-2. This assay has been cleared by the [place] Food and Drug administration. The performance characteristics have been verified by [facility]. Results must be considered in the clinical context, and a negative result does not rule out infection. Interpretive data last revised 2024. us Godfrey Chisholm MD LAB MICROBIOLOGY - GENERAL OR DERABLES Final Result JOSÉ MIGUEL [facility] (IRAAN) 1 [facility] [place] [address] * Differential, auto (11/10/2024 10:00 PM CDT) Neutrophil abs 2.79 1.50 - 6.50 K/cumm Imm gran abs 0.02 0.00 - 0.10 K/cumm [facility] ([facility]) Lymphocyte abs 2.43 0.80 - 3.30 K/cumm [facility] ([facility]) Monocyte abs 0.30 0.20 - 0.80 K/cumm [facility] ([facility]) Eosinophil abs 0.18 0.00 - 0.50 K/cumm [facility] ([facility]) Basophil abs 0.05 0.00 - 0.10 K/cumm [facility] ([facility]) Neutrophil pct 48.4 % [facility] ([facility]) Comment: Interpretive Data Percent cell count reference ranges are not reported, since discordance with absolute values may lead to misinterpretation of CBC data. Current Interpretive Data was last revised on 2017. Imm gran pct 0.3 % [facility] ([facility]) Comment: Interpretive Data Percent cell count reference ranges are not reported, since discordance with absolute values may lead to misinterpretation of CBC data. Current Interpretive Data was last revised on 2017. Lymphocyte pct 42.1 % [facility] ([facility]) Comment: Interpretive Data Percent cell count reference [...] Re sult JOSÉ MIGUEL FELA (CL[facility]) 1 [facility] [place] [address] * (ABNORMAL) CBC with auto differential (11/10/2024 [...] 32.3 - 35.7 g/dL [facility] ([facility]) RDW CV 11.9 11.1 - 14.9 % [facility] ([facility]) RDW SD 41.1 35.7 - 48.1 fL [facility] ([facility]) NRBC abs 0.00 0.00 - 0.01 K/cumm JOSÉ MIGUEL [facility] (IRAAN) Blood Venous blood specimen / Unknown 11/10/2024 10:00 PM CDT 11/10/2024 10:04 PM CDT Godfrey Chisholm MD LAB BLOOD ORDERABLES Final Re sult Performing Organization Address City/[facility] Co de Phone Number JOSÉ MIGUEL ShaikhIRAAN) [address] [place] [address] [place] [address] * ECG 12 lead (11/10/2024 9:52 PM CDT) 11/10/2024 9:52 PM CDT Narrative [facility] - 11/11/2024 7:22 AM CDT Vent Rate: 72 bpm RR Interval: 828 msec SD Interval: 139 msec QRS Duration: 81 msec QT Interval: 426 msec QTC Interval: 450 msec P-R-T Adrian: 55 - 32 - 44 degrees IMPRESSION: SINUS RHYTHM NORMAL ECG NO CHANGE FROM PREVIOUS TRACING NOTED Electronically Signed By: Sid Whittington MD us Godfrey Chisholm MD ECG ORDERABLES Final Result Performing Organization Address [facility] Co de Phone Number [facility] [employer] [facility] * TRANSTHORACIC ECHO (TTE) COMPLETE W DOPPLER/CF WO CONTRAST W BUBBLE (11/02/2024 9:55 AM CDT) Estimated EF 65 % CONS SCIMAGE Anatomical Region Laterality Modality Ultrasound 11/02/2024 9:52 AM CDT Narrative 11/02/2024 12:27 PM CDT [address] [address] Echocardiogram Report Patient Name: NAPOLEON MARTINEZ D : 1965 Study Date: 11/02/2024 9:52:51 AM Gender: F Tech: ELSA Location: [id number] Ref Provider: LORI ADAM Height(Cm): BSA: Weight(Kg): [...] Procedure Note Sid Whittington MD - 11/02/[address] [address] Echocardiogram Report Patient Name: JUAN NAPOLEON, D : 1965 Study Date: 11/02/2024 9:52:51 AM Gender: F Tech: ELSA Location: [id number] Ref Provider: LORI ADAM Height(Cm): BSA: Weight(Kg): [...] by Anaya Flores M.D. SN: Report ID: [id number] Reading Location: [id number] Procedure Note Anaya Flores MD - 11/02/2024 [...] Anaya Flores M.D. SN: SN Report ID: [id number] Reading Location: [place] [address] Lori Adam MD IM MRI PROCEDURES Anni [...] ORDERABLES Final Res ult JOSÉ MIGUEL CHAHAL (IRAAN) 1 [facility] [employer] [place] [address] * eGFR (11/02/2024 12:23 AM CDT) eGFR [...] ORDERABLES Fi nal Result JOSÉ MIGUEL CHAHAL (IRAAN) 1 [facility] [place] [address] * CBC without differential (11/02/2024 12:23 AM [...] RDW CV 11.9 11.1 - 14.9 % [facility] RDW SD 38.0 35.7 - 48.1 fL [facility] ([facility]) NRBC abs 0.00 0.00 - 0.01 K/cumm [facility] Blood 11/02/2024 12:2 3 AM CDT 11/02/2024 12:25 AM CDT Lori Adam MD LAB BLOOD ORDERABLES Fi nal Result JOSÉ MIGUEL CH[facility]AL (IRAAN) 1 [facility] [place] [address] * Magnesium (11/02/2024 12:23 AM CDT) Magnesium 2.1 1.4 - 2.5 mg/dL Blood 11/02/2024 12:2 3 AM CDT 11/02/2024 12:25 AM CDT Lori Adam MD LAB BLOOD ORDERABLES Fi nal Result JOS[facility] MIGUEL CH[facility]AL (IRAAN) 1 [facility] [place] [address] * Comprehensive metabolic panel (11/02/2024 12:23 AM [...] MD LAB BLOOD ORDERABLES Fi nal Result [facility] 1 [facility] [place] [address] * Troponin T high-sensitivity 4-hour (11/01/2024 9:41 [...] Res ult [facility] ([facility]) 1 [facility] [place] [address] * Urinalysis reflex to microscopic and culture [...] tendency for uric acid stone formation. Source: [facility] [employer] Current Interpretive Data was last revised on [...] RAL ORDERABLES Final Result Performing Organization Address [facility] Co de Phone Number JOSÉ MIGUEL CHAHAL (IRAAN) 1 [facility] [place] [address] * Troponin T high-sensitivity 2-hour (11/01/2024 8:13 PM CDT) Trop T hs <6 <=14 ng/L Comment: Interpretive Data For further hscTnT resources including the diagnostic algorithm and an aid in interpretation, copy and paste this link: https://nrl.testcatalog.org/show/hsTrop Current Interpretive Data last revised 2020. Trop T hs delta 0 ng/L [facility] (IR[facility]) Trop T hs interp Insignificant [facility] (IRAAN) Blood 11/01/2024 8:13 PM CDT 11/01/2024 8:45 PM CDT us Alejandro Gonzalez MD LAB BLOOD ORDERABLES Final Res ult Performing Organization Address [facility] Co de Phone Number [facility] M[facility]EL [facility] (IRAAN) 1 [facility] [place] [address] * ECG 12 lead (11/01/2024 6:17 PM CDT) 11/01/2024 6:17 PM CDT Narrative [facility] - 11/02/2024 7:20 AM CDT Vent Rate: 61 bpm RR Interval: 978 msec SD Interval: 172 msec QRS Duration: 89 msec QT Interval: 436 msec QTC Interval: 439 msec P-R-T Adrian: 44 - 48 - 52 degrees IMPRESSION: SINUS RHYTHM POSSIBLE RIGHT VENTRICULAR CONDUCTION DELAY [RSR (QR) IN V1/V2] No prior EKG for comparison Electronically Signed By: Dr Gallo Thrasher us Alejandro Gonzalez MD ECG ORDERABLES Final Result [facility] * Troponin T high-sensitivity series (baseline, [...] ORDERABLES Final Res ult Performing Organization Address City/[facility]/ZIP Co de Phone Number [facility] ([address] [place] [address] * eGFR (11/01/2024 5:31 PM CDT) eGFR [...] ORDERABLES Final Res ult [facility] ([facility]) 1 [facility] [place] [address] * Differential, auto (11/01/2024 5:31 PM CDT) [...] Final Res ult [facility] ([facility]) 1 [facility] [place] [address] * CBC with auto differential (11/01/2024 5:31 [...] ORDERABLES Final Res ult [facility]OSÉ MIGUEL [facility] (IRAAN) 1 [facility] [place] [address] * Protime-INR (11/01/2024 5:31 PM CDT) Pathologist [facility] PT 11.6 9.7 - 13.0 sec [facility] ([facility]) INR 1.07 0.90 - 1.20 [facility] (IRAAN) Comment: Interpretive data Oral anticoagulant therapeutic ranges: Venous thromboembolism prophylaxis or treatment: 2.0-3.0 CARDIOLOGY Standard range: 2.0-3.0 High-intensity range: 2.5-3.5 Refer to indication-specific guidelines for appropriate target ranges for prosthetic heart valve replacement. Current interpretive data was last revised on 2019. Blood 11/01/2024 5:31 PM CDT 11/01/2024 5:33 PM CDT Alejandro Gonzalez MD LAB BLOOD ORDERABLES Final Res ult [facility]OS[facility] MIGUEL [facility] (IRAAN) 1 [facility] [place] [address] * Comprehensive metabolic panel (11/01/2024 5:31 PM CDT) Pathologist [facility] Sodium 135 135 - 145 mmol/L Potassium, pl 4.0 3.3 - 4.9 mmol/L [facility] ([facility]) Chloride 101 97 - 110 mmol/L [facility] ([facility]) CO2 23 22 - 32 mmol/L [facility] ([facility]) Anion gap 11 2 - 15 mmol/L [facility] ([facility]) BUN 13 6 - 25 mg/dL [facility] ([facility]) Creatinine 0.72 0.60 - 1.10 mg/dL [facility] ([facility]) Glucose 96 70 - 199 mg/dL [facility] ([facility]) Comment: Interpretive Data Fasting glucose [...] BLOOD ORDERABLES Final Res ult JOSÉ MIGUEL [facility] (IRAAN) 1 [facility] [place] [address] * CTA Stroke Head Neck W WO [...] Noncontrast head CT 11/01/2024 FINDINGS: INTRACRANIAL VESSELS [place]: The anterior, middle, posterior cerebral [...] to Dr. Alejandro Gonzalez at 5:39 p.m. HEALTH SAFETY INSTRUCTOR on 11/01/2024. THIS IS AN ELECTRONICALLY VERIFIED FINAL REPORT 11/01/2024 5:48 PM - Electronically signed by Carmelo Stearns M.D. AT: AT Report ID: [id number] Reading Location: [id number] Procedure Note Carmelo Stearns MD - 11/01/2024 [...] Noncontrast head CT 11/01/2024 FINDINGS: INTRACRANIAL VESSELS [place]: The anterior, middle, posterior cerebral [...] Stearns to Dr. Alejandro Gonzalez at 5:39p.m. HEALTH SAFETY INSTRUCTOR on 11/01/2024. THIS IS AN ELECTRONICALLY VERIFIED FINAL REPORT 11/01/2024 5:48 PM - Electronically signed by Carmelo Stearns M.D. AT: AT Report ID: [id number] Reading Location: [id number] Alejandro Gonzalez MD IM CT PROCEDURES Final [...] Manny Gay M.D. KT: AUBREY Report ID: [id number] Reading Location: [id number] Procedure Note Manny Gay MD - 11/01/2024 [...] Manny Gay M.D. KT: AUBREY Report ID: [id number] Reading Location: [id number] Alejandro Gonzalez MD IMG CT PROCEDURES Final Result * POCT glucose (11/01/2024 4:56 PM CDT) Glucose, POC 99 70 - 199 mg/dL Blood 11/01/2024 4:56 PM CDT 11/01/2024 4:56 PM CDT Lary Berumen DO LAB POCT ORDERABLES - DE VICE Final Result JOSÉ MIGUEL [facility] (IRAAN) 1 [facility] [place] [address] * US Knee (10/28/2024 8:20 AM CDT) Anatomical Region Laterality Modality Knee N/A Ultrasound 10/29/2024 1:39 PM CDT Narrative 10/29/2024 1:41 PM CDT EXAM DESCRIPTION: US KNEE COMPLETE REASON FOR STUDY: Pain TECHNIQUE: A Dynamic assessment was performed of the right knee and of the left knee by the motorcyles final inspector, with selected grayscale and color Doppler images [...] by Timi Zarco M.D. JR: Report ID: [id number] Reading Location: [id number] Procedure Note Timi Zarco MD - 10/29/2024 EXAM DESCRIPTION: US KNEE COMPLETE REASON FOR STUDY: Pain TECHNIQUE: A Dynamic assessment was performed of the right knee and ofthe left knee by the motorcyles final inspector, with selected grayscale and color Doppler images [...] by Timi Zarco M.D., JR: Report ID: [id number] Reading Location: [id number] us James Emanuel MD IMG US PROCEDURES Final Result * US Knee (10/28/2024 8:20 AM CDT) Anatomical Region Laterality Modality Knee N/A Ultrasound 10/29/2024 1:39 PM CDT Narrative 10/29/2024 1:41 PM CDT EXAM DESCRIPTION: US KNEE COMPLETE REASON FOR STUDY: Pain TECHNIQUE: A Dynamic assessment was performed of the right knee and of the left knee by the motorcyles final inspector, with selected grayscale and color Doppler images [...] by Timi Zarco M.D., JR: Report ID: [id number] Reading Location: [id number] Procedure Note Timi Zarco MD - 10/29/2024 EXAM DESCRIPTION: US KNEE COMPLETE REASON FOR STUDY: Pain TECHNIQUE: A Dynamic assessment was performed of the right knee and ofthe left knee by the motorcyles final inspector, with selected grayscale and color Doppler images [...] by Timi Zarco M.D. JR: Report ID: [id number] Reading Location: [id number] us James Emanuel MD IMG US PROCEDURES [...] Gregorio Alexandra M.D. MF: DHIRAJ Report ID: [id number] Reading Location: [id number] Procedure Note Gregorio Alexandra MD - 10/20/2024 [...] Gregorio Alexandra M.D. MF: DHIRAJ Report ID: [id number] Reading Location: [id number] Maurice Caldera MD IMG XR PROCEDURES Final [...] Gregorio Alexandra M.D. MF: DHIRAJ Report ID: [id number] Reading Location: [id number] Procedure Note Gregorio Alexandra MD - 10/20/2024 [...] Gregorio Alexandra M.D. MF: DHIRAJ Report ID: [id number] Reading Location: [id number] Maurice Caldera MD IMG XR PROCEDURES Final [...] last revised on 2020. Testing performed by: [facility], [address] [facility] [place] [address] Blood 10/20/2024 10:4 0 AM CDT 10/20/2024 2:50 PM CDT Narrative [facility] MIGUEL [facility]AL (IRAAN) - 10/21/2024 11:36 AM CDT [id number] Maurice Caldera MD LAB BLOOD ORDERABLES Final Resu lt [facility]UEL [facility] (IRAAN) 1 [facility] [place] [address] * eGFR (10/20/2024 10:40 AM CDT) Pathologist [facility] eGFR >90 >=60 mL/min/1. 73 m2 Comment: [...] ORDERABLES Final Resu lt JOSÉ MIGUEL CHAHAL (IRAAN) 1 [facility] [place] [address] * Differential, auto (10/20/2024 10:40 AM CDT) [...] ORDERABLES Final Resu lt JOSÉ MIGUEL CHAHAL (IRAAN) 1 [facility] [place] [address] * Thyroid Function [place] (10/20/2024 10:40 AM CDT) TSH 2.49 0.30 - 4.20 mcIUnit/mL Blood 10/20/2024 10:4 0 AM CDT 10/20/2024 11:02 AM CDT Maurice Caldera MD LAB BLOOD ORDERABLES Final Resu lt Performing Organization Address [facility]/[facility] Co de Phone Number JOSÉ MIGUEL CHAHAL (IRAAN) 1 [place] [address] * Urinalysis reflex to microscopic and culture [...] tendency for uric acid stone formation. Source: [facility] [employer] Current Interpretive Data was last revised on [...] Caldera MD LAB MICROBIOLOGY - GENERAL ORDE [facility] Final Result Performing Organization Address City/[facility] Co de Phone Number [facility] (CLAU) 1 [facility] [place] [address] * CBC with auto differential (10/20/2024 10:40 [...] lt [facility] (CLAU) 1 [facility] [place] [address] * Cyclic citrul peptide antibody, IgG (10/20/2024 10:40 AM CDT) Pathologist [facility] CCP Ab <0.5 <=2.9 units/mL Comment: Interpretive data Negative: <3 units/mL Positive: > or equal to 3 units/mL Current interpretive data was last revised on 2016. Testing performed by: [facility], [address] [place] [address], [address] Blood 10/20/2024 10:4 0 AM CDT 10/20/2024 2:50 PM CDT Maurice Caldera MD LAB BLOOD ORDERABLES Final Resu lt PRISCILLAJORGE CHAHAL (IRAAN) 1 [place] [address] * Rheumatoid factor (10/20/2024 10:40 AM CDT) [facility] Rheumatoid factor, quant <10 <=15 IUnits/mL Comment:Testing performed by : [facility], [address] [place] [address], [address] Blood 10/20/2024 10:4 0 AM CDT 10/20/2024 1:53 PM CDT Maurice Caldera MD LAB BLOOD ORDERABLES Final Resu lt [facility]OS[facility] MIGUEL [facility]AL (IRAAN) 1 [place] [address] * Magnesium (10/20/2024 10:40 AM CDT) Pathologist [facility] Magnesium 2.1 1.4 - 2.5 mg/dL Blood 10/20/2024 10:4 0 AM CDT 10/20/2024 11:02 AM CDT Maurice Caldera MD LAB BLOOD ORDERABLES Final Resu lt Performing Organization Address City/[facility]/ZIP Co de Phone Number JOSÉ MIGUEL CHAHAL (CLAU) 1 [facility] [place] [address] * Hemoglobin A1c (10/20/2024 10:40 AM CDT) Hgb A1C 5.6 4.0 - 5.6 % Estimated Average Glucose 114 mg/dL JOSÉ MIGUEL FELA (CLAU) Comment: The ADA recommends reporting an estimated Average Glucose (eAG) with all Hemoglobin A1c results using the equation derived from a study of 507 normal and diabetic adults. Minority populations were underrepresented and children were not included. (Diabetes Care 31:1460-0705, 2008). The eAG is not equivalent to a fasting glucose. Blood 10/20/2024 10:4 0 AM CDT 10/20/2024 11:02 AM CDT Maurice Caldera MD LAB BLOOD ORDERABLES Final Resu lt Performing Organization Address [facility] Co de Phone Number JOSÉ MIGUEL CHAHAL (CLAU) 1 [facility] [place] [address] * Vitamin B12 (10/20/2024 10:40 AM CDT) Pathologist [facility] Vitamin B12 943 230 - 1,250 pg/mL Blood 10/20/2024 10:4 0 AM CDT 10/20/2024 11:02 AM CDT Maurice Caldera MD LAB BLOOD ORDERABLES Final Resu lt Performing Organization Address City/[facility]/ZIP Co de Phone Number JOSÉ MIGUEL CHAHAL (CLAU) 1 [facility] [place] [address] * Lipid panel (10/20/2024 10:40 AM CDT) [...] Resu lt [facility] (CLAU) 1 [facility] [place] [address] * Comprehensive metabolic panel (10/20/2024 10:40 AM [...] Resu lt [facility] (CLAU) 1 [facility] [place] [address] * CT Abdomen Pelvis W Contrast (09/18/2024 [...] Brennon Rodriguez M.D. AM: AM Report ID: [id number] Reading Location: [id number] Procedure Note Brennon Rodriguez MD - 09/18/2024 [...] Brennon Rodriguez M.D. AM: AM Report ID: [id number] Reading Location: [id number] us Tom Younger MD IMG CT PROCEDURES [...] ORDERABLE S Final Result JOSÉ MIGUEL [facility]AL (IRAAN) 1 [facility] Department of Laboratories [place], [place] [id number] * Differential, auto (09/18/2024 9:37 AM CDT) [...] Final Result [facility] (CLAU) 1 [facility] [place] [address] * (ABNORMAL) CBC with auto differential (09/18/2024 [...] Final Result [facility] (CLAU) 1 [facility] [place] [address] * ABO/Rh (09/18/2024 9:37 AM CDT) Pathologist [facility] ABO/Rh O Positive Blood 09/18/2024 9:37 AM CDT 09/18/2024 9:41 AM CDT Narrative [facility] (CLAU) - 09/18/2024 10:23 AM CDT Has the patient had Daratumumab or Isatuximab in the past 6 months?->Unknown Tom Younger MD LAB BLOOD BANK TEST ORDERABLES Final Result JOSÉ MIGUEL ShaikhIRAAN) 1 [place] [address] * Antibody screen (09/18/2024 9:37 AM CDT) [facility] Julee, indirect, Gel Interpretation Negative ABSC Blood 09/18/2024 9:37 AM CDT 09/18/2024 9:41 AM CDT Narrative [facility] (IRAAN) - 09/18/2024 10:23 AM CDT Has the patient had Daratumumab or Isatuximab in the past 6 months?->Unknown Tom Younger MD LAB BLOOD BANK TEST ORDERABLES Final Result Performing Organization Address City/[facility] Co de Phone Number JOSÉ MIGUEL CHAHAL (IRAAN) 1 [facility] [place] [address] * (ABNORMAL) Comprehensive metabolic panel (09/18/2024 9:37 AM CDT) [facility] Sodium 139 135 - 145 mmol/L Potassium, pl 4.1 3.3 - 4.9 mmol/L [facility] (IRAAN) Chloride 104 97 - 110 mmol/L [facility] (IRAAN) CO2 25 22 - 32 mmol/L [facility] (IRAAN) Anion gap 11 2 - 15 mmol/L [facility] (CLAU) BUN 15 6 - 25 mg/dL [facility] (IRAAN) Creatinine 0.66 0.60 - 1.10 mg/dL [facility] (IRAAN) Glucose 97 70 - 199 mg/dL [facility] (IRAAN) Comment: Interpretive Data Fasting glucose >/= 126 [...] Final Result [facility] (CL[facility]) 1 [facility] [place] [address] * Hepatitis panel, acute (03/07/2021 8:05 AM CDT) Hep A IgM Nonreactive Nonreactive [facility] (CLAU) Comment: Interpretive Data: If Hep A IgM Ab is reported as Equivocal, a new sample should be drawn in two weeks for testing. Current interpretive data was last revised on 19. Testing performed by: [facility], [address] [place] [address], [place]., [address] Hep B core IgM Nonreactive Nonreactive [facility] (CLAU) Comment: Interpretive Data If HepB Core IgM Ab is reported as Equivocal, a new sample should be drawn in two weeks for testing. Current interpretive data was last revised on 19. Testing performed by: [facility], [address] [place] [address], [place]., [address] Hep C Ab Nonreactive Nonreactive [facility] [...] last revised on 2019. Testing performed by: [facility], [address] [place] [address]., [address] HepBsAg Nonreactive Nonreactive JOSÉ MIGUEL [facility] (CLAU) Comment:Testing performed by : [facility], [address] [place] [address]., [address] Blood 03/07/2021 8:05 AM CDT 03/07/2021 1:30 PM CDT Tristin Castillo MD LAB MICROBIOLOGY - GENERAL ORDERABLES Final Result JOSÉ MIGUEL CHAHAL (CLAU) 1 [facility] [place] [address] from Last 3 Months or Most Recently Relevant to Health Maintenance Insurance [facility] MEDICAID IDPA COMMERCIAL [facility] AETNA BLUE ACCESS OOS BLUE ACCESS [place] Cell Therapy ACCESS [place] Advance Directives For more information, please contact: [phone] * Full Code (Latest Code Status on File) Date Activated Date Inactivated Comments 11/11/2024 4:37 AM 11/12/2024 3:59 PM * Full Code Date Activated Date Inactivated Comments 11/01/2024 7:53 PM 11/02/2024 8:31 PM * Full Code Date Activated Date Inactivated Comments 11/03/2018 3:04 AM 11/03/2018 7:38 PM Care Teams Tanning Solution Maker Relationship Specialty Start Date End Date Maurice Caldera MD [address] [place] [address] [place] [address] PCP - General Family Medicine 06/24/24
--- OUTSIDE RECORDS SUMMARY | 2024-12-07 18:43 | XMS_ITS | Encounter Summary ---
Author Organization [facility] Healthcare Address [address] [place] [address] Care Team Providers Care Tourist Camp Attendant Name Role Phone Maurice Caldera MD Primary Care Provider [phone] Reason for Visit * Auth/Cert (Routine) Specialty Diagnoses / Procedures Referred By Taisha portillo Referred To Contact Diagnoses Dysphagia, unspecified type Esophageal stricture Dysphagia, unspecified type [R13.10] Esophageal stricture [K22.2] Procedures WI ESOPHAGOGASTRODUODENOSCOPY TRANSORAL DIAGNOSTIC ESOPHAGOGASTRODUODENOSCOPY Referral ID Status Reason Start Date Expiration Date Visits Re quested Visits Authorized [id number] 1 1 Encounter Details Date Type Department Care Team (Late st Contact Info) Description 11/23/2024 Hospital Encounter [facility] [address] [place] [address] Kyler Curtis, [address] [facility] [address] [place] [address] [place] [id number] Social History Tobacco Use Types Packs/Day Years Used Date Smoking Tobacco: Former Cigarettes 0.5 40 Alcohol Use Standard Drinks/Week Comments Yes 1 (1 standard drink = 0.6 oz pur e alcohol) 3 times a week [facility] Utilities Answer Date Recorded In the past 12 months has [employer] electric, gas, oil, or water company threatened [...] often do you attend chur ch or zoroastrianism services? More than 4 times per year 11/02/2024 Do you belong to any clubs o r organizations such as congregational groups, unions, fraternal or athletic groups, or [...] any time in the past 12 m [facility], were you homeless or living in a fpc (including now)? No 11/02/2024 Personal Safety Answer Date Recorded Have you ever been in or are you currently in a harmful physical or emotional relationship or is someone making you feel afraid or unsafe? 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
== END 2024-12-07 19:07 | disposition home or self-care (01) ==
PROVIDERS: Emergency Provider Internal Medicine Critical Care Medicine; PCP Family Medicine
DX: J40 Bronchitis, not specified as acute or chronic (principal); J06.9 Acute upper respiratory infection, unspecified; F17.210 Nicotine dependence, cigarettes, uncomplicated
CPT/HCPCS: 71045; 99283

== ENCOUNTER 2025-01-24 13:57 | Emergency (ER) | payer MEDICAID, SELFPAY ==
--- NOTE | ~2025-01-24 | CT_ITS ---
EXAMINATION: CT abdomen pelvis w con DATE: 01/24/2025 15:57 INDICATION: Right abdominal pain TECHNIQUE: Computed tomography (CT) of the abdomen and pelvis was performed with 100 cc Omnipaque 350 intravenous contrast. The dose-length product was 541.47 mGy-cm. Automated exposure control and iter ative reconstruction technique were employed. COMPARISON: CT dated 10/04/2022 FINDINGS: Lung bases unremarkable. Heart size normal. Bilateral breast implants. No significant pleur al or pericardial effusion. The liver, spleen, pancreas, adrenal glands and kidneys are unremarkable. There are small right renal cysts. Gallbladder is present. Nonobstructive bowel gas pattern. No free air or free fluid. No hydronephrosis. No acute osseous abnormality. IMPRESSION: 1. No acute abdominal abnormality. Reviewed, dictated and finalized at location A.
[2025-01-24 13:59] VITALS: BP 123/87; PULSE 80; RESP 20; TEMP 36.8; O2SAT 100
--- OUTSIDE RECORDS SUMMARY | 2025-01-24 14:05 | XMS_ITS | Encounter Summary ---
Author Organization [facility] Address [address] [place] [id number] Care Team Providers Care Protection Engineer Name Role Phone None, Provider Primary Care Provider Jeremie Bowman MD Primary Care Provider Shen Arroa MD Primary Care Provider [phone] Jeremie Casanova MD Primary Care Provider Maurice Caldera MD Primary Care Provider [phone] Encounter Details Date Type Department Care Team (Late st Contact Info) Description 09/05/2017 Abstract SMD CONVERSION [address] [address] , Generic ConversionMD Social History Tobacco Use Types Packs/Day Years Used Date Smoking Tobacco: Never Assessed Comments Unknown Sex and Gender Information Value Date Recorded Sex Assigned at Female 01/09/2023 3:32 PM CDT Legal Sex Female 4:46 PM CDT Gender Identity Female 01/09/2023 3:32 PM CDT Sexual Orientation Not on file documented as of this encounter Plan of Treatment Not on file documented as of this encounter Visit Diagnoses Not on filedocumented in this encounter Additional Health Concerns Infection Onset Date Last Indicated Resolved Time COVID-19 Rule Out 03/10/2023 03/10/2023 03/10/2023 9:58 AM CDT documented as of this encounter Care Teams Protection Engineer Relationship Specialty Start Date End Date None, Provider, PCP - General 12/04/18 05/09/19 Jeremie Casanova MD [address] [place] [phone] PCP - General FAMILY PRACTICE 05/10/19 01/27/21 Shen Arora MD [address] [place] [phone] PCP - General INTERNAL MEDICINE 01/28/21 12/31/22 Jeremie Casanova MD [address] [place] [phone] PCP - General FAMILY PRACTICE 01/01/23 07/08/24 Maurice Caldera MD [address] [place] [phone] PCP - General HOSPITALIST 07/09/24 documented as of this encounter
--- OUTSIDE RECORDS SUMMARY | 2025-01-24 14:05 | XMS_ITS | Referral Summary ---
[facility] Organization [facility] Address [address] [place] [address] Care Team Providers Care Director Music Name Role Phone Maurice Caldera MD Primary Care Provider [phone] Encounters Date Type Department Care Team Description 11/23/2024 Telephone [facility] Gastroenterology at [address] [place] [phone] Tameka Black 11/23/2024 Hospital Encounter [facility] [address] [place] [phone] Kyler Curtis DO 11/12/2024 12:02 PM CDT - 11/12/2024 11:59 PM CDT Hospital Encounter [facility]ILL[facility] Emergency, Room R Discharge Disposition: Discharge to home or self care 11/10/2024 9:43 PM CDT - 11/12/2024 11:54 AM CDT Hospital Encounter [facility] [address] [place] [address] Godfrey Chisholm MD Huynh, Kiet T., MD Kheirkhahan, Nazanin, MD Suicide attempt (HCC) (Primary Dx); Intentional benzodiazepine overdose, initial encounter (HCC); Alcohol abuse Discharge Disposition: Discharge to psych hospital or psych unit 11/10/2024 9:26 PM CDT - 11/10/2024 11:59 PM CDT Hospital Encounter [facility] Emergency, Room R Discharge Disposition: Discharge to home or self care 11/07/2024 Telephone [facility] Gastroenterology at [address] [place] [phone] [place] Jeanariley Araiza 11/03/2024 Telephone [facility] Gastroenterology at [place] [address] [facility] [address] [place] [phone] Sonia Black MA Schedule EGD 11/03/2024 Documentation [facility] [address] [facility] [address] [place] [phone] Rashid Denny AMBULANCE ASSISTANT 11/01/2024 5:08 PM CDT - 11/02/2024 4:26 PM CDT Hospital Encounter [facility] [address] [place] [address] Alejandro Gonzalez MD Petters, MD [place] Charl[place] Victoria Rose, TIA (transient ischemic attack) (Primary Dx); Dysphagia, unspecified type Discharge Disposition: Discharge to home or self care 11/01/2024 4:40 PM CDT - 11/01/2024 11:59 PM CDT Hospital Encounter [facility] BILLING Emergency, Room R Discharge Disposition: Discharge to home or self care 10/28/2024 7:42 AM CDT - 10/28/2024 11:59 PM CDT Hospital Encounter [facility] [address] [place] [id number] Posterior knee pain, left Discharge Disposition: Discharge to home or self care 10/28/2024 7:43 AM CDT - 10/28/2024 11:59 PM CDT Hospital Encounter [address] [address] Posterior right knee pain Discharge Disposition: Discharge to home or self care from Last 3 Months Allergies No known active allergies Medications traZODone (DESYREL) 50 mg tabletIndicatio ns:insomnia associated with depression Take 1 tablet (50 [...] total) by mouth daily 30 tablet 1 11/12/2024 Active atorvastatin (LIPITOR) 40 mg tablet Take 1 tablet (40 mg total) by mouth nightly 30 tablet 1 11/12/2024 Active clopidogreL (PLAVIX) 75 mg tablet Take 1 tablet (75 mg total) by mouth daily for 21 days 21 tablet 11/12/2024 Active folic acid (FOLVITE) 1 mg tabletIndicatio ns:Folate Deficiency Take 1 tablet (1 mg total) by mouth daily for 2 doses 2 tablet 11/12/2024 Active hydrOXYzine (ATARAX) 50 mg tabletIndicatio ns:Opioid Withdrawal Symptoms Take 1 tablet (50 mg total) by mouth 3 (three) times a day as needed for anxiety for up to 30 doses 30 tablet 11/12/2024 Active thiamine (VITAMIN B1) 100 mg tabletIndicatio ns:Thiamine Deficiency Take 1 tablet (100 mg total) by mouth daily for 4 doses 4 tablet 11/12/2024 Active Active Problems Problem Noted Date Diagnosed Date [...] pur e alcohol) 3 times a week [facility] Utilities Answer Date Recorded In the past 12 months has e 5app, gas, oil, or water IPM [place] threatened to shut off services in your [...] How often do you attend chur or druze services? More than 4 times per year 11/02/2024 Do you belong to any clubs o r organizations such as quaker groups, unions, fraternal or athletic groups, or [...] any time in the past 12 m [facility], were you homeless or living in a long-term (including now)? No 11/02/2024 Personal Safety Answer Date Recorded Have you ever been in or are you currently in a harmful physical or emotional relationship or is someone making you feel afraid or unsafe? Denies 11/10/2024 Comments No Sex and Gender Information Value Date Recorded Sex Assigned at Not on file Legal Sex Female 12:38 AM [employer] Gender Identity Female 03/07/2021 7:11 AM CDT [...] 8:20 AM CDT Posterior knee pain, left HEPATITIS PANEL, ACUTE Routine 03/07/2021 8:05 AM [...] MD LAB BLOOD ORDERABLES Final Resu lt [facility] ([place]) [address] [facility] [place] [address] * Differential, auto (11/12/2024 3:17 AM CDT) [...] MD LAB BLOOD ORDERABLES Final Resu lt [facility] ([place]) [address] [facility] [place] [address] * CBC with auto differential (11/12/2024 3:17 [...] RDW SD 39.5 35.7 - 48.1 fL [facility] ([place]) NRBC abs 0.00 0.00 - 0.01 K/cumm [facility] ([place]) Blood 11/12/2024 3:17 AM CDT 11/12/2024 3:47 AM CDT Billy Kaplan MD LAB BLOOD ORDERABLES Final Resu lt Performing Organization Address City/[facility]/ZIP Co de Phone Number [facility] ([place]) 1 [facility] [employer] [address] [place] [address] * Magnesium (11/12/2024 3:17 AM CDT) Pathologist [facility] Magnesium 1.9 1.4 - 2.5 mg/dL Blood 11/12/2024 3:17 AM CDT 11/12/2024 3:47 AM CDT Billy Kaplan MD LAB BLOOD ORDERABLES Final Resu lt Performing Organization Address [facility] Co de Phone Number [facility] ([place]) 1 [facility] [employer] [address] [place] [address] * (ABNORMAL) Comprehensive metabolic panel (11/12/2024 3:17 AM CDT) Sodium 142 135 - 145 mmol/L Potassium, pl 4.1 3.3 - 4.9 mmol/L [facility] ([place]) Chloride 107 97 - 110 mmol/L [facility] ([place]) CO2 23 22 - 32 mmol/L [facility] ([place]) Anion gap 11 2 - 15 mmol/L [facility] ([place]) BUN 20 6 - 25 mg/dL [facility] ([place]) Creatinine 0.69 0.60 - 1.10 mg/dL [facility] ([place]) Glucose 103 70 - 199 mg/dL [facility] ([place]) Comment: Interpretive Data Fasting glucose [...] Resu lt [facility] ([place]) 1 [facility] [place] [address] * eGFR (11/11/2024 2:23 AM CDT) eGFR [...] MD LAB BLOOD ORDERABLES Final Re sult [facility] ([place]) 1 [facility] [place] [address] * Differential, auto (11/11/2024 2:23 AM CDT) [...] MD LAB BLOOD ORDERABLES Final Re sult [facility] [address] [facility] Department [place] [address] * CBC with auto differential (11/11/2024 2:23 [...] RDW SD 39.7 35.7 - 48.1 fL [facility] ([place]) NRBC abs 0.00 0.00 - 0.01 K/cumm [facility] ([place]) Blood 11/11/2024 2:23 AM CDT 11/11/2024 2:40 AM CDT Godfrey Chisholm MD LAB BLOOD ORDERABLES Final Re sult Performing Organization Address City/[facility]/ZIP Co de Phone Number [facility] ([place]) 1 [facility] [employer] [address] [place] [address] * Magnesium (11/11/2024 2:23 AM CDT) Pathologist [facility] Magnesium 1.8 1.4 - 2.5 mg/dL Blood 11/11/2024 2:23 AM CDT 11/11/2024 2:40 AM CDT us Godfrey Chisholm MD LAB BLOOD ORDERABLES Final Re sult Performing Organization Address City/[facility] Co de Phone Number [facility] ([place] 1 [facility] [employer] [address] [place] [address] * (ABNORMAL) Comprehensive metabolic panel (11/11/2024 2:23 AM CDT) Sodium 144 135 - 145 mmol/L Potassium, pl 3.8 3.3 - 4.9 mmol/L [facility] ([place]) Chloride 109 97 - 110 mmol/L [facility] ([place]) CO2 20(L) 22 - 32 mmol/L [facility] ([place]) Anion gap 14 2 - 15 mmol/L [facility] ([place]) BUN 14 6 - 25 mg/dL [facility] ([place]) Creatinine 0.55(L) 0.60 - 1.10 mg/dL [facility] ([place]) Glucose 126 70 - 199 mg/dL [facility] ([place]) Comment: Interpretive Data Fasting glucose [...] MD LAB BLOOD ORDERABLES Final Re sult [facility] ([place]) 1 [facility] [place] [address] * Urinalysis reflex to microscopic and culture Urine (11/10/2024 11:28 PM CDT) Color, ur Straw Yellow Clarity, ur Clear Clear [facility] ([place]) Specific gravity, ur 1.006 1.003 - [...] tendency for uric acid stone formation. Source: [facility] Current Interpretive Data was last revised on [...] GENERAL OR DERABLES Final Result [facility] ([place]) 1 [facility] [place] [address] * (ABNORMAL) Drugs of Abuse Screen, Urine [...] Phencyclidine, ur Not Detected CutOff 25 ng/mL [facility] ([place]) Comment: Interpretive Data - Phencyclidine: Samples [...] Re sult [facility] ([place]) [address] [facility] [place] [address] * eGFR (11/10/2024 10:41 PM CDT) eGFR [...] of Race in Diagnosing Kidney Disease, JASN 202). The CKD-EPI equation should not be used for patients with unstable renal function and has not been validated in children and those over 70. Current interpretive data was last reviewed 2021. Blood 11/10/2024 10:4 1 PM CDT 11/10/2024 10:54 PM CDT Godfrey Chisholm MD LAB BLOOD ORDERABLES Final Re sult [facility] ([place]) 1 [facility] [employer] [address] [place] [address] * Thyroid Function Delta (11/10/2024 10:41 PM CDT) TSH 3.92 0.30 - 4.20 mcIUnit/mL Blood 11/10/2024 10:4 1 PM CDT 11/10/2024 10:54 PM CDT Godfrey Chisholm MD LAB BLOOD ORDERABLES Final Re sult Performing Organization Address [facility] Co de Phone Number [facility] ([place]) 1 [facility] [place] [address] * (ABNORMAL) Iron profile w/ IBC (11/10/2024 10:41 PM CDT) Iron 53 35 - 145 mcg/dL TIBC 225(L) 250 - 400 mcg/dL [facility] ([place]) Transferrin saturation 24 20 - 50 % [facility] ([place]) Blood 11/10/2024 10:4 1 PM CDT 11/10/2024 10:54 PM CDT Godfrey Chisholm MD LAB BLOOD ORDERABLES Final Re sult [facility] ([place]) 1 [facility] [place] [address] * Magnesium (11/10/2024 10:41 PM CDT) Magnesium 2.0 1.4 - 2.5 mg/dL Blood 11/10/2024 10:4 1 PM CDT 11/10/2024 10:54 PM CDT Godfrey Chisholm MD LAB BLOOD ORDERABLES Final Re sult [facility] ([place]) 1 [facility] [employer] [address] [place] [address] * (ABNORMAL) Ferritin (11/10/2024 10:41 PM CDT) Ferritin 232(H) 15 - 150 ng/mL Blood 11/10/2024 10:4 1 PM CDT 11/10/2024 10:54 PM CDT Godfrey Chisholm MD LAB BLOOD ORDERABLES Final Re sult Performing Organization Address [facility] Co de Phone Number [facility] ([place]) 1 [facility] [employer] [address] [place] [address] * (ABNORMAL) Ethanol (11/10/2024 10:41 PM CDT) Ethanol 125(H) <=10 mg/dL Comment: Interpretive Data Legal limit of intoxication > or = 80 mg/dL Levels > or = 400 mg/dL are potentially TOXIC. Current interpretive data was last revised on 2018. Blood 11/10/2024 10:4 1 PM CDT 11/10/2024 10:54 PM CDT Godfrey Chisholm MD LAB BLOOD ORDERABLES Final Re sult Performing Organization Address City/[facility]/ZIP Co de Phone Number [facility] ([place]) 1 [facility] [employer] [address] [place] [address] * Acetaminophen level (11/10/2024 10:41 PM CDT) [...] after ingestion Consult toxicology or poison control ([phone]) for unknown ingestion time. Current interpretive data was last revised 2023. Blood 11/10/2024 10:4 1 PM CDT 11/10/2024 10:54 PM CDT Godfrey Chisholm MD LAB BLOOD ORDERABLES Final Re sult Performing Organization Address [facility]/ZIP Co de Phone Number [facility] ([address] [facility] [place] [address] * Salicylate level (11/10/2024 10:41 PM CDT) Salicylate <5.0 <=5.0 mg/dL Comment: Interpretive Data Toxic: 30 mg/dL or greater. Current interpretive data was last revised 2023. Blood 11/10/2024 10:4 1 PM CDT 11/10/2024 10:54 PM CDT Godfrey Chisholm MD LAB BLOOD ORDERABLES Final Re sult [facility] ([address] [place] [address] * (ABNORMAL) Comprehensive metabolic panel (11/10/2024 10:41 PM CDT) Sodium 144 135 - 145 mmol/L Potassium, pl 3.8 3.3 - 4.9 mmol/L [facility] ([place]) Chloride 110 97 - 110 mmol/L [facility] ([place]) CO2 22 22 - 32 mmol/L [facility] ([place] Anion gap 13 2 - 15 mmol/L [facility] ([place]) BUN 16 6 - 25 mg/dL [facility] ([place]) Creatinine 0.62 0.60 - 1.10 mg/dL [facility] ([place]) Glucose 102 70 - 199 [...] Re sult [facility] ([place]) 1 [facility] [place] [address] * COVID-19 Coronavirus RNA Nasopharyngeal (11/10/2024 10:25 PM CDT) COVID-19 RNA Negative Negative Nasopharyngeal 11/10/2024 10 :25 PM CDT 11/10/2024 10:29 PM CDT Narrative [facility] ([place]) - 11/10/2024 11:10 PM CDT Is the patient experiencing any symptoms consistent with COVID (eg. Fever, cough, shortness of breath)?->No What is the reason for testing?->Screening prior to Behavioral health admission Interpretive data: Testing performed by [facility]. This test is performed using the [employer] Xpert Xpress CoV-2 plus assay. This is a real-time RT-PCR test intended for the qualitative detection of nucleic acid from the SARS-CoV-2. This assay has been cleared by the [place] Food and Drug administration. The performance characteristics have been verified by [facility]. Results must be considered in the clinical context, and a negative result does not rule out infection. Interpretive data last revised 2024. Interpretive data: Testing performed by [facility]. This test is performed using the [employer] Xpert Xpress CoV-2 plus assay. This is a real-time RT-PCR test intended for the qualitative detection of nucleic acid from the SARS-CoV-2. This assay has been cleared by the [place] Food and Drug administration. The performance characteristics have been verified by [facility]. Results must be considered in the clinical context, and a negative result does not rule out infection. Interpretive data last revised 2024. us Godfrey Chisholm MD LAB MICROBIOLOGY - GENERAL OR DERABLES Final Result [facility] ([place]) 1 [facility] [place] [address] * Differential, auto (11/10/2024 10:00 PM CDT) Neutrophil abs 2.79 1.50 - 6.50 K/cumm Imm gran abs 0.02 0.00 - 0.10 K/cumm [facility] ([place]) Lymphocyte abs 2.43 0.80 - 3.30 K/cumm [facility] ([place]) Monocyte abs 0.30 0.20 - 0.80 K/cumm [facility] ([place]) Eosinophil abs 0.18 0.00 - 0.50 K/cumm [facility] ([place]) Basophil abs 0.05 0.00 - 0.10 K/cumm [...] MD LAB BLOOD ORDERABLES Final Re sult [facility] ([place]) 1 [facility] [place] [address] * (ABNORMAL) CBC with auto differential (11/10/2024 10:00 PM CDT) WBC 5.77 3.80 - 9.90 K/cumm Hgb 14.7 11.9 - 15.5 g/dL [facility] ([place]) Hct 46.0(H) 35.6 - 45.5 % [facility] ([place]) Plt 252 150 - 400 K/cumm [facility] ([place]) MPV 9.8 9.1 - 12.3 fL [facility] ([place]) RBC 4.85 3.90 - 5.20 M/cumm [facility] ([place]) MCV 94.8 81.3 - 96.4 fL [facility] ([place]) MCH 30.3 27.1 - 33.3 pg [facility] ([place]) MCHC 32.0(L) 32.3 - 35.7 g/dL [facility] ([place]) RDW CV 11.9 11.1 - 14.9 % [facility] ([place]) RDW SD 41.1 35.7 - 48.1 fL [facility] ([place]) NRBC abs 0.00 0.00 - 0.01 K/cumm [facility] ([place]) Blood Venous blood specimen / Unknown 11/10/2024 10:00 PM CDT 11/10/2024 10:04 PM CDT us Godfrey Chisholm MD LAB BLOOD ORDERABLES Final Re sult [facility] ([place]) 1 [facility] [place] [address] * ECG 12 lead (11/10/2024 9:52 PM CDT) 11/10/2024 9:52 PM CDT Narrative [facility] - 11/11/2024 7:22 AM CDT Vent Rate: 72 bpm RR Interval: 828 msec ND Interval: 139 msec QRS Duration: 81 msec QT Interval: 426 msec QTC Interval: 450 msec P-R-T Richardson: 55 - 32 - 44 degrees IMPRESSION: SINUS RHYTHM NORMAL ECG NO CHANGE FROM PREVIOUS TRACING NOTED Electronically Signed By: Sid Whittington MD us Godfrey Chisholm MD ECG ORDERABLES Final Result [facility] [employer] [facility] - [employer] [facility] * TRANSTHORACIC ECHO (TTE) COMPLETE W DOPPLER/CF WO CONTRAST W BUBBLE (11/02/2024 9:55 AM CDT) Estimated EF 65 % CONS SCIMAGE Anatomical Region Laterality Modality Ultrasound 11/02/2024 9:52 AM CDT Narrative 11/02/2024 12:27 PM CDT [address] [address] Echocardiogram Report Patient Name: NAPOLEON MARTINEZ D : 1965 Study Date: 11/02/2024 9:52:51 AM Gender: F Tech: Location: [id number] Ref Provider: LORI ADAM Height(Cm): BSA: Weight(Kg): [...] Procedure Note Sid Whittington MD - 11/02/[address] [address] Echocardiogram Report Patient Name: NAPOLEON MARTINEZ D : 1965 Study Date: 11/02/2024 9:52:51 AM Gender: F Tech: ELSA Location: [id number] Ref Provider: LORI ADAM Height(Cm): BSA: Weight(Kg): [...] 11/02/2024 12:27:10 PM CDT us Lori Ulisses Adam MD CV ECHO PROCEDURES Anni l Result * [...] by Anaya Flores M.D. SN: Report ID: [id number] Reading Location: [id number] Procedure Note Anaya Flores MD - 11/02/2024 EXAM DESCRIPTION: MRI BRAIN WO CONTRAST REASON FOR STUDY: Stroke, follow up Garbled speech and right sided leg weakness and right sided facial droop. TECHNIQUE: Multiplanar imaging includes non-contrasted T1, T2, FLAIR, and diffusion with ADC map sequences. Additional sequence(s) sensitive [employer]. Images stored on PACS. COMPARISON: CT of [...] Anaya Flores M.D. SN: SN Report ID: [id number] Reading Location: [id number] us Lori Adam MD IMG MRI PROCEDURES Anni l Result * Troponin [...] ORDERABLES Final Res ult [facility] ([place]) 1 [facility] [place] [address] * eGFR (11/02/2024 12:23 AM CDT) eGFR [...] ORDERABLES Fi nal Result Performing Organization Address City/[facility] Co de Phone Number [facility] ([place]) 1 [facility] [place] [address] * CBC without differential (11/02/2024 12:23 AM [...] ORDERABLES Fi nal Result Performing Organization Address City/[facility]/ZIP Co de Phone Number [facility] ([place]) [address] [place] [address] * Magnesium (11/02/2024 12:23 AM CDT) Magnesium 2.1 1.4 - 2.5 mg/dL Blood 11/02/2024 12:2 3 AM CDT 11/02/2024 12:25 AM CDT Lori Adam MD LAB BLOOD ORDERABLES nal Result [facility] ([place]) 1 [facility] [place] [address] * Comprehensive metabolic panel (11/02/2024 12:23 AM CDT) Sodium 135 135 - 145 mmol/L Potassium, pl 3.9 3.3 - 4.9 mmol/L [facility] ([place]) Chloride 103 97 - 110 mmol/L [facility] ([place]) CO2 24 22 - 32 mmol/L [facility] ([place]) Anion gap 8 2 - 15 mmol/L [facility] ([place]) BUN 17 6 - 25 mg/dL [facility] ([place]) Creatinine 0.73 0.60 - 1.10 [...] ORDERABLES Fi nal Result Performing Organization Address City/[facility]/ZIP Co de Phone Number [facility] 1 [facility] [place] [address] * Troponin T high-sensitivity 4-hour (11/01/2024 9:41 [...] MD LAB BLOOD ORDERABLES Final Res ult [facility] ([place]) 1 [facility] [place], [place] [address] * Urinalysis reflex to microscopic and culture Urine (11/01/2024 8:56 PM CDT) Color, ur Yellow Yellow Clarity, ur Clear Clear [facility] ([place]) Specific gravity, ur 1.010 1.003 - 1.030 [...] tendency for uric acid stone formation. Source: [facility] Current Interpretive Data was last revised [...] us Lori Adam MD LAB MICROBIOLOGY - [facility] ORDERABLES Final Result [facility] ([place]) 1 [facility] [place] [address] * Troponin T high-sensitivity 2-hour (11/01/2024 8:13 [...] ORDERABLES Final Res ult Performing Organization Address City/[facility]/ZIP Co de Phone Number [facility] ([place]) 1 [facility] Department [place] [employer] [address] [place] [address] * ECG 12 lead (11/01/2024 6:17 PM CDT) 11/01/2024 6:17 PM CDT Narrative [facility] - 11/02/2024 7:20 AM CDT Vent Rate: 61 bpm RR Interval: 978 msec ND Interval: 172 msec QRS Duration: 89 msec QT Interval: 436 msec QTC Interval: 439 msec P-R-T Richardson: 44 - 48 - 52 degrees IMPRESSION: SINUS RHYTHM POSSIBLE RIGHT VENTRICULAR CONDUCTION DELAY [RSR (QR) IN V1/V2] No prior EKG for comparison Electronically Signed By: Dr Gallo Thrasher Alejandro Gonzalez MD ECG ORDERABLES Final Result Performing Organization Address [facility] Co de Phone Number [facility] SI2 - [employer] [facility] * Troponin T high-sensitivity series (baseline, 2hr, 4hr, 6hr) (11/01/2024 5:31 PM CDT) [facility] Trop T hs <6 <=14 ng/L Comment: Interpretive Data For further hscTnT resources including the diagnostic algorithm and an aid in interpretation, copy and paste this link: https://nrl.testcatalog.org/show/hsTrop Current Interpretive Data last revised 2020. Blood 11/01/2024 5:31 PM CDT 11/01/2024 5:34 PM CDT Alejandro Gonzalez MD LAB BLOOD ORDERABLES Final Res ult Performing Organization Address [facility] Co de Phone Number [facility]) 1 [facility] [place] [address] * eGFR (11/01/2024 5:31 PM CDT) [facility] eGFR >90 >=60 mL/min/1. 73 [...] MD LAB BLOOD ORDERABLES Final Res ult [facility] ([place]) 1 [facility] [place] [address] * Differential, auto (11/01/2024 5:31 PM CDT) Pathologist [facility] Neutrophil abs 4.78 1.50 - 6.50 K/cumm Imm gran abs 0.02 0.00 - 0.10 K/cumm [facility] ([place]) Lymphocyte abs 2.00 0.80 - 3.30 K/cumm [facility] ([place]) Monocyte abs 0.49 0.20 - 0.80 K/cumm [facility] ([place]) Eosinophil abs 0.21 0.00 - 0.50 K/cumm [facility] ([place]) Basophil abs 0.04 0.00 - 0.10 K/cumm [facility] ([place]) Neutrophil pct 63.4 % [facility] ([place]) Comment: Interpretive Data Percent cell count reference [...] revised on 2017. Monocyte pct 6.5 % [facility] ([place]) Comment: Interpretive Data Percent cell [...] 2017. Basophil pct 0.5 % [facility] ([place]) Comment: Interpretive Data Percent cell count reference ranges are not reported, since discordance with absolute values may lead to misinterpretation of CBC data. Current Interpretive Data was last revised on 2017. Blood 11/01/2024 5:31 PM CDT 11/01/2024 5:34 PM CDT us Alejandro Gonzalez MD LAB BLOOD ORDERABLES Final Res ult [facility] ([place]) 1 [facility] [place] [address] * CBC with auto differential (11/01/2024 5:31 PM CDT) WBC 7.54 3.80 - 9.90 K/cumm Hgb 13.3 11.9 - 15.5 g/dL [facility] ([place]) Hct 39.9 35.6 - 45.5 % [facility] ([place]) Plt 280 150 - 400 K/cumm [facility] ([place]) MPV 9.6 9.1 - 12.3 fL [facility] ([place]) RBC 4.44 3.90 - 5.20 M/cumm [facility] ([place]) MCV 89.9 81.3 - 96.4 fL [facility] ([place]) MCH 30.0 27.1 - 33.3 pg [facility] ([place]) MCHC 33.3 32.3 - 35.7 g/dL [facility] ([place]) RDW CV 11.9 11.1 - 14.9 % [facility] ([place]) RDW SD 38.7 35.7 - 48.1 fL [facility] ([place]) NRBC abs 0.00 0.00 - 0.01 K/cumm [facility] ([place]) Blood 11/01/2024 5:31 PM CDT 11/01/2024 5:34 PM CDT Alejandro Gonzalez MD LAB BLOOD ORDERABLES Final Res ult Performing Organization Address City/[facility] Co de Phone Number [facility] ([place]) 1 [facility] Department [place] [address] * Protime-INR (11/01/2024 5:31 PM CDT) PT 11.6 9.7 - 13.0 sec [facility] ([place]) INR 1.07 0.90 - 1.20 [facility] ([place]) Comment: Interpretive data Oral anticoagulant therapeutic [...] Res ult [facility] ([place]) 1 [facility] Department [place] [address] * Comprehensive metabolic panel (11/01/2024 5:31 PM [...] ORDERABLES Final Res ult [facility] [place]) 8 [facility] [place] [address] * CTA Stroke Head Neck W WO [...] Noncontrast head CT 11/01/2024 FINDINGS: INTRACRANIAL VESSELS [place]: The anterior, middle, posterior cerebral [...] to Dr. Alejandro Gonzalez at 5:39 p.m. [employer] COMMISSIONER on 11/01/2024. THIS IS AN ELECTRONICALLY VERIFIED FINAL REPORT 11/01/2024 5:48 PM - Electronically signed by Carmelo Stearns M.D. AT: AT Report ID: [id number] Reading Location: [id number] Procedure Note Carmelo Stearns MD - 11/01/2024 [...] Noncontrast head CT 11/01/2024 FINDINGS: INTRACRANIAL VESSELS [place]: The anterior, middle, posterior cerebral [...] Stearns to Dr. Alejandro Gonzalez at 5:39p.m. [employer] COMMISSIONER on 11/01/2024. THIS IS AN ELECTRONICALLY VERIFIED FINAL REPORT 11/01/2024 5:48 PM - Electronically signed by Carmelo Stearns M.D. AT: AT Report ID: [id number] Reading Location: [id number] us Alejandro Gonzalez MD IMG CT PROCEDURES Final [...] Manny Gay M.D. KT: AUBREY Report ID: [id number] Reading Location: [id number] Procedure Note Manny Gay MD - 11/01/2024 [...] Manny Gay M.D. KT: AUBREY Report ID: [id number] Reading Location: [place] [id number] Alejandro Gonzalez MD IMG CT PROCEDURES Final Result * POCT glucose (11/01/2024 4:56 PM CDT) [facility] Signature Glucose, POC 99 70 - 199 mg/dL Blood 11/01/2024 4:56 PM CDT 11/01/2024 4:56 PM CDT Lary Berumen DO LAB POCT ORDERABLES - DE VICE Final Result [facility] [place]) 1 [facility] [place] [address] * US Knee (10/28/2024 8:20 AM CDT) Anatomical Region Laterality Modality Knee N/A Ultrasound 10/29/2024 1:39 PM CDT Narrative 10/29/2024 1:41 PM CDT EXAM DESCRIPTION: US KNEE COMPLETE REASON FOR STUDY: Pain TECHNIQUE: A Dynamic assessment was performed of the right knee and of the left knee by the investigative reporter, with selected grayscale and color Doppler images [...] by Timi Zarco M.D. JR: Report ID: [id number] Reading Location: [id number] Procedure Note Timi Zarco MD - 10/29/2024 EXAM DESCRIPTION: US KNEE COMPLETE REASON FOR STUDY: Pain TECHNIQUE: A Dynamic assessment was performed of the right knee and ofthe left knee by the investigative reporter, with selected grayscale and color Doppler images [...] by Timi Zarco M.D. JR: Report ID: [id number] Reading Location: [id number] us James Emanuel MD IMG US PROCEDURES Final Result * US Knee (10/28/2024 8:20 AM CDT) Anatomical Region Laterality Modality Knee N/A Ultrasound 10/29/2024 1:39 PM CDT Narrative 10/29/2024 1:41 PM CDT EXAM DESCRIPTION: US KNEE COMPLETE REASON FOR STUDY: Pain TECHNIQUE: A Dynamic assessment was performed of the right knee and of the left knee by the investigative reporter, with selected grayscale and color Doppler images [...] by Timi Zarco M.D. JR: Report ID: [id number] Reading Location: [id number] Procedure Note Timi Zarco MD - 10/29/2024 EXAM DESCRIPTION: US KNEE COMPLETE REASON FOR STUDY: Pain TECHNIQUE: A Dynamic assessment was performed of the right knee and ofthe left knee by the investigative reporter, with selected grayscale and color Doppler images [...] by Timi Zarco M.D. JR: Report ID: [id number] Reading Location: [id number] us James Emanuel MD IM US PROCEDURES Final Result * Hepatitis panel, acute (03/07/2021 8:05 AM CDT) Hep A IgM Nonreactive Nonreactive [facility] ([place]) Comment: Interpretive Data: If Hep A IgM Ab is reported as Equivocal, a new sample should be drawn in two weeks for testing. Current interpretive data was last revised on 19. Testing performed by: [facility], [address] [place] [address]., [id number] Hep B core IgM Nonreactive Nonreactive [facility] ([place]) Comment: Interpretive Data If HepB Core IgM Ab is reported as Equivocal, a new sample should be drawn in two weeks for testing. Current interpretive data was last revised on 19. Testing performed by: [facility], [address] [place] [address]., [id number] Hep C Ab Nonreactive Nonreactive [facility] [...] last revised on 2019. Testing performed by: [facility], [address] [place] [address]., [id number] HepBsAg Nonreactive Nonreactive [facility] ([place]) Comment:Testing performed by : [address] [id number] Blood 03/07/2021 8:05 AM CDT 03/07/2021 1:30 PM CDT Tristin Castillo MD LAB MICROBIOLOGY - GENERAL ORDERABLES Final Result [facility] ([place]) 1 [facility] [place] [address] from Last 3 Months or Most Recently Relevant to Health Maintenance Insurance COUNT INCLUDES THE [facility] MEDICAID IDPA COMMERCIAL [address] [place] [address] [facility] AETNA Gift Pinpoint [place] Advance Direct[place] For more information, please contact: [phone] * Full Code (Latest Code Status on File) Date Activated Date Inactivated Comments 11/11/2024 4:37 AM 11/12/2024 3:59 PM * Full Code Date Activated Date Inactivated Comments 11/01/2024 7:53 PM 11/02/2024 8:31 PM * Full Code Date Activated Date Inactivated Comments 11/03/2018 3:04 AM 11/03/2018 7:38 PM Care Teams Director Music Relationship Specialty Start Date End Date Maurice Caldera MD [address] [facility] [place] [address] PCP - General Family Medicine 06/24/24
--- OUTSIDE RECORDS SUMMARY | 2025-01-24 14:05 | XMS_ITS | Clinical Summary ---
Author Organization [facility] Address [address] [place] [address] Care Team Providers Care Boat Dock Operator Name Role Phone Maurice Caldera MD Primary Care Provider [phone] Allergies No known active allergies Medications traZODone [...] Type Department Care Team Description 11/23/2024 Telephone [facility] Gastroenterology at [address] [place] [address] Tameka Black 11/23/2024 Hospital Encounter [facility] [address] [place] [address] Kyler Curtis DO 11/12/2024 12:02 PM CDT - 11/12/2024 11:59 PM CDT Hospital Encounter [facility] Emergency, Room R Discharge Disposition: Discharge to home or self care 11/10/2024 9:43 PM CDT - 11/12/2024 11:54 AM CDT Hospital Encounter [facility] [address] [place] [address] Godfrey Chisholm MD Huynh, Kiet T., MD Kheirkhahan, Nazanin, MD Suicide attempt (HCC) (Primary Dx); Intentional benzodiazepine overdose, initial encounter (HCC); Alcohol abuse Discharge Disposition: Discharge to psych hospital or psych unit 11/10/2024 9:26 PM CDT - 11/10/2024 11:59 PM CDT Hospital Encounter [facility] Emergency, Room R Discharge Disposition: Discharge to home or self care 11/07/2024 Telephone [facility] Medical [facility] Gastroenterology at [address] [place] [address] Jeana Hooker 11/03/2024 Telephone [facility] Gastroenterology at [address] [place] [address] Sonia Black MA Schedule EGD 11/03/2024 Documentation [facility] [address] [place] [address] [address] [place] [address] Rashid Denny, FILING AND POLISHING SUPERVISOR 11/01/2024 5:08 PM CDT - 11/02/2024 4:26 PM CDT Hospital Encounter [facility] [address] [place] [address] Alejandro Gonzalez MD Petters, MD [place] Charlton Victoria Rose, DO TIA (transient ischemic attack) (Primary Dx); Dysphagia, unspecified type Discharge Disposition: Discharge to home or self care 11/01/2024 4:40 PM CDT - 11/01/2024 11:59 PM CDT Hospital Encounter [facility] Emergency, Room R Discharge Disposition: Discharge to home or self care 10/28/2024 7:43 AM CDT - 10/28/2024 11:59 PM CDT Hospital Encounter [facility] [address] [place] [address] Posterior right knee pain Discharge Disposition: Discharge to home or self care 10/28/2024 7:42 AM CDT - 10/28/2024 11:59 PM CDT Hospital Encounter [address] [address] Posterior knee pain, left Discharge Disposition: Discharge [...] attack) 11/01/2024 COPD (chronic obstructive pulmonary disease) Adhd MARIO (generalized anxiety disorder) DJD (degenerative joint disease) MDD (major depressive disorder) Hepatitis A ETOH abuse Borderline personality disorder (HCC) Marijuana use Suicide attempt HLD (hyperlipidemia) GERD (gastroesophageal reflux disease) Family [...] pur e alcohol) 3 times a week [facility] Utilities Answer Date Recorded In the past 12 months has e [employer], [employer], oil, or water [employer] threatened to shut off services in your [...] often do you attend chur ch or scientologist services? More than 4 times per year 11/02/2024 Do you belong to any clubs o r organizations such as sabianism groups, unions, fraternal or athletic groups, or [...] any time in the past 12 [facility], were you homeless or living in a mcc (including now)? No 11/02/2024 Personal Safety Answer Date Recorded Have you ever been in or are you currently in a harmful physical or emotional relationship or is someone making you feel afraid or unsafe? 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 Gender Identity Female 03/07/2021 7:11 AM [...] (1 of 2) 09/07/2015 Covid-19 Vaccine (3 - 2023-2 5 season) 2024 02/19/2021, 01/27/2021 Breast Cancer Screening-Mammogram 10/08/2024 10/09/2023, 10/09/2023, 05/10/2019 Influenza Vaccine (#1) 2025 , 03/31/2022 Depression Screening 10/18/2025 10/18/2024, 10/18/2024 DTaP/Tdap/Td [...] ORDERABLES Final Resu lt [facility] ([place]) 1 [facility] Department [place] [address] * Differential, auto (11/12/2024 3:17 AM CDT) [...] Final Resu lt [facility] ([place]) 1 [facility] [place] [address] * CBC with auto differential (11/12/2024 3:17 AM CDT) WBC 7.52 3.80 - 9.90 K/cumm Hgb 12.8 11.9 - 15.5 g/dL [facility] ([place]) Hct 37.3 35.6 - 45.5 % [facility] ([place]) Plt 234 150 - 400 K/cumm [facility] ([place]) MPV 10.0 9.1 - 12.3 fL [facility] ([place]) RBC 4.16 3.90 - 5.20 M/cumm [facility]ER [...] Resu lt [facility] ([place]) 1 [facility] Department [place] [address] * Magnesium (11/12/2024 3:17 AM CDT) Magnesium 1.9 1.4 - 2.5 mg/dL Blood 11/12/2024 3:17 AM CDT 11/12/2024 3:47 AM CDT us Billy Kaplan MD LAB BLOOD ORDERABLES Final Resu lt [facility] ([place]) 1 [facility] [place] [address] * (ABNORMAL) Comprehensive metabolic panel (11/12/2024 3:17 [...] Resu lt [facility] ([place]) 1 [facility] Department [place] [address] * eGFR (11/11/2024 2:23 AM CDT) eGFR [...] of Race in Diagnosing Kidney Disease, JASN 2021). The CKD-EPI equation should not be used for patients with unstable renal function and has not been validated in children and those over 70. Current interpretive data was last reviewed 2021. Blood 11/11/2024 2:23 AM CDT 11/11/2024 2:40 AM CDT us Godfrey Chisholm MD LAB BLOOD ORDERABLES Final Re sult [facility] ([place]) 1 [facility] Department [place] [address] * Differential, auto (11/11/2024 2:23 AM CDT) Neutrophil abs 2.21 1.50 - 6.50 K/cumm Imm gran abs 0.02 0.00 - 0.10 K/cumm [facility] ([place]) Lymphocyte abs 2.23 0.80 - 3.30 K/cumm [facility] ([place]) Monocyte abs 0.32 0.20 - 0.80 K/cumm [facility] ([place]) Eosinophil abs 0.14 0.00 - 0.50 K/cumm [facility] ([place]) Basophil abs 0.03 0.00 - 0.10 K/cumm [facility] ([place]) Neutrophil pct 44.6 % [facility] ([place]) Comment: Interpretive Data Percent cell count reference ranges are not reported, since discordance with absolute values may lead to misinterpretation of CBC data. Current Interpretive Data was last revised on 2017. Imm gran pct 0.4 % [facility] ([place]) Comment: Interpretive Data Percent cell count reference ranges are not reported, since discordance with absolute values may lead to misinterpretation of CBC data. Current Interpretive Data was last revised on 2017. Lymphocyte pct 45.1 % [facility] ([place]) Comment: Interpretive Data Percent cell count reference ranges are not reported, since discordance with absolute values may lead to misinterpretation of CBC data. Current Interpretive Data was last revised on 2017. Monocyte pct 6.5 % [facility] ([place]) Comment: Interpretive Data Percent cell count reference ranges are not reported, since discordance with absolute values may lead to misinterpretation of CBC data. Current Interpretive Data was last revised on 2017. Eosinophil pct 2.8 % [facility] ([place]) Comment: Interpretive Data Percent cell count reference [...] CDT 11/11/2024 2:40 AM CDT us Godfrey Cihsholm MD LAB BLOOD ORDERABLES Final Re sult Performing Organization Address City/State/[facility] Co de Phone Number [facility] ([place]) 1 [facility] Department [place] [address] * CBC with auto differential (11/11/2024 2:23 [...] Re sult [facility] ([place]) 1 [facility] Department [place] [address] * Magnesium (11/11/2024 2:23 AM CDT) Pathologist [facility] Magnesium 1.8 1.4 - 2.5 mg/dL Blood 11/11/2024 2:23 AM CDT 11/11/2024 2:40 AM CDT Godfrey Chisholm MD LAB BLOOD ORDERABLES Final Re sult [facility] ([place]) 1 [facility] [place] [address] * (ABNORMAL) Comprehensive metabolic panel (11/11/2024 2:23 [...] MD LAB BLOOD ORDERABLES Final Re sult [facility] ([place]) 1 [facility] Department [place] [address] * Urinalysis reflex to microscopic and culture Urine (11/10/2024 11:28 PM CDT) Color, ur Straw Yellow Clarity, ur Clear Clear [facility] ([place]) Specific gravity, ur 1.006 1.003 - 1.030 [facility] ([place]) pH, urine 6.0 [facility] Comment: Interpretive Data U rine pH is affected by diet, medications, systemic acid-base disturbances, and renal tubular function. pH may affect urinary stone formation. For example, urine pH below 6.0 may help reduce the tendency for calcium phosphate stones and pH greater than 6.0 may reduce the tendency for uric acid stone formation. Source: [facility] Current Interpretive Data was last revised on [...] MH ([place]) Leukocyte esterase, ur Negative Negative [facility] ([place]) UA reflex comment Reflex conditions for microscopic UA and culture not met. [facility] ([place]) Urine 11/10/2024 11:2 8 PM CDT 11/10/2024 11:35 PM CDT Godfrey Chisholm MD LAB MICROBIOLOGY - GENERAL OR DERABLES Final Result [facility] ([place]) 1 [facility] Department [place] [address] * (ABNORMAL) Drugs of Abuse Screen, Urine [...] 2023. Barbiturates, ur Not Detected CutOff 200ng/mL [facility] ([place]) Comment: Interpretive Data - Barbiturates: Samples containing greater than 200 ng/mL secobarbital or other cross-reacting barbiturate compounds are reported as positive. False positive and false negative results are possible. Confirmatory testing required for definitive results. Current Interpretive Data was last reviewed 2023. Benzodiazepines, ur Screen Positive, presumptive (A) CutOff 100ng/mL [facility] ([place]) Comment: Interpretive Data - Benzodiazepines: [...] reviewed 2023. Urine Creatinine 15 mg/dL [facility] ([place]) Comment: Interpretive Data Urine Creatinine: < 10 mg/dL is extremely dilute = or > 10 but < 20 mg/dL is dilute = or > 20 mg/dL is normal Current Interpretive Data was last revised on 2017. Urine 11/10/2024 11:2 8 PM CDT 11/10/2024 11:36 PM CDT Narrative [facility] ([place]) - 11/11/2024 12:13 AM CDT Drug of Abuse screening is performed by immunoassay for medical purposes only. This is not to be used for Pain Management purposes. us Godfrey Chisholm MD LAB URINE ORDERABLES Final Re sult [facility] ([place]) 1 [facility] Department [place] [address] * eGFR (11/10/2024 10:41 PM CDT) eGFR [...] ORDERABLES Final Re sult Performing Organization Address City/[facility]/ZIP Co de Phone Number [facility] ([place]) 1 [facility] [place] [address] * Thyroid Function Ken[place] (11/10/2024 10:41 PM CDT) TSH 3.92 0.30 - 4.20 mcIUnit/mL Blood 11/10/2024 10:4 1 PM CDT 11/10/2024 10:54 PM CDT Godfrey Chisholm MD LAB BLOOD ORDERABLES Final Re sult Performing Organization Address [facility] Co de Phone Number [facility] ([place]) 1 [facility] [place] [address] * (ABNORMAL) Iron profile w/ IBC (11/10/2024 10:41 PM CDT) Iron 53 35 - 145 mcg/dL TIBC 225(L) 250 - 400 mcg/dL [facility] ([place]) Transferrin saturation 24 20 - 50 % [facility] ([place]) Blood 11/10/2024 10:4 1 PM CDT 11/10/2024 10:54 PM CDT Godfrey Chisholm MD LAB BLOOD ORDERABLES Final Re sult Performing Organization Address [facility] Co de Phone Number [facility] ([place]) 1 [facility] [place] [address] * Magnesium (11/10/2024 10:41 PM CDT) Magnesium 2.0 1.4 - 2.5 mg/dL Blood 11/10/2024 10:4 1 PM CDT 11/10/2024 10:54 PM CDT Godfrey Chisholm MD LAB BLOOD ORDERABLES Final Re sult [facility] ([place]) 1 [facility] [place] [address] * (ABNORMAL) Ferritin (11/10/2024 10:41 PM CDT) Ferritin 232(H) 15 - 150 ng/mL Blood 11/10/2024 10:4 1 PM CDT 11/10/2024 10:54 PM CDT Godfrey Chisholm MD LAB BLOOD ORDERABLES Final Re sult Performing Organization Address [facility] Co de Phone Number [facility] ([place]) 1 [facility] [place] [address] * (ABNORMAL) Ethanol (11/10/2024 10:41 PM CDT) Ethanol 125(H) <=10 mg/dL Comment: Interpretive Data Legal limit of intoxication > or = 80 mg/dL Levels > or = 400 mg/dL are potentially TOXIC. Current interpretive data was last revised on 2018. Blood 11/10/2024 10:4 1 PM CDT 11/10/2024 10:54 PM CDT us Godfrey Chisholm MD LAB BLOOD ORDERABLES Final Re sult Performing Organization Address [facility] Co de Phone Number [facility] ([place]) 1 [facility] [place] [address] * Acetaminophen level (11/10/2024 10:41 PM CDT) [...] after ingestion Consult toxicology or poison control ([phone]) for unknown ingestion time. Current interpretive data was last revised 2023. Blood 11/10/2024 10:4 1 PM CDT 11/10/2024 10:54 PM CDT Godfrey Chisholm MD LAB BLOOD ORDERABLES Final Re sult Performing Organization Address City/[facility]/ZIP Co de Phone Number [facility] ([place]) 1 [facility] [place] [address] * Salicylate level (11/10/2024 10:41 PM CDT) Salicylate <5.0 <=5.0 mg/dL Comment: Interpretive Data Toxic: 30 mg/dL or greater. Current interpretive data was last revised 2023. Blood 11/10/2024 10:4 1 PM CDT 11/10/2024 10:54 PM CDT Godfrey Chisholm MD LAB BLOOD ORDERABLES Final Re sult Performing Organization Address [facility] Co de Phone Number [facility] ([place]) 1 [facility] [place] [address] * (ABNORMAL) Comprehensive metabolic panel (11/10/2024 10:41 PM CDT) Sodium 144 135 - 145 mmol/L Potassium, pl 3.8 3.3 - 4.9 mmol/L [facility] ([place]) Chloride 110 97 - 110 mmol/L [facility] ([place]) CO2 22 22 - 32 mmol/L [facility] ([place]) Anion gap 13 2 - 15 mmol/L [facility] ([place]) BUN 16 6 - 25 mg/dL [facility] ([place]) Creatinine 0.62 0.60 - 1.10 mg/dL [facility] ([place]) Glucose 102 70 - 199 mg/dL [facility] ([place]) Comment: Interpretive Data Fasting glucose >/= [...] MD LAB BLOOD ORDERABLES Final Re sult [facility] ([place]) 1 [facility] Department [place] [address] * COVID-19 Coronavirus RNA Nasopharyngeal (11/10/2024 10:25 PM CDT) COVID-19 RNA Negative Negative Nasopharyngeal 11/10/2024 10 :25 PM CDT 11/10/2024 10:29 PM CDT Narrative [facility] ([place]) - 11/10/2024 11:10 PM CDT Is the patient experiencing any symptoms consistent with COVID (eg. Fever, cough, shortness of breath)?->No What is the reason for testing?->Screening prior to Behavioral health admission Interpretive data: Testing performed by [facility]. This test is performed using the [employer]ute Xpert Xpress CoV-2 plus assay. This is a real-time RT-PCR test intended for the qualitative detection of nucleic acid from the SARS-CoV-2. This assay has been cleared by the [place] Food and Drug administration. The performance characteristics have been verified by [facility]. Results must be considered in the clinical context, and a negative result does not rule out infection. Interpretive data last revised 2024. Interpretive data: Testing performed by [facility]. This test is performed using the [employer] Xpert Xpress CoV-2 plus assay. This is a real-time RT-PCR test intended for the qualitative detection of nucleic acid from the SARS-CoV-2. This assay has been cleared by the [place] Food and Drug administration. The performance characteristics have been verified by [facility]. Results must be considered in the clinical context, and a negative result does not rule out infection. Interpretive data last revised 2024. Godfrey Chisholm MD LAB MICROBIOLOGY - GENERAL OR DERABLES Final Result [facility] ([place]) 1 [facility] Department [place] [address] * Differential, auto (11/10/2024 10:00 PM CDT) Neutrophil abs 2.79 1.50 - 6.50 K/cumm Imm gran abs 0.02 0.00 - 0.10 K/cumm [facility] ([place]) Lymphocyte abs 2.43 0.80 - 3.30 K/cumm [facility] ([place]) Monocyte abs 0.30 0.20 - 0.80 K/cumm [facility] ([place]) Eosinophil abs 0.18 0.00 - 0.50 K/cumm [facility] ([place]) Basophil abs 0.05 0.00 - 0.10 K/cumm [facility] ([place]) Neutrophil pct 48.4 % [facility] ([place]) Comment: Interpretive Data Percent cell count reference [...] revised on 2017. Basophil pct 0.9 % [facility] ([place]) Comment: Interpretive Data Percent cell count reference ranges are not reported, since discordance with absolute values may lead to misinterpretation of CBC data. Current Interpretive Data was last revised on 2017. Blood 11/10/2024 10:0 0 PM CDT 11/10/2024 10:04 PM CDT us Godfrey Chisholm MD LAB BLOOD ORDERABLES Final Re sult [facility] ([place]) 1 [facility] Department [place] [address] * (ABNORMAL) CBC with auto differential (11/10/2024 10:00 PM CDT) WBC 5.77 3.80 - 9.90 K/cumm Hgb 14.7 11.9 - 15.5 g/dL [facility] ([place]) Hct 46.0(H) 35.6 - 45.5 % [facility] ([place]) Plt 252 150 - 400 K/cumm [...] % [facility] ([place]) RDW SD 41.1 35.7 - 48.1 fL [facility] ([place]) NRBC abs 0.00 0.00 - 0.01 K/cumm [facility] ([place]) Blood Venous blood specimen / Unknown 11/10/2024 10:00 PM CDT 11/10/2024 10:04 PM CDT us Godfrey Chishoml MD LAB BLOOD ORDERABLES Final Re sult [facility] ([place]) 1 [facility] Department [place] [address] * ECG 12 lead (11/10/2024 9:52 PM CDT) 11/10/2024 9:52 PM CDT Narrative [facility] - 11/11/2024 7:22 AM CDT Vent Rate: 72 bpm RR Interval: 828 msec HI Interval: 139 msec QRS Duration: 81 msec QT Interval: 426 msec QTC Interval: 450 msec P-R-T [place]: 55 - 32 - 44 degrees IMPRESSION: SINUS RHYTHM NORMAL ECG NO CHANGE FROM PREVIOUS TRACING NOTED Electronically Signed By: Sid Whittington MD us Godfrey Chisholm MD ECG ORDERABLES Final Result Performing Organization Address City/[facility]/ZIP Co de Phone Number [facility] [employer] [facility] * TRANSTHORACIC ECHO (TTE) COMPLETE W DOPPLER/CF WO CONTRAST W BUBBLE (11/02/2024 9:55 AM CDT) Estimated EF 65 % CONS SCIMAGE Anatomical Region Laterality Modality Ultrasound 11/02/2024 9:52 AM CDT Narrative 11/02/2024 12:27 PM CDT [address] [address] Echocardiogram Report Patient Name: NAPOLEON MARTINEZ D : 1965 Study Date: 11/02/2024 9:52:51 AM Gender: F Tech: ELSA Location: [id number] Ref Provider: LORI ADAM Height(Cm): BSA: Weight(Kg): [...] Procedure Note Sid Whittington MD - 11/02/[address] [place] [address] Echocardiogram Report Patient Name: NAPOLEON MARTINEZ D : 1965 Study Date: 11/02/2024 9:52:51 AM Gender: F Tech: ELSA Location: [id number] Ref Provider: LORI ADAM Height(Cm): BSA: Weight(Kg): [...] Sid Whittington MD 11/02/2024 12:27:10 PM CDT Maxsung Ulisses Adam MD CV ECHO PROCEDURES Anni [...] by Anaya Flores M.D. SN: Report ID: [id number] Reading Location: [id number] Procedure Note Anaya Flores MD - 11/02/2024 EXAM DESCRIPTION: MRI BRAIN WO CONTRAST REASON FOR STUDY: Stroke, follow up Garbled speech and right sided leg weakness and right sided facial droop. TECHNIQUE: Multiplanar imaging includes non-contrasted T1, T2, FLAIR, and diffusion with ADC map sequences. Additional sequence(s) sensitive [employer] products. Images stored on PACS. COMPARISON: CT [...] Anaya Flores M.D. SN: SN Report ID: [id number] Reading Location: [place] [address] us Lori Adam MD IM MRI PROCEDURES Anni kelly Result * Troponin T high-sensitivity 6-hour (11/02/2024 [...] LAB BLOOD ORDERABLES Final Res ult [facility] ([place]) 1 [facility] [place] [address] * eGFR (11/02/2024 12:23 AM CDT) eGFR [...] of Race in Diagnosing Kidney Disease, JASN 2021). The CKD-EPI equation should not be used for patients with unstable renal function and has not been validated in children and those over 70. Current interpretive data was last reviewed 2021. Blood 11/02/2024 12:2 3 AM CDT 11/02/2024 12:25 AM CDT us Lori Adam MD LAB BLOOD ORDERABLES Fi nal Result [facility] ([place]) [address] [place] [address] * CBC without differential (11/02/2024 12:23 AM [...] ORDERABLES Fi nal Result Performing Organization Address City/[facility] Co de Phone Number [facility] ([place]) 1 [facility] Department [place] [address] * Magnesium (11/02/2024 12:23 AM CDT) Magnesium 2.1 1.4 - 2.5 mg/dL Blood 11/02/2024 12:2 3 AM CDT 11/02/2024 12:25 AM CDT Lori Adam MD LAB BLOOD ORDERABLES Fi nal Result [facility] ([place]) 1 [facility] Department [place] [address] * Comprehensive metabolic panel (11/02/2024 12:23 AM [...] ORDERABLES Fi nal Result Performing Organization Address City/[facility]/ZIP Co de Phone Number [facility] ([place]) 1 [facility] [place] [address] * Troponin T high-sensitivity 4-hour (11/01/2024 9:41 [...] 9:41 PM CDT 11/01/2024 10:19 PM CDT Alejandro Gonzalez MD LAB BLOOD ORDERABLES Final Res ult Performing Organization Address City/[facility]/ZIP Co de Phone Number [facility] ([place]) 1 [facility] [place] [address] * Urinalysis reflex to microscopic and culture Urine (11/01/2024 8:56 PM CDT) Color, ur Yellow Yellow Clarity, ur Clear Clear [facility] ([place]) Specific gravity, ur 1.010 1.003 - 1.030 [...] tendency for uric acid stone formation. Source: resmio Current Interpretive Data was last revised on [...] RAL ORDERABLES Final Result Performing Organization Address [facility] Co de Phone Number [facility] ([place]) 1 [facility] [employer] [place] [address] * Troponin T high-sensitivity 2-hour (11/01/2024 8:13 [...] ORDERABLES Final Res ult [facility] ([place]) 1 [facility] Department [place] [address] * ECG 12 lead (11/01/2024 6:17 PM CDT) 11/01/2024 6:17 PM CDT Narrative [facility] - 11/02/2024 7:20 AM CDT Vent Rate: 61 bpm RR Interval: 978 msec HI Interval: 172 msec QRS Duration: 89 msec QT Interval: 436 msec QTC Interval: 439 msec P-R-T [place]: 44 - 48 - 52 degrees IMPRESSION: SINUS RHYTHM POSSIBLE RIGHT VENTRICULAR CONDUCTION DELAY [RSR (QR) IN V1/V2] No prior EKG for comparison Electronically Signed By: Dr Gallo Thrasher Alejandro Gonzalez MD ECG ORDERABLES Final Result [facility] * Troponin T high-sensitivity series (baseline, 2hr, [...] ORDERABLES Final Res ult Performing Organization Address City/[facility]/ZIP Co de Phone Number [facility] [facility] Department of Laboratories [place] [id number] * eGFR (11/01/2024 5:31 PM CDT) eGFR [...] ORDERABLES Final Res ult [facility] ([place]) 1 [facility] [place] [address] * Differential, auto (11/01/2024 5:31 PM CDT) [...] MD LAB BLOOD ORDERABLES Final Res ult [facility] ([place]) 1 [facility] Department of Laboratories [place], [place] [id number] * CBC with auto differential (11/01/2024 5:31 [...] RDW CV 11.9 11.1 - 14.9 % [facility] ([place]) RDW SD 38.7 35.7 - 48.1 fL [facility] ([place]) NRBC abs 0.00 0.00 - 0.01 K/cumm [facility] ([place]) Blood 11/01/2024 5:31 PM CDT 11/01/2024 5:34 PM CDT Alejandro Gonzalez MD LAB BLOOD ORDERABLES Final Res ult Performing Organization Address City/[facility]/ZIP Co de Phone Number [facility] (CL[place]) 1 [facility] [place] [address] * Protime-INR (11/01/2024 5:31 PM CDT) PT 11.6 9.7 - 13.0 sec [facility] ([place]) INR 1.07 0.90 - 1.20 [facility] ([place]) Comment: Interpretive data Oral anticoagulant therapeutic ranges: Venous thromboembolism prophylaxis or treatment: 2.0-3.0 CARDIOLOGY Standard range: 2.0-3.0 High-intensity range: 2.5-3.5 Refer to indication-specific guidelines for appropriate target ranges for prosthetic heart valve replacement. Current interpretive data was last revised on 2019. Blood 11/01/2024 5:31 PM CDT 11/01/2024 5:33 PM CDT Alejandro Gonzalez MD LAB BLOOD ORDERABLES Final Res ult Performing Organization Address City/[facility]/ZIP Co de Phone Number [facility] ([place]) 1 [facility] [place] [address] * Comprehensive metabolic panel (11/01/2024 5:31 PM CDT) Sodium 135 135 - 145 mmol/L Potassium, pl 4.0 3.3 - 4.9 mmol/L [facility] ([place]) Chloride 101 97 - 110 mmol/L [facility] ([facility]) CO2 23 22 - 32 mmol/L CERNER [...] Res ult [facility] ([place]) 1 [facility] Department [place] [address] * CTA Stroke Head Neck [...] Noncontrast head CT 11/01/2024 FINDINGS: INTRACRANIAL VESSELS [place]: The anterior, middle, posterior cerebral [...] to Dr. Alejandro Gonzalez at 5:39 p.m. HORSE STUD MANAGER on 11/01/2024. THIS IS AN ELECTRONICALLY VERIFIED FINAL REPORT 11/01/2024 5:48 PM - Electronically signed by Carmelo Stearns M.D. AT: AT Report ID: [id number] Reading Location: [id number] Procedure Note Carmelo Stearns MD - 11/01/2024 [...] Noncontrast head CT 11/01/2024 FINDINGS: INTRACRANIAL VESSELS [place]: The anterior, middle, posterior cerebral [...] Stearns to Dr. Alejandro Gonzalez at 5:39p.m. HORSE STUD MANAGER on 11/01/2024. THIS IS AN ELECTRONICALLY VERIFIED FINAL REPORT 11/01/2024 5:48 PM - Electronically signed by Carmelo Stearns M.D. AT: AT Report ID: [id number] Reading Location: [id number] Alejandro Gonzalez MD IMG CT PROCEDURES Final [...] Electronically signed by Manny Gay M.D. KT: KT Report ID: [id number] Reading Location: [id number] Procedure Note Manny Gay MD - 11/01/2024 [...] Manny Gay M.D. KT: AUBREY Report ID: [id number] Reading Location: [place] [address] Alejandro Gonzalez MD IMG CT PROCEDURES Final Result * POCT glucose (11/01/2024 4:56 PM CDT) [facility] Signature Glucose, POC 99 70 - 199 mg/dL Blood 11/01/2024 4:56 PM CDT 11/01/2024 4:56 PM CDT Lary Berumen DO LAB POCT ORDERABLES - DE VICE Final Result Performing Organization Address City/State/[facility] Co de Phone Number [facility] [place]) 1 [facility] [place] [address] * US Knee (10/28/2024 8:20 AM CDT) Anatomical Region Laterality Modality Knee N/A Ultrasound 10/29/2024 1:39 PM CDT Narrative 10/29/2024 1:41 PM CDT EXAM DESCRIPTION: US KNEE COMPLETE REASON FOR STUDY: Pain TECHNIQUE: A Dynamic assessment was performed of the right knee and of the left knee by the calculating machine operator, with selected grayscale and color Doppler [...] Electronically signed by Timi Zarco M.D. JR: JR Report ID: [id number] Reading Location: [id number] Procedure Note Timi Zarco MD - 10/29/2024 EXAM DESCRIPTION: US KNEE COMPLETE REASON FOR STUDY: Pain TECHNIQUE: A Dynamic assessment was performed of the right knee and ofthe left knee by the calculating machine operator, with selected grayscale and color Doppler [...] 10/29/2024 1:41 PM - Electronically signed by iTmi Zarco M.D. JR: Report ID: [id number] Reading Location: [place] [address] us James Emanuel MD IMG US PROCEDURES Final Result * US Knee (10/28/2024 8:20 AM CDT) Anatomical Region Laterality Modality Knee N/A Ultrasound 10/29/2024 1:39 PM CDT Narrative 10/29/2024 1:41 PM CDT EXAM DESCRIPTION: US KNEE COMPLETE REASON FOR STUDY: Pain TECHNIQUE: A Dynamic assessment was performed of the right knee and of the left knee by the calculating machine operator, with selected grayscale and color Doppler [...] by Timi Zarco M.D. JR: Report ID: [id number] Reading Location: [id number] Procedure Note Timi Zarco MD - 10/29/2024 EXAM DESCRIPTION: US KNEE COMPLETE REASON FOR STUDY: Pain TECHNIQUE: A Dynamic assessment was performed of the right knee and ofthe left knee by the calculating machine operator, with selected grayscale and color Doppler [...] by Timi Zarco M.D. JR: Report ID: [id number] Reading Location: [id number] us James Emanuel MD IM US PROCEDURES Final Result * Hepatitis panel, acute (03/07/2021 8:05 AM CDT) Hep A IgM Nonreactive Nonreactive [facility] ([place]) Comment: Interpretive Data: If Hep A IgM Ab is reported as Equivocal, a new sample should be drawn in two weeks for testing. Current interpretive data was last revised on 19. Testing performed by: [address] [place]., [address] Hep B core IgM Nonreactive Nonreactive [facility] ([place]) Comment: Interpretive Data If HepB Core IgM Ab is reported as Equivocal, a new sample should be drawn in two weeks for testing. Current interpretive data was last revised on 19. Testing performed by: [address] [place] [address] Hep C Ab Nonreactive Nonreactive [facility] ([place]) Comment: Interpretive Data Nonreactive: Antibodies [...] last revised on 2019. Testing performed by: [facility], [address] [place] [address]., [address] HepBsAg Nonreactive Nonreactive [facility] ([place]) Comment:Testing performed by : [address] [address] Blood 03/07/2021 8:05 AM CDT 03/07/2021 1:30 PM CDT Tristin Castillo MD LAB MICROBIOLOGY - GENERAL ORDERABLES Final Result [facility] ([place]) 1 [facility] [place] [address] from Last 3 Months or Most Recently Relevant to Health Maintenance Insurance [facility]ICA[facility] [place] [address] [address] [facility] [employer] BLUE ACCESS [place] Member Subscriber Plan / Payer (Ef fective 2024-Present) Name:Napoleon Martinez Relation to Subscriber:Self Name:Napoleon Martinez Payer ID:[id number] (NAIC) Type:BC OTHER Address: [address] [place] [id number] [place]ESS [place] Advance Directives For more information, please contact: [phone] * Full Code (Latest Code Status on File) Date Activated Date Inactivated Comments 11/11/2024 4:37 AM 11/12/2024 3:59 PM * Full Code Date Activated Date Inactivated Comments 11/01/2024 7:53 PM 11/02/2024 8:31 PM * Full Code Date Activated Date Inactivated Comments 11/03/2018 3:04 AM 11/03/2018 7:38 PM Care Teams Boat Dock Operator Relationship Specialty Start Date End Date Maurice Caldera MD [address] [place] [address] [place] [address] PCP - General Family Medicine 06/24/24
--- OUTSIDE RECORDS SUMMARY | 2025-01-24 14:05 | XMS_ITS | Encounter Summary ---
Author Organization [facility] Address [facility] [place] [address] Care Team Providers Care Circular Distributor Name Role Phone Jeremie Casanova MD Primary Care Provider [phone] Maurice Caldera MD Primary Care Provider [phone] Encounter Details Date Type Department Care Team ([facility] st Contact Info) Description 04/17/2023 Telephone Research [facility] [address] [place] [address] Corin Aiken, [facility] [address] [place] [address] Social History Tobacco Use Types Packs/Day Years Used Date Smoking Tobacco: Every Day Cigarettes 1 30 Smokeless Tobacco: Never Alcohol Use Standard Drinks/Week Comments Not Currently 1.7 (1 standard drink = 0.6 oz p ure alcohol) Humiliation, Afraid, Rape, and Kick questionnair e Answer Date Recorded Within the last year, have y ou been afraid of your partner or ex-partner? No 03/17/2020 Within the last year, have y ou been humiliated or emotionally abused in other ways by your partner or ex-partner? No Within the last year, have y ou been kicked, hit, slapped, or otherwise physically hurt by your partner or ex-partner? No 03/17/2020 Within the last year, have y ou been raped or forced to have any kind of sexual activity by your partner or ex-partner? No 03/17/2020 Social Connection and Isolat ion Panel [NHANES] Answer Date Recorded In a typical week, how many times do you talk on the phone with family, friends, or neighbors? More than three times a week 03/17/2020 How often do you get togethe r with friends or relatives? More than three times a week 03/17/2020 How often do you attend chur ch or taoism services? Never 03/17/2020 Do you belong to any clubs o r organizations such as sabianist groups, unions, fraternal or athletic groups, or school groups? Patient declined 03/17/2020 How often do you attend meet ings of the clubs or organizations you belong to? 1 to 4 times per year 03/17/2020 Are you , , di vorced, , never , or living with a partner? 03/17/2020 AUDIT-C Answer Date Recorded Frequency of Alcohol Consumption Never 12/04/2018 Average Number of Drinks Not on file 019 Frequency of Binge Drinking Not on file 11/20 Overall Financial Resource Strain (CARDIA) Answe r Date Recorded How hard is it for you to pa y for the very basics like food, housing, medical care, and heating? Hard 03/17/2020 [facility] - Occupational Stress Questionnaire Answer Date Recorded Do you feel stress - tense, restless, nervous, or anxious, or unable to sleep at night because your mind is troubled all the time - these days? Very much 03/17/2020 Exercise Vital Sign Answer Date Recorde d On average, how many days pe r week do you engage in moderate to strenuous exercise (like a brisk walk)? 6 days 03/17/2020 On average, how many minutes do you engage in exercise at this level? 60 min 03/17/2020 Hunger Vital Sign Answer Date Recorded Within the past 12 months, y ou worried that your food would run out before you got the money to buy more. Sometimes true Within the past 12 months, t he food you bought just didn't last and you didn't have money to get more. Sometimes true PRAPARE - Transportation Answer Date Re corded In the past 12 months, has l ack of transportation kept you from medical appointments or from getting medications? No 02/21 In the past 12 months, has l ack of transportation kept you from meetings, work, or from getting things needed for daily living? No 03/17/2020 Comments No Sex and Gender Information Value Date Recorded Sex Assigned at Female 01/09/2023 3:32 PM CDT Legal Sex Female 4:46 PM CDT Gender Identity Female 01/09/2023 3:32 PM CDT Sexual Orientation Not on file documented as of this encounter Functional Status * RETIRED Are you deaf or do you have serious difficulty hearing Answer Date of Assessment Author Status No 03/17/2020 4:27 AM CDT Activ e * RETIRED Are you blind or do you have serious difficulty seeing, even when wearing glasses? Answer Date of Assessment Author Status No 03/17/2020 4:27 AM CDT Activ e * Do you have serious difficulty walking or climbing stairs? Answer Date of Assessment Author Status No 03/17/2020 4:27 AM CDT Patti Mullen R N Active * Do you have difficulty dressing or bathing? Answer Date of Assessment Author Status No 03/17/2020 4:27 AM CDT Patti Mullen R N Active * Because of a physical, mental, or emotional condition, do you have difficulty doing errands alone such as visiting a doctor's office or shopping? Answer Date of Assessment Author Status No 03/17/2020 4:27 AM CDT Patti Mullen R N Active documented as of this encounter Mental Status * Because of a physical, mental, or emotional condition, do you have serious difficulty concentrating, remembering, or making decisions? Answer Entry Date Author Status No 03/17/2020 4:27 AM CDT Patti Mullen R N Active documented in this encounter Progress Notes * LINO Atkinson - 04/17/2023 10:48 AM CDT Chest pain today, completed in clinic, likely non-cardiac and she will see her PCP, to ER if not improving * LINO Atkinson - 04/17/2023 9:35 AM CDT Chest pain today documented in this encounter Plan of Treatment Not on file documented as of this encounter Procedures Procedure Name Priority Date/Time Associated Diagnosis Comments ELECTROCARDIOGRAM (NON MIDMARK ACQUIRED) Routine 04/17/2023 9:52 AM CDT Chest pain, unspecified type documented in this encounter Results * ELECTROCARDIOGRAM (04/17/2023 9:52 AM CDT) 04/17/2023 9:52 AM CDT Narrative [facility] - 04/20/2023 8:[address] PM [address] [facility] [address] [place] [address] Test Date: 2023-04-17 Pat Name: NAPOLEON MARTINEZ Department: 105 Room: Gender: Female Fruit And Vegetable Classer: : 1965 Requested By: CORIN NIX Order Number: [id number] Reading MD: Heike Lyle Measurements Intervals [place] Rate: 81 P: 85 FL: 134 QRS: 82 QRSD: 82 T: 36 QT: 361 QTc: 420 Interpretive Statements SINUS RHYTHM POSSIBLE RIGHT VENTRICULAR CONDUCTION DELAY DATA QUALITY MAY AFFECT INTERPRETATION Procedure Note Heike Lyle MD - 04/20/[address] [facility] [address] [place] [address] Test Date: 2023-04-17 Pat Name: NAPOLEON MARTINEZ Department: 105 Room: Gender: Female Fruit And Vegetable Classer: : 1965 Requested By: CORIN NIX Order Number: [id number] Reading MD: Heike Lyle Measurements Intervals [place] Rate: 81 P: 85 FL: 134 QRS: 82 QRSD: 82 T: 36 QT: 361 QTc: 420 Interpretive Statements SINUS RHYTHM POSSIBLE RIGHT VENTRICULAR CONDUCTION DELAY DATA QUALITY MAY AFFECT INTERPRETATION us Corin Nix ENGRAVER HAND HARD METALS- PROCEDURES-OR DERABLE NO CHARGE Final Result [facility] documented in this encounter Visit Diagnoses Diagnosis Chest pain, unspecified type- Primary documented in this encounter Care Teams Circular Distributor Relationship Specialty Start Date End Date Jermeie Casanova MD [address] [place] [phone] PCP - General FAMILY PRACTICE 01/01/23 07/08/24 Maurice Caldera MD [address] [place] [phone] PCP - General HOSPITALIST 07/09/24 documented as of this encounter
--- OUTSIDE RECORDS SUMMARY | 2025-01-24 14:05 | XMS_ITS | Encounter Summary ---
Author Organization [facility] Healthcare Address [address] [place] [address] Care Team Providers Care Tub Washer Name Role Phone Maurice Caldera MD Primary Care Provider [phone] Reason for Visit * Auth/Cert (Routine) Specialty Diagnoses / Procedures Referred By Taisha portillo Referred To Contact Diagnoses Dysphagia, unspecified type Esophageal stricture Dysphagia, unspecified type [R13.10] Esophageal stricture [K22.2] Procedures CA ESOPHAGOGASTRODUODENOSCOPY TRANSORAL DIAGNOSTIC ESOPHAGOGASTRODUODENOSCOPY Referral ID Status Reason Start Date Expiration Date Visits Re quested Visits Authorized [id number] 1 1 Encounter Details Date Type Department Care Team (Late st Contact Info) Description 11/23/2024 Hospital Encounter [facility] [address] [place] [address] Kyler Curtis, [address] [facility] [address] [place] [address] [place] [address] Social History Tobacco Use Types Packs/Day Years Used Date Smoking Tobacco: Former Cigarettes 0.5 40 Alcohol Use Standard Drinks/Week Comments Yes 1 (1 standard drink = 0.6 oz pur e alcohol) 3 times a week [facility] Utilities Answer Date Recorded In the past 12 months has Personally electric, gas, oil, or water company threatened [...] often do you attend chur ch or voodoo services? More than 4 times per year 11/02/2024 Do you belong to any clubs o r organizations such as mormonism groups, unions, fraternal or athletic groups, or [...] any time in the past 12 [address] [place], were you homeless or living in a [...] on file Legal Sex Female 12:38 AM HYDRO GENERATION MANAGER Gender Identity Female 03/07/2021 7:11 AM [...] esophagus documented in this encounter Care Teams Tub Washer Relationship Specialty Start Date End Date Maurice Caldera MD [address] [facility] [place] [address] PCP - General Family Medicine 06/24/24 documented as of this encounter
--- OUTSIDE RECORDS SUMMARY | 2025-01-24 14:05 | XMS_ITS | Clinical Summary ---
Author Organization [facility] Address [address] [place] [address] Phone Care Team Providers Care Handle And Vent Machine Operator Name Role Phone Jeremie Casanova MD Primary Care Provider [phone] Allergies No known active allergies Medications escitalopram [...] Comments Blood Pressure 132/80 06/24/2023 10:00 PM CLERK STENOGRAPHER Pulse 70 06/24/2023 10:00 PM CLERK STENOGRAPHER Temperature 36.7 C (98 F) 06/24/2023 10:00 PM CLERK STENOGRAPHER Respiratory Rate 17 06/24/2023 10:00 PM CLERK STENOGRAPHER Oxygen Saturation 100% 06/24/2023 10:00 PM CLERK STENOGRAPHER Inhaled Oxygen Concentration - - Weight 65.8 kg (145 lb) 06/24/2023 8:04 PM CLERK STENOGRAPHER Height 172.7 cm (5' 8) 06/24/2023 8:04 PM CLERK STENOGRAPHER Body Mass Index 22.05 06/24/2023 8:04 PM CLERK STENOGRAPHER Plan of Treatment Health Maintenance Due Date [...] - season) 2024 02/19/2021, 01/26/2021 Influenza Immunization (#1) 02/20/202502/2023, 03/31/2022 Respiratory Syncytial Virus (RSV) Immunization (Adult) [...] this topic Insurance MEDICAID BLUE [place]OSS [place] Care Teams Handle And Vent Machine Operator Relationship Specialty Start Date End Date Jeremie Casanova MD [address] [place] [address] PCP - General Family Medicine 06/24/23
--- OUTSIDE RECORDS SUMMARY | 2025-01-24 14:05 | XMS_ITS | Clinical Summary ---
Author Organization [facility] Address [facility] [place] [address] Care Team Providers Care Psychiatry Physician Name Role Phone Maurice Caldera MD Primary Care Provider [phone] Allergies No known active allergies Medications escitalopram 10 MG tablet Take 1 tablet (10 mg total) by mouth daily. 05/05/2019 Active trazodone 100 MG tablet Take 0.5 tablets (50 mg total) by mouth nightly at bedtime. 06/17/2019 Active pantoprazole EC (PROTONIX) 40 MG tablet Take 1 tablet (40 mg total) by mouth 2 (two) times a day. Active metoclopramide (REGLAN) 10 MG tablet Take 1 tablet (10 mg total) by mouth every 6 (six) hours as needed. 15 tablet 12/24/2023 Active gabapentin (NEURONTIN) 300 MG capsule Take 1 capsule 3 times a day by oral route as directed for 90 days. 06/08/2024 Active methylphenidate CR (CONCERTA) 18 MG tablet Take 1 tablet (18 mg total) by mouth every morning. Active Active Problems Problem Noted Date Diagnosed Date Acute pancreatitis ([facility]) 03/17/2020 Irritable bowel syndrome 03/17/2020 Bipolar disorder ([facility]) 03/17/2020 Tobacco abuse 03/17/2020 Gastroesophageal reflux disease with esophagitis 03/17/2020 History of colon polyps 03/17/2020 Colitis 07/06/2019 Coronary artery disease Resolved Problems Problem Noted Date Diagnosed Date Resolved Date Elevated lipase 03/17/2020 03/17/2020 Acute colitis 07/04/2019 07/06/2019 Leukocytosis 07/04/2019 03/17/2020 Immunizations Immunization Administration Dates Next Due PFIZER COVID-19 (ORIGINAL FO RMULATION, PURPLE CAP) mRNA, LNP-S, PF, 30 MCG/0.3 ML DOSE 02/19/2021 Family History Medical History Relation Comments Colon Cancer Father Diabetes Father Relation Status Comments Father Social History Tobacco Use Types Packs/Day Years Used Date Smoking Tobacco: Every Day Cigarettes 1 30 Smokeless Tobacco: Never Tobacco Cessation:Ready to Q uit: Not Asked; Counseling Given: Not Answered Alcohol Use Standard Drinks/Week Comments Not Currently [...] 03/17/2020 How often do you attend chur or pentecostalism services? Never 03/17/2020 Do you belong to any clubs o r organizations such as mosque groups, unions, fraternal or athletic groups, or [...] housing, medical care, and heating? Hard 03/17/2020 [facility] - Occupational Stress [...] PM CDT Sexual Orientation Not on file Last Filed Vital Signs Vital Sign Reading Time Taken Comments Blood Pressure 134/58 07/09/2024 12:30 PM TRANSMITTER ENGINEER IN CHARGE Pulse 85 07/09/2024 12:12 PM TRANSMITTER ENGINEER IN CHARGE Temperature 36.9 C (98.5 F) 07/09/2024 12:12 PM TRANSMITTER ENGINEER IN CHARGE Respiratory Rate 18 07/09/2024 12:12 PM TRANSMITTER ENGINEER IN CHARGE Oxygen Saturation 97% 07/09/2024 1:00 PM TRANSMITTER ENGINEER IN CHARGE Inhaled Oxygen Concentration - - Weight 76.2 kg (168 lb) 07/09/2024 12:12 PM TRANSMITTER ENGINEER IN CHARGE Height 171.5 cm (5' 7.5) 07/09/2024 12:12 PM CS T Body Mass Index 25.92 07/09/2024 12:12 PM TRANSMITTER ENGINEER IN CHARGE Plan of Treatment Health Maintenance Due Date Last Done Comments ASCVD Statin 1965 Annual Physical 1968 Hepatitis C 09/07/1983 Pneumococcal Vaccine: 50+ Years (1 of 2 - PCV) 1984 Zoster Vaccines (1 of 2) 09/07/2015 COVID-19 Vaccine (3 - 2023-2 5 season) 2024 02/19/2021, 01/26/2021 PHQ-2 (Physician [place]) 06/22/2024 Lung Cancer Screening 09/24/2024 09/25/2023 , 01/01/2023 ASCVD LDL 11/19/2024 11/20/2023, 09/16/2023, 07/19/2016 Mammogram Screening 10/08/2025 10/09/2023, 05/10/2019 Colorectal Cancer Screening Colonoscopy (10 Years) 06/10/2029 06/10/2019, 06/10/2019 DTaP, Tdap and Td Vaccines ( 2 - Td or Tdap) 03/31/2032 03/31/2022 Meningococcal B Vaccine Aged Out No l onger eligible based on patient's age to complete this topic Meningococcal Vaccine Aged Out No maggie pavithra eligible based on patient's age to complete this topic RSV Immunizations Under 20 Months Aged Out No longer eligible b ased on patient's age to complete this topic Procedures Procedure Name Priority Date/Time Associated Diagnosis Comments LIPID PANEL Routine 11/20/2023 11:55 AM CDT Hyperlipidemia Vitamin D deficiency Elevated TSH MG SCREENING W PETER AYDE DIGI Routine 10/09/2023 1:09 PM CDT Visit for screening mammogram CT LUNG SCREENING Routine 09/25/2023 9:2 3 AM CDT History of tobacco use COLONOSCOPY 06/10/2019 9:05 AM TRANSMITTER ENGINEER IN CHARGE from Last 3 Months or Most Recently Relevant to Health Maintenance Results * LIPID PANEL (11/20/2023 11:55 AM CDT) CHOLESTEROL 183 MG/DL 11/21/2023 4:47 PM CDT [facility] Comment:DESIRABLE: <200 TRIGLYCERIDES 75 MG/DL 11/21/2023 4:47 PM CDT [facility] Comment:<150 NORMAL HDL 61 >49 MG/DL 11/21/2023 4:47 PM CDT [facility] LDL-C 107 MG/DL 11/21/2023 4:47 PM CDT [facility] Comment:100-129 NEAR OR ABOV E OPTIMAL VLDL CALCULATION 15 MG/DL 11/21/19 4:47 PM CDT [facility] Comment:REFERENCE RANGE NOT ESTABLISHED CHOL/HDL RATIO 3.0 11/21/2023 4:47 PM CDT [facility] Comment:REFERENCE RANGE NOT ESTABLISHED LDL/HDL 1.8 11/21/2023 4:47 PM CDT [facility] Comment:REFERENCE RANGE NOT ESTABLISHED NON HDL CHOLESTEROL 122 MG/DL 11/21/2023 4:47 PM CDT [facility] Comment:REFERENCE RANGE NOT ESTABLISHED 11/20/2023 11:5 5 AM CDT [facility] Final Result Performing Organization Address City/State/[facility] Co de Phone Number [facility] [address] [place] [address], [phone] * MG SCREENING W PETER AYDE DIGI (10/09/2023 1:09 PM CDT) Anatomical Region Laterality Modality Breast Bilateral Mammography 10/09/2023 6:00 PM CDT Impressions 10/09/2023 6:04 PM CDT ===== IMPRESSION: ===== 1. Stable mammographic appearance with no new findings to suggest malignancy in either breast. Assessment: ACR BI-RADS 2 - BENIGN FINDING(S) Recommendation: 1:Routine Screening Bilateral Comments: Ordered By: LUI CANNON Interpreted By: Neris Bowman, 10/09/2023 6:00 PM Narrative 10/09/2023 6:04 PM CDT EXAMINATION: Digital bilateral screening mammogram with 3-D tomosynthesis EXAM DATE/TIME: 10/09/2023 12:30 PM REASON FOR EXAM: screening Bilateral implants greater than 20 years ago. COMPARISON: 05/07/2017.. 05/10/2019 Technique: Digital screening mammography of both breasts was performed in addition to 3-D Tomosynthesis technique. This study was read with the assistance of a computer-aided detection system. Tissue density: There are scattered areas of fibroglandular density. Findings: Bilateral breast prostheses are grossly intact. There is no new focal asymmetry, dominant mass lesion, area of skin thickening, or cluster of suspicious appearing calcifications in either breast to suggest malignancy. Lui Cannon NE MAMMO Final Result * CT LUNG SCREENING (09/25/2023 9:23 AM CDT) Anatomical Region Laterality Modality Chest Computed Tomogra phy 09/30/2023 8:35 AM CDT Impressions 09/30/2023 8:37 AM CDT IMPRESSION: 1. LUNG-RADS category 1: Negative 2. LUNG-RADS category S: Negative 3. Other incidental findings as above. RECOMMENDATIONS: Follow-up LDCT Chest in 12 months (on or around September 2024). Referred By: ODILON REIS Interpreted By: Roverto Caldera MD, 09/30/2023 8:35 AM Narrative 09/30/2023 8:37 AM CDT EXAM: LUNG SCREENING LOW-DOSE CT THORAX WITHOUT CONTRAST DATE: 09/25/2023 HISTORY: Asymptomatic patient meeting NCCN high-risk criteria for lung screening. Smoking history 1 ppd smoker x 38 yrs vapes and smokes 1/2 ppd x 2 yrs COMPARISON: PET/CT from last year TECHNIQUE: Noncontrast, helical, low-dose CT (LDCT) chest per standard departmental protocol. Automated exposure control was utilized for dose reduction. FINDINGS: Lung Screening Specific (LUNG-RADS): Negative Potentially Significant Incidentals (LUNG-RADS category S): None. Pulmonary Incidentals: Mild COPD with apical scarring. Other Incidentals: Bilateral breast implants. Degenerative changes in the spine. Procedure Note Roverto Caldera MD - 09/30/2023 EXAM: LUNG SCREENING LOW-DOSE CT THORAX WITHOUT CONTRAST DATE: 09/25/2023 HISTORY: Asymptomatic patient meeting NCCN high-risk criteria for lungscreening. Smoking history 1 ppd smoker x 38 yrs vapes and smokes 1/2 ppd x 2 yrs COMPARISON: PET/CT from last year TECHNIQUE: Noncontrast, helical, low-dose CT (LDCT) chest per standarddepartmental protocol. Automated exposure control was utilized for dosereduction. FINDINGS: Lung Screening Specific (LUNG-RADS): Negative Potentially Significant Incidentals (LUNG-RADS category S): None. Pulmonary Incidentals: Mild COPD with apical scarring. Other Incidentals: Bilateral breast implants. Degenerative changes in thespine. IMPRESSION: 1. LUNG-RADS category 1: Negative 2. LUNG-RADS category S: Negative 3. Other incidental findings as above. RECOMMENDATIONS: Follow-up LDCT Chest in 12 months (on or around September2024). Referred By: ODILON REIS Interpreted By: Roverto Caldera MD, 09/30/2023 8:35 AM us Odilon Reis TOE PUNCHER CT Fin al Result * COLONOSCOPY (06/10/2019 9:05 AM TRANSMITTER ENGINEER IN CHARGE) us Jb Mcclelland MD GI PROCEDURE ORDERABLES Final Result from Last 3 Months or Most Recently Relevant to Health Maintenance Insurance [employer] Advance Directives * Full Code (Latest Code Status on File) Date Activated Date Inactivated Comments 03/17/2020 4:10 AM 03/18/2020 12:16 PM * Full Code Date Activated Date Inactivated Comments 07/05/2019 8:56 AM 07/06/2019 6:28 PM * Full Code Date Activated Date Inactivated Comments 07/04/2019 2:17 PM 07/05/2019 8:56 AM Care Teams Psychiatry Physician Relationship Specialty Start Date End Date Maurice Caldera MD [address] [place] [phone] PCP - General HOSPITALIST 07/09/24
--- OUTSIDE RECORDS SUMMARY | 2025-01-24 14:05 | XMS_ITS | Clinical Summary ---
Author Organization [facility] Address [address] [place] [address] Care Team Providers Care Structural Engineering Technician Name Role Phone Unavailable Primary Care Provider Unavailabl e Source Comments [facility],non-owned Affiliates and Associated Physician Practices is amultiple site organization consisting of ambulatory clinics and hospital sitesin [place], [place], [place] and [place]. This disclosure is being madepursuant to the Care Everywhere program and may not contain all information available regarding this patient. Last updated 18.[facility] Encounters Date Type Department Care Team Description 01/05/2025 Telephone [facility] - Rheumatology [address] [place] [address], [address] [place] [address] Group, [facility] Medical Referral 12/29/2024 Transcribe Orders [facility] - Rheumatology [address] [place] [address], [address] [place] [address] Kajal Aquino Fibromyalgia from Last 3 Months Social History Tobacco Use Types Packs/Day Years Used Date Smoking Tobacco: Never Assessed Comments Unknown Sex and Gender Information Value Date Recorded Sex Assigned at Not on file Legal Sex Female 7:55 AM CDT Gender Identity Not on file Sexual Orientation Not on file Plan of Treatment Health Maintenance Due Date Last Done Comments COLOGUARD (AGES 45-75) - COL ON CA SCREENING 1965 COLON MONITORING 1965 COLONOSCOPY - COLON CA SCREENING 1965 CT COLONOGRAPHY - COLON CA SCREENING 1965 Colorectal Cancer Screening 1965 FIT - COLON CA SCREENING 1965 FLEX SIG - COLON CA SCREENING 1965 LIPID TESTING 1965 MAMMOGRAM 1965 HIV SCREENING 1980 HEPATITIS C SCREENING 09/02/1983 DTAP/TDAP/TD VACCINES (1 - Tdap) 1984 HEPATITIS B VACCINE (1 of 3 - 19+ 3-dose series) 1984 PAP SMEAR 1986 PNEUMOCOCCAL VACCINE 50+ (1 of 1 - PCV) 09/07/2015 ZOSTER VACCINE (1 of 2) 09/07/2015 COVID-19 VACCINE (1 - 2023-2 5 season) 2024 DEPRESSION SCREENING 06/22/2024 INFLUENZA VACCINE (#1) 2025 HIB VACCINE Aged Out No longer eligi ble based on patient's age to complete this topic HPV VACCINE Aged Out No longer eligi ble based on patient's age to complete this topic MENINGOCOCCAL (Group B) VACC INE SHARED DECISION-MAKING Aged Out No longer eligibl e based on patient's age to complete this topic MENINGOCOCCAL GROUPS A/C/Y/W VACCINE Aged Out No longer eligible b ased on patient's age to complete this topic Insurance
--- OUTSIDE RECORDS SUMMARY | 2025-01-24 14:05 | XMS_ITS | Encounter Summary ---
Author Organization [facility] Address [address] [place] [address] Care Team Providers Care Medical Billing Service Name Role Phone None, Provider Primary Care Provider Jeremie Bowman MD Primary Care Provider Shen Arora MD Primary Care Provider [phone] Jeremie Casanova MD Primary Care Provider [phone] Maurice Caldera MD Primary Care Provider [phone] Encounter Details Date Type Department Care Team (Late st Contact Info) Description 11/27/2018 Abstract [facility] [address] [place] [address] , Generic ConversionMD Social History Tobacco Use [...] documented as of this encounter Care Teams Medical Billing Service Relationship Specialty Start Date End Date None, Provider, PCP - General 12/04/18 05/09/19 Jeremie Casanova MD [address] [place] [phone] PCP - General FAMILY PRACTICE 05/10/19 01/27/21 Shen Arora MD [address] [place] [phone] PCP - General INTERNAL MEDICINE 01/28/21 12/31/22 Jeremie Casanova MD [address] [place] [phone] PCP - General FAMILY PRACTICE 01/01/23 07/08/24 Maurice Caldera MD [address] [place] [phone] PCP - General HOSPITALIST 07/09/24 documented as of this encounter
--- NOTE | 2025-01-24 14:11 | ED_ITS ---
HPI - Abdominal Pain General Chief Complaint: Abdominal Pain Stated Complaint: right side abdominal pain Time Seen by Provider: 01/24/25 14:11 Source: patient Mode of arrival: ambulatory Limitations: no limitations History of Present Illness HPI narrative: 59 years old white female drove herself to the emergency room complaining of right abdominal pain started yesterday associated with nausea, got worse today. Patient report everything make it worse, nothing make it better. History of C- section, hysterectomy, IBS and fibromyalgia. The patient does not smoke or use drugs, drinks occasionally. she denies any fever, vomiting, constipation or diarrhea or urinary symptoms. MD elicited complaint: abdominal pain Related Data Home Medications ?Medication ?Instructions ?Recorded ?Confirmed ?Last Taken ?Type escitalopram oxalate 10 mg tablet 10 mg PO DAILY 06/27/21 01/24/25 10/14/21 History (Lexapro) aripiprazole 5 mg tablet (Abilify) 5 mg PO DAILY 10/14/21 01/24/25 10/13/21 History bupropion HCl 150 mg 24 hr tablet, 150 mg PO DAILY 10/14/21 01/24/25 10/07/21 History extended release cyclobenzaprine 10 mg tablet 10 mg PO Q12H 01/24/25 01/24/25 Unknown History trazodone 50 mg tablet 50 mg PO .Night 01/24/25 01/24/25 Unknown History Allergies Allergy/AdvReac Type Severity Reaction Status Date / Time Penicillins Allergy Unknown Verified 01/24/25 14:03 tramadol Allergy Hives Verified 01/24/25 14:03 Review of Systems 2 Review of Systems: All systems reviewed & are unremarkable except as noted in HPI and below PMFSH Past Medical History Medical History Lower abdominal pain Depression Anxiety Fatty liver Family history of colon cancer in father Diverticulosis LLQ pain Surgical History Surgical History History of hysterectomy History of esophagogastroduodenoscopy (EGD) History of colonoscopy Social History Social History Smoking status: Current every day smoker Tobacco type: cigarettes Gender identity (if verbalized by the patient): Female Exam 2 Narrative: General appearance: Well-developed, well-nourished Skin: Normal color Head: Normocephalic, nontraumatic Eyes: Clear conjunctiva ENT: Oropharynx normal, ears normal, nose normal Neck: Supple, nontender Chest and respiratory: Airway patent, no respiratory distress, no accessory muscle use Heart: Regular rate/rhythm Abdomen: Soft, Diffuse tenderness right abdomen, right flank area and right lower back, no bruises, no swelling, no rash, quite bowel sounds Vascular: Normal peripheral pulses, normal capillary refill. Musculoskeletal: Normal range of motion, nontender back Neurologic: Alert and oriented ?3, MULTIPLE COIL WINDER is normal as tested, no gross motor deficit Course Vital Signs Vital signs: Vital Signs Temperature 36.8 C 01/24/25 13:59 Pulse Rate 80 01/24/25 13:59 Respiratory Rate 20 01/24/25 13:59 Blood Pressure 123/87 01/24/25 13:59 Pulse Oximetry 100 01/24/25 13:59 Oxygen Delivery Room Air 01/24/25 13:59 Temperature 36.8 C 01/24/25 13:59 Pulse Rate 80 01/24/25 13:59 Respiratory Rate 20 01/24/25 13:59 Blood Pressure 123/87 01/24/25 13:59 Pulse Oximetry 100 01/24/25 13:59 Oxygen Delivery Room Air 01/24/25 13:59 MDM - Abdominal Pain MDM Narrative Medical decision making narrative: patient came with right abdominal pain Vital signs are stable Physical examination showing diffuse tenderness right abdomen right lower back and right flank area Differential diagnosis include IBS, diverticulitis, appendicitis, constipation, urinary tract infection, pancreatitis Blood workup today includes CBC, CMP, lipase showed INSIGNIFICANT ABNORMALITY TO EXPLAIN PATIENT CONDITION Urinalysis showed INSIGNIFICANT ABNORMALITIES CT abdomen and pelvis with IV contrast showed NO ACUTE ABNORMALITY DIAGNOSIS ABDOMINAL PAIN, HIGH LIKELY IBS FLARE. DISCHARGED ON ZOFRAN AND BENTYL. THE PT WAS DISCHARGED TO HOME.THE PT,S CONDITION UPON DISCHARGE WAS FAIR,EDUCATION WAS PROVIDED TO THE PT IN REFERENCE TO THE FINAL IMPRESSION,DISCHARGE STUDY RESULTS,TREATMENT,PROGNOSIS AND NEED FOR FOLLOW UP . Differential Diagnosis Differential diagnosis: Likely other ( ABOVE) Medical Records Attestation: I reviewed the patient's medical records. Lab Data Attestation: I reviewed the patient's lab results. 01/24/25 14:32 01/24/25 14:32 Labs: Lab Results 01/24/25 01/24/25 Range/Units 14:02 14:32 WBC 8.2 (4.8-10.8) K/mm3 RBC 4.55 (4.20-5.40) M/mm3 Hgb 13.7 (12.0-15.0) g/dL Hct 41.2 (35.0-49.0) % MCV 90.5 (78.0-102.0) fL MCH 30.1 (27.0-31.0) pg MCHC 33.3 (32-36) g/dL RDW 11.9 (11.6-14.4) % Plt Count 359 (150-420) K/mm3 MPV 9.7 (9.2-11.8) fl Immature Gran % (Auto) 0.5 H (0.0-0.0) % Neut % (Auto) 63.9 (50.0-70.0) % Lymph % (Auto) 27.5 (18.0-42.0) % [place] % (Auto) 5.3 (2.0-11.0) % Eos % (Auto) 2.4 (1.0-6.0) % Baso % (Auto) 0.4 (0.0-1.0) % Lymph # (Auto) 2.27 (1.10-4.50) K/mm3 [place] # (Auto) 0.44 (0.10-0.90) K/mm3 Eos # (Auto) 0.20 (0.02-0.50) K/mm3 Baso # (Auto) 0.03 (0.00-0.10) K/mm3 Abs Immat Gran (auto) 0.04 H (0.00-0.00) K/mm3 Absolute Neuts (auto) 5.26 (1.70-7.20) K/mm3 Absolute Nucleated RBC 0.00 (0.00-0.00) K/mm3 Nucleated RBC % 0.0 (0-0.0) % Sodium 142 (137-145) mmol/L Potassium 3.7 (3.4-5.0) mmol/L Chloride 111 H (98-107) mmol/L Carbon Dioxide 27 (22-30) mmol/L Anion Gap 4 (4-12) mmol/L BUN 17 (7-17) mg/dL Creatinine 0.92 (0.7-1.0) mg/dL Estim Creat Clear Calc 58 ml/min Estimated GFR > 60 (59 - ) Glucose 121 H (65-110) mg/dL Calculated Osmolality 296 H (285-295) mOsm/kg Calcium 9.5 (8.4-10.2) mg/dL Total Bilirubin 0.5 (0.2-1.3) mg/dL AST 32 (14-36) U/L ALT 21 (6-35) U/L Alkaline Phosphatase 143 H (38-126) U/L Total Protein 6.9 (6.3-8.2) g/dL Albumin 4.4 (3.5-5.1) g/dL Lipase 128 (23-300) U/L Urine Color Light yellow (Yellow) Urine Appearance Clear (Clear) Urine pH 6.0 (5.0-8.0) Ur Specific [address] 1.020 (1.010-1.020) Urine Protein Negative (Negative) Urine Glucose (UA) Negative (Negative) Urine Ketones Negative (Negative) Ur Blood (Man) Negative (Negative) Urine Nitrate Negative (Negative) Urine Bilirubin Negative (Negative) Urine Urobilinogen 2.0 H (0.2-1.0) mg/dL Leukocyte Esterase Rfl Negative (Negative) BIPIN/UL Urine RBC None seen (0-2) /hpf Urine WBC None seen (0-3) /hpf Ur Squamous Epith Cells Few (Few) /hpf Urine Bacteria Trace (None) /hpf Imaging Data Radiologist's impression: Impressions Abdomen/Pelvis CT 01/24/25 16:28 IMPRESSION: 1. No acute abdominal abnormality. Critical Care Time Critical Care Time Critical Care Time: No Discharge Plan Discharge Clinical Impression: Abdominal pain, History of IBS Patient Disposition: Home Condition: Improved Instructions: Abdominal Pain (ED) Additional Instructions: RETURN IF SYMPTOMS ARE WORSENING , CALL YOUR FAMILY PHYSICIAN FOR APPOINTMENT, TAKE TYLENOL NEEDED FOR ACHES AND PAIN, CONTINUE HOME MEDICATIONS. Patient Language: Czech Prescriptions: New dicyclomine 20 mg tablet 20 mg PO QID PRN (Reason: abdominal pain) Qty: 20 0RF ondansetron HCl 4 mg tablet 4 mg PO Q4H Qty: 10 0RF Rx Instructions: 1st dose 1-2 hr before radiation No Action escitalopram oxalate [Lexapro] 10 mg tablet 10 mg PO DAILY aripiprazole [Abilify] 5 mg tablet 5 mg PO DAILY bupropion HCl 150 mg tablet extended release 24 hr 150 mg PO DAILY phenazopyridine [Pyridium] 200 mg tablet 200 mg PO TID Qty: 6 0RF albuterol sulfate [Ventolin HFA] 90 mcg/actuation HFA aerosol inhaler 2 puff inhalation QID PRN (Reason: shortness of breath or wheezing) Qty: 8.5 0RF cyclobenzaprine 10 mg tablet 10 mg PO Q12H trazodone 50 mg tablet 50 mg PO .Night Follow-up/Referrals: UNKNOWN,DOCTOR [Non-Staff] -
--- OUTSIDE RECORDS SUMMARY | 2025-01-24 14:38 | XMS_ITS | Clinical Summary ---
Author Organization [facility] Address [address] [place] [address] Phone Care Team Providers Care Engagement Lead Name Role Phone Jeremie Casanova MD Primary Care Provider [phone] Allergies No known active allergies Medications escitalopram [...] Comments Blood Pressure 132/80 06/24/2023 10:00 PM TRAY LINE WORKER Pulse 70 06/24/2023 10:00 PM TRAY LINE WORKER Temperature 36.7 C (98 F) 06/24/2023 10:00 PM TRAY LINE WORKER Respiratory Rate 17 06/24/2023 10:00 PM TRAY LINE WORKER Oxygen Saturation 100% 06/24/2023 10:00 PM TRAY LINE WORKER Inhaled Oxygen Concentration - - Weight 65.8 kg (145 lb) 06/24/2023 8:04 PM TRAY LINE WORKER Height 172.7 cm (5' 8) 06/24/2023 8:04 PM TRAY LINE WORKER Body Mass Index 22.05 06/24/2023 8:04 PM TRAY LINE WORKER Plan of Treatment Health Maintenance Due Date [...] Insurance MEDICAID [place] Care Teams Engagement Lead Relationship Specialty Start Date End Date Jeremie Casanova MD [address] [place] [address] PCP - General Family Medicine 06/24/23
--- OUTSIDE RECORDS SUMMARY | 2025-01-24 14:38 | XMS_ITS | Patient Health Record ---
Author Organization [facility] [employer] [facility] Address [address] [place] [address] Care Team Providers Care Gravure Printing Machinist Name Role Phone Elliot Kraus Unavailable [phone] Reason For Referral No Information Social History Sex Assigned At : Social History Observation Description Sex Assigned At Female Encounters En[facility] [address] [facility] [address] [place] [address] 07/18/2024 Elliot Kraus Plan Of Treatment No Information Insurance Providers Payer Name Payer Address Payer Phone Subscriber Number Group Number Insured Name Patient Relationship to Insured Coverage Start Date Coverage End Date [facility] [address] [place] [address] [id number] Napoleon Howell Self - patient is the insured
--- OUTSIDE RECORDS SUMMARY | 2025-01-24 14:38 | XMS_ITS | Encounter Summary ---
Author Organization [facility] Healthcare Address [address] [place] [address] Care Team Providers Care Stem Crusher Name Role Phone Maurice Caldera MD Primary Care Provider [phone] Reason for Visit * Auth/Cert (Routine) Specialty Diagnoses / Procedures Referred By Taisha portillo Referred To Contact Diagnoses Dysphagia, unspecified type Esophageal stricture Dysphagia, unspecified type [R13.10] Esophageal stricture [K22.2] Procedures [place] ESOPHAGOGASTRODUODENOSCOPY TRANSORAL DIAGNOSTIC ESOPHAGOGASTRODUODENOSCOPY Referral ID Status Reason Start Date Expiration Date Visits Re quested Visits Authorized [id number] 1 1 Encounter Details Date Type Department Care Team (Late st Contact Info) Description 11/23/2024 Hospital Encounter [facility] [address] [place] [address] Kyler Curtis, [address] [facility] [address] WILSON [address] [place] [id number] Social History Tobacco Use Types Packs/Day Years Used Date Smoking Tobacco: Former Cigarettes 0.5 40 Alcohol Use Standard Drinks/Week Comments Yes 1 (1 standard drink = 0.6 oz pur e alcohol) 3 times a week [facility] Utilities Answer Date Recorded In the past 12 months has [employer], gas, oil, or water company threatened [...] often do you attend chur ch or congregational services? More than 4 times per year 11/02/2024 Do you belong to any clubs o r organizations such as taoist groups, unions, fraternal or athletic groups, or [...] any time in the past 12 m [facility], were you homeless or living in a longterm (including now)? No 11/02/2024 Personal Safety Answer Date Recorded Have you ever been in or are you currently in a harmful physical or emotional relationship or is someone making you feel afraid or unsafe? Denies 11/10/2024 Comments No Sex and Gender Information Value Date Recorded Sex Assigned at Not on file Legal Sex Female 12:38 AM OPTICAL LAB TECHNICIAN Gender Identity Female 03/07/2021 7:11 AM [...] esophagus documented in this encounter Care Teams Stem Crusher Relationship Specialty Start Date End Date Maurice Caldera MD [address] [facility] [place] [address] PCP - General Family Medicine 06/24/24 documented as of this encounter
--- OUTSIDE RECORDS SUMMARY | 2025-01-24 14:39 | XMS_ITS | Clinical Summary ---
Author Organization [facility] Address [address] [facility] [place] [address] Care Team Providers Care Commercial Collections Driver Name Role Phone Unavailable Primary Care Provider Unavailabl e Source Comments [facility],non-owned Affiliates and Associated Physician Practices is amultiple site organization consisting of ambulatory clinics and hospital sitesin [place], [place]. This disclosure is being madepursuant to the Care Everywhere program and may not contain all information available regarding this patient. Last updated 18.[facility] Encounters Date Type Department Care Team Description 01/05/2025 Telephone [facility] - Rheumatology [address] [place] [address], [address] [place] [address] Group, [facility] Medical Referral 12/29/2024 Transcribe Orders [facility] - Rheumatology [address] [place] [address], [address] [place] [address] Kajal Aquino Fibromyalgia from Last [...]
--- OUTSIDE RECORDS SUMMARY | 2025-01-24 14:39 | XMS_ITS | Encounter Summary ---
Author Organization [facility] Address [facility] [place] [address] Care Team Providers Care Salesperson Furniture Name Role Phone Jeremie Casanova MD Primary Care Provider [phone] Maurice Caldera MD Primary Care Provider [phone] Encounter Details Date Type Department Care Team ([facility] st Contact Info) Description 04/17/[address] [facility] [address] [place] [address] Corin Aiken, [facility] [address] [place] [address] Social History Tobacco Use Types [...] often do you attend chur ch or hoahaoism services? Never 03/17/2020 Do you belong to any clubs o r organizations such as scientologist groups, unions, fraternal or athletic groups, or [...] housing, medical care, and heating? Hard 03/17/2020 [facility] - Occupational [...] AM CDT) 04/17/2023 9:52 AM CDT Narrative [facility] - 04/20/2023 8:06 PM CDT [facility] [address] [place] [address] Test Date: 2023-04-17 Pat Name: NAPOLEON MARTINEZ Department: 105 Room: Gender: Female Toxics Program Officer: : 1965 Requested By: CORIN NIX Order Number: [id number] Reading MD: Heike Lyle Measurements Intervals Garrison Rate: 81 P: 85 NE: 134 QRS: 82 QRSD: 82 T: 36 QT: 361 QTc: 420 Interpretive Statements SINUS RHYTHM POSSIBLE RIGHT VENTRICULAR CONDUCTION DELAY DATA QUALITY MAY AFFECT INTERPRETATION Procedure Note Heike Lyle MD - 04/20/2023 [facility] [address] [place] [address] Test Date: 2023-04-17 Pat Name: NAPOLEON MARTINEZ Department: 105 Room: Gender: Female Toxics Program Officer: : 1965 Requested By: CORIN NIX Order Number: [id number] Reading MD: Heike Lyle Measurements Intervals Garrison Rate: 81 P: 85 NE: 134 QRS: 82 QRSD: 82 T: 36 QT: 361 QTc: 420 Interpretive Statements SINUS RHYTHM POSSIBLE RIGHT VENTRICULAR CONDUCTION DELAY DATA QUALITY MAY AFFECT INTERPRETATION us Corin Nix RUBBER ROLLER GRINDER OPERATOR- PROCEDURES-OR DERABLE NO CHARGE Final Result [facility] documented in this encounter Visit Diagnoses Diagnosis Chest pain, unspecified type- Primary documented in this encounter Care Teams Salesperson Furniture Relationship Specialty Start Date End Date Jeremie Casanova MD [address] [place] [phone] PCP - General FAMILY PRACTICE 01/01/23 07/08/24 Maurice Caldera MD [address] [place] [phone] PCP - General HOSPITALIST 07/09/24 documented as of this encounter
--- OUTSIDE RECORDS SUMMARY | 2025-01-24 14:39 | XMS_ITS | Encounter Summary ---
Author Organization [facility] Address [address] [place] [address] Care Team Providers Care Dispatcher Service Chief Name Role Phone None, Provider Primary Care Provider Jeremie Bowman MD Primary Care Provider Shen Arora MD Primary Care Provider [phone] Jeremie Casanova MD Primary Care Provider Maurice Caldera MD Primary Care Provider [phone] Encounter Details Date Type Department Care Team (Late st Contact Info) Description 09/05/2017 Abstract [facility] CONVERSION [address] [facility] [place] [address] , Generic ConversionMD Social History Tobacco [...] documented as of this encounter Care Teams Dispatcher Service Chief Relationship Specialty Start Date End Date None, Provider, PCP - General 12/04/18 05/09/19 Jeremie Casanova MD [address] [place] [phone] PCP - General FAMILY PRACTICE 05/10/19 01/27/21 Shen Arora MD [address] [place] [phone] PCP - General INTERNAL MEDICINE 01/28/21 12/31/22 Jeremie Casanova MD [address] [place] [phone] PCP - General FAMILY PRACTICE 01/01/23 07/08/24 Maurice Caldera MD [address] [place] [phone] PCP - General HOSPITALIST 07/09/24 documented as of this encounter
--- OUTSIDE RECORDS SUMMARY | 2025-01-24 14:39 | XMS_ITS | Encounter Summary ---
Author Organization [facility] Address [address] [place] [address] Care Team Providers Care Pigskin Trimmer Name Role Phone None, Provider Primary Care Provider Jeremie Bowman MD Primary Care Provider [phone] Shen Arora MD Primary Care Provider [phone] Jeremie Casanova MD Primary Care Provider Maurice Caldera MD Primary Care Provider [phone] Encounter Details Date Type Department Care Team (Late st Contact Info) Description 11/27/2018 Abstract [facility] CONVERSION [address] [place] [address] , Generic ConversionMD Social History [...] documented as of this encounter Care Teams Pigskin Trimmer Relationship Specialty Start Date End Date None, Provider, PCP - General 12/04/18 05/09/19 Jeremie Casanova MD [address] [place] [phone] PCP - General FAMILY PRACTICE 05/10/19 01/27/21 Shen Arora MD [address] [place] [phone] PCP - General INTERNAL MEDICINE 01/28/21 12/31/22 Jeremie Casanova MD [address] [place] [phone] PCP - General FAMILY PRACTICE 01/01/23 07/08/24 Maurice Caldera MD [address] [place] [phone] PCP - General HOSPITALIST 07/09/24 documented as of this encounter
--- OUTSIDE RECORDS SUMMARY | 2025-01-24 14:39 | XMS_ITS | Referral Summary ---
[facility] Address [address] [place] [address] Care Team Providers Care Circular Tank Cooper Name Role Phone Maurice Caldera MD Primary Care Provider [phone] Encounters Date Type Department Care Team Description 11/23/2024 Telephone [facility] Gastroenterology at [address] [place] [phone] Tameka Black 11/23/2024 Hospital Encounter [facility] [address] [place] [address] Kyler Curtis DO 11/12/2024 12:02 PM CDT - 11/12/2024 11:59 PM CDT Hospital Encounter REPLACED BY [facility] Emergency, Room R Discharge Disposition: Discharge to home or self care 11/10/2024 9:43 PM CDT - 11/12/2024 11:54 AM CDT Hospital Encounter [facility] [address] [place] [address] Godfrey Chisholm MD Huynh, Kiet T., MD Kheirkhahan, Nazanin, MD Suicide attempt (HCC) (Primary Dx); Intentional benzodiazepine overdose, initial encounter (HCC); Alcohol abuse Discharge Disposition: Discharge to psych hospital or psych unit 11/10/2024 9:26 PM CDT - 11/10/2024 11:59 PM CDT Hospital Encounter [facility] Emergency, Room R Discharge Disposition: Discharge to home or self care 11/07/2024 Telephone [facility] Gastroenterology at [address] [place] [phone] [place] Jeanariley Araiza 11/03/2024 Telephone [facility] Gastroenterology at [place] [address] [facility] [address] [place] [phone] Sonia Black MA Schedule EGD 11/03/2024 Documentation [facility] [address] [facility] [facility] [address] [place] [phone] Rashid Denny HAND CULTIVATOR 11/01/2024 5:08 PM CDT - 11/02/2024 4:26 PM CDT Hospital Encounter [facility] [address] [place] [address] Alejandro Gonzalez MD Petters, MD [place] Charlton Victoria Rose, TIA (transient ischemic attack) (Primary Dx); Dysphagia, unspecified type Discharge Disposition: Discharge to home or self care 11/01/2024 4:40 PM CDT - 11/01/2024 11:59 PM CDT Hospital Encounter REPLACED BY [facility] Emergency, Room R Discharge Disposition: Discharge to home or self care 10/28/2024 7:42 AM CDT - 10/28/2024 11:59 PM CDT Hospital Encounter [facility] [address] [place] [id number] Posterior knee pain, left Discharge Disposition: Discharge to home or self care 10/28/2024 7:43 AM CDT - 10/28/2024 11:59 PM CDT Hospital Encounter [address] [address] Posterior right knee pain Discharge Disposition: Discharge [...] pur e alcohol) 3 times a week [facility] Utilities Answer Date Recorded In the past 12 months has e Mc[employer], gas, oil, or water [employer] threatened to shut off services in your [...] How often do you attend chur or confucianism services? More than 4 times per year [...] any time in the past 12 m [facility], were you homeless or living in a alf (including now)? No 11/02/2024 Personal Safety Answer Date Recorded Have you ever been in or are you currently in a harmful physical or emotional relationship or is someone making you feel afraid or unsafe? 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 Gender Identity Female 03/07/2021 7:11 AM CDT [...] MD LAB BLOOD ORDERABLES Final Resu lt [facility] ([place]) [address] [facility] [facility] [place] [address] * Differential, auto (11/12/2024 3:17 AM CDT) [...] Final Resu lt [facility] ([place]) [address] [facility] [facility] [place] [address] * CBC with auto differential (11/12/2024 3:17 [...] RDW SD 39.5 35.7 - 48.1 fL [facility] ([place]) NRBC abs 0.00 0.00 - 0.01 K/cumm [facility] ([place]) Blood 11/12/2024 3:17 AM CDT 11/12/2024 3:47 AM CDT Billy Kaplan MD LAB BLOOD ORDERABLES Final Resu lt Performing Organization Address City/[facility]/ZIP Co de Phone Number [facility] ([place]) [address] [facility] [place] [address] * Magnesium (11/12/2024 3:17 AM CDT) Pathologist [facility] Magnesium 1.9 1.4 - 2.5 mg/dL Blood 11/12/2024 3:17 AM CDT 11/12/2024 3:47 AM CDT Billy Kaplan MD LAB BLOOD ORDERABLES Final Resu lt Performing Organization Address [facility] Co de Phone Number [facility] ([place]) 1 [facility] [place] [address] * (ABNORMAL) Comprehensive metabolic panel (11/12/2024 3:17 AM CDT) Sodium 142 135 - 145 mmol/L Potassium, pl 4.1 3.3 - 4.9 mmol/L [facility] ([place]) Chloride 107 97 - 110 mmol/L [facility] ([place]) CO2 23 22 - 32 mmol/L [facility] ([place]) Anion gap 11 2 - 15 mmol/L [facility] ([place]) BUN 20 6 - 25 mg/dL [facility] ([place]) Creatinine 0.69 0.60 - 1.10 mg/dL [facility] ([place]) Glucose 103 70 - 199 mg/dL [facility] ([place]) Comment: Interpretive Data Fasting [...] Resu lt [facility] ([place]) [address] [facility] [place] [address] * eGFR (11/11/2024 2:23 AM CDT) eGFR [...] MD LAB BLOOD ORDERABLES Final Re sult [facility] ([place]) [address] [facility] [place] [address] * Differential, auto (11/11/2024 2:23 AM CDT) [...] MD LAB BLOOD ORDERABLES Final Re sult [facility] ([place] [address] [facility] [facility] Department [place] [address] * CBC with auto differential (11/11/2024 2:23 [...] RDW SD 39.7 35.7 - 48.1 fL [facility] ([place]) NRBC abs 0.00 0.00 - 0.01 K/cumm [facility] ([place]) Blood 11/11/2024 2:23 AM CDT 11/11/2024 2:40 AM CDT Godfrey Chisholm MD LAB BLOOD ORDERABLES Final Re sult Performing Organization Address City/[facility]/ZIP Co de Phone Number [facility] ([place]) [address] [facility] [place] [address] * Magnesium (11/11/2024 2:23 AM CDT) Pathologist [facility] Magnesium 1.8 1.4 - 2.5 mg/dL Blood 11/11/2024 2:23 AM CDT 11/11/2024 2:40 AM CDT us Godfrey Chisholm MD LAB BLOOD ORDERABLES Final Re sult Performing Organization Address City/[facility] Co de Phone Number [facility] ([place]) [address] [facility] [place] [address] * (ABNORMAL) Comprehensive metabolic panel (11/11/2024 2:23 AM CDT) Sodium 144 135 - 145 mmol/L Potassium, pl 3.8 3.3 - 4.9 mmol/L [facility] ([place]) Chloride 109 97 - 110 mmol/L [facility] ([place]) CO2 20(L) 22 - 32 mmol/L [facility] ([place]) Anion gap 14 2 - 15 mmol/L [facility] ([place]) BUN 14 6 - 25 mg/dL [facility] ([place]) Creatinine 0.55(L) 0.60 - 1.10 mg/dL [facility] ([place]) Glucose 126 70 - 199 mg/dL [facility] ([place]) Comment: Interpretive Data Fasting [...] MD LAB BLOOD ORDERABLES Final Re sult [facility] ([place]) [address] [facility] [facility] [place] [address] * Urinalysis reflex to microscopic and culture [...] tendency for uric acid stone formation. Source: [facility] Current Interpretive Data was last revised on [...] Final Result [facility] ([place]) [address] [facility] [place] [address] * (ABNORMAL) Drugs of Abuse Screen, Urine [...] Re sult [facility] ([place]) [address] [facility] [facility] [place] [address] * eGFR (11/10/2024 10:41 PM CDT) eGFR [...] ORDERABLES Final Re sult [facility] ([place]) [address] [facility] [place] [address] * Thyroid Function [facility] (11/10/2024 10:41 PM CDT) TSH 3.92 0.30 - 4.20 mcIUnit/mL Blood 11/10/2024 10:4 1 PM CDT 11/10/2024 10:54 PM CDT Godfrey Chisholm MD LAB BLOOD ORDERABLES Final Re sult Performing Organization Address [facility] Co de Phone Number [facility] ([place]) [address] [facility] [place] [address] * (ABNORMAL) Iron profile w/ IBC (11/10/2024 10:41 PM CDT) Iron 53 35 - 145 mcg/dL TIBC 225(L) 250 - 400 mcg/dL [facility] ([place]) Transferrin saturation 24 20 - 50 % [facility] ([place]) Blood 11/10/2024 10:4 1 PM CDT 11/10/2024 10:54 PM CDT Godfrey Chisholm MD LAB BLOOD ORDERABLES Final Re sult [facility] ([place]) 1 [facility] [address] [place] [address] * Magnesium (11/10/2024 10:41 PM CDT) Magnesium 2.0 1.4 - 2.5 mg/dL Blood 11/10/2024 10:4 1 PM CDT 11/10/2024 10:54 PM CDT Godfrey Chisholm MD LAB BLOOD ORDERABLES Final Re sult [facility] ([place]) [address] [facility] [place] [address] * (ABNORMAL) Ferritin (11/10/2024 10:41 PM CDT) Ferritin 232(H) 15 - 150 ng/mL Blood 11/10/2024 10:4 1 PM CDT 11/10/2024 10:54 PM CDT Godfrey Chisholm MD LAB BLOOD ORDERABLES Final Re sult Performing Organization Address [facility] Co de Phone Number [facility] ([place]) [address] [facility] [place] [address] * (ABNORMAL) Ethanol (11/10/2024 10:41 PM CDT) Ethanol 125(H) <=10 mg/dL Comment: Interpretive Data Legal limit of intoxication > or = 80 mg/dL Levels > or = 400 mg/dL are potentially TOXIC. Current interpretive data was last revised on 2018. Blood 11/10/2024 10:4 1 PM CDT 11/10/2024 10:54 PM CDT Godfrey Chisholm MD LAB BLOOD ORDERABLES Final Re sult Performing Organization Address City/[facility]/ZIP Co de Phone Number [facility] ([place]) [address] [facility] [place] [address] * Acetaminophen level (11/10/2024 10:41 PM CDT) [...] after ingestion Consult toxicology or poison control ([phone]) for unknown ingestion time. Current interpretive data was last revised 2023. Blood 11/10/2024 10:4 1 PM CDT 11/10/2024 10:54 PM CDT Godfrey Chisholm MD LAB BLOOD ORDERABLES Final Re sult Performing Organization Address [facility]/ZIP Co de Phone Number [facility] ([address] [place] [address] * Salicylate level (11/10/2024 10:41 PM CDT) Salicylate <5.0 <=5.0 mg/dL Comment: Interpretive Data Toxic: 30 mg/dL or greater. Current interpretive data was last revised 2023. Blood 11/10/2024 10:4 1 PM CDT 11/10/2024 10:54 PM CDT Godfrey Chisholm MD LAB BLOOD ORDERABLES Final Re sult [facility] ([address] [place] [address] * (ABNORMAL) Comprehensive metabolic panel (11/10/2024 10:41 [...] 15 7 - 45 Units/L [facility] ([place]) AST 20 10 - 45 Units/L [facility] ([place]) Blood 11/10/2024 10:4 1 PM CDT 11/10/2024 10:54 PM CDT us Godfrey Chisholm MD LAB BLOOD ORDERABLES Final Re sult [facility] ([place]) [address] [facility] [place] [address] * COVID-19 Coronavirus RNA Nasopharyngeal (11/10/2024 10:25 PM CDT) COVID-19 RNA Negative Negative Nasopharyngeal 11/10/2024 10 :25 PM CDT 11/10/2024 10:29 PM CDT Narrative [facility] ([place]) - 11/10/2024 11:10 PM CDT Is the patient experiencing any symptoms consistent with COVID (eg. Fever, cough, shortness of breath)?->No What is the reason for testing?->Screening prior to Behavioral health admission Interpretive data: Testing performed by [facility]. This test is performed using the [employer] Xpert Xpress CoV-2 plus assay. This is a real-time RT-PCR test intended for the qualitative detection of nucleic acid from the SARS-CoV-2. This assay has been cleared by the [place] Food and Drug administration. The performance characteristics have been verified by [facility]. Results must be considered in the clinical context, and a negative result does not rule out infection. Interpretive data last revised 2024. Interpretive data: Testing performed by [facility]. This test is performed using the [employer] Xpert Xpress CoV-2 plus assay. This is a real-time RT-PCR test intended for the qualitative detection of nucleic acid from the SARS-CoV-2. This assay has been cleared by the [place] Food and Drug administration. The performance characteristics have been verified by [facility]. Results must be considered in the clinical context, and a negative result does not rule out infection. Interpretive data last revised 2024. us Godfrey Chisholm MD LAB MICROBIOLOGY - GENERAL OR DERABLES Final Result [facility] ([place]) [address] [facility] [place] [address] * Differential, auto (11/10/2024 10:00 PM CDT) Neutrophil abs 2.79 1.50 - 6.50 K/cumm Imm gran abs 0.02 0.00 - 0.10 K/cumm [facility] ([place]) Lymphocyte abs 2.43 0.80 - 3.30 K/cumm [...] Final Re sult [facility] ([place]) 1 [facility] [place] [address] * (ABNORMAL) CBC with auto differential (11/10/2024 10:00 PM CDT) WBC 5.77 3.80 - 9.90 K/cumm Hgb 14.7 11.9 - 15.5 g/dL [facility] ([place]) Hct 46.0(H) 35.6 - 45.5 % [facility] ([place]) Plt 252 150 - 400 K/cumm [facility] ([place]) MPV 9.8 9.1 - 12.3 fL [facility] ([place]) RBC 4.85 3.90 - 5.20 M/cumm [facility] ([place]) MCV 94.8 81.3 - 96.4 fL [facility] ([place]) MCH 30.3 27.1 - 33.3 pg [facility] ([place]) MCHC 32.0(L) 32.3 - 35.7 g/dL [facility] ([place]) RDW CV 11.9 11.1 - 14.9 % [facility] ([place]) RDW SD 41.1 35.7 - 48.1 fL [facility] ([place]) NRBC abs 0.00 0.00 - 0.01 K/cumm [facility] ([place]) Blood Venous blood specimen / Unknown 11/10/2024 10:00 PM CDT 11/10/2024 10:04 PM CDT us Godfrey Chisholm MD LAB BLOOD ORDERABLES Final Re sult [facility] ([place]) [address] [facility] [place] [address] * ECG 12 lead (11/10/2024 9:52 PM CDT) 11/10/2024 9:52 PM CDT Narrative [facility] - 11/11/2024 7:22 AM CDT Vent Rate: 72 bpm RR Interval: 828 msec [place] Interval: 139 msec QRS Duration: 81 msec QT Interval: 426 msec QTC Interval: 450 msec P-R-T [place]: 55 - 32 - 44 degrees IMPRESSION: SINUS RHYTHM NORMAL ECG NO CHANGE FROM PREVIOUS TRACING NOTED Electronically Signed By: Sid Whittington MD us Godfrey Chisholm MD ECG ORDERABLES Final Result [place] [facility] * TRANSTHORACIC ECHO (TTE) COMPLETE W DOPPLER/CF WO CONTRAST W BUBBLE (11/02/2024 9:55 AM CDT) Estimated EF 65 % CONS SCIMAGE Anatomical Region Laterality Modality Ultrasound 11/02/2024 9:52 AM CDT Narrative 11/02/2024 12:27 PM CDT [address] [address] Echocardiogram Report Patient Name: NAPOLEON MARTINEZ D : 1965 Study Date: 11/02/2024 9:52:51 AM Gender: F Tech: Location: [id number] Ref Provider: LORI ADAM Height(Cm): BSA: Weight(Kg): [...] with suboptimal views. Electronically Signed By: Sid Whtitington MD 11/02/2024 12:27:10 PM CDT Procedure Note Sid Whittington MD - 11/02/[address] [address] Echocardiogram Report Patient Name: NAPOLEON MARTINEZ D : 1965 Study Date: 11/02/2024 9:52:51 AM Gender: F Tech: ELSA Location: [id number] Ref Provider: LORI ADAM Height(Cm): BSA: Weight(Kg): [...] by Anaya Flores M.D. SN: Report ID: [id number] Reading Location: [id number] Procedure Note Anaya Flores MD - 11/02/2024 EXAM DESCRIPTION: MRI BRAIN WO CONTRAST REASON FOR STUDY: Stroke, follow up Garbled speech and right sided leg weakness and right sided facial droop. TECHNIQUE: Multiplanar imaging includes non-contrasted T1, T2, FLAIR, and diffusion with ADC map sequences. Additional sequence(s) sensitive Huddler. Images stored on PACS. COMPARISON: CT of [...] Anaya Flores M.D. SN: SN Report ID: [id number] Reading Location: [id number] us Lori Adam MD IMG MRI PROCEDURES [...] ORDERABLES Final Res ult [facility] ([place]) [address] [facility] [place] [address] * eGFR (11/02/2024 12:23 AM [...] ORDERABLES Fi nal Result Performing Organization Address City/[facility] Co de Phone Number [facility] ([place]) 1 [facility] [place] [address] * CBC without differential (11/02/2024 12:23 AM [...] ORDERABLES Fi nal Result Performing Organization Address City/[facility]/ZIP Co de Phone Number [facility] ([place]) [address] [place] [address] * Magnesium (11/02/2024 12:23 AM CDT) Magnesium 2.1 1.4 - 2.5 mg/dL Blood 11/02/2024 12:2 3 AM CDT 11/02/2024 12:25 AM CDT Lori Adam MD LAB BLOOD ORDERABLES nal Result [facility] ([place]) [address] [facility] [place] [address] * Comprehensive metabolic panel (11/02/2024 12:23 AM CDT) Sodium 135 135 - 145 mmol/L Potassium, pl 3.9 3.3 - 4.9 mmol/L [facility] ([place]) Chloride 103 97 - 110 mmol/L [facility] ([place]) CO2 24 22 - 32 mmol/L [facility] ([place]) Anion gap 8 2 - 15 mmol/L [facility] ([place]) BUN 17 6 - 25 mg/dL [facility] ([place]) Creatinine 0.73 0.60 [...] ORDERABLES Fi nal Result Performing Organization Address City/[facility]/ZIP Co de Phone Number [facility] [address] [facility] [place] [address] * Troponin T high-sensitivity 4-hour (11/01/2024 9:41 [...] MD LAB BLOOD ORDERABLES Final Res ult [facility] [address] [facility] [employer] [facility] [place], [place] [id number] * Urinalysis reflex to microscopic and culture Urine (11/01/2024 8:56 PM CDT) Color, ur Yellow Yellow Clarity, ur Clear Clear [facility] ([place]) Specific gravity, ur 1.010 1.003 - 1.030 [...] tendency for uric acid stone formation. Source: [facility] Current Interpretive Data was last [...] us Lori Adam MD LAB MICROBIOLOGY - [facility] ORDERABLES Final Result [facility] ([place]) [address] [facility] [place] [address] * Troponin T high-sensitivity 2-hour (11/01/2024 8:13 [...] ORDERABLES Final Res ult Performing Organization Address City/[facility]/ZIP Co de Phone Number [facility] ([place]) 1 [facility] [place] [address] * ECG 12 lead (11/01/2024 6:17 PM CDT) 11/01/2024 6:17 PM CDT Narrative [facility] - 11/02/2024 7:20 AM CDT Vent Rate: 61 bpm RR Interval: 978 msec [place] Interval: 172 msec QRS Duration: 89 msec QT Interval: 436 msec QTC Interval: 439 msec P-R-T [place]: 44 - 48 - 52 degrees IMPRESSION: SINUS RHYTHM POSSIBLE RIGHT VENTRICULAR CONDUCTION DELAY [RSR (QR) IN V1/V2] No prior EKG for comparison Electronically Signed By: Dr Gallo Thrasher Alejandro Gonzalez MD ECG ORDERABLES Final Result Performing Organization Address [facility] Co de Phone Number [facility] [place] [facility] * Troponin T high-sensitivity series (baseline, 2hr, 4hr, 6hr) (11/01/2024 5:31 PM CDT) [facility] Trop T hs <6 <=14 ng/L Comment: Interpretive Data For further hscTnT resources including the diagnostic algorithm and an aid in interpretation, copy and paste this link: https://nrl.testcatalog.org/show/hsTrop Current Interpretive Data last revised 2020. Blood 11/01/2024 5:31 PM CDT 11/01/2024 5:34 PM CDT Alejandro Gonzalez MD LAB BLOOD ORDERABLES Final Res ult Performing Organization Address [facility] Co de Phone Number [facility]) [address] [facility] [place] [address] * eGFR (11/01/2024 5:31 PM CDT) [facility] eGFR >90 >=60 mL/min/1. 73 m2 Comment: [...] MD LAB BLOOD ORDERABLES Final Res ult [facility] ([place]) [address] [facility] [place] [address] * Differential, auto (11/01/2024 5:31 PM CDT) Pathologist [facility] Neutrophil abs 4.78 1.50 - 6.50 K/cumm Imm gran abs 0.02 0.00 - 0.10 K/cumm [facility] ([place]) Lymphocyte abs 2.00 0.80 - 3.30 K/cumm [facility] ([place]) Monocyte abs 0.49 0.20 - 0.80 K/cumm [facility] ([place]) Eosinophil abs 0.21 0.00 - 0.50 K/cumm [facility] ([place]) Basophil abs 0.04 0.00 - 0.10 K/cumm [facility] ([place]) Neutrophil pct 63.4 % [facility] ([place]) Comment: Interpretive Data Percent cell count reference [...] Res ult [facility] ([place]) 1 [facility] [place] [address] * CBC with auto differential [...] ORDERABLES Final Res ult Performing Organization Address City/[facility] Co de Phone Number [facility] ([place]) 1 [facility] Department [place] [address] * Protime-INR (11/01/2024 5:31 PM CDT) PT [...] Res ult [facility] ([place]) 1 [facility] Department [place] [address] * Comprehensive metabolic panel (11/01/2024 5:31 PM [...] Final Res ult [facility]) [address] [facility] [place] [address] * CTA Stroke Head Neck [...] Noncontrast head CT 11/01/2024 FINDINGS: INTRACRANIAL VESSELS [place]: The anterior, middle, posterior cerebral [...] to Dr. Alejandro Gonzalez at 5:39 p.m. INSTALLER HELPER on 11/01/2024. THIS IS AN ELECTRONICALLY VERIFIED FINAL REPORT 11/01/2024 5:48 PM - Electronically signed by Carmelo Stearns M.D. AT: AT Report ID: [id number] Reading Location: [id number] Procedure Note Carmelo Stearns MD - 11/01/2024 [...] Noncontrast head CT 11/01/2024 FINDINGS: INTRACRANIAL VESSELS [place]: The anterior, middle, posterior cerebral [...] Stearns to Dr. Alejandro Gonzalez at 5:39p.m. INSTALLER HELPER on 11/01/2024. THIS IS AN ELECTRONICALLY VERIFIED FINAL REPORT 11/01/2024 5:48 PM - Electronically signed by Carmelo Stearns M.D. AT: AT Report ID: [id number] Reading Location: [id number] us Alejandro Gonzalez MD IMG CT PROCEDURES [...] Manny Gay M.D. KT: AUBREY Report ID: [id number] Reading Location: [id number] Procedure Note Manny Gay MD - 11/01/2024 [...] Manny Gay M.D. KT: AUBREY Report ID: [id number] Reading Location: [place] [address] Alejandro Gonzalez MD IMG CT PROCEDURES Final Result * POCT glucose (11/01/2024 4:56 PM CDT) [facility] Signature Glucose, POC 99 70 - 199 mg/dL Blood 11/01/2024 4:56 PM CDT 11/01/2024 4:56 PM CDT Lary Berumen DO LAB POCT ORDERABLES - DE VICE Final Result [facility] [place]) 1 [facility] [place] [address] * US Knee (10/28/2024 8:20 AM CDT) Anatomical Region Laterality Modality Knee N/A Ultrasound 10/29/2024 1:39 PM CDT Narrative 10/29/2024 1:41 PM CDT EXAM DESCRIPTION: US KNEE COMPLETE REASON FOR STUDY: Pain TECHNIQUE: A Dynamic assessment was performed of the right knee and of the left knee by the learning support services director, with selected grayscale and color Doppler images [...] by Timi Zarco M.D. JR: Report ID: [id number] Reading Location: [id number] Procedure Note Timi Zarco MD - 10/29/2024 EXAM DESCRIPTION: US KNEE COMPLETE REASON FOR STUDY: Pain TECHNIQUE: A Dynamic assessment was performed of the right knee and ofthe left knee by the learning support services director, with selected grayscale and color Doppler images [...] by Timi Zarco M.D. JR: Report ID: [id number] Reading Location: [id number] us James Emanuel MD IMG US PROCEDURES Final Result * US Knee (10/28/2024 8:20 AM CDT) Anatomical Region Laterality Modality Knee N/A Ultrasound 10/29/2024 1:39 PM CDT Narrative 10/29/2024 1:41 PM CDT EXAM DESCRIPTION: US KNEE COMPLETE REASON FOR STUDY: Pain TECHNIQUE: A Dynamic assessment was performed of the right knee and of the left knee by the learning support services director, with selected grayscale and color Doppler images [...] by Timi Zarco M.D. JR: Report ID: [id number] Reading Location: [id number] Procedure Note Timi Zarco MD - 10/29/2024 EXAM DESCRIPTION: US KNEE COMPLETE REASON FOR STUDY: Pain TECHNIQUE: A Dynamic assessment was performed of the right knee and ofthe left knee by the learning support services director, with selected grayscale and color Doppler images [...] by Timi Zarco M.D. JR: Report ID: [id number] Reading Location: [id number] us James Emanuel MD IM US PROCEDURES Final Result * Hepatitis panel, acute (03/07/2021 8:05 AM CDT) Hep A IgM Nonreactive Nonreactive JOSÉ MIGUEL CHAHAL ([facility]) Comment: Interpretive Data: If Hep A IgM Ab is reported as Equivocal, a new sample should be drawn in two weeks for testing. Current interpretive data was last revised on 19. Testing performed by: [facility], [address] [place] [address]., [id number] Hep B core IgM Nonreactive Nonreactive C JUDD CHAHAL ([facility]) Comment: Interpretive Data If HepB Core IgM Ab is reported as Equivocal, a new sample should be drawn in two weeks for testing. Current interpretive data was last revised on 19. Testing performed by: [facility], [address] [place] [address]., [id number] Hep C Ab Nonreactive Nonreactive JOSÉ MIGUEL [...] last revised on 2019. Testing performed by: [facility], [address] [place] [address]., [id number] HepBsAg Nonreactive Nonreactive JOSÉ MIGUEL CHAHAL ([facility]) Comment:Testing performed by : [address] [id number] Blood 03/07/2021 8:05 AM CDT 03/07/2021 1:30 PM CDT Tristin Castillo MD LAB MICROBIOLOGY - GENERAL ORDERABLES Final Result JOS[facility] MIGUEL CHAHAL ([facility]) 1 [facility] Department [place] [address] from Last 3 Months or Most Recently Relevant to Health Maintenance Insurance [facility] MEDICAID [employer]CIAL [place] [address] [facility] AETNA [place]yr [place]ESS [place] Advance Directives For more information, please contact: [phone] * Full Code (Latest Code Status on File) Date Activated Date Inactivated Comments 11/11/2024 4:37 AM 11/12/2024 3:59 PM * Full Code Date Activated Date Inactivated Comments 11/01/2024 7:53 PM 11/02/2024 8:31 PM * Full Code Date Activated Date Inactivated Comments 11/03/2018 3:04 AM 11/03/2018 7:38 PM Care Teams Circular Tank Cooper Relationship Specialty Start Date End Date Maurice Caldera MD [address] [facility] [place] [address] PCP - General Family Medicine 06/24/24
--- OUTSIDE RECORDS SUMMARY | 2025-01-24 14:39 | XMS_ITS | Clinical Summary ---
Author Organization [facility] Address [address] [place] [address] Care Team Providers Care Repertoire Manager Name Role Phone Maurice Caldera MD Primary Care Provider [phone] Allergies No known active allergies Medications traZODone [...] [facility] Gastroenterology at [address] [place] [address] Tameka Black 11/23/2024 Hospital Encounter [facility] [address] [place] [address] Kyler Curtis DO 11/12/2024 12:02 PM CDT - 11/12/2024 11:59 PM CDT Hospital Encounter [facility] Emergency, Room R Discharge Disposition: Discharge to home or self care 11/10/2024 9:43 PM CDT - 11/12/2024 11:54 AM CDT Hospital Encounter [facility] [address] [place] [address] Godfrey Chisholm MD Huynh, Kiet T., MD Kheirkhahan, Nazanin, MD Suicide attempt (HCC) (Primary Dx); Intentional benzodiazepine overdose, initial encounter (HCC); Alcohol abuse Discharge Disposition: Discharge to psych hospital or psych unit 11/10/2024 9:26 PM CDT - 11/10/2024 11:59 PM CDT Hospital Encounter [facility] BILL[facility] Emergency, Room R Discharge Disposition: Discharge to home or self care 11/07/2024 Telephone [facility] Gastroenterology at [address] [place] [address] Jeana Hooker 11/03/2024 Telephone [facility] Gastroenterology at [address] [place] [address] Sonia Black MA Schedule EGD 11/03/2024 Documentation [facility] [place] [facility] [address] [place] [address] [address] [place] [address] Rashid Denny, STATION OPERATOR 11/01/2024 5:08 PM CDT - 11/02/2024 4:26 PM CDT Hospital Encounter [facility] [address] [place] [address] Alejandro Gonzalez MD Petters, MD [place] Charlton Victoria Rose, DO TIA (transient ischemic attack) (Primary Dx); Dysphagia, unspecified type Discharge Disposition: Discharge to home or self care 11/01/2024 4:40 PM CDT - 11/01/2024 11:59 PM CDT Hospital Encounter [facility] AM[facility] BILLING Emergency, Room R Discharge Disposition: Discharge to home or self care 10/28/2024 7:43 AM CDT - 10/28/2024 11:59 PM CDT Hospital Encounter [facility] [address] [place] [address] Posterior right knee pain Discharge Disposition: Discharge to home or self care 10/28/2024 7:42 AM CDT - 10/28/2024 11:59 PM CDT Hospital Encounter [address] [address] Posterior knee pain, left Discharge Disposition: Discharge [...] pur e alcohol) 3 times a week [facility] Utilities Answer Date Recorded In the past 12 months has e [employer], [employer], oil, or water [employer] threatened to shut off services in your [...] often do you attend chur ch or scientology services? More than 4 times per year 11/02/2024 Do you belong to any clubs o r organizations such as pentecostal groups, unions, fraternal or athletic groups, or [...] any time in the past 12 m [facility], were you homeless or [...] on file Legal Sex Female 12:38 AM FLAVORINGS COMPOUNDER Gender Identity Female 03/07/2021 7:11 AM CDT [...] ORDERABLES Final Resu lt [facility] ([place]) [facility] [place] [address] * Differential, auto (11/12/2024 3:17 AM CDT) [...] Final Resu lt [facility] ([place]) [facility] [place] [address] * CBC with auto differential (11/12/2024 3:17 [...] Resu lt [facility] ([place]) 1 [facility] [place] [address] * Magnesium (11/12/2024 3:17 AM CDT) Magnesium 1.9 1.4 - 2.5 mg/dL Blood 11/12/2024 3:17 AM CDT 11/12/2024 3:47 AM CDT us Billy Kaplan MD LAB BLOOD ORDERABLES Final Resu lt [facility] ([place]) 1 [facility] [place] [address] * (ABNORMAL) Comprehensive metabolic panel (11/12/2024 3:17 [...] Resu lt [facility] ([place]) 1 [facility] [place] [address] * eGFR (11/11/2024 2:23 AM CDT) eGFR [...] ORDERABLES Final Re sult [facility] ([place]) 1 [facility] [place] [address] * Differential, auto (11/11/2024 2:23 AM CDT) Neutrophil abs 2.21 1.50 - 6.50 K/cumm Imm gran abs 0.02 0.00 - 0.10 K/cumm [facility] ([place]) Lymphocyte abs 2.23 0.80 - 3.30 K/cumm [facility] ([place]) Monocyte abs 0.32 0.20 - 0.80 K/cumm [facility] ([place]) Eosinophil abs 0.14 0.00 - 0.50 K/cumm [facility] ([place]) Basophil abs 0.03 0.00 - 0.10 K/cumm [facility] ([place]) Neutrophil pct 44.6 % [facility] ([place]) Comment: Interpretive Data Percent cell count reference ranges are not reported, since discordance with absolute values may lead to misinterpretation of CBC data. Current Interpretive Data was last revised on 2017. Imm gran pct 0.4 % [facility] ([place]) Comment: Interpretive Data Percent cell count reference ranges are not reported, since discordance with absolute values may lead to misinterpretation of CBC data. Current Interpretive Data was last revised on 2017. Lymphocyte pct 45.1 % [facility] ([place]) Comment: Interpretive Data Percent cell count reference ranges are not reported, since discordance with absolute values may lead to misinterpretation of CBC data. Current Interpretive Data was last revised on 2017. Monocyte pct 6.5 % [facility] ([place]) Comment: Interpretive Data Percent cell count reference ranges are not reported, since discordance with absolute values may lead to misinterpretation of CBC data. Current Interpretive Data was last revised on 2017. Eosinophil pct 2.8 % [facility] ([place]) Comment: Interpretive Data Percent cell count reference [...] ORDERABLES Final Re sult Performing Organization Address City/State/[facility] Co de Phone Number [facility] ([place]) [facility] [place] [address] * CBC with auto differential (11/11/2024 2:23 [...] Re sult [facility] ([place]) [facility] [place] [address] * Magnesium (11/11/2024 2:23 AM CDT) Pathologist [facility] Magnesium 1.8 1.4 - 2.5 mg/dL Blood 11/11/2024 2:23 AM CDT 11/11/2024 2:40 AM CDT Godfrey Chisholm MD LAB BLOOD ORDERABLES Final Re sult [facility] ([place]) 1 [facility] [place] [address] * (ABNORMAL) Comprehensive metabolic panel (11/11/2024 2:23 [...] MD LAB BLOOD ORDERABLES Final Re sult [facility] ([place]) [facility] [place] [address] * Urinalysis reflex to microscopic and culture Urine (11/10/2024 11:28 PM CDT) Color, ur Straw Yellow Clarity, ur Clear Clear [facility] ([place]) Specific gravity, ur 1.006 1.003 - 1.030 [facility] ([place]) pH, urine 6.0 [facility] Comment: Interpretive Data U rine pH is affected by diet, medications, systemic acid-base disturbances, and renal tubular function. pH may affect urinary stone formation. For example, urine pH below 6.0 may help reduce the tendency for calcium phosphate stones and pH greater than 6.0 may reduce the tendency for uric acid stone formation. Source: [facility] Current Interpretive Data was last revised on [...] OR DERABLES Final Result [facility] ([place]) [facility] [place] [address] * (ABNORMAL) Drugs of Abuse Screen, Urine [...] Urine Creatinine 15 mg/dL [facility] ([place]) Comment: Interpretive Data Urine Creatinine: < 10 mg/dL is extremely dilute = or > 10 but < 20 mg/dL is dilute = or > 20 mg/dL is normal Current Interpretive Data was last revised on 2017. Urine 11/10/2024 11:2 8 PM CDT 11/10/2024 11:36 PM CDT Narrative [facility] ([place]) - 11/11/2024 12:13 AM CDT Drug of Abuse screening is performed by immunoassay for medical purposes only. This is not to be used for Pain Management purposes. us Godfrey Chisholm MD LAB URINE ORDERABLES Final Re sult [facility] ([place]) [facility] [place] [address] * eGFR (11/10/2024 10:41 PM CDT) eGFR [...] ORDERABLES Final Re sult Performing Organization Address City/[facility]/ZIP Co de Phone Number [facility] ([place]) 1 [facility] [place] [address] * Thyroid Function [place] (11/10/2024 10:41 PM CDT) TSH 3.92 0.30 - 4.20 mcIUnit/mL Blood 11/10/2024 10:4 1 PM CDT 11/10/2024 10:54 PM CDT Godfrey Chisholm MD LAB BLOOD ORDERABLES Final Re sult Performing Organization Address [facility] Co de Phone Number [facility] ([place]) 1 [facility] [place] [address] * (ABNORMAL) Iron profile w/ IBC (11/10/2024 10:41 PM CDT) Iron 53 35 - 145 mcg/dL TIBC 225(L) 250 - 400 mcg/dL [facility] ([place]) Transferrin saturation 24 20 - 50 % [facility] ([place]) Blood 11/10/2024 10:4 1 PM CDT 11/10/2024 10:54 PM CDT Godfrey Chisholm MD LAB BLOOD ORDERABLES Final Re sult Performing Organization Address [facility] Co de Phone Number [facility] ([place]) 1 [facility] [place] [place] [address] * Magnesium (11/10/2024 10:41 PM CDT) Magnesium 2.0 1.4 - 2.5 mg/dL Blood 11/10/2024 10:4 1 PM CDT 11/10/2024 10:54 PM CDT Godfrey Chisholm MD LAB BLOOD ORDERABLES Final Re sult [facility] ([place]) [address] [facility] [place] [place] [address] * (ABNORMAL) Ferritin (11/10/2024 10:41 PM CDT) Ferritin 232(H) 15 - 150 ng/mL Blood 11/10/2024 10:4 1 PM CDT 11/10/2024 10:54 PM CDT Godfrey Chisholm MD LAB BLOOD ORDERABLES Final Re sult Performing Organization Address [facility] Co de Phone Number [facility] ([place]) 1 [facility] [place] [address] * (ABNORMAL) Ethanol (11/10/2024 10:41 PM CDT) Ethanol 125(H) <=10 mg/dL Comment: Interpretive Data Legal limit of intoxication > or = 80 mg/dL Levels > or = 400 mg/dL are potentially TOXIC. Current interpretive data was last revised on 2018. Blood 11/10/2024 10:4 1 PM CDT 11/10/2024 10:54 PM CDT us Godfrey Chisholm MD LAB BLOOD ORDERABLES Final Re sult Performing Organization Address [facility] Co de Phone Number [facility] ([place]) 1 [place] [address] * Acetaminophen level (11/10/2024 10:41 PM CDT) [...] after ingestion Consult toxicology or poison control ([phone]) for unknown ingestion time. Current interpretive data was last revised 2023. Blood 11/10/2024 10:4 1 PM CDT 11/10/2024 10:54 PM CDT Gdofrey Chisholm MD LAB BLOOD ORDERABLES Final Re sult Performing Organization Address City/[facility]/ZIP Co de Phone Number [facility] ([place]) 1 [facility] [place] [address] * Salicylate level (11/10/2024 10:41 PM CDT) Salicylate <5.0 <=5.0 mg/dL Comment: Interpretive Data Toxic: 30 mg/dL or greater. Current interpretive data was last revised 2023. Blood 11/10/2024 10:4 1 PM CDT 11/10/2024 10:54 PM CDT Gdofrey Chisholm MD LAB BLOOD ORDERABLES Final Re sult Performing Organization Address [facility] Co de Phone Number [facility] ([place]) 1 [facility] [place] [address] * (ABNORMAL) Comprehensive metabolic panel (11/10/2024 10:41 PM CDT) Sodium 144 135 - 145 mmol/L Potassium, pl 3.8 3.3 - 4.9 mmol/L [facility] ([place]) Chloride 110 97 - 110 mmol/L [facility] ([place]) CO2 22 22 - 32 mmol/L [facility] ([place]) Anion gap 13 2 - 15 mmol/L [facility] ([place]) BUN 16 6 - 25 mg/dL [facility] ([place]) Creatinine 0.62 0.60 - 1.10 mg/dL [facility] ([place]) Glucose 102 70 - 199 mg/dL [facility] ([place]) Comment: Interpretive Data Fasting glucose >/= [...] MD LAB BLOOD ORDERABLES Final Re sult [facility] ([place]) [facility] [place] [address] * COVID-19 Coronavirus RNA Nasopharyngeal (11/10/2024 10:25 PM CDT) COVID-19 RNA Negative Negative Nasopharyngeal 11/10/2024 10 :25 PM CDT 11/10/2024 10:29 PM CDT Narrative [facility] ([place]) - 11/10/2024 11:10 PM CDT Is the patient experiencing any symptoms consistent with COVID (eg. Fever, cough, shortness of breath)?->No What is the reason for testing?->Screening prior to Behavioral health admission Interpretive data: Testing performed by [facility]. This test is performed using the [employer]wave Xpert Xpress CoV-2 plus assay. This is a real-time RT-PCR test intended for the qualitative detection of nucleic acid from the SARS-CoV-2. This assay has been cleared by the [place] Food and Drug administration. The performance characteristics have been verified by [facility]. Results must be considered in the clinical context, and a negative result does not rule out infection. Interpretive data last revised 2024. Interpretive data: Testing performed by [facility]. This test is performed using the [employer]wave Xpert Xpress CoV-2 plus assay. This is a real-time RT-PCR test intended for the qualitative detection of nucleic acid from the SARS-CoV-2. This assay has been cleared by the [place] Food and Drug administration. The performance characteristics have been verified by [facility]. Results must be considered in the clinical context, and a negative result does not rule out infection. Interpretive data last revised 2024. Godfrey Chisholm MD LAB MICROBIOLOGY - GENERAL OR DERABLES Final Result [facility] ([place]) 1 [facility] [place] [address] * Differential, auto (11/10/2024 10:00 PM CDT) Neutrophil abs 2.79 1.50 - 6.50 K/cumm Imm gran abs 0.02 0.00 - 0.10 K/cumm [facility] ([place]) Lymphocyte abs 2.43 0.80 - 3.30 K/cumm [facility] ([place]) Monocyte abs 0.30 0.20 - 0.80 K/cumm [facility] ([place]) Eosinophil abs 0.18 0.00 - 0.50 K/cumm [facility] ([place]) Basophil abs 0.05 0.00 - 0.10 K/cumm [facility] ([place]) Neutrophil pct 48.4 % [facility] ([place]) Comment: Interpretive Data Percent cell count reference [...] Re sult [facility] ([place]) 1 [facility] [place] [address] * (ABNORMAL) CBC with auto differential (11/10/2024 [...] Re sult [facility] ([place]) 1 [facility] [place] [address] * ECG 12 lead (11/10/2024 9:52 PM CDT) 11/10/2024 9:52 PM CDT Narrative [facility] - 11/11/2024 7:22 AM CDT Vent Rate: 72 bpm RR Interval: 828 msec [place] Interval: 139 msec QRS Duration: 81 msec QT Interval: 426 msec QTC Interval: 450 msec P-R-T [place]: 55 - 32 - 44 degrees IMPRESSION: SINUS RHYTHM NORMAL ECG NO CHANGE FROM PREVIOUS TRACING NOTED Electronically Signed By: Sid Whittington MD us Godfrey Chisholm MD ECG ORDERABLES Final Result Performing Organization Address City/[facility]/ZIP Co de Phone Number [facility] [employer] [facility] * TRANSTHORACIC ECHO (TTE) COMPLETE W DOPPLER/CF WO CONTRAST W BUBBLE (11/02/2024 9:55 AM CDT) Estimated EF 65 % CONS SCIMAGE Anatomical Region Laterality Modality Ultrasound 11/02/2024 9:52 AM CDT Narrative 11/02/2024 12:27 PM CDT [address] [address] Echocardiogram Report Patient Name: NAPOLEON MARTINEZ D : 1965 Study Date: 11/02/2024 9:52:51 AM Gender: F Tech: ELSA Location: [id number] Ref Provider: LORI ADAM Height(Cm): BSA: Weight(Kg): [...] Procedure Note Sid Whittington MD - 11/02/[address] [place] [address] Echocardiogram Report Patient Name: NAPOLEON MARTINEZ D : 1965 Study Date: 11/02/2024 9:52:51 AM Gender: F Tech: ELSA Location: [id number] Ref Provider: LORI ADAM Height(Cm): BSA: Weight(Kg): [...] by Anaya Flores M.D. SN: Report ID: [id number] Reading Location: [id number] Procedure Note Anaya Flores MD - 11/02/2024 EXAM DESCRIPTION: MRI BRAIN WO CONTRAST REASON FOR STUDY: Stroke, follow up Garbled speech and right sided leg weakness and right sided facial droop. TECHNIQUE: Multiplanar imaging includes non-contrasted T1, T2, FLAIR, and diffusion with ADC map sequences. Additional sequence(s) sensitive [employer] products. Images stored on PACS. COMPARISON: CT [...] Anaya Flores M.D. SN: SN Report ID: [id number] Reading Location: [place] [address] us Lori Adam MD IM MRI PROCEDURES [...] ORDERABLES Final Res ult [facility] ([place]) 1 [place] [address] * eGFR (11/02/2024 12:23 AM CDT) eGFR [...] ORDERABLES Fi nal Result [facility] ([place]) [address] [place] [address] * CBC without differential (11/02/2024 12:23 AM [...] ORDERABLES Fi nal Result Performing Organization Address City/[facility] Co de Phone Number [facility] ([place]) 1 [facility] [place] [address] * Magnesium (11/02/2024 12:23 AM CDT) Magnesium 2.1 1.4 - 2.5 mg/dL Blood 11/02/2024 12:2 3 AM CDT 11/02/2024 12:25 AM CDT Lori Adam MD LAB BLOOD ORDERABLES Fi nal Result [facility] ([place]) 1 [facility] [place] [address] * Comprehensive metabolic panel (11/02/2024 12:23 AM [...] ORDERABLES Fi nal Result Performing Organization Address City/[facility]/ZIP Co de Phone Number [facility] ([place]) 1 [facility] [place] [address] * Troponin T high-sensitivity 4-hour (11/01/2024 9:41 [...] ORDERABLES Final Res ult Performing Organization Address City/[facility]/ZIP Co de Phone Number [facility] ([place]) 1 [facility] [place] [address] * Urinalysis reflex to microscopic and culture Urine (11/01/2024 8:56 PM CDT) Color, ur Yellow Yellow Clarity, ur Clear Clear [facility] ([place]) Specific gravity, ur 1.010 1.003 - 1.030 [...] tendency for uric acid stone formation. Source: [employer] Current Interpretive Data was last revised on [...] RAL ORDERABLES Final Result Performing Organization Address [facility] Co de Phone Number [facility] ([place]) [address] [facility] [employer] [place] [address] * Troponin T high-sensitivity 2-hour (11/01/2024 8:13 [...] ORDERABLES Final Res ult [facility] ([place]) 1 [facility] [place] [address] * ECG 12 lead (11/01/2024 6:17 PM CDT) 11/01/2024 6:17 PM CDT N[facility]ative [facility] - 11/02/2024 7:20 AM CDT Vent Rate: 61 bpm RR Interval: 978 msec [place] Interval: 172 msec QRS Duration: 89 msec QT Interval: 436 msec QTC Interval: 439 msec P-R-T [place]: 44 - 48 - 52 degrees IMPRESSION: SINUS RHYTHM POSSIBLE RIGHT VENTRICULAR CONDUCTION DELAY [RSR (QR) IN V1/V2] No prior EKG for comparison Electronically Signed By: Dr Gallo Thrasher Alejandro Gonzalez MD ECG ORDERABLES Final Result [facility] * Troponin T high-sensitivity series [...] ORDERABLES Final Res ult Performing Organization Address City/[facility]/ZIP Co de Phone Number [facility] [place] 1 [facility] Department of Laboratories [place] [id number] * eGFR (11/01/2024 5:31 PM CDT) eGFR [...] ORDERABLES Final Res ult [facility] ([place]) 1 [facility] [place] [address] * Differential, auto (11/01/2024 5:31 PM CDT) [...] MD LAB BLOOD ORDERABLES Final Res ult [facility] ([place]) [address] [facility] Department of Laboratories [place], [place] [id number] * CBC with auto differential (11/01/2024 5:31 [...] ORDERABLES Final Res ult Performing Organization Address City/[facility]/ZIP Co de Phone Number [facility] ([place]) 1 [place] [address] * Protime-INR (11/01/2024 5:31 PM CDT) PT 11.6 9.7 - 13.0 sec [facility] ([place]) INR 1.07 0.90 - 1.20 [facility] ([place]) Comment: Interpretive data Oral anticoagulant therapeutic ranges: Venous thromboembolism prophylaxis or treatment: 2.0-3.0 CARDIOLOGY Standard range: 2.0-3.0 High-intensity range: 2.5-3.5 Refer to indication-specific guidelines for appropriate target ranges for prosthetic heart valve replacement. Current interpretive data was last revised on 2019. Blood 11/01/2024 5:31 PM CDT 11/01/2024 5:33 PM CDT Alejandro Gonzalez MD LAB BLOOD ORDERABLES Final Res ult Performing Organization Address City/[facility]/ZIP Co de Phone Number [facility] ([place]) [address] [place] [address] * Comprehensive metabolic panel (11/01/2024 5:31 PM CDT) Sodium 135 135 - 145 mmol/L Potassium, pl 4.0 3.3 - 4.9 mmol/L [facility] ([place]) Chloride 101 97 - 110 mmol/L [facility] ([place]) CO2 23 22 - 32 mmol/L [...] Res ult [facility] ([place]) [facility] [place] [address] * CTA Stroke Head Neck [...] Noncontrast head CT 11/01/2024 FINDINGS: INTRACRANIAL VESSELS [place]: The anterior, middle, posterior cerebral [...] to Dr. Alejandro Gonzalez at 5:39 p.m. FLAVORINGS COMPOUNDER on 11/01/2024. THIS IS AN ELECTRONICALLY VERIFIED FINAL REPORT 11/01/2024 5:48 PM - Electronically signed by Carmelo Stearns M.D. AT: AT Report ID: [id number] Reading Location: [id number] Procedure Note Carmelo Stearns MD - 11/01/2024 [...] Noncontrast head CT 11/01/2024 FINDINGS: INTRACRANIAL VESSELS [place]: The anterior, middle, posterior cerebral [...] Stearns to Dr. Alejandro Gonzalez at 5:39p.m. FLAVORINGS COMPOUNDER on 11/01/2024. THIS IS AN ELECTRONICALLY VERIFIED FINAL REPORT 11/01/2024 5:48 PM - Electronically signed by Carmelo Stearns M.D. AT: AT Report ID: [id number] Reading Location: [id number] Alejandro Gonzalez MD IMG CT PROCEDURES Final [...] Manny Gay M.D. KT: KT Report ID: [id number] Reading Location: [id number] Procedure Note Manny Gay MD - 11/01/2024 [...] Manny Gay M.D. KT: AUBREY Report ID: [id number] Reading Location: [place] [address] Alejandro Gonzalez MD IMG CT PROCEDURES Final Result * POCT glucose (11/01/2024 4:56 PM CDT) [facility] Signature Glucose, POC 99 70 - 199 mg/dL Blood 11/01/2024 4:56 PM CDT 11/01/2024 4:56 PM CDT Lary Berumen DO LAB POCT ORDERABLES - DE VICE Final Result Performing Organization Address City/State/[facility] Co de Phone Number [facility] [place]) [facility] [place] [address] * US Knee (10/28/2024 8:20 AM CDT) Anatomical Region Laterality Modality Knee N/A Ultrasound 10/29/2024 1:39 PM CDT Narrative 10/29/2024 1:41 PM CDT EXAM DESCRIPTION: US KNEE COMPLETE REASON FOR STUDY: Pain TECHNIQUE: A Dynamic assessment was performed of the right knee and of the left knee by the metal bonding assembler, with selected grayscale and color Doppler images [...] Timi Zarco M.D. JR: JR Report ID: [id number] Reading Location: [id number] Procedure Note Timi Zarco MD - 10/29/2024 EXAM DESCRIPTION: US KNEE COMPLETE REASON FOR STUDY: Pain TECHNIQUE: A Dynamic assessment was performed of the right knee and ofthe left knee by the metal bonding assembler, with selected grayscale and color Doppler images [...] by Timi Zarco M.D. JR: Report ID: [id number] Reading Location: [place] [address] us James Emanuel MD IMG US PROCEDURES Final Result * US Knee (10/28/2024 8:20 AM CDT) Anatomical Region Laterality Modality Knee N/A Ultrasound 10/29/2024 1:39 PM CDT Narrative 10/29/2024 1:41 PM CDT EXAM DESCRIPTION: US KNEE COMPLETE REASON FOR STUDY: Pain TECHNIQUE: A Dynamic assessment was performed of the right knee and of the left knee by the metal bonding assembler, with selected grayscale and color Doppler images [...] by Timi Zarco M.D. JR: Report ID: [id number] Reading Location: [id number] Procedure Note Timi Zarco MD - 10/29/2024 EXAM DESCRIPTION: US KNEE COMPLETE REASON FOR STUDY: Pain TECHNIQUE: A Dynamic assessment was performed of the right knee and ofthe left knee by the metal bonding assembler, with selected grayscale and color Doppler images [...] by Timi Zarco M.D. JR: Report ID: [id number] Reading Location: [id number] us James Emanuel MD IM US PROCEDURES Final Result * Hepatitis panel, acute (03/07/2021 8:05 AM CDT) Hep A IgM Nonreactive Nonreactive [facility]OS[facility] MIGUEL [facility] ([facility]) Comment: Interpretive Data: If Hep A IgM Ab is reported as Equivocal, a new sample should be drawn in two weeks for testing. Current interpretive data was last revised on 19. Testing performed by: [address] [place] [address] Hep B core IgM Nonreactive Nonreactive Moiz CHAHAL ([facility]) Comment: Interpretive Data If HepB Core IgM Ab is reported as Equivocal, a new sample should be drawn in two weeks for testing. Current interpretive data was last revised on 19. Testing performed by: [address] [place] [address] Hep C Ab Nonreactive Nonreactive JOSÉ MIGUEL [...] last revised on 2019. Testing performed by: [facility], [address] [place] [address]., [address] HepBsAg Nonreactive Nonreactive JOSÉ MIGUEL [facility] ([facility]) Comment:Testing performed by : [address] [address] Blood 03/07/2021 8:05 AM CDT 03/07/2021 1:30 PM CDT Tristin Castillo MD LAB MICROBIOLOGY - GENERAL ORDERABLES Final Result [facility]OS[facility] MIGUEL [facility] ([facility]) [facility] [place] [address] from Last 3 Months or Most Recently Relevant to Health Maintenance Insurance [facility] MEDICAID [facility] COMMERCIAL [address] [place] [address] [facility] [employer] BLUE ACC[place] Member Subscriber Plan / Payer (Ef fective 2024-Present) Name:Napoleon Martinez Relation to Subscriber:Self Name:Napoleon Martinez Payer ID:[id number] (NAIC) Type:BC OTHER Address: [address] [place] [id number] [place] Advance Directives For more information, please contact: [phone] * Full Code (Latest Code Status on File) Date Activated Date Inactivated Comments 11/11/2024 4:37 AM 11/12/2024 3:59 PM * Full Code Date Activated Date Inactivated Comments 11/01/2024 7:53 PM 11/02/2024 8:31 PM * Full Code Date Activated Date Inactivated Comments 11/03/2018 3:04 AM 11/03/2018 7:38 PM Care Teams Repertoire Manager Relationship Specialty Start Date End Date Maurice Caldera MD [address] [place] [address] [place] [address] PCP - General Family Medicine 06/24/24
--- OUTSIDE RECORDS SUMMARY | 2025-01-24 14:39 | XMS_ITS | Clinical Summary ---
Author Organization [facility] Address [facility] [place] [address] Care Team Providers Care Skin Specialist Name Role Phone Maurice Caldera MD Primary Care Provider [phone] Allergies No known active allergies Medications escitalopram [...] Problem Noted Date Diagnosed Date Acute pancreatitis ([facility]) 03/17/2020 Irritable bowel syndrome 03/17/2020 Bipolar disorder ([facility]) 03/17/2020 Tobacco abuse 03/17/2020 Gastroesophageal reflux [...] How often do you attend chur or methodist services? Never 03/17/2020 Do you belong to any clubs o r organizations such as gnosticist groups, unions, fraternal or athletic groups, or [...] housing, medical care, and heating? Hard 03/17/2020 [facility] of Occupat ional Health - Occupational Stress [...] Comments Blood Pressure 134/58 07/09/2024 12:30 PM COAT OPERATOR INSULATOR Pulse 85 07/09/2024 12:12 PM COAT OPERATOR INSULATOR Temperature 36.9 C (98.5 F) 07/09/2024 12:12 PM COAT OPERATOR INSULATOR Respiratory Rate 18 07/09/2024 12:12 PM COAT OPERATOR INSULATOR Oxygen Saturation 97% 07/09/2024 1:00 PM COAT OPERATOR INSULATOR Inhaled Oxygen Concentration - - Weight 76.2 kg (168 lb) 07/09/2024 12:12 PM COAT OPERATOR INSULATOR Height 171.5 cm (5' 7.5) 07/09/2024 12:12 PM CS T Body Mass Index 25.92 07/09/2024 12:12 PM COAT OPERATOR INSULATOR Plan of Treatment Health Maintenance Due Date Last Done Comments ASCVD Statin 1965 Annual Physical 1968 Hepatitis C 09/07/1983 Pneumococcal Vaccine: 50+ Years (1 of 2 - PCV) 1984 Zoster Vaccines (1 of 2) 09/07/2015 COVID-19 Vaccine (3 - 2023-2 5 season) 2024 02/19/2021, 01/26/2021 PHQ-2 (Physician Pearl) 06/22/2024 Lung Cancer Screening 09/24/2024 09/25/2023 , [...] of tobacco use COLONOSCOPY 06/10/2019 9:05 AM COAT OPERATOR INSULATOR from Last 3 Months or Most Recently Relevant to Health Maintenance Results * LIPID PANEL (11/20/2023 11:55 AM CDT) CHOLESTEROL 183 MG/DL 11/21/2023 4:47 PM CDT [facility] Comment:DESIRABLE: <200 TRIGLYCERIDES 75 MG/DL 11/21/2023 4:47 PM CDT [facility] Comment:<150 NORMAL HDL 61 >49 MG/DL 11/21/2023 4:47 PM CDT [facility] LDL-C 107 MG/DL 11/21/2023 4:47 PM CDT [facility] Comment:100-129 NEAR OR ABOV E OPTIMAL VLDL CALCULATION 15 MG/DL 11/21/19 4:47 PM CDT [facility] Comment:REFERENCE RANGE NOT ESTABLISHED CHOL/HDL RATIO 3.0 11/21/2023 4:47 PM CDT [facility] Comment:REFERENCE RANGE NOT ESTABLISHED LDL/HDL 1.8 11/21/2023 4:47 PM CDT [facility] Comment:REFERENCE RANGE NOT ESTABLISHED NON HDL CHOLESTEROL 122 MG/DL 11/21/2023 4:47 PM CDT [facility] Comment:REFERENCE RANGE NOT ESTABLISHED 11/20/2023 11:5 5 AM CDT [facility] Final Result Performing Organization Address City/State/[facility] Co de Phone Number [facility] [address] [place] [address], [phone] * MG SCREENING W PETER AYDE DIGI [...] either breast to suggest malignancy. Lui Cannon DE MAMMO Final Result * CT LUNG SCREENING [...] MD, 09/30/2023 8:35 AM us Odilon Reis ROLLED GOLD PLATER CT Fin al Result * COLONOSCOPY (06/10/2019 9:05 AM COAT OPERATOR INSULATOR) us Jb Mcclelland MD GI PROCEDURE ORDERABLES [...] 2:17 PM 07/05/2019 8:56 AM Care Teams Skin Specialist Relationship Specialty Start Date End Date Maurice Caldera MD [address] [place] [phone] PCP - General HOSPITALIST 07/09/24
[2025-01-24] MEDS: HYDROmorphone HCL INJ (*CRX) 2 MG/ML VIAL 0.5 MG IV PUSH (14:40)
[2025-01-24] MEDS: SODIUM CHLORIDE 0.9% IV 1,000 ML 999 ML IV CONT (14:41)
[2025-01-24] MEDS: ONDANSETRON INJ 4 MG/2 ML VIAL IV PUSH (14:41)
[2025-01-24 14:42] LABS: Add Urine Microscopic? YES; Appearance Urine Clear (Clear); Glucose Urine UA Negative (Negative); Leukocyte Esterase Ur Negative LEU/UL (Negative); Nitrate Urine Negative (Negative); Specific Grav Ur 1.020 (1.010-1.020)
[2025-01-24 14:44] LABS: Hematocrit 41.2 % (35.0-49.0); Hemoglobin 13.7 g/dL (12.0-15.0); Immature Granulocyte Percent A 0.5 % (0.0-0.0); Lymphocytes Absolute Auto 2.27 K/mm3 (1.10-4.50); Mean Corpuscular HGB Conc 33.3 g/dL (32-36); Mean Corpuscular Hemoglobin 30.1 pg (27.0-31.0); Mean Corpuscular Volume 90.5 fL (78.0-102.0); Nucleated Red Blood Cells Absolute Auto 0.00 K/mm3 (0.00-0.00); Nucleated Red Blood Cells Perc 0.0 % (0-0.0); Platelet Count Result 359 K/mm3 (150-420); Red Blood Count 4.55 M/mm3 (4.20-5.40); White Blood Count 8.2 K/mm3 (4.8-10.8)
[2025-01-24 15:29] LABS: Alanine Aminotransferase 21 U/L (6-35); Albumin Level 4.4 g/dL (3.5-5.1); Alkaline Phosphatase 143 U/L (38-126); Anion Gap 4 mmol/L (4-12); Aspartate Amino Transferase 32 U/L (14-36); Bilirubin,Total 0.5 mg/dL (0.2-1.3); Blood Urea Nitrogen 17 mg/dL (7-17); Calcium 9.5 mg/dL (8.4-10.2); Carbon Dioxide 27 mmol/L (22-30); Chloride 111 mmol/L (98-107); Estimated CRCL calculation 58 ml/min; Estimated Glomerular Filt Rate > 60; Glucose 121 mg/dL (65-110); Lipase 128 U/L (23-300); Osmolality Calculated 296 mOsm/kg (285-295); Potassium 3.7 mmol/L (3.4-5.0); Sodium 142 mmol/L (137-145); Total Protein 6.9 g/dL (6.3-8.2)
[2025-01-24] MEDS: METOCLOPRAMIDE HCL INJ 10 MG/2 ML VIAL IV PUSH (15:35)
[2025-01-24 17:14] VITALS: BP 128/83; PULSE 78; RESP 16; O2SAT 96
== END 2025-01-24 17:31 | disposition home or self-care (01) ==
PROVIDERS: Emergency Provider Emergency Medicine; PCP Family Medicine
DX: R10.9 Unspecified abdominal pain (principal); K58.9 Irritable bowel syndrome, unspecified; F17.210 Nicotine dependence, cigarettes, uncomplicated
CPT/HCPCS: 36415; 74177; 80053; 81001; 83690; 85025; 96361; 96374; 96375; 99284; J1171; J1200; J2405; J2765; J7030; Q9967

== ENCOUNTER 2025-03-02 06:43 | Emergency (ER) | payer MEDICAID, SELFPAY ==
--- NOTE | ~2025-03-02 | XR_ITS ---
X-rays right ankle X-rays right foot Indication: Fall Comparison: None Technique: 4 views right ankle, 4 views right foot Findings/Impression: Right ankle: 1. No fracture or dislocation. Right foot: 1. No fracture or dislocation. Reviewed, dictated and finalized at location R.
[2025-03-02 06:45] VITALS: BP 111/80; PULSE 98; RESP 16; TEMP 36.2; O2SAT 99
--- OUTSIDE RECORDS SUMMARY | 2025-03-02 06:46 | XMS_ITS | Encounter Summary ---
Author Organization [facility] Address [address] [place] [address] Care Team Providers Care Public Relations Supervisor Name Role Phone Jeremie Casanova MD Primary Care Provider Maurice Caldera MD Primary Care Provider [phone] Encounter Details Date Type Department Care Team ([facility] st Contact Info) Description 04/17/2023 Telephone [facility] [address] [place] [address] Corin Aiken, [facility] [address] [place] [address] Social History Tobacco Use Types [...] often do you attend chur ch or bahai services? Never 03/17/2020 Do you belong to any clubs o r organizations such as jainism groups, unions, fraternal or athletic groups, or [...] housing, medical care, and heating? Hard 03/17/2020 [facility] of Occupat ional Health - Occupational Stress [...] AM CDT) 04/17/2023 9:52 AM CDT Narrative [facility] - 04/20/2023 8:06 PM CDT [facility] [address] [place] [address] Test Date: 2023-04-17 Pat Name: NAPOLEON MARTINEZ Department: 105 Room: Gender: Female Patternmaker Plaster: : 1965 Requested By: CORIN NIX Order Number: [id number] Reading MD: Heike Lyle Measurements Intervals [place] Rate: 81 P: 85 ND: 134 QRS: 82 QRSD: 82 T: 36 QT: 361 QTc: 420 Interpretive Statements SINUS RHYTHM POSSIBLE RIGHT VENTRICULAR CONDUCTION DELAY DATA QUALITY MAY AFFECT INTERPRETATION Procedure Note Heike Lyle MD - 04/20/2023 [facility] [address] [place] [address] Test Date: 2023-04-17 Pat Name: NAPOLEON MARTINEZ Department: 105 Room: Gender: Female Patternmaker Plaster: : 1965 Requested By: CORIN NIX Order Number: [id number] Reading MD: Heike Lyle Measurements Intervals [place] Rate: 81 P: 85 ND: 134 QRS: 82 QRSD: 82 T: 36 QT: 361 QTc: 420 Interpretive Statements SINUS RHYTHM POSSIBLE RIGHT VENTRICULAR CONDUCTION DELAY DATA QUALITY MAY AFFECT INTERPRETATION us Corin Nix NUT STEAMER- PROCEDURES-OR DERABLE NO CHARGE Final Result [facility] documented in this encounter Visit Diagnoses Diagnosis Chest pain, unspecified type- Primary documented in this encounter Care Teams Public Relations Supervisor Relationship Specialty Start Date End Date Jeremie Casanova MD [address] [place] [phone] PCP - General FAMILY PRACTICE 01/01/23 07/08/24 Maurice Caldera MD [address] [place] [phone] PCP - General HOSPITALIST 07/09/24 documented as of this encounter
--- OUTSIDE RECORDS SUMMARY | 2025-03-02 06:46 | XMS_ITS | Encounter Summary ---
Author Organization [facility] Address [address] [place] [address] Care Team Providers Care Patient Care Assistant Name Role Phone None, Provider Primary Care Provider Jeremie Bowman MD Primary Care Provider Shen Arora MD Primary Care Provider [phone] Jeremie Casanova MD Primary Care Provider Maurice Caldera MD Primary Care Provider [phone] Encounter Details Date Type Department Care Team (Late st Contact Info) Description 09/05/2017 Abstract [facility] CONVERSION [address] [facility] [place] [address] , Generic Conversion, Social History Tobacco Use Types Packs/Day Years [...] documented as of this encounter Care Teams Patient Care Assistant Relationship Specialty Start Date End Date None, Provider, PCP - General 12/04/18 05/09/19 Jeremie Casanova MD [address] [place] [phone] PCP - General FAMILY PRACTICE 05/10/19 01/27/21 Shen Arora MD [address] [place] [phone] PCP - General INTERNAL MEDICINE 01/28/21 12/31/22 Jeremie Casanova MD [address] [place] [phone] PCP - General FAMILY PRACTICE 01/01/23 07/08/24 Maurice Caldera MD [address] [place] [phone] PCP - General HOSPITALIST 07/09/24 documented as of this encounter
--- OUTSIDE RECORDS SUMMARY | 2025-03-02 06:46 | XMS_ITS | Encounter Summary ---
Author Organization [facility] Address [address] [place] [address] Care Team Providers Care Special Order Jeweler Name Role Phone None, Provider Primary Care Provider Jeremie Bowman MD Primary Care Provider Shen Arora MD Primary Care Provider [phone] Jeremie Casanova MD Primary Care Provider [phone] Maurice Caldera MD Primary Care Provider [phone] Encounter Details Date Type Department Care Team (Late st Contact Info) Description 11/27/2018 Abstract [facility] CONVERSION [address] [place] [address] , Generic Conversion, Social History Tobacco Use [...] documented as of this encounter Care Teams Special Order Jeweler Relationship Specialty Start Date End Date None, Provider, PCP - General 12/04/18 05/09/19 Jeremie Casanova MD [address] [place] [phone] PCP - General FAMILY PRACTICE 05/10/19 01/27/21 Shen Arora MD [address] [place] [phone] PCP - General INTERNAL MEDICINE 01/28/21 12/31/22 Jeremie Casanova MD [address] [place] [phone] PCP - General FAMILY PRACTICE 01/01/23 07/08/24 Maurice Caldera MD [address] [place] [phone] PCP - General HOSPITALIST 07/09/24 documented as of this encounter
--- OUTSIDE RECORDS SUMMARY | 2025-03-02 06:46 | XMS_ITS | Clinical Summary ---
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 MEDICAL USE ONLY. CUTOFF CONCENTRATION FOR DETECTED RESULT: PCP: 25 NG/ML UR CANNABINOID NON DETECTED NON DETECTED 02/03/2025 11:13 AM CDT [facility] Comment: FOR MEDICAL USE ONLY. CUTOFF CONCENTRATION FOR DETECTED RESULT: THC (MARIJUANA): 50 NG/ML UR BARBITURATE NON DETECTED NON DETECTED 02/03/2025 11:13 AM CDT [facility] Comment: FOR MEDICAL USE ONLY. CUTOFF CONCENTRATION FOR DETECTED RESULT: BARBITUATES: 200 NG/ML UR FENTANYL NON DETECTED NON DETECTED 02/03/2025 11:13 AM CDT [facility] Comment: FOR MEDICAL USE ONLY. CUTOFF CONCENTRATION FOR DETECTED RESULT: FENTANYL: 1.0 NG/ML Urine URINE SPECIMEN / Unknown Non-Phlebotomy Collection / Unknown 02/03/2025 9:35 AM CDT 02/03/2025 9:40 AM CDT Marichuy New MD URINE ORDERABLES Final R esult Performing Organization Address City/[facility]/ZIP Co de Phone Number [facility] [address] [place] [address] * PT / INR (02/03/2025 8:54 AM CDT) PROTIME-PATIENT 13.1 11.6 - 14.8 sec 02/03/2025 9:42 AM CDT [facility] INR 1.0 0.9 - 1.2 02/03/2025 9:42 AM CDT [facility] Comment: Therapeutic Ranges INR = 2.0-3.0: Venous thromb, atrial fib, pul embolism, tissue heart valve, ami. INR = 2.5-3.5: Mechanical heart valve Critical value for INR is >/= 4.5 Blood Venipuncture / Unknown 02/03/2025 8:54 AM CDT 02/03/2025 9:21 AM CDT us Marichuy New MD HEMATOLOGY ORDERABLES Fi nal Result Performing Organization Address City/[facility]/ZIP Co de Phone Number [facility] [address] [place] [address] * NT-proBNP (02/03/2025 8:24 AM CDT) Pathologist [facility] NT PROBNP 43.4 <450.0 pg/mL 02/03/2025 9:48 AM CDT [facility] Comment: AGE pg/mL INTERPRETATION All <300 Negative: HF (Heart Failure) unlikely 18 to <50 >=300.0 to <450.0 Indeterminate. Consider other causes of NT-proBNP elevation 50 to 75 >=300.0 to <900.0 Indeterminate. Consider other causes of NT-proBNP elevation >75 >=300.0 to <1800.0 Indeterminate. Consider other causes of NT-proBNP elevation 18 to <50 >=450.0 Positive: HF likely 50 to 75 >=900.0 Positive: HF likely >75 >=1800.0 Positive: HF likely Total protein levels at or above 12.6 mg/dl may falsely decrease NT-proBNP values. Blood Venipuncture / Unknown 02/03/2025 8:24 AM CDT 02/03/2025 9:21 AM CDT us Marichuy New MD CHEMISTRY ORDERABLES Fin al Result [facility] [address] [place] [address] * (ABNORMAL) CBC with Auto Differential (02/03/2025 8:24 AM CDT) Pathologist [facility] WBC 5.61 4.00 - 12.00 10(3)/mcL 02/03/2025 9:24 AM CDT [facility] RBC 4.24 3.80 - 5.30 10(6)/mcL 02/03/2025 9:24 AM CDT [facility] HEMOGLOBIN (HGB) 12.8 12.0 - 15.8 g/dL 02/03/2025 9:24 AM CDT [facility] HEMATOCRIT (HCT) 39.3 36.0 - 47.0 % 02/03/2025 9:24 AM CDT [facility] MCV 92.7 82.0 - 96.0 fL 02/03/2025 9:24 AM CDT [facility] MCH 30.2 26.0 - 34.0 pg 02/03/2025 9:24 AM CDT [facility] MCHC 32.6 31.0 - 36.0 g/dL 02/03/2025 9:24 AM CDT [facility] PLATELET COUNT 287 140 - 440 10(3)/mcL 02/03/2025 9:24 AM CDT [facility] RDW 12.2 11.8 - 15.5 % 02/03/2025 9:24 AM CDT [facility] MPV 10.2 9.7 - 12.4 fL 02/03/2025 9:24 AM CDT [facility] NEUTROPHILS 58.7 47.0 - 73.0 % 02/03/2025 9:24 AM CDT [facility] LYMPHOCYTES 29.8 18.0 - 42.0 % 02/03/2025 9:24 AM CDT [facility] MONOCYTES 6.8 4.0 - 12.0 % 02/03/2025 9:24 AM CDT [facility] EOSINOPHILS 3.4 0.0 - 5.0 % 02/03/2025 9:24 AM CDT [facility] BASOPHILS 0.4 0.0 - 1.0 % 02/03/2025 9:24 AM CDT [facility] IMMATURE GRANULOCYTE 0.9(H) 0.0 - 0.4 % 02/03/2025 9:24 AM CDT [facility] Comment:Immature Granulocyte s includes Metamyelocytes, Myelocytes, and Promyelocytes. ABSOLUTE NEUTROPHILS 3.30 1.60 - 7.70 10(3)/mcL 02/03/2025 9:24 AM CDT [facility] ABSOLUTE LYMPHOCYTES 1.67 1.30 - 3.20 10(3)/mcL 02/03/2025 9:24 AM CDT [facility] ABSOLUTE MONOCYTES 0.38 0.20 - 1.00 10(3)/mcL 02/03/2025 9:24 AM CDT [facility] ABSOLUTE EOSINOPHIL 0.19 0.00 - 0.40 10(3)/mcL 02/03/2025 9:24 AM CDT [facility] ABSOLUTE BASOPHILS 0.02 0.00 - 0.10 10(3)/mcL 02/03/2025 9:24 AM CDT [facility] ABSOLUTE IMMATURE GRANULOCYTE 0.05(H) 0.00 - 0.03 10 (3) mcL. 02/03/2025 9:24 AM CDT [facility] NRBC PER 100 WBC 0 02/04/20 9:24 AM CDT [facility] Blood Venipuncture / Unknown 02/03/2025 8:24 AM CDT 02/03/2025 9:21 AM CDT Marichuy New MD HEMATOLOGY ORDERABLES Fi nal Result Performing Organization Address City/[facility]/ZIP Co de Phone Number [facility] [address] [place] [address] * Magnesium (02/03/2025 8:24 AM CDT) Pathologist [facility] MAGNESIUM 2.2 1.6 - 2.6 mg/dL 02/03/2025 9:45 AM CDT [facility] Blood Venipuncture / Unknown 02/03/2025 8:24 AM CDT 02/03/2025 9:21 AM CDT Marichuy New MD CHEMISTRY ORDERABLES Fin al Result [facility] [address] [place] [address] * (ABNORMAL) POCT Glucose (02/03/2025 8:24 AM CDT) GLUCOSE,BEDSID E POCT 118(H) 70 - 99 mg/dL 02/03/2025 8:25 AM CDT [facility] Comment:Patient RN Performed Blood 02/03/2025 8:24 AM CDT 02/03/2025 8:25 AM CDT us None Provider POINT OF CARE TESTING Final Resu lt [facility] [address] [place] [address] * (ABNORMAL) Comprehensive Metabolic Panel (Cmp) [id number] (02/03/2025 8:24 AM CDT) SODIUM 142 136 - 145 mmol/L 02/03/2025 9:45 AM CDT [facility] POTASSIUM 3.8 3.5 - 5.1 mmol/L 02/03/2025 9:45 AM CDT [facility] CHLORIDE 106 98 - 107 mmol/L 02/03/2025 9:45 AM CDT [facility] CO2, VENOUS 26 22 - 30 mmol/L 02/03/2025 9:45 AM CDT [facility] ANION GAP 13.8 <18.0 mmol/L 02/03/2025 9:45 AM CDT [facility] GLUCOSE 108(H) 70 - 99 mg/dL 02/03/2025 9:45 AM CDT [facility] BUN 21(H) 10 - 20 mg/dL 02/03/2025 9:45 AM CDT [facility] CREATININE, BLOOD 0.66 0.60 - 1.00 mg/dL 02/03/2025 9:45 AM CDT [facility] BUN/CREATININE RATIO 32(H) 12 - 20 ratio 02/03/2025 9:45 AM CDT [facility] TOTAL PROTEIN 7.0 6.0 - 8.0 g/dL 02/03/2025 9:45 AM CDT [facility] ALBUMIN 4.3 3.5 - 5.0 g/dL 02/03/2025 9:45 AM CDT [facility] A/G RATIO 1.6 1.0 - 2.2 02/03/2025 9:45 AM CDT [facility] CALCIUM 8.9 8.7 - 10.5 mg/dL 02/03/2025 9:45 AM CDT [facility] T BILI 0.5 0.2 - 1.2 mg/dL 02/03/2025 9:45 AM CDT [facility] SGOT (AST) 24 <43 U/L 02/03/2025 9:45 AM CDT [facility] SGPT (ALT) 18 <56 U/L 02/03/2025 9:45 AM CDT [facility] ALKALINE PHOSPHATASE 132 40 - 150 U/L 02/03/2025 9:45 AM CDT [facility] GFR, ESTIMATED >60 >=60 02/03/2025 9:45 AM CDT [facility] Comment: Creatinine Clearance is the preferred criteria for selecting drug dose adjustments in renally impaired patients. The GFR is provided as additional pertinent clinical information. GFR is reported in mL/min/1.73 sq m. Calculation based on the Chronic Kidney Disease Epidemiology Collaboration (CKD- EPI) equation refit without adjustment for race. GFR, EST. >60 >=60 025 9:45 AM CDT [facility] GFR, EST. NONAFRICAN >60 >=60 02/03/2025 9:45 AM CDT [facility] Blood Venipuncture / Unknown 02/03/2025 8:24 AM CDT 02/03/2025 9:21 AM CDT us Marichuy New MD CHEMISTRY ORDERABLES Fin al Result [facility] [address] [place] [address] * Critical Care (02/03/2025 8:18 AM CDT) Narrative Marichuy New MD - 02/03/2025 8:18 AM CDT Marichuy New MD 02/03/2025 1:01 PM Critical Care Performed by: Marichuy New MD Authorized by: Marichuy New MD Critical care provider statement: Critical care time (minutes): 30 Critical care was time spent personally by me on the following activities: Ordering and performing treatments and interventions, ordering and review of laboratory studies, discussions with consultants, ordering and review of radiographic studies, pulse oximetry, re-evaluation of patient's condition, review of old charts and examination of patient Marichuy New MD PROCEDURE/MINOR SURGICAL ORDERABLES Final Result * EKG 12 LEAD (02/03/2025 7:55 AM CDT) Pathologist [facility] Ventricular Rate 64 BPM EXTERNAL EKG Atrial Rate 64 BPM EXTERNAL EKG P-R Interval 166 ms EXTERNAL EKG QRS Duration 80 ms EXTERNAL EKG Q-T Duration 450 ms EXTERNAL EKG QTC CALCULATION 464 ms EXTERNAL EKG P [place] 47 degrees EXTERNAL EKG R [place] 33 degrees EXTERNAL EKG T [place] 36 degrees EXTERNAL EKG 02/03/2025 7:55 AM CDT Impressions EXTERNAL EKG - 02/04/2025 4:30 PM CDT Normal sinus rhythm Normal ECG When compared with ECG of 07-NOV-2018 00:18, No significant change was found Confirmed by Rene Cohn ([id number]) on 02/04/2025 4:30:34 PM Narrative Procedure Note Rene Cohn MD PhD - 02/04/2025 IMPRESSION: Normal sinus rhythm Normal ECG When compared with ECG of 07-NOV-2018 00:18, No significant change was found Confirmed by Rene Cohn ([id number]) on 02/04/2025 4:30:34 PM Marichuy New MD IMG ECG ORDERABLES Final Result EXTERNAL EKG * RHYTHM STRIP (02/03/2025 12:00 AM CDT) 02/03/2025 us Provider Scan IMG ECG ORDERABLES Final Result RESULTING AGENCY * EKG SCAN (02/03/2025 12:00 AM CDT) 02/03/2025 us Provider Scan IMG ECG ORDERABLES Final Result RESULTING AGENCY from Last 3 Months Insurance [place] Care Teams Analog Circuit Designer Relationship Specialty Start Date End Date Maurice Caldera MD [address] [place] [address] PCP - General Family Medicine 02/03/25
--- OUTSIDE RECORDS SUMMARY | 2025-03-02 06:46 | XMS_ITS | Clinical Summary ---
Author Organization [facility] Address [address] [place] [address] Care Team Providers Care Rn Staffing Name Role Phone Maurice Caldera MD Primary Care Provider [phone] Allergies No known active allergies Medications escitalopram [...] Problem Noted Date Diagnosed Date Acute pancreatitis ([facility]) 03/17/2020 Irritable bowel syndrome 03/17/2020 Bipolar disorder ([facility]) 03/17/2020 Tobacco abuse 03/17/2020 Gastroesophageal reflux disease [...] How often do you attend chur or temple services? Never 03/17/2020 Do you belong to any clubs o r organizations such as episcopal groups, unions, fraternal or athletic groups, or [...] housing, medical care, and heating? Hard 03/17/2020 [facility] [place] of Occupat ional Health - Occupational Stress [...] Comments Blood Pressure 134/58 07/09/2024 12:30 PM INTERNATIONAL MARKETING MANAGER Pulse 85 07/09/2024 12:12 PM INTERNATIONAL MARKETING MANAGER Temperature 36.9 C (98.5 F) 07/09/2024 12:12 PM INTERNATIONAL MARKETING MANAGER Respiratory Rate 18 07/09/2024 12:12 PM INTERNATIONAL MARKETING MANAGER Oxygen Saturation 97% 07/09/2024 1:00 PM INTERNATIONAL MARKETING MANAGER Inhaled Oxygen Concentration - - Weight 76.2 kg (168 lb) 07/09/2024 12:12 PM INTERNATIONAL MARKETING MANAGER Height 171.5 cm (5' 7.5) 07/09/2024 12:12 PM CS T Body Mass Index 25.92 07/09/2024 12:12 PM INTERNATIONAL MARKETING MANAGER Plan of Treatment Health Maintenance Due Date Last Done Comments ASCVD Statin 1965 Annual Physical 1968 Hepatitis C 09/07/1983 Pneumococcal Vaccine: 50+ Years (1 of 2 - PCV) 1984 Zoster Vaccines (1 of 2) 09/07/2015 PHQ-2 (Physician [place]) 06/22/2024 Lung Cancer Screening 09/24/2024 09/25/2023 , 01/01/2023 ASCVD LDL 11/19/2024 11/20/2023, 09/16/2023, 07/19/2016 COVID-19 Vaccine (3 - 2024-2 6 season) 2025 02/19/2021, 01/26/2021 Mammogram Screening 10/08/2025 10/09/2023, 05/10/2019 Colorectal Cancer [...] of tobacco use COLONOSCOPY 06/10/2019 9:05 AM INTERNATIONAL MARKETING MANAGER from Last 3 Months or Most Recently Relevant to Health Maintenance Results * LIPID PANEL (11/20/2023 11:55 AM CDT) CHOLESTEROL 183 MG/DL 11/21/2023 4:47 PM CDT [facility] Comment:DESIRABLE: <200 TRIGLYCERIDES 75 MG/DL 11/21/2023 4:47 PM CDT [facility] Comment:<150 NORMAL HDL 61 >49 MG/DL 11/21/2023 4:47 PM CDT [facility] LDL-C 107 MG/DL 11/21/2023 4:47 PM CDT [facility] Comment:100-129 NEAR OR ABOV E OPTIMAL VLDL CALCULATION 15 MG/DL 11/21/19 4:47 PM CDT [facility] Comment:REFERENCE RANGE NOT ESTABLISHED CHOL/HDL RATIO 3.0 11/21/2023 4:47 PM CDT [facility] Comment:REFERENCE RANGE NOT ESTABLISHED LDL/HDL 1.8 11/21/2023 4:47 PM CDT [facility] Comment:REFERENCE RANGE NOT ESTABLISHED NON HDL CHOLESTEROL 122 MG/DL 11/21/2023 4:47 PM CDT [facility] Comment:REFERENCE RANGE NOT ESTABLISHED 11/20/2023 11:5 5 AM CDT [facility] Final Result Performing Organization Address City/State/[facility] Co de Phone Number [facility] [address] [place] [address], [id number] * MG SCREENING W PETER AYDE DIGI [...] either breast to suggest malignancy. Lui Cannon [place] MAMMO Final Result * CT LUNG SCREENING [...] MD, 09/30/2023 8:35 AM us Odilon Reis SALMON GILLNET VESSEL OPERATOR CT Fin al Result * COLONOSCOPY (06/10/2019 9:05 AM INTERNATIONAL MARKETING MANAGER) us Jb Mcclelland MD GI PROCEDURE ORDERABLES [...] 2:17 PM 07/05/2019 8:56 AM Care Teams Rn Staffing Relationship Specialty Start Date End Date Maurice Caldera MD [address] [place] [address] PCP - General HOSPITALIST 07/09/24
--- OUTSIDE RECORDS SUMMARY | 2025-03-02 06:46 | XMS_ITS | Patient Health Record ---
Author Organization [facility] [employer] [facility] Address [address] [place] [address] Care Team Providers Care Veterinary Practice Manager Name Role Phone Elliot Kraus Unavailable [phone] Reason For Referral No Information Social History Sex Assigned At : Social History Observation Description Sex Assigned At Female Encounters Encounter [facility] Date [facility] [address] [facility] [address] [place] [address] 07/18/2024 Elliot Kraus Plan Of Treatment No Information Insurance Providers Payer Name Payer Address Payer Phone Subscriber Number Group Number Insured Name Patient Relationship to Insured Coverage Start Date Coverage End Date [facility] [address] [place] [address] [id number] Napoleon Howell Self - patient is the insured
--- OUTSIDE RECORDS SUMMARY | 2025-03-02 06:46 | XMS_ITS | Clinical Summary ---
Author Organization [facility] Address [address] [place] [address] Care Team Providers Care Inside Sales Supervisor Name Role Phone Maurice Caldera MD Primary Care Provider [phone] Allergies No known active allergies Medications traZODone [...] Date Type Department Care Team Description 02/06/2025 6:33 AM CDT - 02/06/2025 11:59 PM CDT Hospital Encounter [facility] Emergency, Room R Discharge Disposition: Discharge to home or self care 02/03/2025 7:30 AM CDT - 02/03/2025 11:59 PM CDT Hospital Encounter [facility] Emergency, Room R Discharge Disposition: [...] pur e alcohol) 3 times a week [facility] Utilities Answer Date Recorded In the past 12 months has th e electric, gas, oil, or water company threatened to shut off services in your home? No 11/02/2024 Social Connection and Isolation Panel Answer Date Recorded In a typical week, how many times do you talk on the phone with family, friends, or neighbors? More than three times a week 11/02/2024 How often do you get togethe r with friends or relatives? More than three times a week 11/02/2024 How often do you attend chur ch or caodaism services? More than 4 times per year [...] any time in the past 12 m [facility], were you homeless or living in a long term (including now)? No 11/02/2024 Personal Safety Answer Date Recorded Have you ever been in or are you currently in a harmful physical or emotional relationship or is someone making you feel afraid or unsafe? Denies 11/10/2024 Comments No Sex and Gender Information Value Date Recorded Sex Assigned at Not on file Legal Sex Female 12:38 AM SALON COORDINATOR Gender Identity Female 03/07/2021 7:11 AM CDT [...] Vaccine (1 of 2) 09/07/2015 Covid-19 Vaccine (2023-2 5 season) 2024 02/19/2021, 01/27/2021 Breast Cancer Screening-Mammogram 10/08/2024 10/09/2023, 10/09/2023, 05/10/2019 Influenza Vaccine (#1) 2025 , 03/31/2022 Depression Screening 10/18/2025 10/18/2024, 10/18/2024 DTaP/Tdap/Td Vaccine (2 - Td or Tdap) 03/31/2032 03/31/2022 Hepatitis C Screening Completed 03/07/2021 Pneumococcal vaccine <65 Aged Out No longer eligible based on patient's age to complete this topic Procedures Procedure Name Priority Date/Time Associated Diagnosis Comments HEPATITIS PANEL, ACUTE Routine 03/07/2021 8:05 AM CDT Recent unexplained weight loss from Last 3 Months or Most Recently Relevant to Health Maintenance Results * Hepatitis panel, acute (03/07/2021 8:05 AM CDT) Hep A IgM Nonreactive Nonreactive [facility] ([facility]) Comment: Interpretive Data: If Hep A IgM Ab is reported as Equivocal, a new sample should be drawn in two weeks for testing. Current interpretive data was last revised on 19. Testing performed by: [facility], [address] [place] [address]., [id number] Hep B core IgM Nonreactive Nonreactive [facility] ([facility]) Comment: Interpretive Data If HepB Core IgM Ab is reported as Equivocal, a new sample should be drawn in two weeks for testing. Current interpretive data was last revised on 19. Testing performed by: [facility], [address] [place] [address]., [id number] Hep C Ab Nonreactive Nonreactive [facility] [...] on 2019. Testing performed by: [facility], [address] [place] [address]., [id number] HepBsAg Nonreactive Nonreactive [facility] ([facility]) Comment:Testing performed by : [facility], [address] [place] [address]., [id number] Blood 03/07/2021 8:05 AM CDT 03/07/2021 1:30 PM CDT us Tristin Castillo MD LAB MICROBIOLOGY - GENERAL ORDERABLES Final Result JOS[facility] MIGUEL FEL[facility] ([facility]) [address] [facility] Department [place] [address] from Last 3 Months or Most Recently Relevant to Health Maintenance Insurance [facility] MEDICAID IDPA COMMERCIAL [facility] BL[facility] ACCESS [facility] BLUE ACCESS [place] Advance Directives For more information, please contact: [phone] * Full Code (Latest Code Status on File) Date Activated Date Inactivated Comments 11/11/2024 4:37 AM 11/12/2024 3:59 PM * Full Code Date Activated Date Inactivated Comments 11/01/2024 7:53 PM 11/02/2024 8:31 PM * Full Code Date Activated Date Inactivated Comments 11/03/2018 3:04 AM 11/03/2018 7:38 PM Care Teams Inside Sales Supervisor Relationship Specialty Start Date End Date Maurice Caldera MD [address] [place] [address] PCP - General Family Medicine 06/24/24
--- OUTSIDE RECORDS SUMMARY | 2025-03-02 06:46 | XMS_ITS | Clinical Summary ---
Author Organization [facility] Address [address] [place] [address] Care Team Providers Care Production Repairer Name Role Phone Unavailable Primary Care Provider Unavailabl e Source Comments [facility],non-owned Affiliates and Associated Physician Practices is amultiple site organization consisting of ambulatory clinics and hospital sitesin [place], [place], [place] and [place]. This disclosure is being madepursuant to the Care Everywhere program and may not contain all information available regarding this patient. Last updated 18.[facility] Encounters Date Type Department Care Team Description 01/05/2025 Telephone [facility] - [facility] [address] [place] [address], [address] [place] [address] Group, [facility] Medical Referral 12/29/2024 Transcribe Orders [facility] [address] [place] [address], [address] [place] [address] Kajal Aquino Fibromyalgia from Last [...]
--- OUTSIDE RECORDS SUMMARY | 2025-03-02 06:46 | XMS_ITS | Encounter Summary ---
Author Organization [facility] Healthcare Address [address] [place] [address] Care Team Providers Care Moveman Name Role Phone Maurice Caldera MD Primary Care Provider Reason for Visit * Auth/Cert (Routine) Specialty Diagnoses / Procedures Referred By Taisha portillo Referred To Contact Diagnoses Dysphagia, unspecified type Esophageal stricture Dysphagia, unspecified type [R13.10] Esophageal stricture [K22.2] Procedures AR ESOPHAGOGASTRODUODENOSCOPY TRANSORAL DIAGNOSTIC ESOPHAGOGASTRODUODENOSCOPY Referral ID Status Reason Start Date Expiration Date Visits Re quested Visits Authorized [id number] 1 1 Encounter Details Date Type Department Care Team (Late st Contact Info) Description 11/23/2024 Hospital Encounter [facility] [address] [place] [address] Kyler Curtis, DO [address] [address] Social History Tobacco Use Types Packs/Day Years Used Date Smoking Tobacco: Former Cigarettes 0.5 40 Alcohol Use Standard Drinks/Week Comments Yes 1 (1 standard drink = 0.6 oz pur e alcohol) 3 times a week [facility] Utilities Answer Date Recorded In the past 12 months has [employer] electric, gas, oil, or water company threatened [...] often do you attend chur ch or shinto services? More than 4 times per year 11/02/2024 Do you belong to any clubs o r organizations such as hinduism groups, unions, fraternal or athletic groups, or [...] any time in the past 12 m [facility], were you homeless or living in a residential (including now)? No 11/02/2024 Personal Safety Answer Date Recorded Have you ever been in or are you currently in a harmful physical or emotional relationship or is someone making you feel afraid or unsafe? Denies 11/10/2024 Comments No Sex and Gender Information Value Date Recorded Sex Assigned at Not on file Legal Sex Female 12:38 AM CAPACITY PLANNING MANAGER Gender Identity Female 03/07/2021 7:11 AM CDT Sexual Orientation Straight 03/07/2021 7: 11 AM CDT documented as of this encounter Functional Status * AUDIT-C Score Answer Date of Assessment Author 4 [...] esophagus documented in this encounter Care Teams Moveman Relationship Specialty Start Date End Date Maurice Caldera MD [address] [facility] DE[facility] [place] [address] PCP - General Family Medicine 06/24/24 documented as of this encounter
--- NOTE | 2025-03-02 06:55 | ED.LOWEXIN ---
HPI - Extremity Injury (Lower) General Chief Complaint: Extremity Injury, Lower Stated Complaint: foot pain Time Seen by Provider: 03/02/25 06:46 Source: patient Mode of arrival: ambulatory History of Present Illness HPI Narrative: or 59-year-old female with a history of anxiety /depression, GERD, viral pneumonia requiring intubation in 2021 presents to the ED with -- right ankle pain. The patient stepped off the porch and twisted her ankle yesterday afternoon. Subsequently the patient has been able to bear weight. She presents with ongoing right pain around the medial malleolus. No other injuries noted. Onset (ago): day(s) ( One day ago) Injury: Right: ankle Type of Injury: eversion Place: home Relieving factors: immobilization Exacerbating factors: weight bearing and movement Context: fall Other symptoms: none Related Data Home Medications ?Medication ?Instructions ?Recorded ?Confirmed ?Last Taken ?Type escitalopram oxalate 10 mg tablet 10 mg PO DAILY 06/27/21 01/24/25 10/14/21 History (Lexapro) aripiprazole 5 mg tablet (Abilify) 5 mg PO DAILY 10/14/21 01/24/25 10/13/21 History bupropion HCl 150 mg 24 hr tablet, 150 mg PO DAILY 10/14/21 01/24/25 10/07/21 History extended release cyclobenzaprine 10 mg tablet 10 mg PO Q12H 01/24/25 01/24/25 Unknown History trazodone 50 mg tablet 50 mg PO .Night 01/24/25 01/24/25 Unknown History Allergies Allergy/AdvReac Type Severity Reaction Status Date / Time No Known Allergies Allergy Verified 03/02/25 06:49 Review of Systems Review of Systems: All systems reviewed & are unremarkable except as noted in HPI and below PMFSH Past Medical History Medical History Lower abdominal pain Depression Anxiety Fatty liver Family history of colon cancer in father Diverticulosis LLQ pain Surgical History Surgical History History of hysterectomy History of esophagogastroduodenoscopy (EGD) History of colonoscopy Social History Social History Smoking status: Current every day smoker Tobacco type: cigarettes Gender identity (if verbalized by the patient): Female Exam Narrative: vital stable Const: General: no acute distress Nutritional Appearance: well nourished Orientation/consciousness: patient oriented x3 Limitations: no limitations HENMT: Head: normal to inspection Ears: external ears normal Face/Nose/Sinus: Normal external nose present Face and sinus: normal facial exam Mouth: Yes Normal oral and palatal mucosa present Throat: posterior oropharynx normal Eyes: Conjunctivae: conjunctivae normal Pupils: Equal, round and reactive pupils present EOM: EOMs intact bilaterally Direct Ophthalmoscopy: no photophobia Neck: Neck: normal visual inspection, no lymphadenopathy and no meningeal signs Chest: Chest palpation & inspection: normal inspection of the chest Resp: Effort & Inspection: normal respiratory effort Auscultation: clear to auscultation bilaterally Cardio: Rate: regular rate Rhythm: regular rhythm GI: GI Palp: Yes Soft to palpation Auscultation: normal bowel sounds Other: no tenderness/rigidity/rebound. : General: Yes no CVA tenderness Back/Spine/Pelvis: Back: no CVA tenderness Skin: General skin exam: normal color Rashes: no rashes Wounds: no wounds Neuro: General: patient oriented x3, moves all extremities, no meningeal signs, no focal motor deficits and CN's II-XI intact bilaterally Cranial nerves: Yes Nystagmus not present Speech: normal speech Extrem: General: normal to inspection Other: Right ankle-- tenderness around the medial malleolus. No tenderness of the foot/calcane Psych: Mental Status: mental status grossly normal Affect: normal affect Attitude: cooperative Course Course Emergency Course: Right ankle sprain. sprain of the medial collateral ligament of the ankle. Will sign out the patient to Dr. Canales Vital Signs Vital signs: Vital Signs Temperature 36.2 C L 03/02/25 06:45 Pulse Rate 98 03/02/25 06:45 Respiratory Rate 16 03/02/25 06:45 Blood Pressure 111/80 03/02/25 06:45 Pulse Oximetry 99 03/02/25 06:45 Oxygen Delivery Room Air 03/02/25 06:45 Temperature 36.2 C L 03/02/25 06:45 Pulse Rate 64 03/02/25 07:52 Respiratory Rate 20 03/02/25 07:52 Blood Pressure 133/64 03/02/25 07:52 Pulse Oximetry 96 03/02/25 07:52 Oxygen Delivery Room Air 03/02/25 07:52 MDM - Extremity Injury (Lower) MDM Narrative Medical decision making narrative: ankle sprain Differential Diagnosis Differential diagnosis: Likely ankle fracture Lab Data Attestation: I reviewed the patient's lab results. Discharge Plan Discharge Clinical Impression: Sprain of right foot Patient Disposition: Home Condition: Stable Instructions: Antibiotic Form, Foot Sprain (ED) Additional Instructions: advise rest can use ice to affected foot keep elevated continue Emre wrap can take medicine as prescribed follow with primary if symptoms persist or worsen. Patient Language: Croatian Prescriptions: New naproxen 500 mg tablet 500 mg PO BID PRN (Reason: pain) Qty: 14 0RF No Action escitalopram oxalate [Lexapro] 10 mg tablet 10 mg PO DAILY aripiprazole [Abilify] 5 mg tablet 5 mg PO DAILY bupropion HCl 150 mg tablet extended release 24 hr 150 mg PO DAILY phenazopyridine [Pyridium] 200 mg tablet 200 mg PO TID Qty: 6 0RF albuterol sulfate [Ventolin HFA] 90 mcg/actuation HFA aerosol inhaler 2 puff inhalation QID PRN (Reason: shortness of breath or wheezing) Qty: 8.5 0RF cyclobenzaprine 10 mg tablet 10 mg PO Q12H trazodone 50 mg tablet 50 mg PO .Night dicyclomine 20 mg tablet 20 mg PO QID PRN (Reason: abdominal pain) Qty: 20 0RF ondansetron HCl 4 mg tablet 4 mg PO Q4H Qty: 10 0RF Rx Instructions: 1st dose 1-2 hr before radiation Follow-up/Referrals: Karen Caldera MD [Primary Care Provider, Cardiology] Time of Disposition: 07:49
--- NOTE | 2025-03-02 07:06 | PC.NURSE ---
report given to LISA Zimmerman
[2025-03-02] MEDS: KETOROLAC (*BKC) 60 MG/2 ML VIAL IM (07:11)
[2025-03-02 07:52] VITALS: BP 133/64; PULSE 64; RESP 20; O2SAT 96
--- NOTE | 2025-03-02 07:56 | PC.NURSE ---
during discharge instructions, pt requesting post op shoe to assist with walking, dr woods notified. post op shoe applied to right foot
== END 2025-03-02 07:52 | disposition home or self-care (01) ==
PROVIDERS: Emergency Provider Internal Medicine Critical Care Medicine; PCP Internal Medicine
DX: S93.601A Unspecified sprain of right foot, initial encounter (principal); F17.210 Nicotine dependence, cigarettes, uncomplicated; X50.0XXA Overexertion from strenuous movement or load, initial encounter
CPT/HCPCS: 73610; 73630; 96372; 99283; J1885